=== PATIENT | female | born 1980 | race Caucasian/White ===

== ENCOUNTER 2017-06-08 23:07 | Emergency (ER) | payer MEDICAID, SELFPAY ==
[2017-06-08 23:08] VITALS: BP 147/91; PULSE 86; RESP 16; TEMP 36.5; BMI 37.5
[2017-06-08] MEDS: LORazepam 0.5 MG Tablet 1 MG PO (23:42)
[2017-06-08] MEDS: DiphenhydrAMINE 25 MG Capsule PO (23:42)
--- NOTE | 2017-06-08 23:49 | ED.DCSUM_ITS ---
- ER Visit Summary Date of Service: 06/08/17 Chief Complaint: Vertigo History of Present Illness: The patient is a 36 F who had relatively sudden onset of dizziness that feels like everything is spinning, vomiting, and diplopia. This started around 5 hours prior to arrival. She states there is also a discomfort in her right ear, however she can hear out of it and it is not ringing. She does have a headache. She has never had this before. She cannot recall what exactly she was doing when this all started. Her symptoms are worse when she turns her head and when she lies down. They are not resolved when sitting at rest, still. She is extremely anxious. Her father helps provide some of the history. He has a history of vertigo as well. Physical Examination: Blood pressure 147/91, other vital signs are normal. She is extremely anxious, however she is keenly alert and oriented, her mental status is at baseline otherwise. No signs of head trauma. Her right TM is not able to be visualized at all due to external auditory canal cerumen impaction. Her left EAC is clear and her left TM is normal. She has no mastoid tenderness , erythema, swelling. She is not able to perform extraocular movements. She turns her whole head when asked, and with multiple attempts, she covers her face and starts crying and states that she is not able. There is no obvious nystagmus while looking straight ahead. PERRLA. She has a normal peripheral neurologic exam. Her abdomen is benign, lungs are clear, heart is regular. She is obese. Her neck is supple with full range of motion without any apparent difficulty. Test Results: CT head negative Emergency Department Course and Treatment: Patient was given oral Ativan, Phenergan, Benadryl. On reevaluation, she appears and feels much better. She still has some very mild vertigo but the diplopia is gone. She has not vomited. She was given ibuprofen for headache, which is now gone. Suspect that this is likely peripheral in nature. The cerumen impaction on the right appears to be hard, and not very amenable to irrigation or physical removal. Therefore I gave her recommendations for softening the cerumen over the next week, and having her ear reevaluated at some point. Father is okay taking her home to rest. Treatment Plan: Prn Phenergan, outpatient follow-up for persistent symptoms Disposition: Discharge home Impression: Acute peripheral vertigo, unspecified Cerumen impaction right ear This note was generated with [employer] dictation software. It may contain incorrect words, spelling, and punctuation that were not noted in review of the chart prior to signing ED Disposition - Plan for ED Patient: Disposition: Home or Assisted Living Chief Complaint: Nausea/Vomiting Instructions: ED Vertigo Unspecified, ED Cerumen Impaction, Home Care Prescriptions: ProMETHAzine [Phenergan] 25 mg PO Q6H PRN PRN #15 tab PRN Reason: nausea or vertigo Referrals: Erwin Orozco MD [Primary Care Provider] - 3-5 Days if not improving
[2017-06-09] MEDS: Ibuprofen 600 MG Tablet PO (00:26)
[2017-06-09 02:07] VITALS: BP 135/73; PULSE 87; RESP 18; O2SAT 98
--- NOTE | 2017-06-09 23:28 | CT_ITS ---
STUDY: CT BRAIN WITHOUT CONTRAST REASON FOR EXAM: Female, 36 years old. Dizziness, nausea, and vomiting. Elevated blood pressure. RADIATION DOSAGE (If Supplied By Facility): CTDIvol = ( 44.99 ) mGy, DLP = ( 762.36 ) mGycm TECHNIQUE: Transaxial CT imaging of the brain was performed without administration of intravenous contrast material. Individualized dose optimization techniques were used for this CT. COMPARISON: 12/22/2008. FINDINGS: Normal soft tissue structures. Normal calvarium. Normal size ventricles and extra-axial spaces for the patient's age. Normal white matter tracts of the cerebral hemispheres. Normal basal ganglia and thalami. Normal brainstem. Normal cerebellum. There is no intracranial hemorrhage. There are no findings of an acute ischemic infarction. There is mild chronic mucoperiosteal thickening in the right maxillary sinus. There is also minimal mucoperiosteal thickening in left ethmoid sinus, consistent with chronic disease. There is complete opacification of the left maxillary sinus. There is no definite expansion of the left maxillary sinus antonio, however, there does appear to been minimal interval thinning of the posterolateral sinus wall compared with previous study. I suspect that this represents a mucocele overlying a pre-existing polyp or retention cyst. CT/Brain/Head without Contrast IMPRESSION: Normal unenhanced CT scan of the brain. Suspect a mucocele of the left maxillary sinus, overlying pre-existing polyp or retention cyst. No evidence for acute sinusitis. Electronically Signed: Doug Floyd MD at 1:56 EST , Service support ,
== END 2017-06-09 02:11 | disposition home or self-care (01) ==
PROVIDERS: Emergency Provider Emergency Medicine; Family Provider Family Medicine; PCP Family Medicine
DX: H81.399 Other peripheral vertigo, unspecified ear (principal); H61.21 Impacted cerumen, right ear; E66.9 Obesity, unspecified; G40.909 Epilepsy, unspecified, not intractable, without status epilepticus
CPT/HCPCS: 70450; 99283

== ENCOUNTER 2017-07-16 19:59 | Emergency (ER) | payer MEDICAID, SELFPAY ==
[2017-07-16 19:59] VITALS: BP 146/92; PULSE 109; RESP 20; TEMP 36.6; O2SAT 99; BMI 38.3
--- NOTE | 2017-07-16 20:30 | RAD_ITS ---
STUDY: X-RAY - RIGHT FOOT CLINICAL: Female, 36 years old. Pain TECHNIQUE: 3 view(s) of the foot. COMPARISON: None. FINDINGS: Normal talus, calcaneus, and tarsal bones. Normal visualized subtalar, talonavicular, calcaneocuboid, tarsal and tarsometatarsal articulations. Normal metatarsi. Normal metatarsophalangeal joint of the great toe. Normal tibial and fibular sesamoid bones. Normal interphalangeal joint of the great toe. Normal phalanges of the great toe. Normal second through fifth metatarsophalangeal joints. Normal interphalangeal joints and phalanges of the lesser toes. Mild soft tissue edema. RAD/Foot min 3 Views IMPRESSION: No acute bony injury of the foot. Electronically Signed: Johnnie Gallego DO at 20:54 EDT Tel [phone], Service support ,
--- NOTE | 2017-07-16 20:35 | RAD_ITS ---
STUDY: X-RAY - RIGHT ANKLE REASON FOR EXAM: Female, 36 years old. Pain TECHNIQUE: 3 view(s) of the ankle. COMPARISON: None. FINDINGS: Normal visualized distal tibia. Oblique fracture involving the distal fibula. Normal medial malleolus. Old fracture or accessory ossification distal to the tip of the lateral malleolus. Normal tibiotalar articulation and ankle mortise. Normal visualized talus and calcaneus. The visualized subtalar, talonavicular, calcaneocuboid and tarsal articulations are normal. Significant lateral soft tissue swelling RAD/Ankle min 3 Views IMPRESSION: Distal fibular fracture. Electronically Signed: Johnnie Gallego DO at 21:06 EDT Tel [phone], Service support ,
[2017-07-16] MEDS: Naproxen 500 MG Tablet PO (21:05)
[2017-07-16] MEDS: HYDROcodone Bitartrate/Apap 5/325 Tablet PO ×2 (21:05→21:48)
--- NOTE | 2017-07-16 21:34 | ED.VISSUMM ---
- ER Visit Summary Date of Service: 07/16/17 Chief Complaint: Right foot and ankle pain History of Present Illness: The patient is a 36 F who states she tripped over a curb around noon today. She has had increasing pain in the right ankle and difficulty ambulate in. She is using a walker that she had at home to help her ambulate. Physical Examination: Vital signs are unremarkable. Patient sitting upright in bed. She is tearful and anxious. Head and neck examination was no external sign of trauma. Heart is regular rate and rhythm. Lungs are grossly clear. Abdomen is soft and nontender. Lower extremity examination reveals diffuse tenderness around the right ankle. She does have edema noted. She has mild tenderness throughout the right foot. She has strong distal pulses. There is no tenderness at the proximal fibula. Test Results: Right foot x-rays reveal no acute bony injury. Right ankle x-rays reveal distal fibula fracture. Emergency Department Course and Treatment: Patient is given Naprosyn and [place] for pain. Images were transmitted to Dr. Lr via [employer]. Patient will be placed in a walking boot and is to be nonweightbearing. She is to see him in the office next week for follow-up. Patient is given a prescription for [place]. Treatment Plan: [] Disposition: Discharge Impression: Right distal fibula fracture This note was generated with [employer] dictation software. It may contain incorrect words, spelling, and punctuation that were not noted in review of the chart prior to signing ED Disposition - Plan for ED Patient: Disposition: Home or Assisted Living Chief Complaint: Lower Extremity Injury Instructions: ED Fx Ankle Lateral Malleolus Prescriptions: Hydrocodone Bitart/Apap 5-325 [[place] 5/325] 1 - 2 tablet PO Q6H PRN PRN 4 Days #20 tablet PRN Reason: Pain Referrals: Stanley Lr DO [STAFF PHYSICIAN] - 1 Week
--- NOTE | 2017-07-16 21:37 | DCINST.ED_ITS ---
ED Disposition - Plan for ED Patient: Disposition: Home or Assisted Living Chief Complaint: Lower Extremity Injury Instructions: ED Fx Ankle Lateral Malleolus Prescriptions: Hydrocodone Bitart/Apap 5-325 [[place] 5/325] 1 - 2 tablet PO Q6H PRN PRN 4 Days # 20 tablet PRN Reason: Pain Referrals: Stanley Lr DO [STAFF PHYSICIAN] - 1 Week
[2017-07-16 21:52] VITALS: BP 148/88; PULSE 95; RESP 22; O2SAT 100
== END 2017-07-16 21:59 | disposition home or self-care (01) ==
PROVIDERS: Emergency Provider Emergency Medicine; Family Provider Family Medicine; PCP Family Medicine
DX: S82.831A Other fracture of upper and lower end of right fibula, initial encounter for closed fracture (principal); E66.9 Obesity, unspecified; W18.49XA Other slipping, tripping and stumbling without falling, initial encounter; Y93.01 Activity, walking, marching and hiking; Y92.89 Other specified places as the place of occurrence of the external cause; Y99.8 Other external cause status
CPT/HCPCS: 73610; 73630; 99284

== ENCOUNTER → 2017-07-26 13:09 | Outpatient (CLI) | payer MEDICAID, SELFPAY ==
--- NOTE | 2017-07-26 13:11 | RAD_ITS ---
STUDY: X-RAY - RIGHT ANKLE REASON FOR EXAM: Female, 36 years old. Fibular fracture TECHNIQUE: 3 view(s) of the ankle. COMPARISON: 07/16/2017. FINDINGS: When compared with the prior exam, there is no significant change in the previously seen fracture of the right distal fibula. There is a stable old fracture of the lateral malleolus. There is no acute fracture or dislocation. There is stable soft tissue swelling. There are no radiodense foreign bodies. RAD/Ankle min 3 Views IMPRESSION: No significant change when compared with 07/16/2017. Electronically Signed: Markos Bennett, at 23:55 EDT Tel , Service support ,
== END ==
PROVIDERS: Family Provider Family Medicine; PCP Family Medicine; Visit Provider Orthopaedic Surgery
DX: S82.401A Unspecified fracture of shaft of right fibula, initial encounter for closed fracture (principal)
CPT/HCPCS: 73610

== ENCOUNTER → 2017-08-09 08:18 | Outpatient (CLI) | payer MEDICAID, SELFPAY ==
--- NOTE | 2017-08-09 08:22 | RAD_ITS ---
STUDY: X-RAY - RIGHT ANKLE REASON FOR EXAM: Female, 36 years old. Fracture follow-up TECHNIQUE: 3 view(s) of the ankle. COMPARISON: 07/26/2017 FINDINGS: There is no change in alignment to the distal fibular fracture. Normal visualized talus and calcaneus. The visualized subtalar, talonavicular, calcaneocuboid and tarsal articulations are normal. There is mild lateral soft tissue swelling. RAD/Ankle min 3 Views IMPRESSION: Distal fibular fracture without change in alignment. Electronically Signed: Arnoldo Urias DO at 10:26 EDT Tel , Service support ,
== END ==
PROVIDERS: Family Provider Family Medicine; PCP Family Medicine; Visit Provider Orthopaedic Surgery
DX: S82.831A Other fracture of upper and lower end of right fibula, initial encounter for closed fracture (principal)
CPT/HCPCS: 73610

== ENCOUNTER → 2017-08-28 09:47 | Outpatient (CLI) | payer MEDICAID, SELFPAY ==
--- NOTE | 2017-08-28 09:49 | RAD_ITS ---
STUDY: X-RAY - RIGHT ANKLE REASON FOR EXAM: Female, 36 years old. History of distal fibular fracture. TECHNIQUE: 3 view(s) of the ankle. COMPARISON: Comparison is made with prior examination of August 09, 2017. FINDINGS: Stable appearance of the oblique fracture of the distal fibula. Healing is seen. Stable appearance of the avulsed fracture of the lateral malleolus. Normal medial and lateral malleoli. Normal tibiotalar articulation and ankle mortise. Normal visualized talus and calcaneus. The visualized subtalar, talonavicular, calcaneocuboid and tarsal articulations are normal. Persistent soft tissue swelling. RAD/Ankle min 3 Views IMPRESSION: Since prior study, there is some healing of the distal fibular fracture. Electronically Signed: Doe Enriquez MD at 14:01 EDT Tel [phone], Service support ,
== END ==
PROVIDERS: Family Provider Family Medicine; PCP Family Medicine; Visit Provider Orthopaedic Surgery
DX: S82.831A Other fracture of upper and lower end of right fibula, initial encounter for closed fracture (principal)
CPT/HCPCS: 73610

== ENCOUNTER 2017-10-23 12:00 | Outpatient (RCR) | payer MEDICAID, SELFPAY ==
--- NOTE | 2017-09-17 13:51 | HP.PTEVAL ---
Patient's Visit Information JANETH PENNY is a 36 year old F referred to Physical Therapy by Stanley Lr DO with a diagnosis of R ankle Fx. Date of Evaluation: 09/17/17 Physical Therapist: Richard aGr PT, - Visit Plan Frequency: 1-2x /Week Duration: 6 Weeks Plan: R ankle stretching and strengthening, balance and proprio, core stab, bike, and HEP - Subjective Subjective: DOI: 07/16/17. Pt reports she twisted her R ankle whivh resulted in a fx to her R ankle at that time. Pt reports she wasin a walking boot for approximately 6 weeks. Pt reports she is very stiff at this time. Pt reports she is supposed to wean out of the boot now when she is at home. Pt reports she lives with a friend in an appartment. Pt reports she has occasional sleep diff at this time. 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 No stairs at home. 5/10 at rest. - Pain R ankle Pain Intensity (Out of 10): 5 - Objective Neuro: R LE lateral sensation is hyposensitive to light touch. All others are WNL. ROM: L ankle DF= 7, PF= 60; R ankle DF= -12, PF= 45. MMT: L ankle is 5/5 throughout; R ankle 3-/5 and painful with all testing. Gait; Pt is able to ambulate 120 ft with boot until noting fatigue - Goals Goal 1:: Decrease R ankle pain x 50% to aid with sleep Goal Time Frame: 4-6 Weeks Goal 2:: Increase R ankle DF ROM x 10 degrees to aid with restoring a more normal gait pattern Goal Time Frame: 4-6 Weeks Goal 3:: Increase R ankle strength x 1 grade to aid with walking tolerance Goal Time Frame: 4-6 Weeks Goal 4:: I with HEP Goal Time Frame: 4-6 Weeks - Rehabilitation Potential Physical Therapy Diagnosis: R ankle weakness, pain, and limited ROM secondary to R ankle Fx Rehabilitation Potential: Good - Anticipated Interventions Patient/Client Instruction: Educate patient on: Condition, Plan of Care For the Purpose of:: To improve self management Therapeutic Exercise to Include: Strength training, Endurance training, Balance training, Flexibilty training, Gait and locomotor training, Active ROM, Dynamic Lumbar Stabilization For the Purpose of:: To decrease pain, To increase ROM, To improve muscle performance and motor function Cryotherapy (ice pack, ice massage): Yes For the Purpose of:: To decrease pain Thank you for the opportunity to evaluate your patient. For Medicare and Medicare HMO plans, please review the plan of care and approve it. It will need to be FAXED BACK to us at [phone] for Medicare purposes. Please let me know if there are questions or concerns regarding this plan of care. Physician Signature: Date:
--- NOTE | 2017-10-23 13:03 | HP.PTDCSUM_ITS ---
HP - PT D/C Summary It has been my pleasure to treat JANETH PENNY under orders from Stanley Lr DO, for the diagnosis of R ankle Fx for a total of 13 visit(s). Discharge Date: Please see the following information for a summary of their discharge status. - Subjective Subjective: Pt reports she has no pain this date - Pain R ankle Pain Intensity (Out of 10): 0 - Objective Objective/Function: R ankle pain 0/10. R ankle DF= 0, PF= 35. R ankle MMT: 5/ 5 throughout. Pt is I with HEP. Rx goals achieved - Goals Goal 1:: Decrease R ankle pain x 50% to aid with sleep Goal Progress: Goal Met Goal 2:: Increase R ankle DF ROM x 10 degrees to aid with restoring a more normal gait pattern Goal 3:: Increase R ankle strength x 1 grade to aid with walking tolerance Goal 4:: I with HEP Goal Progress: Goal Met - Plan Plan: Discharge - D/C Information If there are questions or concerns regarding this patient's physical therapy, please feel free to call me at [phone]. Thank you for the referral of this patient. Sincerely, Richard Gar, PT,
== END 2017-10-23 19:00 | disposition home or self-care (01) ==
LOC: PT 12:00
PROVIDERS: Family Provider Family Medicine; PCP Family Medicine; Visit Provider Orthopaedic Surgery
DX: S82.891D Other fracture of right lower leg, subsequent encounter for closed fracture with routine healing (principal)
CPT/HCPCS: 97110; 97161; 97162; 97530; G8978; G8979

== ENCOUNTER → 2018-02-20 08:58 | Outpatient (CLI) | payer MEDICAID, SELFPAY ==
[2018-02-20 09:22] LABS: Absolute Lymphocyte Count 2.31 X10^3/ul (0.83-4.51); Absolute Neutrophil Count 2.6 X10^3/uL (2.0-7.7); Basophil# 0.02 X10^3/uL; Basophil% 0.4 % (0-1); Eosinophil# 0.14 X10^3/uL; Eosinophils% 2.5 % (0-5); Hematocrit 39.9 % (37-47); Hemoglobin 13.8 g/dl (12.0-15.0); Lymphocyte # 2.31 X10^3/ul (4.0); Lymphocyte % 40.5 % (19-41); Mean Corp Hgb Conc 34.6 g/gl (32-36); Mean Corpuscular Volume 86.7 fL (81-99); Mean Platelet Vol. 9.1 fl (6.2-12.0); Monocyte% 10.5 % (0-10); Neutrophil # 2.63 X10^3/uL (2.7-7.7); Neutrophil % 45.9 % (47-70); Platelet Count 289 K/mm3 (150-450); RBC Distribution Width CV 12.9 % (11.6-14.6); RBC Distribution Width SD 40.4 fl (35.1-43.9); White Blood Count 5.7 K/mm3 (4.4-11.0)
[2018-02-20 09:23] LABS: POSITIVE COUNT NO; POSITIVE DIFFERENTIAL NO; POSITIVE MORPHOLOGY NO
[2018-02-20 09:43] LABS: Carbamazepine (Tegretol) 11.6 ug/mL (4.0-12.0)
[2018-02-20 09:48] LABS: ALB/GLOB Ratio 0.9 RATIO (0.9-2.4); AST(SGOT) 20 U/L (15-37); Alanine Aminotransfer ALT/SGPT 22 U/L (13-56); Albumin, Serum 3.5 g/dL (3.2-5.0); Alkaline Phosphatase 109 U/L (45-117); Anion Gap 9 (5-15); BUN 9 mg/dL (7-18); BUN/Creat Ratio 13.7 RATIO (10-20); Calcium,Total 8.5 mg/dL (8.5-10.1); Chloride 107 mmol/L (98-107); Cholesterol 214 mg/dL (200); Creatinine, Serum 0.66 mg/dL (0.55-1.02); EST Glomerular Filtration Rate 107 mL/min (>60); Est Glom Filt Rate - Afr Amer 130 mL/min (>60); Globulin 4.1 g/dL (2.2-4.2); Glucose 92 mg/dL (74-106); High Density Lipoprotein 36 mg/dL; Potassium 4.2 mmol/L (3.5-5.1); Protein, Total 7.6 g/dL (6.4-8.2); Sodium Level 140 mmol/L (136-145); Triglycerides 105 mg/dL; Very Low Density Lipoprotein 21 mg/dL (5-40)
== END ==
PROVIDERS: Family Provider Family Medicine; PCP Family Medicine; Referring Provider Family Medicine; Visit Provider Family Medicine
DX: Z00.01 Encounter for general adult medical examination with abnormal findings (principal); D64.9 Anemia, unspecified; G40.319 Generalized idiopathic epilepsy and epileptic syndromes, intractable, without status epilepticus
CPT/HCPCS: 36415; 80053; 80061; 80156; 85025

== ENCOUNTER → 2018-12-15 | Outpatient (CLI) | payer MEDICAID, SELFPAY ==
[2018-12-15 08:47] LABS: Absolute Lymphocyte Count 2.63 X10^3/uL (0.83-4.51); Basophil# 0.03 X10^3/uL; Basophil% 0.4 % (0-1); Eosinophil# 0.19 X10^3/uL; Eosinophils% 2.5 % (0-5); Hematocrit 40.4 % (37-47); Hemoglobin 13.2 g/dL (12.0-15.0); Lymphocyte # 2.63 X10^3/ul (4.0); Lymphocyte % 34.9 % (19-41); Mean Corp Hgb Conc 32.7 g/dL (32-36); Mean Corpuscular Hgb 29.1 pg (27.0-32.0); Mean Corpuscular Volume 89.2 fL (81-99); Mean Platelet Vol. 9.8 fl (6.2-12.0); Monocyte# 0.66 X10^3/uL; Monocyte% 8.8 % (0-10); NRBC Flagged by Analyzer 0 % (0-5); Neutrophil # 3.99 X10^3/uL (2.7-7.7); Platelet Count 251 K/mm3 (150-450); RBC Distribution Width CV 12.4 % (11.6-14.6); RBC Distribution Width SD 40.5 fl (35.1-43.9); Red Blood Count 4.53 M/mm3 (4.2-5.4); White Blood Count 7.5 K/mm3 (4.4-11.0)
[2018-12-15 09:10] LABS: Carbamazepine (Tegretol) 9.9 ug/mL (4.0-12.0)
[2018-12-15 09:29] LABS: AST(SGOT) 16 U/L (15-37); Alanine Aminotransfer ALT/SGPT 22 U/L (13-56); Albumin, Serum 3.5 g/dL (3.2-5.0); Alkaline Phosphatase 107 U/L (45-117); Anion Gap 10 (5-15); BUN 8 mg/dL (7-18); BUN/Creat Ratio 11.4 RATIO (10-20); Calcium,Total 8.5 mg/dL (8.5-10.1); Chloride 109 mmol/L (98-107); EST Glomerular Filtration Rate 99 mL/min (>60); Est Glom Filt Rate - Afr Amer 120 mL/min (>60); Globulin 3.6 g/dL (2.2-4.2); Glucose 94 mg/dL (74-106); Potassium 3.8 mmol/L (3.5-5.1); Protein, Total 7.1 g/dL (6.4-8.2); Sodium Level 144 mmol/L (136-145); T3 Uptake 31 % (30-39); T4 Free Direct 0.78 ng/dL (0.76-1.46); T4 Total, Thyroxin 7.3 ug/dL (4.8-13.9); T7 / Free Thyroxin Index 2.3 (1.4-4.5); Thyroid Stim Hormone (TSH) 1.75 uIU/mL (0.358-3.74)
[2018-12-22 12:37] LABS: KEPPRA (LEVETIRACETAM) 14.6 ug/mL (10.0-40.0)
== END | disposition home or self-care (01) ==
PROVIDERS: Family Provider Family Medicine; PCP Family Medicine; Referring Provider Psychiatry & Neurology Neurology; Visit Provider Psychiatry & Neurology Neurology
DX: G40.909 Epilepsy, unspecified, not intractable, without status epilepticus (principal); G47.429 Narcolepsy in conditions classified elsewhere without cataplexy; R53.83 Other fatigue
CPT/HCPCS: 36415; 80053; 80156; 80177; 82306; 84436; 84439; 84443; 84479; 85025

== ENCOUNTER 2019-08-13 16:06 | Inpatient (IN) | payer MEDICAID, SELFPAY ==
[2019-02-17 15:58] VITALS: BMI 38.3
[2019-08-13] VITALS (9 sets, daily range): BP systolic 111–143; BP diastolic 66–100; PULSE 70–95; RESP 16–24; TEMP 35.9–36.7; O2SAT 98–100; BMI 49.2; BMI 47.8; BMI 47.9
[2019-08-13] MEDS: Ondansetron 4 MG/2 ML Vial IV (16:54)
[2019-08-13] MEDS: fentaNYL 100 MCG/2 ML Ampul IV (16:54)
--- NOTE | 2019-08-13 16:55 | ED.VISSUMM ---
- ER Visit Summary Date of Service: 08/13/19 Chief Complaint: Right ankle pain History of Present Illness: The patient is a 38 F presenting with right ankle pain after fall. Patient states she twisted her ankle and fell. She was unable to get up. She was brought in by EMS. She did not hit her head or lose consciousness. No other injuries. Physical Examination: Vitals are stable. Patient is afebrile. Alert no acute distress. HEENT exam is unremarkable. Neck is nontender Lungs are clear and equal bilaterally. Heart is regular rate and rhythm. Abdomen is soft nontender nondistended. Extremities diffuse right ankle tenderness and swelling. Normal pulse. Skin is warm and dry. No focal neurologic deficit. Remainder of exam is unremarkable. Emergency Department Course and Treatment: Patient was given fentanyl, Zofran IV. Right ankle xray shows there is bimalleolar fracture dislocation of the ankle. Patient was consented for procedural sedation. She was given propofol IV. Closed reduction was performed and orthoglass splint was applied. Repeat xray shows significantly improved position and alignment of fractures. Discussed with Dr Barba and patient will be admitted. Disposition: Admission Impression: Right bimalleolar ankle fracture dislocation This note was generated with [employer] dictation software. It may contain incorrect words, spelling, and punctuation that were not noted in review of the chart prior to signing ED Disposition - Plan for ED Patient: Disposition: Acute Care [facility]
--- NOTE | 2019-08-13 17:05 | RAD_ITS ---
STUDY: X-RAY - RIGHT ANKLE REASON FOR EXAM: Female, 38 years old. INJURY TECHNIQUE: 3 view(s) of the ankle. COMPARISON: None. FINDINGS: There is bimalleolar fracture dislocation of the ankle. There is oblique posterior displaced distal fibular fracture, and distracted fracture of the medial malleolus. Dorsal dislocation of the talus. No definite widening of the ankle joint. Normal visualized talus and calcaneus. The visualized subtalar, talonavicular, calcaneocuboid and tarsal articulations are normal. There is diffuse soft tissue swelling. RAD/Ankle min 3 Views IMPRESSION: There is bimalleolar fracture dislocation of the ankle. Electronically Signed: Flakito Page MD at 17:37 EDT , Service support ,
--- NOTE | 2019-08-13 17:51 | RAD_ITS ---
STUDY: X-RAY - RIGHT ANKLE REASON FOR EXAM: Female, 38 years old. RIGHT ankle post reduction TECHNIQUE: 3 view(s) of the ankle. COMPARISON: Radiographs of earlier today. FINDINGS: Splint obscures bone detail. Previously described fracture dislocation of the ankle has been reduced into significantly improved position and alignment. No residual dislocation. RAD/Ankle min 3 Views IMPRESSION: Significantly improved position and alignment of fractures. Electronically Signed: Flakito Page MD at 18:23 EDT , Service support ,
[2019-08-13] MEDS: Propofol 200 MG/20 ML Vial IV BOLUS (18:19)
[2019-08-13 18:24] LABS: Absolute Lymphocyte Count 4.43 X10^3/uL (0.83-4.51); Absolute Neutrophil Count 3.6 X10^3/uL (2.0-7.7); Basophil# 0.03 X10^3/uL; Basophil% 0.3 % (0-1); Eosinophil# 0.19 X10^3/uL; Eosinophils% 2.1 % (0-5); Hematocrit 40.5 % (37-47); Hemoglobin 13.7 g/dL (12.0-15.0); Lymphocyte # 4.43 X10^3/ul (4.0); Lymphocyte % 49.2 % (19-41); Mean Corp Hgb Conc 33.8 g/dL (32-36); Mean Corpuscular Hgb 30.4 pg (27.0-32.0); Mean Corpuscular Volume 89.8 fL (81-99); Mean Platelet Vol. 9.9 fl (6.2-12.0); Monocyte# 0.76 X10^3/uL; Monocyte% 8.4 % (0-10); NRBC Flagged by Analyzer 0 % (0-5); Neutrophil # 3.56 X10^3/uL (2.7-7.7); Neutrophil % 39.6 % (47-70); Platelet Count 293 K/mm3 (150-450); RBC Distribution Width CV 12.2 % (11.6-14.6); RBC Distribution Width SD 39.8 fl (35.1-43.9); Red Blood Count 4.51 M/mm3 (4.2-5.4)
[2019-08-13 18:59] LABS: Anion Gap 7 (5-15); BUN 15 mg/dL (7-18); BUN/Creat Ratio 21.8 RATIO (10-20); Calcium,Total 9.1 mg/dL (8.5-10.1); Chloride 107 mmol/L (98-107); Creatinine, Serum 0.69 mg/dL (0.55-1.02); EST Glomerular Filtration Rate 101 mL/min (>60); Est Glom Filt Rate - Afr Amer 122 mL/min (>60); Estimated Creatinine Clearance 102.47 ml/min; Glucose 98 mg/dL (74-106); Potassium 3.8 mmol/L (3.5-5.1); Sodium Level 142 mmol/L (136-145)
--- NOTE | 2019-08-13 19:45 | EKG12_ITS ---
Test Reason : AM EKG- PRE OP Blood Pressure : / mmHG Vent. Rate : 112 BPM Atrial Rate : 112 BPM P-R Int : 198 ms QRS Dur : 066 ms QT Int : 306 ms P-R-T Axes : 043 012 035 degrees QTc Int : 417 ms Sinus tachycardia Low voltage QRS Borderline ECG When compared with ECG of 22-DEC-2008 18:10, TX interval has decreased Confirmed by GARLAND MADRIGAL, ROMEO ([id number]), photographic editor LIZZ CESPEDES ([id number]) on 08/17/2019 3:20:56 PM Referred By: DOV Confirmed By:ROMEO HAQUE MD
--- NOTE | 2019-08-13 19:50 | RAD_ITS ---
STUDY: X-RAY - RIGHT TIBIA AND FIBULA REASON FOR EXAM: Female, 38 years old. Right leg pain after fall TECHNIQUE: 2 view(s) of the tibia and fibula were obtained. COMPARISON: Numerous prior studies of earlier today. FINDINGS: Cast obscures bone detail. Fractures of distal tibia and fibula again seen, stable. Normal proximal tibial and fibular metaphyses and shafts. Diffuse soft tissue swelling. RAD/Tibia & Fibula 2 Views IMPRESSION: Stable appearance of fractures of the distal fibula and medial malleolus with continued mild displacement. Electronically Signed: Flakito Page MD at 21:46 EDT , Service support ,
--- NOTE | 2019-08-13 19:50 | RAD_ITS ---
STUDY: X-RAY - RIGHT FOOT CLINICAL: Female, 38 years old. Right foot pain after fall. Patient has known ankle fractures. TECHNIQUE: 4 view(s) of the foot. COMPARISON: None. FINDINGS: Cast obscures bone detail. Normal talus, calcaneus, and tarsal bones. Normal visualized subtalar, talonavicular, calcaneocuboid, tarsal and tarsometatarsal articulations. Normal metatarsi. Normal metatarsophalangeal joint of the great toe. Normal tibial and fibular sesamoid bones. Normal interphalangeal joint of the great toe. Normal phalanges of the great toe. Normal second through fifth metatarsophalangeal joints. Normal interphalangeal joints and phalanges of the lesser toes. The soft tissue structures are unremarkable. RAD/Foot min 3 Views IMPRESSION: Normal x-ray examination of the foot. Electronically Signed: Flakito Page MD at 22:01 EDT , Service support ,
--- NOTE | 2019-08-13 19:51 | PCM.HP.STD ---
Problem List (1) Bimalleolar fracture of right ankle Status: Acute Qualifiers: Encounter type: initial encounter Fracture type: closed Qualified Code(s): S82.841A - Displaced bimalleolar fracture of right lower leg, initial encounter for closed fracture (2) Walking difficulty due to ankle and foot Status: Acute (3) Keeps losing balance Status: Chronic History of Present Illness Date of Admission: 08/13/19 Chief Complaint: Right ankle fracture The patient is a 38 year old F with significant past medical history of seizure disorder followed [place] earlier this evening. This was a mechanical fall over a step up in the parking area. She denies loss of consciousness, dizziness, or head trauma at the time of the fall. She mainly fell and twisted her right ankle however also reports that she fell on her left ankle which also has some bruising. She was taken to the emergency room via squad and it was reduced under sedation. She relates she has a long history of ankle sprains and ankle fractures which have all been treated conservatively. She relates she is her own guardian and plans to sign all of her consents. She is very anxious during the examination. Past Medical History Past Medical History (Chronic Problems): Chronic Problems (Last Updated 02/17/19 @ 11:15 by Marleny Berrios) Keeps losing balance (Chronic) Medical History: Medical History (Last Updated 02/17/19 @ 11:15 by Marleny Berrios) Seizures R56.9 Allergies Penicillins Allergy (Verified 08/13/19 16:13) Unknown tomato Adverse Reaction (Verified 08/13/19 16:13) Diarrhea Home Medications: Ambulatory Orders Medication Instructions Recorded Carbamazepine 200 mg PO BID 08/13/19 Carbamazepine [Carbamazepine ER] 400 mg PO BID 08/13/19 Ergocalciferol (Vitamin D2) 50,000 unit PO MO 08/13/19 [Vitamin D2] Ferrous Sulfate 325 mg PO DAILY@0800 08/13/19 Lacosamide [Vimpat] 200 mg PO BID 08/13/19 Levetiracetam 750 mg PO BID 08/13/19 Meloxicam 15 mg PO DAILY 08/13/19 Multivitamin [Daily Vitamin 1 tab PO DAILY 08/13/19 Formula] Omeprazole 20 mg PO DAILY 08/13/19 Sertraline HCl [Zoloft] 50 mg PO DAILY 08/13/19 Surgical History: no surgical history Smoking Status: Never smoker Review of Systems Constitutional: Denies: Chills, Fever HEENT: Denies: Sore Throat Cardiovascular: Reports: Edema. Denies: Chest Pain, Claudication Respiratory: Denies: Cough, Shortness of Breath Gastrointestinal: Denies: Nausea Musculoskeletal: Reports: Leg Pain Skin: Denies: Wounds Neurological: Reports: Numbness - Weakness and loss of full strength and feeling to the right foot and ankle at this time Psychiatric: Reports: Anxiety Hematologic/ Lymphatic: Reports: Easy Bruising. Denies: Hx of blood clot VTE Information - Inpt Only VTE Present on Admission: No VTE Mechan Device Prophylaxis: SCD's VTE Pharm Prophylaxis ordered?: Yes Patient Problems: Active and Suspected Problems (Last Updated 02/17/19 @ 11:15 by Marleny Berrios) Bimalleolar fracture of right ankle (Acute) Walking difficulty due to ankle and foot (Acute) - Physical Exam Vitals/I&O's: Vital Signs Temp Pulse Resp BP Pulse Ox 98.1 F 90 16 130/100 H 98 08/13/19 19:40 08/13/19 19:40 08/13/19 19:40 08/13/19 19:40 08/13/19 19:40 Oxygen Delivery Method [6] Room Air Oxygen Delivery Method [5] Room Air Oxygen Delivery Method [4] Room Air Oxygen Delivery Method [3] Room Air Oxygen Delivery Method [1 ( Room Air Initial Baseline)] Oxygen Delivery Method Room Air Weight: 138.4 kg Body Mass Index (BMI) 49.2 General: Alert, Oriented x3, Cooperative, - - Anxious HEENT: Atraumatic, EOMI Oral: Moist Mucosa Lungs: Clear to auscultation Cardiovascular: Regular rate, Regular Rhythm Extremities: No cyanosis, No Calf Tenderness - Negative Baum right, Edema - Edema bilateral lower extremities, Peripheral Pulses Normal - Palpable DP pulse bilateral Skin: - - No strikethrough or drainage apparent through the splint and dressing to the right lower extremity. The posterior mold and sugar tong splint was left intact to the right lower extremity postreduction there is an ecchymosis to the contralateral left ankle that is diffuse and faint Neurological: Sensory exam intact to light touch and pain - Diminished sensation to the right foot digits Psych/Mental Status: Normal Affect, Appropriate, Anxious Laboratory Results 08/13/19 16:57: WBC 9.0, RBC 4.51, Hgb 13.7, Hct 40.5, MCV 89.8, MCH 30.4, MCHC 33.8, RDW Std Deviation 39.8, RDW Coeff of Inna 12.2, Plt Count 293, MPV 9.9, Immature Gran % (Auto) 0.400, Neut % (Auto) 39.6 L, Lymph % (Auto) 49.2 H, [place] % (Auto) 8.4, Eos % (Auto) 2.1, Baso % (Auto) 0.3, Absolute Neuts (auto) 3.6, Absolute Lymphs (auto) 4.43, Nucleated RBC % 0 08/13/19 16:57: Sodium 142, Potassium 3.8, Chloride 107, Carbon Dioxide 28.0, Anion Gap 7, BUN 15, Creatinine 0.69, Estim Creat Clear Calc 102.47, Est GFR (MDRD) Af Amer 122, Est GFR (MDRD) Non-Af 101, BUN/Creatinine Ratio 21.8 H, Glucose 98, Calcium 9.1 Current Medications Docusate Sodium (Colace) 200 mg PO BID PRN PRN PRN Reason: Constipation Lactated Ringer's () 1,000 mls @ 100 mls/hr IV .Q10H LUCIA Ondansetron HCl (Zofran) 4 mg IV Q8H PRN PRN PRN Reason: Nausea Assessment/Plan All Active Problems (Last Updated 02/17/19 @ 11:15 by Marleny Berrios) Bimalleolar fracture of right ankle (Acute) Walking difficulty due to ankle and foot (Acute) URI, acute (Acute) Pharyngitis, acute (Acute) Right by malleolus ankle fracture dislocation following mechanical fall Balance loss and continued fall risk Seizure history Obesity I reviewed her case and her x-rays. She has apparent spiral oblique fibula fracture with prior avulsion fracture of the distal fibula as well. There is also a transverse fracture of the medial malleolus with dislocation of the talus and the tibia. She was reduced in the emergency room and successfully splinted. This is an unstable fracture pattern and I recommend open reduction internal fixation. She is amendable to proceed with this during this hospital admission. I ordered an additional tibia-fibula and foot x-rays on the right lower extremity given that during the time of evaluation she denies being able to feel her leg like normal. She also relates that she was fell on her left leg and has some minor bruising on that side at the ankle level. Therefore, an x-ray was ordered for the left ankle and the results are pending. The preoperative indication, planned procedure, possible benefits, risk, complications, and anticipated healing time management were discussed in detail with patient. She understands elects proceed with surgery. No guarantees are made. She understands risk and complications may include but not limited to following: Pain, swelling, scarring, need for further surgery, delayed or nonhealing, hardware failure, blood clot, allergic reaction, loss of limb, function, life. Surgical consent and limb will be signed. The consent will include right lower extremity open reduction internal fixation with potential external fixation placement. I recommend performing the procedure tomorrow at [facility] if she is cleared and there is operating room availability. She will be n.p.o. anticoagulation medication will be started after surgical intervention. The anticipated anesthesia is general with lower extremity regional block. Consultation with hospitalist service will be requested for medical clearance and presurgical optimization given her significant past medical history of seizures. She is very anxious at the evaluation in the emergency room and I would like to obtain her medical records from her primary care physician. She is able to participate in the exam however is not able to provide full information about her medical history. It appears she was previously seen by Dr. Orozco and potentially Dr. Mills. This consultation is greatly appreciated. Her preoperative labs including CMP and CBC were reviewed without gross abnormalities. EKG pending. She has a history of prior fractures and I recommend checking for vitamin D deficiency; this test was ordered. She does demonstrate some signs of decreased cognitive communication however there is no formal documentation per chart review. I have confirmed with her that she is her own guardian and does not have a power of personal injury attorney for medical decisions or consents. I have also called her significant other, Ritchie, to review her case. I left him a message requesting he calls back to discuss her case and treatment plan. I answered her questions. Please do not hesitate to call if you have any questions. Nery Barba DPM, [facility] [phone] Essential Procedure Criteria Procedure Essential: Yes Criteria Note: This injury is limb threatening and is considered unstable if left unrepaired. Risk to Patient if Procedure Delayed: Presence of severe symptoms causing an inability to perform ADL's
[2019-08-13 20:13] LABS: Vitamin D,25 Hydroxy 50.5 ng/mL
--- NOTE | 2019-08-13 21:12 | RAD_ITS ---
STUDY: X-RAY - LEFT ANKLE REASON FOR EXAM: Female, 38 years old. Left ankle pain after fall TECHNIQUE: 3 view(s) of the ankle. COMPARISON: None. FINDINGS: Normal visualized distal tibia and fibula. Normal medial and lateral malleoli. Normal tibiotalar articulation and ankle mortise. Normal visualized talus and calcaneus. The visualized subtalar, talonavicular, calcaneocuboid and tarsal articulations are normal. There is no demonstrated fracture. There is lateral soft tissue swelling. RAD/Ankle min 3 Views IMPRESSION: No acute fracture or dislocation. Electronically Signed: Flakito Page MD at 22:00 EDT , Service support ,
[2019-08-13] MEDS: oxyCODONE 5 MG Tablet 10 MG PO (22:02)
--- NOTE | 2019-08-13 22:56 | PCM.PROGNOTE ---
Patient Problems: Active and Suspected Problems (Last Updated 02/17/19 @ 11:15 by Marleny Berrios) Bimalleolar fracture of right ankle (Acute) Walking difficulty due to ankle and foot (Acute) Subjective: patient was seen and examined at the request of Podiatry today for medical management of this patient, she was admitted through the emergency room at [facility] today after sustaining a fall at home when she tripped, she suffered a bimalleolar fracture with dislocation of the right ankle. Patient has a past medical history of seizure disorder and is currently on 3 different medications for seizure, patient states that she has had seizures since she was a child. Patient has apparent cognitive impairment (? MRDD)-she lives with her significant other. Patient states that she was seeing a neurologist in [place] for her seizure medications but this neurologist has since retired and his practice was taken over by a female physician as she has not seen this physician. She states she cannot remember exactly when she last had a seizure. Patient denies any history of cardiac issues including chest pain, shortness of breath, or palpitations. Patient denies any lung problems such as asthma, COPD, or obstructive sleep apnea. - Physical Exam Vitals/I&O's: Vital Signs Temp Pulse Resp BP Pulse Ox 98.1 F 92 20 H 143/81 H 100 08/13/19 20:15 08/13/19 20:15 08/13/19 20:15 08/13/19 20:15 08/13/19 20:15 Oxygen Delivery Method [6] Room Air Oxygen Delivery Method [5] Room Air Oxygen Delivery Method [4] Room Air Oxygen Delivery Method [3] Room Air Oxygen Delivery Method [1 ( Room Air Initial Baseline)] Oxygen Delivery Method Room Air Weight: 135.1 kg Body Mass Index (BMI) 47.8 General: Alert, Oriented x3, Cooperative, No apparent distress, Well developed, Well nourished HEENT: Atraumatic, PERRLA, EOMI, Normocephalic Oral: Moist Mucosa Neck: Supple, No JVD, Negative Carotid Bruits, No Nuchal Rigidity, Trachea Midline, Thyroid Normal Size and Texture Lungs: Clear to auscultation, Normal air movement, No rhonchi, No wheeze, No rales Cardiovascular: Regular rate, Regular Rhythm, Normal S1, Normal S2, No murmurs, PMI Normal, No rub noted Abdomen: Bowel Sounds Present, Soft, Non Tender, Non-Distended, Obese Extremities: No clubbing, No cyanosis, Capillary Refill Less than 3 Seconds, - - Patient's right lower leg is enclosed in a splint Skin: No rashes, No breakdown Neurological: Cranial nerves II-XII grossly intact, Neuro grossly intact, Sensory exam intact to light touch and pain, Coordination normal Psych/Mental Status: Appropriate, - - Patient has signs of mild cognitive impairment, she answers questions appropriately. Laboratory Results 08/13/19 16:57: WBC 9.0, RBC 4.51, Hgb 13.7, Hct 40.5, MCV 89.8, MCH 30.4, MCHC 33.8, RDW Std Deviation 39.8, RDW Coeff of Inna 12.2, Plt Count 293, MPV 9.9, Immature Gran % (Auto) 0.400, Neut % (Auto) 39.6 L, Lymph % (Auto) 49.2 H, [place] % (Auto) 8.4, Eos % (Auto) 2.1, Baso % (Auto) 0.3, Absolute Neuts (auto) 3.6, Absolute Lymphs (auto) 4.43, Nucleated RBC % 0 08/13/19 16:57: Sodium 142, Potassium 3.8, Chloride 107, Carbon Dioxide 28.0, Anion Gap 7, BUN 15, Creatinine 0.69, Estim Creat Clear Calc 102.47, Est GFR (MDRD) Af Amer 122, Est GFR (MDRD) Non-Af 101, BUN/Creatinine Ratio 21.8 H, Glucose 98, Calcium 9.1 08/13/19 16:57: Vitamin D 25-Hydroxy 50.5 Current Medications Carbamazepine (Tegretol Xr) 400 mg PO BID LUCIA Carbamazepine (Tegretol) 200 mg PO BID LUCIA Docusate Sodium (Colace) 200 mg PO BID PRN PRN PRN Reason: Constipation Lactated Ringer's () 1,000 mls @ 100 mls/hr IV .Q10H LUCIA Clindamycin Phosphate 600 mg/ (Dextrose) 54 mls @ 100 mls/hr IV PREOP ONE Stop: 08/14/19 08:32 Sodium Chloride () 250 mls @ 15 mls/hr IV .[id number] PRN PRN Reason: Saline Flush Sodium Chloride () 250 mls @ 15 mls/hr IV .[id number] PRN PRN Reason: Additional IVPB Infusion Lacosamide (Vimpat) 200 mg PO BID LUCIA Levetiracetam (Keppra Tablet) 750 mg PO BID LUCIA Lorazepam (Ativan) 1 mg PO Q8H PRN PRN PRN Reason: ANXIETY Morphine Sulfate () 2 - 4 mg IV Q3H PRN PRN PRN Reason: Pain Score 1-10/10 Ondansetron HCl (Zofran) 4 mg IV Q8H PRN PRN PRN Reason: Nausea Oxycodone HCl (Oxyir) 10 mg PO Q6H PRN PRN PRN Reason: Pain Score 4-10/10 Last Admin: 08/13/19 22:02 Dose: 10 mg Documented by: Pantoprazole Sodium (Protonix) 20 mg PO DAILY LUCIA Sertraline HCl (Zoloft) 50 mg PO DAILY LUCIA Sodium Chloride () 10 - 40 ml IV UD PRN PRN Reason: SALINE FLUSH Temazepam (Restoril) 15 mg PO DAILY PRN PRN Reason: SLEEP Medical Necessity - Tobacco Use Smoking Status: Never smoker Assessment/Plan All Active Problems (Last Updated 02/17/19 @ 11:15 by Marleny Berrios) Bimalleolar fracture of right ankle (Acute) Walking difficulty due to ankle and foot (Acute) URI, acute (Acute) Pharyngitis, acute (Acute) #1 generalized seizure disorder-patient is on several medications for this, I have written for these medications while the patient is in the hospital. I talked briefly with anesthesia this evening and went over the patient with them, they did not recommend any additional tests be ordered for the patient to be readied for surgery. It is my opinion that the patient appears stable for surgery at this time and is a low risk for intraoperative complication. Postop, it will be a challenge to have the patient walk without weightbearing to the right leg. She may need to go to an extended care facility for short-term rehab services. #2 acute bimalleolar fracture of the right ankle with dislocation-patient will have surgery tomorrow #3 mild cognitive impairment-etiology unclear #4 class III obesity Inpatient E&M: [id number] [facility] Hosp L2
[2019-08-13] MEDS: Lacosamide 100 MG Tablet 200 MG PO (23:21)
[2019-08-13] MEDS: levETIRAcetam 750 MG Tablet PO (23:21)
[2019-08-13] MEDS: carBAMazepine 200 MG Tablet PO (23:22)
[2019-08-14] VITALS (10 sets, daily range): BP systolic 95–138; BP diastolic 60–87; PULSE 91–110; RESP 16–18; TEMP 36.3–37.3; O2SAT 91–98; BMI 47.8
[2019-08-14] MEDS: carBAMazepine 400 MG TAB.SR.12H PO ×3 (00:27→20:36)
[2019-08-14] MEDS: 0.9% Saline Lock 10 ML Syringe IV ×3 (02:16→09:04)
[2019-08-14] MEDS: Morphine 4 MG/ML Syringe IV ×2 (02:16→08:50)
[2019-08-14 02:18] LABS: Internal QC Validated? YES +Cl - CLEAR BKGD
[2019-08-14 02:19] LABS: Pregnancy, Serum, hCG Quali. NEGATIVE Negative
[2019-08-14] MEDS: Ondansetron 4 MG/2 ML Vial IV (08:46)
--- NOTE | 2019-08-14 08:52 | PN_ITS ---
Patient Problems: Active and Suspected Problems (Last Updated 02/17/19 @ 11:15 by Marleny Berrios) Bimalleolar fracture of right ankle (Acute) Walking difficulty due to ankle and foot (Acute) Reason for Visit: follow up for bimalleolar fracture Subjective: Patient seen and examined. She was admitted through the ED on 08/13/2019 after she sustained a fall and had a right ankle bimalleolar fracture with dislocation of the right ankle. Hospitalist service was consulted for medical management as patient also has a history of seizure disorder. Patient seen and examined this morning. She complains of pain in her right ankle and also complains of nausea. She states she has not seen her neurologist in [place] in a while and her primary care doctor in [place] has been managing her seizures as well. Vitals/I&O's: Vital Signs Temp Pulse Resp BP Pulse Ox 97.4 F L 105 H 16 115/87 H 95 08/14/19 02:42 08/14/19 02:42 08/14/19 02:42 08/14/19 02:42 08/14/19 02:42 Oxygen Delivery Method [6] Room Air Oxygen Delivery Method [5] Room Air Oxygen Delivery Method [4] Room Air Oxygen Delivery Method [3] Room Air Oxygen Delivery Method [1 ( Room Air Initial Baseline)] Oxygen Delivery Method Room Air Weight: 297 lb 13.512 oz Body Mass Index (BMI) 47.8 Intake and Output for Last 24 Hours 08/12/19 08/13/19 08/14/19 23:59 23:59 23:59 Intake Total 300 / 300 Output Total 850 / 850 Balance -550 / -550 General: Alert, Oriented x3, Cooperative, - - moderate distress due to pain HEENT: Atraumatic, PERRLA, EOMI, Normocephalic Oral: Dry Mucosa Neck: Supple, No JVD, Negative Carotid Bruits Lungs: Clear to auscultation, Normal air movement, No rhonchi, No wheeze, No rales Cardiovascular: Regular rate, Regular Rhythm, Normal S1, Normal S2, No murmurs Abdomen: Bowel Sounds Present, Soft, Non Tender, Non-Distended, No Hepato- splenomegaly Extremities: No clubbing, No cyanosis, No edema, Capillary Refill Less than 3 Seconds Skin: No rashes, No breakdown Musculoskeletal: No Tenderness to Palpation of Joints or Extremities Lymphatic: No Cervical, Supraclavicular, or Inguinal Adenopathy Neurological: Cranial nerves II-XII grossly intact, Neuro grossly intact, Motor Exam 5/5 strength throughout Psych/Mental Status: Normal Affect, Appropriate, Alert and oriented to time, place, person, mood and affect Laboratory Results 08/13/19 16:57: WBC 9.0, RBC 4.51, Hgb 13.7, Hct 40.5, MCV 89.8, MCH 30.4, MCHC 33.8, RDW Std Deviation 39.8, RDW Coeff of Inna 12.2, Plt Count 293, MPV 9.9, Immature Gran % (Auto) 0.400, Neut % (Auto) 39.6 L, Lymph % (Auto) 49.2 H, [place] % (Auto) 8.4, Eos % (Auto) 2.1, Baso % (Auto) 0.3, Absolute Neuts (auto) 3.6, Absolute Lymphs (auto) 4.43, Nucleated RBC % 0 08/13/19 16:57: Sodium 142, Potassium 3.8, Chloride 107, Carbon Dioxide 28.0, Anion Gap 7, BUN 15, Creatinine 0.69, Estim Creat Clear Calc 102.47, Est GFR (M DRD) Af Amer 122, Est GFR (MDRD) Non-Af 101, BUN/Creatinine Ratio 21.8 H, Glucose 98, Calcium 9.1 08/13/19 16:57: Vitamin D 25-Hydroxy 50.5 08/13/19 16:57: Serum , Qual NEGATIVE Diagnostic Data Foot X-Ray 08/13/19 19:50 IMPRESSION: Normal x-ray examination of the foot. Electronically Signed: Flakito Page MD at 22:01 EDT , Service support , Tibia/Fibula X-Ray 08/13/19 19:50 IMPRESSION: Stable appearance of fractures of the distal fibula and medial malleolus with continued mild displacement. Electronically Signed: Flakito Page MD at 21:46 EDT , Service support , Ankle X-Ray 08/13/19 21:12 IMPRESSION: No acute fracture or dislocation. Electronically Signed: Flakito Page MD at 22:00 EDT , Service support , Current Medications Carbamazepine (Tegretol Xr) 400 mg PO BID [facility] Last Admin: 08/14/19 00:27 Dose: 400 mg Documented by: Carbamazepine (Tegretol) 200 mg PO BID [facility] Last Admin: 08/13/19 23:22 Dose: 200 mg Documented by: Docusate Sodium (Colace) 200 mg PO BID PRN PRN PRN Reason: Constipation Lactated Ringer's () 1,000 mls @ 100 mls/hr IV .Q10H LUCIA Sodium Chloride () 250 mls @ 15 mls/hr IV .[id number] PRN PRN Reason: Saline Flush Sodium Chloride () 250 mls @ 15 mls/hr IV .[id number] PRN PRN Reason: Additional IVPB Infusion Lacosamide (Vimpat) 200 mg PO BID [facility] Last Admin: 08/13/19 23:21 Dose: 200 mg Documented by: Levetiracetam (Keppra Tablet) 750 mg PO BID [facility] Last Admin: 08/13/19 23:21 Dose: 750 mg Documented by: Lorazepam (Ativan) 1 mg PO Q8H PRN PRN PRN Reason: ANXIETY Morphine Sulfate () 2 - 4 mg IV Q3H PRN PRN PRN Reason: Pain Score 1-10/10 Last Admin: 08/14/19 08:50 Dose: 4 mg Documented by: Nutritional Formula (Lactose Free) (Ensure Enlive) 120 ml PO 4X/DAY [facility] Last Admin: 08/14/19 08:51 Dose: Not Given Documented by: Ondansetron HCl (Zofran) 4 mg IV Q8H PRN PRN PRN Reason: Nausea Last Admin: 08/14/19 08:46 Dose: 4 mg Documented by: Oxycodone HCl (Oxyir) 10 mg PO Q6H PRN PRN PRN Reason: Pain Score 4-10/10 Last Admin: 08/13/19 22:02 Dose: 10 mg Documented by: Pantoprazole Sodium (Protonix) 20 mg PO DAILY [facility] Last Admin: 08/14/19 08:51 Dose: Not Given Documented by: Sertraline HCl (Zoloft) 50 mg PO DAILY [facility] Last Admin: 08/14/19 08:52 Dose: Not Given Documented by: Sodium Chloride () 10 - 40 ml IV UD PRN PRN Reason: SALINE FLUSH Last Admin: 08/14/19 08:46 Dose: 10 ml Documented by: Temazepam (Restoril) 15 mg PO DAILY PRN PRN Reason: SLEEP Medical Necessity - Tobacco Use Smoking Status: Never smoker Assessment/Plan All Active Problems (Last Updated 02/17/19 @ 11:15 by Marleny Berrios) Bimalleolar fracture of right ankle (Acute) Walking difficulty due to ankle and foot (Acute) URI, acute (Acute) Pharyngitis, acute (Acute) 1. Seizure disorder * on carbamazepine 600mg bid and lacosamide 200mg bid as well as Keppra 750mg bid. * seizure precautions * hasnt followed up with her neurologist in [place] for a while, and says her PCP manages her seizures * 2. Acute dislocated malleolar fracture of the right ankle * podiatry on board; for surgery today * pain management as per podiatry * 3. Mild cognitive impairment: stable 4. Obesity: complicates acute care, prognosis and expected management DVT prophylaxis: lovenox Inpatient E&M: [id number] Subs Hosp L2
[2019-08-14] MEDS: levETIRAcetam 750 MG Tablet PO ×2 (08:57→20:35)
[2019-08-14] MEDS: carBAMazepine 200 MG Tablet PO (08:58)
[2019-08-14] MEDS: Lactated Ringers 1,000 ML 100 ML IV ×2 (09:00→20:34)
[2019-08-14] MEDS: Lacosamide 100 MG Tablet 200 MG PO ×2 (09:28→20:33)
--- NOTE | 2019-08-14 11:01 | NURSING ---
This nurse offered to call family/significant other to give them update pt stated, I already did. This nurse offered to call if they had questions, pt refused.
--- NOTE | 2019-08-14 11:07 | CASEMGMT ---
Social Work Assessment Referral Date: 08/14/2019 Date of Assessment: 08/14/2019 Reason for consult: HCPOA, Low literacy Informant: RN Personal Status: SW met with pt and introduced self and role at [facility]. Pt is alert and orientated x3, able to answer questions appropriately. Pt states that she lives with her significant other Ritchie in an apartment with no steps to enter. Pt states that her and Ritchie have been together for five years. Pt [place] Pt states she has no DME in the home but her boyfriend Ritchie has a cane, walker and wheelchair in the home. Pt states that she attends [employer] three times a week for workshops and she is disabled. Pt states that she has history of seizures and that is why she is disabled. Pt states that she has no guardian, and she is her own decision maker. Pt states that her boyfriend Ritchie is main support for her. Pt states that she has a mother and two sisters that live in [facility] but she doesn't talk to them all that much, she is not able to go see them and they don't come see her. Pt states that her mother is old and bones and close to . Pt states that Ritchie's grandmother is local and is also good support for her and she provides transportation. PCP is Dr. Orozco and PCP is Srikanth. Substance Abuse Hx: Pt denied Mental Health Hx: Pt denied, but does state she has history of seizures. HHC: None SNF: None SW spoke with pt regarding HCPOA and LW and explained documents to pt. Pt states that she understands documents and is agreeable to filling out HCPOA now, denied wanting to complete LW at this time. Pt completed HCPOA. Pt named her boyfriend Ritchie has HCPOA and secondary contact is Ritchie's grandmother. Pt states that she named those two to be HCPOA for pt as they are local and good support for her. SW provided pt with original copy and LW in the event pt wishes to complete LW document at later time. Copy of HCPOA on pt's chart. TARIQ placed a call to [facility] of and spoke with Diana. Diana confirms that pt doesn't have a guardian and pt's escalator service mechanic is Liliana Ortega. SW transferred to Liliana's voicmail and left message regarding pt's admission to [facility]. SW received message from Liliana stating her cell phone is [phone]. Pt states that she is not sure what she will need at discharge, but then states she will need a walker at discharge. SW educated pt on HHC and SNF. Pt is scheduled for surgery today. Plan: TBD pending pt's surgery and how pt does after surgery Paula Su ROOM SERVICE SERVER, CLAIMS ACCOUNT MANAGER
--- NOTE | 2019-08-14 11:46 | NURSING ---
Earlier this morning, this nurse was informed by night shift manager RN/Sofy, that consent was not signed by Camryn Benita for surgery b/c pt was unable to recall what month it is. This morning, during the assessment, pt did not know the month and did not know where she was at. This was asked prior to the morphine being given. This nurse asked if her mother was around, she replied yes, but she is hard to get ahold of. She is skin and bones and you can see her veins. this nurse spoke w/Paula Pascal Associate Software Development Engineer and she stated that pt could sign the consent b/c she was able to give fill out the paper work for POA. Consent was signed but all above was passed on to Rut in AC and Dr. Barba that called to the floor.
--- NOTE | 2019-08-14 14:25 | RAD_ITS ---
STUDY: X-RAY - RIGHT ANKLE REASON FOR EXAM: Female, 38 years old. ORIF RIGHT ANKLE TECHNIQUE: 11 C-arm view(s) of the ankle. 210 seconds fluoroscopy time. COMPARISON: Previous radiographs of 08/13/2019. FINDINGS: This series of images show placement of compression plate and screws across the distal fibula, 2 screws fixating the medial malleolus into normal position, and orthopedic fixation device seen across the distal tibia and fibula. Fractures are in anatomic alignment and position. Correlate with procedure note. Electronically Signed: Flakito Page MD at 17:10 EDT , Service support , RAD/Ankle min 3 Views
--- NOTE | 2019-08-14 14:57 | CASEMGMT ---
Social Work Note SW received call from Liliana ([phone]). TARIQ updated Liliana on pt's admission to [facility] and that pt had surgery today. Liliana asked what the discharge plan is for pt and this worker informed Liliana that it just depends on how pt does after surgery. TARIQ explained options of HHC vs SNF. Liliana states that she feels that pt needs to go to SNF as pt falls a lot at home. TARIQ explained that pt will need to be agreeable and that it depends on how pt does after surgery. Liliana states that she may be able to talk to residential provider to see if they could assist at home but it would only be a few hours not 24/7 care like a SNF. TARIQ asked Liliana about pt's relationship with her family. Liliana states that pt's relationship with her family is off and on and usually off. Pt states that her mom suffered a severe illness this year. TARIQ updated Liliana that this worker will keep her updated. Paula Su APPLICATIONS SPECIALIST, CANINE SERVICE INSTRUCTOR TRAINER
[2019-08-14] MEDS: Bupivacaine Mpf 0.5% 30 ML VIAL (16:40)
--- NOTE | 2019-08-14 17:08 | PCM.OPRPT ---
Problem List (1) Bimalleolar fracture of right ankle Status: Acute Qualifiers: Encounter type: initial encounter Fracture type: closed Qualified Code(s): S82.841A - Displaced bimalleolar fracture of right lower leg, initial encounter for closed fracture (2) Ankle syndesmosis disruption Status: Acute Qualifiers: Encounter type: initial encounter Report of Operation Date of Procedure: 08/14/19 Pre-Operative Diagnosis: Right bimalleolar ankle fracture Post-Operative Diagnosis: Right bimalleolar ankle fracture with syndesmosis injury Surgery/Procedure Performed:: Open reduction internal fixation of right bimalleolar ankle fracture Description of Surgical Findings:: Hemostasis: Well-padded pneumatic right thigh tourniquet, 315 mmHg, 114 minutes Materials: one Arthrex fibular locking plate, one syndesmosis arthrex fiber wire tight rope, two 3.5 cortical screw, three 2.5 locking screws, three 2.5 locking screws, two 3.5 cannulated short threaded screws Specimens: None Complications: None The patient tolerated the procedure and anesthesia well. She was transferred to the PACU with vital signs stable and vascular status intact to the right lower extremity. Postoperative x-rays were reviewed prior to leaving the operating room demonstrating adequate reduction of the fracture sites to the medial and lateral aspects as well as the syndesmosis. The hardware is in the desired trajectory and position. There are no acute injuries noted. The ankle mortise is well aligned and in the rectus position. sat tutor: none - Nery Barba DPM Type of Anesthesia:: General/Regional, Local - Postoperative saphenous nerve block: 10 cc of 0.5% Marcaine plain Specimen's removed: none Estimated Blood Loss (mL): <200 mL Description of Procedure: Indications: This 38-year-old female with significant past medical history of seizures and obesity sustained a bimalleolar ankle fracture when she slipped at the [facility] on 08-12-2020. She has pain on palpation to the fracture sites. This was unstable at the time of injury and was adequately reduced while in the emergency room and splinted. X-rays demonstrate spiral oblique fracture of the lateral malleolus and transverse oriented fracture to the medial malleolus with ankle dislocation. There are no other acute fractures or dislocations to the right lower extremity. It is noted she does also have left lower extremity pain in which a small avulsion fracture versus advanced ankle sprain was suspected and treatment was implemented for this condition. Surgical intervention on the left lower extremity is not recommended. Her neurovascular status is intact. Preoperative indications, planned procedure, possible benefits, risk, complications, and anticipated healing time management were discussed in detail with patient. She understands and elects to proceed with surgery at this time. No guarantees were made. She understands the risk and complications may include but are not limited to the following: pain, swelling, scarring, need for further surgery, infection, delayed or non healing, loss of sensation, hardware failure, loss of limb, function, life, arthritis blood clot, or allergic reaction. I answers her questions. Preoperative history and physical was performed hospitalist, Dr. Puentes who is greatly appreciated. I did also call her previous outpatient physician, Dr. Orozco, to confirm her past medical history and her cognitive status. She appears to have some delayed cognition. However she understands she did fracture her ankle and elects to proceed with surgery. On file, she does have her own power of retail service technician and is capable of signing consents. The diagnosis and surgical plan were reviewed with her at least 4 times prior to surgery. I did answer her questions. She understands this is a limb salvage surgery during the time of COVID-19 and her ankle would be highly unstable without surgical fixation. She understands without surgery she will have significant impairment and loss of function. She understands precautions are being taken according to standard protocol at [facility] to limit any COVID related spread of communicable disease and this condition is inherently present in our community. Procedure in detail: The patient was transported to the operating room via cart and placed on the operating table in the supine position. Final verification of the patient, surgery, and limb designation was performed via the timeout procedure. The right lower extremity was prepared with a well-padded thigh tourniquet. Anesthesia team initiated general anesthesia. Preoperative antibiotics were administered; clindamycin. Anesthesia team also administered a popliteal block of the right lower extremity preoperatively. The right lower extremity was prepped and draped in the usual aseptic manner after the limb was bumped and padded to allow good exposure. An Esmarch bandage was used to exsanguinate the limb and the tourniquet was inflated at this time. Surgery began the following manner: Attention was first directed to the distal lateral aspect of the right lateral ankle and lower leg over the fracture site in which an incision was made through the skin. Blunt dissection was performed down to the bone layer at the fracture hematoma and care was taken to identify, protect, and retract all neurovascular structures at this point and throughout the remainder of surgery. It was carefully reflected out of the way and a alexandra elevator was used to gain good exposure of the fracture hematoma comminuted shortened fracture fragment site. The periosteum was preserved beyond 2 mm of the fracture margins. Tissue was reflected out of the fracture fragment to allow anatomic reduction. This was gently mobilized and irrigated. One 3.5 cortical screw was applied utilizing lag technique and proper AO fixation to reduce the spiral oblique fracture. This was successfully performed and considered stable and moving as 1 unit. Next, a neutralization plate was applied with a Arthrex distal fibula locking type. The plate was secured distally with a temporary BB tack. A cortical screw was applied proximal to fracture fragment through the locking plate to allow adequate contact with the bone. Proper placement was confirmed with intraoperative fluoroscopy in multiple views. The remaining holes were filled with locking screws distally and proximally. Next, attention was directed to the medial aspect of the ankle in which a 3 cm linear incision was made through the skin. Blunt dissection was performed down to the medial malleolus transverse fracture site taking care to identify, protect, and retract all neurovascular structures. The fracture fragment was identified and there was periosteal invagination. This was reflected out of the fragments. Adequate reduction was palpated and visualized with radiographs and held in place with a guide wire. The ankle joint was well aligned and the fracture fragments were also well aligned without any derotation. Two cortical screws were applied utilizing proper AO fixation technique. Next, there was continued apparent laxity between the tibia and the fibula with manual dorsiflexion external rotation stress test and not the traditional fluoroscopy guided cotton test alone. The decision to place a tight rope to reduce the syndesmosis was performed. These were applied according to standard protocol and hand tightness was used to reduce this with the ankle in a neutral position. The patient's ankle joint was taken through passive range of motion and this was smooth and gliding. Intraoperative radiographs were also used to confirm proper placement of the syndesmosis repair. The tourniquet was deflated at this time and brisk capillary refill time was noted to all digits of the right foot. There was no pulsatile bleeding noted. Minimal electrocauterization and direct pressure was used to maintain hemostasis. Deep closure was achieved with Vicryl and the skin was reapproximated utilizing simple and horizontal mattress technique with nylon suture. After procedure: The patient tolerated the procedure and anesthesia well. She was transported to the PACU with vital signs stable and vascular status intact to the right lower extremity. She will be transferred to the medical surgical floor for observation and for postoperative pain management. She will also be provided with IV and oral pain medication if needed. She will ice and elevate for pain and inflammation management. Postoperative pain medications were also ordered. She will work with physical and occupational therapy to confirm she can maintain a nonweightbearing status with an assistive device. Skilled facility placement will be considered and is recommended at this time. It is noted she lives with her significant other and it does not appear she will be able to safely take care of herself at home in the immediate postoperative setting. Social work has been consulted for care coordination in regards to placement. Intraoperative x-rays were reviewed prior to leaving the operating room as previously noted. Postoperative orders were entered electronically. Nery Barba DPM, [facility] Grafts/Implants Used: Arthrex - Complications None - Admit VTE Documentation VTE Present on Admission: No VTE Mechan Device Prophylaxis: SCD's VTE Pharm Prophylaxis ordered?: Yes
[2019-08-14] MEDS: Ketorolac 30 MG/ML Syringe IV (17:22)
--- NOTE | 2019-08-14 17:25 | RAD_ITS ---
STUDY: X-RAY - RIGHT ANKLE REASON FOR EXAM: Female, 38 years old. POST OP ORIF TECHNIQUE: 3 view(s) of the ankle. COMPARISON: 08/13/2019. FINDINGS: Status post ORIF left ankle fractures, in anatomic alignment position. No residual dislocation or subluxation. Compression plate and screws across the distal fibula. 2 orthopedic screws fixating the medial malleolus. No widening of the ankle joint. The soft tissue structures are unremarkable. RAD/Ankle min 3 Views IMPRESSION: Satisfactory postoperative appearance of previous ankle fracture/dislocation. Electronically Signed: Flakito Page MD at 18:10 EDT , Service support ,
[2019-08-14] MEDS: oxyCODONE 5 MG Tablet 10 MG PO (20:33)
[2019-08-14] MEDS: Temazepam 15 MG Capsule PO (20:34)
[2019-08-14] MEDS: carBAMazepine 200 MG TAB.SR.12H PO (20:40)
[2019-08-14] MEDS: LORazepam 1 MG Tablet PO (23:04)
[2019-08-15] MEDS: Morphine 4 MG/ML Syringe IV ×3 (00:16→05:28)
[2019-08-15] MEDS: Ondansetron 4 MG/2 ML Vial IV (00:16)
[2019-08-15] MEDS: 0.9% Saline Lock 10 ML Syringe IV ×3 (00:16→05:21)
[2019-08-15] MEDS: oxyCODONE 5 MG Tablet 10 MG PO ×3 (03:56→20:52)
[2019-08-15 04:07] VITALS: BP 114/72; PULSE 106; RESP 16; TEMP 37.3; O2SAT 97
--- NOTE | 2019-08-15 05:10 | NURSING ---
pt anxious, crying, yelling out due to pain in ankle unable to reposition, reassure pt. leg checked by this rn, discharge rn and another rn toes warm, pink, able to get several fingers under cast, jonelle loosened. notified new med orders
[2019-08-15] MEDS: Acetaminophen 500 MG Tablet 1000 MG PO ×3 (05:20→21:15)
[2019-08-15] MEDS: LORazepam 1 MG Tablet PO (05:20)
[2019-08-15] MEDS: Enoxaparin 40 MG/0.4 ML Syringe SC (05:21)
[2019-08-15] MEDS: Lactated Ringers 1,000 ML 100 ML IV (05:34)
--- NOTE | 2019-08-15 06:36 | NURSING ---
PT RESTING QUIETLY WITH EYES CLOSED AT THIS TIME
[2019-08-15 07:39] LABS: Absolute Lymphocyte Count 1.84 X10^3/uL (0.83-4.51); Absolute Neutrophil Count 8.5 X10^3/uL (2.0-7.7); Basophil# 0.03 X10^3/uL; Basophil% 0.3 % (0-1); Eosinophil# 0.05 X10^3/uL; Eosinophils% 0.4 % (0-5); Hematocrit 34.9 % (37-47); Hemoglobin 11.9 g/dL (12.0-15.0); Lymphocyte # 1.84 X10^3/ul (4.0); Lymphocyte % 15.8 % (19-41); Mean Corp Hgb Conc 34.1 g/dL (32-36); Mean Corpuscular Hgb 30.1 pg (27.0-32.0); Mean Corpuscular Volume 88.4 fL (81-99); Mean Platelet Vol. 9.5 fl (6.2-12.0); Monocyte# 1.21 X10^3/uL; Monocyte% 10.4 % (0-10); NRBC Flagged by Analyzer 0 % (0-5); Neutrophil # 8.48 X10^3/uL (2.7-7.7); Neutrophil % 72.8 % (47-70); Platelet Count 222 K/mm3 (150-450); RBC Distribution Width CV 12.1 % (11.6-14.6); RBC Distribution Width SD 39.5 fl (35.1-43.9); Red Blood Count 3.95 M/mm3 (4.2-5.4); White Blood Count 11.7 K/mm3 (4.4-11.0)
[2019-08-15 08:02] LABS: Anion Gap 5 (5-15); BUN 10 mg/dL (7-18); Calcium,Total 8.3 mg/dL (8.5-10.1); Chloride 107 mmol/L (98-107); Creatinine, Serum 0.52 mg/dL (0.55-1.02); EST Glomerular Filtration Rate 138 mL/min (>60); Est Glom Filt Rate - Afr Amer 166 mL/min (>60); Estimated Creatinine Clearance 135.98 ml/min; Glucose 124 mg/dL (74-106); Potassium 3.8 mmol/L (3.5-5.1); Sodium Level 137 mmol/L (136-145)
[2019-08-15 08:44] VITALS: BP 126/81; PULSE 103; RESP 18; TEMP 37.3; O2SAT 96
[2019-08-15 08:52] VITALS: PULSE 90
[2019-08-15] MEDS: levETIRAcetam 750 MG Tablet PO ×2 (09:03→21:16)
[2019-08-15] MEDS: Sertraline 50 MG Tablet PO (09:03)
[2019-08-15] MEDS: carBAMazepine 200 MG TAB.SR.12H PO ×2 (09:04→21:15)
[2019-08-15] MEDS: carBAMazepine 400 MG TAB.SR.12H PO ×2 (09:04→21:15)
[2019-08-15] MEDS: Pantoprazole Sodium 20 MG Tablet PO (09:04)
[2019-08-15] MEDS: Lacosamide 100 MG Tablet 200 MG PO ×2 (09:10→21:15)
--- NOTE | 2019-08-15 09:30 | PN_ITS ---
Patient Problems: Active and Suspected Problems (Last Updated 02/17/19 @ 11:15 by Marleny Berrios) Bimalleolar fracture of right ankle (Acute) Walking difficulty due to ankle and foot (Acute) Subjective: Postoperative day #1 right ankle fracture open reduction internal fixation. She denies shortness of breath or chest pain. She reports pain to the surgical site and is not sure if the regional block is completely wore off. She is pretty lethargic during the morning exam and is participating in a minimal manner. She is laying directly on her surgical site. - Physical Exam Vitals/I&O's: Vital Signs Temp Pulse Resp BP Pulse Ox 99.2 F H 90 18 126/81 H 96 08/15/19 08:44 08/15/19 08:52 08/15/19 08:44 08/15/19 08:44 08/15/19 08:44 Oxygen Delivery Method [6] Room Air Oxygen Delivery Method [5] Room Air Oxygen Delivery Method [4] Room Air Oxygen Delivery Method [3] Room Air Oxygen Delivery Method [1 ( Room Air Initial Baseline)] Oxygen Delivery Method Room Air Weight: 135.1 kg Body Mass Index (BMI) 47.8 Intake and Output for Last 24 Hours 08/13/19 08/14/19 08/15/19 23:59 23:59 23:59 Intake Total 1654 / 1654 1500 / 1500 Output Total 850 / 850 375 / 375 Balance 804 / 804 1125 / 1125 General: Alert, Cooperative, Lethargic HEENT: Atraumatic Extremities: Capillary Refill Less than 3 Seconds, Edema Skin: - - The dressing is clean, dry, and intact without any strikethrough or adjacent streaking Musculoskeletal: - - Rectus right ankle Neurological: - Psych/Mental Status: Appropriate Laboratory Results 08/15/19 07:23: WBC 11.7 H, RBC 3.95 L, Hgb 11.9 L, Hct 34.9 L, MCV 88.4, MCH 30.1, MCHC 34.1, RDW Std Deviation 39.5, RDW Coeff of Inna 12.1, Plt Count 222, MPV 9.5, Immature Gran % (Auto) 0.300, Neut % (Auto) 72.8 H, Lymph % (Auto) 15.8 L, Sedgwick % (Auto) 10.4 H, Eos % (Auto) 0.4, Baso % (Auto) 0.3, Absolute Neuts (auto) 8.5 H, Absolute Lymphs (auto) 1.84, Nucleated RBC % 0 08/15/19 07:23: Sodium 137, Potassium 3.8, Chloride 107, Carbon Dioxide 25.0, Anion Gap 5, BUN 10, Creatinine 0.52 L, Estim Creat Clear Calc 135.98, Est GFR (MDRD) Af Amer 166, Est GFR (MDRD) Non-Af 138, BUN/Creatinine Ratio 19.0, Glucose 124 H, Calcium 8.3 L Current Medications Acetaminophen (Tylenol) 1,000 mg PO Q8 [facility] Last Admin: 08/15/19 05:20 Dose: 1,000 mg Documented by: Carbamazepine (Tegretol Xr) 400 mg PO BID [facility] Last Admin: 08/15/19 09:04 Dose: 400 mg Documented by: Carbamazepine (Tegretol Xr) 200 mg PO BID [facility] Last Admin: 08/15/19 09:04 Dose: 200 mg Documented by: Docusate Sodium (Colace) 200 mg PO BID PRN PRN PRN Reason: Constipation Enoxaparin Sodium (Lovenox) 40 mg SC DAILY@0600 [facility] Last Admin: 08/15/19 05:21 Dose: 40 mg Documented by: Lactated Ringer's () 1,000 mls @ 100 mls/hr IV .Q10H [facility] Last Admin: 08/15/19 05:34 Dose: 100 mls/hr Documented by: Sodium Chloride () 250 mls @ 15 mls/hr IV .[id number] PRN PRN Reason: Saline Flush Sodium Chloride () 250 mls @ 15 mls/hr IV .[id number] PRN PRN Reason: Additional IVPB Infusion Lacosamide (Vimpat) 200 mg PO BID [facility] Last Admin: 08/15/19 09:10 Dose: 200 mg Documented by: Levetiracetam (Keppra Tablet) 750 mg PO BID [facility] Last Admin: 08/15/19 09:03 Dose: 750 mg Documented by: Lorazepam (Ativan) 1 mg PO Q6H PRN PRN PRN Reason: ANXIETY Last Admin: 08/15/19 05:20 Dose: 1 mg Documented by: Morphine Sulfate () 2 - 4 mg IV Q3H PRN PRN PRN Reason: Pain Score 1-1010 Last Admin: 08/15/19 04:26 Dose: 4 mg Documented by: Nutritional Formula (Lactose Free) (Ensure Enlive) 120 ml PO 4X/DAY [facility] Last Admin: 08/15/19 09:10 Dose: Not Given Documented by: Ondansetron HCl (Zofran) 4 mg IV Q8H PRN PRN PRN Reason: Nausea Last Admin: 08/15/19 00:16 Dose: 4 mg Documented by: Oxycodone HCl (Oxyir) 10 mg PO Q6H PRN PRN PRN Reason: Pain Score 4-1010 Last Admin: 08/15/19 03:56 Dose: 10 mg Documented by: Pantoprazole Sodium (Protonix) 20 mg PO DAILY [facility] Last Admin: 08/15/19 09:04 Dose: 20 mg Documented by: Sertraline HCl (Zoloft) 50 mg PO DAILY [facility] Last Admin: 08/15/19 09:03 Dose: 50 mg Documented by: Sodium Chloride () 10 - 40 ml IV UD PRN PRN Reason: SALINE FLUSH Last Admin: 08/15/19 05:21 Dose: 10 ml Documented by: Temazepam (Restoril) 15 mg PO DAILY PRN PRN Reason: SLEEP Last Admin: 08/14/19 20:34 Dose: 15 mg Documented by: Medical Necessity - Tobacco Use Smoking Status: Never smoker Assessment/Plan All Active Problems (Last Updated 02/17/19 @ 11:15 by Marleny Berrios) Bimalleolar fracture of right ankle (Acute) Walking difficulty due to ankle and foot (Acute) URI, acute (Acute) Pharyngitis, acute (Acute) POD #1 right ankle fracture open reduction internal fixation with syndesmosis repair. Walking difficulty This patient was seen bedside this morning. I reviewed her case. She is afebrile and vital signs are stable. It appears her regional block is still partially intact. I recommend she continues with IV morphine and OxyIR for pain control. To ice and elevate for additional pain inflammation management. To maintain a strict nonweightbearing status. I reviewed her anticipated healing time and management with her today as well as her boyfriend over the phone. Overall she is stable. I recommend transitioning to a halfway facility. This was reviewed with case management this morning. There is concern of her being able to take care of herself in the initial postoperative period on her own and her boyfriend relates he is not feel comfortable providing this level of care at this time. Medical management per hospitalist service is greatly appreciated. I'll continue to follow her close while in house. Please call if questions. Nery Barba DPM, [facility] [phone]
--- NOTE | 2019-08-15 09:32 | PN_ITS ---
Patient Problems: Active and Suspected Problems (Last Updated 02/17/19 @ 11:15 by Marleny Berrios) Bimalleolar fracture of right ankle (Acute) Walking difficulty due to ankle and foot (Acute) Subjective: Patient seen and examined. She complains of pain and rates as a 10 out of 10 in the affected right lower extremity. She denies any shortness of breath, fever or chills, chest pain, palpitations nausea vomiting. Review of systems otherwise negative. Vitals/I&O's: Vital Signs Temp Pulse Resp BP Pulse Ox 99.2 F H 90 18 126/81 H 96 08/15/19 08:44 08/15/19 08:52 08/15/19 08:44 08/15/19 08:44 08/15/19 08:44 Oxygen Delivery Method [6] Room Air Oxygen Delivery Method [5] Room Air Oxygen Delivery Method [4] Room Air Oxygen Delivery Method [3] Room Air Oxygen Delivery Method [1 ( Room Air Initial Baseline)] Oxygen Delivery Method Room Air Weight: 297 lb 13.512 oz Body Mass Index (BMI) 47.8 Intake and Output for Last 24 Hours 08/13/19 08/14/19 08/15/19 23:59 23:59 23:59 Intake Total 1654 / 1654 1500 / 1500 Output Total 850 / 850 375 / 375 Balance 804 / 804 1125 / 1125 General: Alert, Oriented x3, Cooperative, HEENT: Atraumatic, PERRLA, EOMI, Normocephalic Oral: Dry Mucosa Neck: Supple, No JVD, Negative Carotid Bruits Lungs: Clear to auscultation, Normal air movement, No rhonchi, No wheeze, No rales Cardiovascular: Regular rate, Regular Rhythm, Normal S1, Normal S2, No murmurs Abdomen: Bowel Sounds Present, Soft, Non Tender, Non-Distended, No Hepato- splenomegaly Extremities: No clubbing, No cyanosis, No edema, Capillary Refill Less than 3 Seconds Skin: No rashes, No breakdown Musculoskeletal: No Tenderness to Palpation of Joints or Extremities; RLE in splint Lymphatic: No Cervical, Supraclavicular, or Inguinal Adenopathy Neurological: Cranial nerves II-XII grossly intact, Neuro grossly intact, Motor Exam 5/5 strength throughout Psych/Mental Status: Normal Affect, Appropriate, Alert and oriented to time, place, person, mood and affect Laboratory Results 08/15/19 07:23: WBC 11.7 H, RBC 3.95 L, Hgb 11.9 L, Hct 34.9 L, MCV 88.4, MCH 30.1, MCHC 34.1, RDW Std Deviation 39.5, RDW Coeff of Inna 12.1, Plt Count 222, MPV 9.5, Immature Gran % (Auto) 0.300, Neut % (Auto) 72.8 H, Lymph % (Auto) 15.8 L, [place] % (Auto) 10.4 H, Eos % (Auto) 0.4, Baso % (Auto) 0.3, Absolute Neuts (auto) 8.5 H, Absolute Lymphs (auto) 1.84, Nucleated RBC % 0 08/15/19 07:23: Sodium 137, Potassium 3.8, Chloride 107, Carbon Dioxide 25.0, Anion Gap 5, BUN 10, Creatinine 0.52 L, Estim Creat Clear Calc 135.98, Est GFR ( MDRD) Af Amer 166, Est GFR (MDRD) Non-Af 138, BUN/Creatinine Ratio 19.0, Glucose 124 H, Calcium 8.3 L Diagnostic Data Foot X-Ray 08/13/19 19:50 IMPRESSION: Normal x-ray examination of the foot. Electronically Signed: Flakito Page MD at 22:01 EDT , Service support , Tibia/Fibula X-Ray 08/13/19 19:50 IMPRESSION: Stable appearance of fractures of the distal fibula and medial malleolus with continued mild displacement. Electronically Signed: Flakito Page MD at 21:46 EDT , Service support , Ankle X-Ray 08/14/19 17:25 IMPRESSION: Satisfactory postoperative appearance of previous ankle fracture/dislocation. Electronically Signed: Flakito Page MD at 18:10 EDT , Service support , Current Medications Acetaminophen (Tylenol) 1,000 mg PO Q8 [facility] Last Admin: 08/15/19 05:20 Dose: 1,000 mg Documented by: Carbamazepine (Tegretol Xr) 400 mg PO BID [facility] Last Admin: 08/15/19 09:04 Dose: 400 mg Documented by: Carbamazepine (Tegretol Xr) 200 mg PO BID [facility] Last Admin: 08/15/19 09:04 Dose: 200 mg Documented by: Docusate Sodium (Colace) 200 mg PO BID PRN PRN PRN Reason: Constipation Enoxaparin Sodium (Lovenox) 40 mg SC DAILY@0600 [facility] Last Admin: 08/15/19 05:21 Dose: 40 mg Documented by: Lactated Ringer's () 1,000 mls @ 100 mls/hr IV .Q10H [facility] Last Admin: 08/15/19 05:34 Dose: 100 mls/hr Documented by: Sodium Chloride () 250 mls @ 15 mls/hr IV .[id number] PRN PRN Reason: Saline Flush Sodium Chloride () 250 mls @ 15 mls/hr IV .[id number] PRN PRN Reason: Additional IVPB Infusion Lacosamide (Vimpat) 200 mg PO BID [facility] Last Admin: 08/15/19 09:10 Dose: 200 mg Documented by: Levetiracetam (Keppra Tablet) 750 mg PO BID [facility] Last Admin: 08/15/19 09:03 Dose: 750 mg Documented by: Lorazepam (Ativan) 1 mg PO Q6H PRN PRN PRN Reason: ANXIETY Last Admin: 08/15/19 05:20 Dose: 1 mg Documented by: Morphine Sulfate () 2 - 4 mg IV Q3H PRN PRN PRN Reason: Pain Score 1-10/10 Last Admin: 08/15/19 04:26 Dose: 4 mg Documented by: Nutritional Formula (Lactose Free) (Ensure Enlive) 120 ml PO 4X/DAY [facility] Last Admin: 08/15/19 09:10 Dose: Not Given Documented by: Ondansetron HCl (Zofran) 4 mg IV Q8H PRN PRN PRN Reason: Nausea Last Admin: 08/15/19 00:16 Dose: 4 mg Documented by: Oxycodone HCl (Oxyir) 10 mg PO Q6H PRN PRN PRN Reason: Pain Score 4-10/10 Last Admin: 08/15/19 03:56 Dose: 10 mg Documented by: Pantoprazole Sodium (Protonix) 20 mg PO DAILY [facility] Last Admin: 08/15/19 09:04 Dose: 20 mg Documented by: Sertraline HCl (Zoloft) 50 mg PO DAILY [facility] Last Admin: 08/15/19 09:03 Dose: 50 mg Documented by: Sodium Chloride () 10 - 40 ml IV UD PRN PRN Reason: SALINE FLUSH Last Admin: 08/15/19 05:21 Dose: 10 ml Documented by: Temazepam (Restoril) 15 mg PO DAILY PRN PRN Reason: SLEEP Last Admin: 08/14/19 20:34 Dose: 15 mg Documented by: STROKE Vital Signs/Narrative: Vital Signs Temp Pulse Resp BP Pulse Ox 08/15/19 08:52 90 08/15/19 08:44 99.2 F H 103 H 18 126/81 H 96 Medical Necessity - Tobacco Use Smoking Status: Never smoker Assessment/Plan All Active Problems (Last Updated 02/17/19 @ 11:15 by Marleny Berrios) Bimalleolar fracture of right ankle (Acute) Walking difficulty due to ankle and foot (Acute) URI, acute (Acute) Pharyngitis, acute (Acute) 1. Seizure disorder * on carbamazepine 600mg bid and lacosamide 200mg bid as well as Keppra 750mg bid. * seizure precautions * 2. Acute dislocated malleolar fracture of the right ankle * podiatry on board; had ORIF yesterday. Today is POD 1 * pain management as per podiatry * on morphine and oxycodone * 3. Mild cognitive impairment: stable 4. Obesity: complicates acute care, prognosis and expected management DVT prophylaxis: lovenox Inpatient E&M: 58891 Subs Hosp L2
--- NOTE | 2019-08-15 12:01 | CASEMGMT ---
SW spoke w/physician this morning, she is recommending pt go to SNF for rehab at discharge. SW met w/pt in room, reviewed SNF options with her. SW read pt the list rather than give pt the list, pt asked for SW to do this. Pt was speaking to boyfriend at the time; pt then put SW on the phone w/SW. They wanted TCU but SW explained that TCU does not take pt's insurance. Pt and SW decided [facility] [address], [facility] SW explained will follow up w/her on Saturday and make referral. SW will follow up w/referral on Saturday. [place]
[2019-08-15 14:15] VITALS: BP 143/77; PULSE 111; RESP 18; TEMP 37.7; O2SAT 97
[2019-08-15 17:54] VITALS: BP 138/78; PULSE 113; RESP 20; TEMP 37.1; O2SAT 99
[2019-08-15 20:49] VITALS: BP 155/95; PULSE 105; RESP 20; TEMP 37.1; O2SAT 100
[2019-08-16 03:00] VITALS: BP 134/88; PULSE 101; RESP 20; TEMP 37.3; O2SAT 98
[2019-08-16] MEDS: oxyCODONE 5 MG Tablet 10 MG PO ×3 (03:03→23:17)
[2019-08-16 05:38] LABS: Absolute Lymphocyte Count 2.23 X10^3/uL (0.83-4.51); Absolute Neutrophil Count 6.5 X10^3/uL (2.0-7.7); Basophil# 0.03 X10^3/uL; Basophil% 0.3 % (0-1); Eosinophil# 0.17 X10^3/uL; Eosinophils% 1.7 % (0-5); Hematocrit 36.3 % (37-47); Hemoglobin 12.1 g/dL (12.0-15.0); Lymphocyte # 2.23 X10^3/ul (4.0); Lymphocyte % 21.7 % (19-41); Mean Corp Hgb Conc 33.3 g/dL (32-36); Mean Corpuscular Hgb 29.9 pg (27.0-32.0); Mean Corpuscular Volume 89.6 fL (81-99); Mean Platelet Vol. 9.9 fl (6.2-12.0); Monocyte# 1.25 X10^3/uL; Monocyte% 12.2 % (0-10); NRBC Flagged by Analyzer 0 % (0-5); Neutrophil # 6.54 X10^3/uL (2.7-7.7); Neutrophil % 63.5 % (47-70); Platelet Count 212 K/mm3 (150-450); RBC Distribution Width CV 12.1 % (11.6-14.6); RBC Distribution Width SD 39.2 fl (35.1-43.9); Red Blood Count 4.05 M/mm3 (4.2-5.4); White Blood Count 10.3 K/mm3 (4.4-11.0)
[2019-08-16 06:00] LABS: Anion Gap 5 (5-15); BUN 6 mg/dL (7-18); BUN/Creat Ratio 12.3 RATIO (10-20); Calcium,Total 8.5 mg/dL (8.5-10.1); Chloride 106 mmol/L (98-107); Creatinine, Serum 0.49 mg/dL (0.55-1.02); EST Glomerular Filtration Rate 150 mL/min (>60); Est Glom Filt Rate - Afr Amer 182 mL/min (>60); Glucose 107 mg/dL (74-106); Potassium 3.9 mmol/L (3.5-5.1); Sodium Level 136 mmol/L (136-145)
[2019-08-16] MEDS: Acetaminophen 500 MG Tablet 1000 MG PO ×3 (06:05→20:58)
[2019-08-16] MEDS: Enoxaparin 40 MG/0.4 ML Syringe SC (06:05)
--- NOTE | 2019-08-16 08:41 | PN_ITS ---
Patient Problems: Active and Suspected Problems (Last Updated 02/17/19 @ 11:15 by Marleny Berrios) Bimalleolar fracture of right ankle (Acute) Walking difficulty due to ankle and foot (Acute) Subjective: Patient seen and examined. He has no complaints and pain is well controlled. Review systems otherwise negative. Labs and vitals reviewed. Vitals/I&O's: Vital Signs Temp Pulse Resp BP Pulse Ox 99.1 F 101 H 20 H 134/88 H 98 08/16/19 03:00 08/16/19 03:00 08/16/19 03:00 08/16/19 03:00 08/16/19 03:00 Oxygen Delivery Method [6] Room Air Oxygen Delivery Method [5] Room Air Oxygen Delivery Method [4] Room Air Oxygen Delivery Method [3] Room Air Oxygen Delivery Method [1 ( Room Air Initial Baseline)] Oxygen Delivery Method Room Air Weight: 297 lb 13.512 oz Body Mass Index (BMI) 47.8 Intake and Output for Last 24 Hours 08/14/19 08/15/19 08/16/19 23:59 23:59 23:59 Intake Total 1654 / 1654 2850 / 2850 700 / 700 Output Total 850 / 850 2725 / 2725 1050 / 1050 Balance 804 / 804 125 / 125 -350 / -350 General: Alert, Oriented x3, Cooperative, HEENT: Atraumatic, PERRLA, EOMI, Normocephalic Oral: Dry Mucosa Neck: Supple, No JVD, Negative Carotid Bruits Lungs: Clear to auscultation, Normal air movement, No rhonchi, No wheeze, No rales Cardiovascular: Regular rate, Regular Rhythm, Normal S1, Normal S2, No murmurs Abdomen: Bowel Sounds Present, Soft, Non Tender, Non-Distended, No Hepato- splenomegaly Extremities: No clubbing, No cyanosis, No edema, Capillary Refill Less than 3 Seconds Skin: No rashes, No breakdown Musculoskeletal: No Tenderness to Palpation of Joints or Extremities; RLE in splint Lymphatic: No Cervical, Supraclavicular, or Inguinal Adenopathy Neurological: Cranial nerves II-XII grossly intact, Neuro grossly intact, Motor Exam 5/5 strength throughout Psych/Mental Status: Normal Affect, Appropriate, Alert and oriented to time, place, person, mood and affect Laboratory Results 05/10/20 05:15: WBC 10.3, RBC 4.05 L, Hgb 12.1, Hct 36.3 L, MCV 89.6, MCH 29.9, MCHC 33.3, RDW Std Deviation 39.2, RDW Coeff of Inna 12.1, Plt Count 212, MPV 9.9, Immature Gran % (Auto) 0.600, Neut % (Auto) 63.5, Lymph % (Auto) 21.7, [place] % (Auto) 12.2 H, Eos % (Auto) 1.7, Baso % (Auto) 0.3, Absolute Neuts (auto) 6.5, Absolute Lymphs (auto) 2.23, Nucleated RBC % 0 08/16/19 05:15: Sodium 136, Potassium 3.9, Chloride 106, Carbon Dioxide 25.0, Anion Gap 5, BUN 6 L, Creatinine 0.49 L, Estim Creat Clear Calc 144.30, Est GFR (MDRD) Af Amer 182, Est GFR (MDRD) Non-Af 150, BUN/Creatinine Ratio 12.3, Glucose 107 H, Calcium 8.5 Current Medications Acetaminophen (Tylenol) 1,000 mg PO Q8 [facility] Last Admin: 08/16/19 06:05 Dose: 1,000 mg Documented by: Carbamazepine (Tegretol Xr) 400 mg PO BID [facility] Last Admin: 08/15/19 21:15 Dose: 400 mg Documented by: Carbamazepine (Tegretol Xr) 200 mg PO BID [facility] Last Admin: 08/15/19 21:15 Dose: 200 mg Documented by: Docusate Sodium (Colace) 200 mg PO BID PRN PRN PRN Reason: Constipation Enoxaparin Sodium (Lovenox) 40 mg SC DAILY@0600 [facility] Last Admin: 08/16/19 06:05 Dose: 40 mg Documented by: Sodium Chloride () 250 mls @ 15 mls/hr IV .[id number] PRN PRN Reason: Saline Flush Lacosamide (Vimpat) 200 mg PO BID [facility] Last Admin: 08/15/19 21:15 Dose: 200 mg Documented by: Levetiracetam (Keppra Tablet) 750 mg PO BID [facility] Last Admin: 08/15/19 21:16 Dose: 750 mg Documented by: Lorazepam (Ativan) 1 mg PO Q6H PRN PRN PRN Reason: ANXIETY Last Admin: 08/15/19 05:20 Dose: 1 mg Documented by: Morphine Sulfate () 2 - 4 mg IV Q3H PRN PRN PRN Reason: Pain Score 1-10/10 Last Admin: 08/15/19 04:26 Dose: 4 mg Documented by: Nutritional Formula (Lactose Free) (Ensure Enlive) 120 ml PO 4X/DAY [facility] Last Admin: 08/15/19 21:15 Dose: 120 ml Documented by: Ondansetron HCl (Zofran) 4 mg IV Q8H PRN PRN PRN Reason: Nausea Last Admin: 08/15/19 00:16 Dose: 4 mg Documented by: Oxycodone HCl (Oxyir) 10 mg PO Q6H PRN PRN PRN Reason: Pain Score 4-10/10 Last Admin: 08/16/19 03:03 Dose: 10 mg Documented by: Pantoprazole Sodium (Protonix) 20 mg PO DAILY [facility] Last Admin: 08/15/19 09:04 Dose: 20 mg Documented by: Sertraline HCl (Zoloft) 50 mg PO DAILY [facility] Last Admin: 08/15/19 09:03 Dose: 50 mg Documented by: Sodium Chloride () 10 - 40 ml IV UD PRN PRN Reason: SALINE FLUSH Last Admin: 08/15/19 05:21 Dose: 10 ml Documented by: Temazepam (Restoril) 15 mg PO DAILY PRN PRN Reason: SLEEP Last Admin: 08/14/19 20:34 Dose: 15 mg Documented by: Medical Necessity - Tobacco Use Smoking Status: Never smoker Assessment/Plan All Active Problems (Last Updated 02/17/19 @ 11:15 by Marleny Berrios) Bimalleolar fracture of right ankle (Acute) Walking difficulty due to ankle and foot (Acute) URI, acute (Acute) Pharyngitis, acute (Acute) 1. Seizure disorder * on carbamazepine 600mg bid and lacosamide 200mg bid as well as Keppra 750mg bid. * seizure precautions * 2. Acute dislocated malleolar fracture of the right ankle * podiatry on board; had ORIF yesterday. Today is POD 2 * pain management as per podiatry * on morphine and oxycodone * patient has had some tachycardia overnight; she denies any shortness of breath. On lovenox for DVT prophylaxis. If tachycardia persists, or she gets short of breath, will have low threshold for CTA of chest * 3. Mild cognitive impairment: stable 4. Obesity: complicates acute care, prognosis and expected management DVT prophylaxis: lovenox Inpatient E&M: 38650 Subs Hosp L2
--- NOTE | 2019-08-16 09:20 | PN_ITS ---
Patient Problems: Active and Suspected Problems (Last Updated 02/17/19 @ 11:15 by Marleny Berrios) Bimalleolar fracture of right ankle (Acute) Walking difficulty due to ankle and foot (Acute) Subjective: This patient was seen postoperative day #2 right ankle open reduction internal fixation with additional syndesmosis repair. She relates her pain is better controlled today out of 3 out of 10. She denies fever, chill, nausea, vomiting, chest pain, shortness of breath, calf pain. She is more alert today. She relates she is unable to elevate her limb on the wedge or lay on her nonsurgical limb. She is laying directly on her surgical site. She is amenable to go to a [place] [facility] even though she would ideally want to return home with her significant other. - Physical Exam Vitals/I&O's: Vital Signs Temp Pulse Resp BP Pulse Ox 99.1 F 101 H 20 H 134/88 H 98 08/16/19 03:00 08/16/19 03:00 08/16/19 03:00 08/16/19 03:00 08/16/19 03:00 Oxygen Delivery Method [6] Room Air Oxygen Delivery Method [5] Room Air Oxygen Delivery Method [4] Room Air Oxygen Delivery Method [3] Room Air Oxygen Delivery Method [1 ( Room Air Initial Baseline)] Oxygen Delivery Method Room Air Weight: 135.1 kg Body Mass Index (BMI) 47.8 Intake and Output for Last 24 Hours 08/14/19 08/15/19 08/16/19 23:59 23:59 23:59 Intake Total 1654 / 1654 2850 / 2850 700 / 700 Output Total 850 / 850 2725 / 2725 1050 / 1050 Balance 804 / 804 125 / 125 -350 / -350 General: Alert, Oriented x3, Cooperative HEENT: Atraumatic Lungs: Clear to auscultation, Normal air movement Cardiovascular: Regular rate, Regular Rhythm Extremities: No cyanosis, Capillary Refill Less than 3 Seconds, No Calf Tenderness - Negative Baum sign bilateral, - - Rectus right ankle with dressing and posterior mold with sugar tong splint clean, dry, and intact Skin: - - Dressing intact Musculoskeletal: - - Active range of motion digits x5 bilateral. Rectus right ankle Neurological: - - Sensation intact to all digits right foot Psych/Mental Status: Normal Affect, Appropriate Laboratory Results 05/10/20 05:15: WBC 10.3, RBC 4.05 L, Hgb 12.1, Hct 36.3 L, MCV 89.6, MCH 29.9, MCHC 33.3, RDW Std Deviation 39.2, RDW Coeff of Inna 12.1, Plt Count 212, MPV 9.9, Immature Gran % (Auto) 0.600, Neut % (Auto) 63.5, Lymph % (Auto) 21.7, [place] % (Auto) 12.2 H, Eos % (Auto) 1.7, Baso % (Auto) 0.3, Absolute Neuts (auto) 6.5, Absolute Lymphs (auto) 2.23, Nucleated RBC % 0 08/16/19 05:15: Sodium 136, Potassium 3.9, Chloride 106, Carbon Dioxide 25.0, Anion Gap 5, BUN 6 L, Creatinine 0.49 L, Estim Creat Clear Calc 144.30, Est GFR (MDRD) Af Amer 182, Est GFR (MDRD) Non-Af 150, BUN/Creatinine Ratio 12.3, Glucose 107 H, Calcium 8.5 Current Medications Acetaminophen (Tylenol) 1,000 mg PO Q8 [facility] Last Admin: 08/16/19 06:05 Dose: 1,000 mg Documented by: Carbamazepine (Tegretol Xr) 400 mg PO BID [facility] Last Admin: 08/15/19 21:15 Dose: 400 mg Documented by: Carbamazepine (Tegretol Xr) 200 mg PO BID [facility] Last Admin: 08/15/19 21:15 Dose: 200 mg Documented by: Docusate Sodium (Colace) 200 mg PO BID PRN PRN PRN Reason: Constipation Enoxaparin Sodium (Lovenox) 40 mg SC DAILY@0600 [facility] Last Admin: 08/16/19 06:05 Dose: 40 mg Documented by: Sodium Chloride () 250 mls @ 15 mls/hr IV .[id number] PRN PRN Reason: Saline Flush Lacosamide (Vimpat) 200 mg PO BID [facility] Last Admin: 08/15/19 21:15 Dose: 200 mg Documented by: Levetiracetam (Keppra Tablet) 750 mg PO BID [facility] Last Admin: 08/15/19 21:16 Dose: 750 mg Documented by: Lorazepam (Ativan) 1 mg PO Q6H PRN PRN PRN Reason: ANXIETY Last Admin: 08/15/19 05:20 Dose: 1 mg Documented by: Morphine Sulfate () 2 - 4 mg IV Q3H PRN PRN PRN Reason: Pain Score 1-10/10 Last Admin: 08/15/19 04:26 Dose: 4 mg Documented by: Nutritional Formula (Lactose Free) (Ensure Enlive) 120 ml PO 4X/DAY [facility] Last Admin: 08/15/19 21:15 Dose: 120 ml Documented by: Ondansetron HCl (Zofran) 4 mg IV Q8H PRN PRN PRN Reason: Nausea Last Admin: 08/15/19 00:16 Dose: 4 mg Documented by: Oxycodone HCl (Oxyir) 10 mg PO Q6H PRN PRN PRN Reason: Pain Score 4-10/10 Last Admin: 08/16/19 03:03 Dose: 10 mg Documented by: Pantoprazole Sodium (Protonix) 20 mg PO DAILY [facility] Last Admin: 08/15/19 09:04 Dose: 20 mg Documented by: Sertraline HCl (Zoloft) 50 mg PO DAILY [facility] Last Admin: 08/15/19 09:03 Dose: 50 mg Documented by: Sodium Chloride () 10 - 40 ml IV UD PRN PRN Reason: SALINE FLUSH Last Admin: 08/15/19 05:21 Dose: 10 ml Documented by: Temazepam (Restoril) 15 mg PO DAILY PRN PRN Reason: SLEEP Last Admin: 08/14/19 20:34 Dose: 15 mg Documented by: Medical Necessity - Tobacco Use Smoking Status: Never smoker Assessment/Plan All Active Problems (Last Updated 02/17/19 @ 11:15 by Marleny Berrios) Bimalleolar fracture of right ankle (Acute) Walking difficulty due to ankle and foot (Acute) URI, acute (Acute) Pharyngitis, acute (Acute) POD #2 right ankle fracture open reduction internal fixation with syndesmosis repair. Walking difficulty Other comorbidities: Obesity, URI, acute pharyngitis, seizure disorder - management per hospitalist physician This patient was seen bedside this morning. I reviewed her case. She is afebrile and vital signs are stable. It is noted she did have temperatures in the 99 range yesterday. She is started on incentive spirometer relates she tries to use this while awake. Her regional block is completely worn off. Her pain is much better controlled today and she continues with IV morphine and OxyIR for pain control. This will be continued at this time and she will be transitioned off of IV pain medicine prior to [place] [facility]. To ice and elevate for additional pain inflammation management. To maintain a strict nonweightbearing status. I also recommend she does not lay directly on her surgical limb to avoid compromising it and also to help reduce pain. This was explained to the patient and she is not amendable to lay on her other side at this time but said she will think about it. I recommend transitioning to a [place] [facility] facility. This was reviewed with case management yesterday and they will look into 3 options. She is not a candidate to go to the TCU as requested due to insurance limitations. Medical management per hospitalist service is greatly appreciated. DVT proph ylaxis with Lovenox continues. In preparation for transition to [place] [facility], I will leave a written prescription for her narcotic pain medication in the paper chart. I'll continue to follow her close while in house. Please call if questions. Nery Barba DPM, F[facility] [phone]
[2019-08-16] MEDS: Lacosamide 100 MG Tablet 200 MG PO ×2 (10:04→20:58)
[2019-08-16] MEDS: levETIRAcetam 750 MG Tablet PO ×2 (10:04→20:59)
[2019-08-16] MEDS: Sertraline 50 MG Tablet PO (10:05)
[2019-08-16] MEDS: Pantoprazole Sodium 20 MG Tablet PO (10:05)
[2019-08-16] MEDS: carBAMazepine 400 MG TAB.SR.12H PO ×2 (10:05→21:00)
[2019-08-16] MEDS: carBAMazepine 200 MG TAB.SR.12H PO ×2 (10:05→21:00)
--- NOTE | 2019-08-16 10:13 | NURSING ---
This nurse in with pt while physical therapy came in to see pt. Ms. Joy started crying when P.T asked to work with her. Pt did not stop crying so physical therapy did not work with her today. Will try again tomorrow per phyiscal therapy.
[2019-08-16 10:15] VITALS: BP 119/73; PULSE 95; RESP 18; TEMP 37; O2SAT 98
[2019-08-16] MEDS: 0.9% Saline Lock 10 ML Syringe IV ×2 (13:57→21:01)
[2019-08-16 14:44] VITALS: BP 142/89; PULSE 96; RESP 20; TEMP 37.6; O2SAT 96
--- NOTE | 2019-08-16 16:14 | NURSING ---
Up to chair for approx 1hr 15min. Attempted to use BSC, unable to void. BAck in bed. Bed exit alarm on and Call light and phone in reach.
[2019-08-16 20:30] VITALS: BP 148/71; PULSE 113; RESP 16; TEMP 36.9; O2SAT 96
[2019-08-16 21:14] VITALS: PULSE 113
[2019-08-16] MEDS: Temazepam 15 MG Capsule PO (23:18)
[2019-08-17 03:53] VITALS: BP 110/59; PULSE 91; RESP 16; TEMP 37.1; O2SAT 95
[2019-08-17] MEDS: 0.9% Saline Lock 10 ML Syringe IV ×2 (03:59→21:47)
[2019-08-17] MEDS: Morphine 4 MG/ML Syringe IV (03:59)
[2019-08-17] MEDS: Acetaminophen 500 MG Tablet 1000 MG PO ×3 (06:38→21:48)
[2019-08-17] MEDS: oxyCODONE 5 MG Tablet 10 MG PO ×2 (06:38→23:25)
[2019-08-17] MEDS: Enoxaparin 40 MG/0.4 ML Syringe SC (06:38)
[2019-08-17 08:48] VITALS: BP 120/71; PULSE 80; RESP 16; TEMP 36.8; O2SAT 97
--- NOTE | 2019-08-17 08:53 | PCM.PN.HOSP ---
Patient Problems: Active and Suspected Problems (Last Updated 02/17/19 @ 11:15 by Marleny Berrios) Bimalleolar fracture of right ankle (Acute) Walking difficulty due to ankle and foot (Acute) Subjective: Patient seen and examined. He has no complaints today. Pain is well controlled. She was comfortably eating breakfast. Review of symptoms otherwise negative. She is awaiting placement in a facility where she can be followed by [facility]. Vitals/I&O's: Vital Signs Temp Pulse Resp BP Pulse Ox 98.3 F 80 16 120/71 97 08/17/19 08:48 08/17/19 08:48 08/17/19 08:48 08/17/19 08:48 08/17/19 08:48 Oxygen Delivery Method [6] Room Air Oxygen Delivery Method [5] Room Air Oxygen Delivery Method [4] Room Air Oxygen Delivery Method [3] Room Air Oxygen Delivery Method [1 ( Room Air Initial Baseline)] Oxygen Delivery Method Room Air Weight: 297 lb 13.512 oz Body Mass Index (BMI) 47.8 Intake and Output for Last 24 Hours 08/15/19 08/16/19 08/17/19 23:59 23:59 23:59 Intake Total 2850 / 2850 1160 / 1470 1110 / 1110 Output Total 2725 / 2725 1950 / 2550 850 / 850 Balance 125 / 125 -790 / -1080 260 / 260 General: Alert, Oriented x3, Cooperative, HEENT: Atraumatic, PERRLA, EOMI, Normocephalic Oral: Dry Mucosa Neck: Supple, No JVD, Negative Carotid Bruits Lungs: Clear to auscultation, Normal air movement, No rhonchi, No wheeze, No rales Cardiovascular: Regular rate, Regular Rhythm, Normal S1, Normal S2, No murmurs Abdomen: Bowel Sounds Present, Soft, Non Tender, Non-Distended, No Hepato-splenomegaly Extremities: No clubbing, No cyanosis, No edema, Capillary Refill Less than 3 Seconds Skin: No rashes, No breakdown Musculoskeletal: No Tenderness to Palpation of Joints or Extremities; RLE in splint Lymphatic: No Cervical, Supraclavicular, or Inguinal Adenopathy Neurological: Cranial nerves II-XII grossly intact, Neuro grossly intact, Motor Exam 5/5 strength throughout Psych/Mental Status: Normal Affect, Appropriate, Alert and oriented to time, place, person, mood and affect Current Medications Acetaminophen (Tylenol) 1,000 mg PO Q8 [facility] Last Admin: 08/17/19 06:38 Dose: 1,000 mg Documented by: Carbamazepine (Tegretol Xr) 400 mg PO BID [facility] Last Admin: 08/16/19 21:00 Dose: 400 mg Documented by: Carbamazepine (Tegretol Xr) 200 mg PO BID [facility] Last Admin: 08/16/19 21:00 Dose: 200 mg Documented by: Docusate Sodium (Colace) 200 mg PO BID PRN PRN PRN Reason: Constipation Enoxaparin Sodium (Lovenox) 40 mg SC DAILY@0600 [facility] Last Admin: 08/17/19 06:38 Dose: 40 mg Documented by: Sodium Chloride () 250 mls @ 15 mls/hr IV .[id number] PRN PRN Reason: Saline Flush Lacosamide (Vimpat) 200 mg PO BID [facility] Last Admin: 08/16/19 20:58 Dose: 200 mg Documented by: Levetiracetam (Keppra Tablet) 750 mg PO BID [facility] Last Admin: 08/16/19 20:59 Dose: 750 mg Documented by: Lorazepam (Ativan) 1 mg PO Q6H PRN PRN PRN Reason: ANXIETY Last Admin: 08/15/19 05:20 Dose: 1 mg Documented by: Morphine Sulfate () 2 - 4 mg IV Q3H PRN PRN PRN Reason: Pain Score 1-10/10 Last Admin: 08/17/19 03:59 Dose: 2 mg Documented by: Nutritional Formula (Lactose Free) (Ensure Enlive) 120 ml PO 4X/DAY [facility] Last Admin: 08/16/19 20:58 Dose: 120 ml Documented by: Ondansetron HCl (Zofran) 4 mg IV Q8H PRN PRN PRN Reason: Nausea Last Admin: 08/15/19 00:16 Dose: 4 mg Documented by: Oxycodone HCl (Oxyir) 10 mg PO Q6H PRN PRN PRN Reason: Pain Score 4-10/10 Last Admin: 08/17/19 06:38 Dose: 10 mg Documented by: Pantoprazole Sodium (Protonix) 20 mg PO DAILY [facility] Last Admin: 08/16/19 10:05 Dose: 20 mg Documented by: Sertraline HCl (Zoloft) 50 mg PO DAILY [facility] Last Admin: 08/16/19 10:05 Dose: 50 mg Documented by: Sodium Chloride () 10 - 40 ml IV UD PRN PRN Reason: SALINE FLUSH Last Admin: 08/17/19 03:59 Dose: 10 ml Documented by: Temazepam (Restoril) 15 mg PO DAILY PRN PRN Reason: SLEEP Last Admin: 08/16/19 23:18 Dose: 15 mg Documented by: STROKE Vital Signs/Narrative: Vital Signs Temp Pulse Resp BP Pulse Ox 08/17/19 08:48 98.3 F 80 16 120/71 97 Medical Necessity - Tobacco Use Smoking Status: Never smoker Assessment/Plan All Active Problems (Last Updated 02/17/19 @ 11:15 by Marleny Berrios) Bimalleolar fracture of right ankle (Acute) Walking difficulty due to ankle and foot (Acute) URI, acute (Acute) Pharyngitis, acute (Acute) 1. Seizure disorder on carbamazepine 600mg bid and lacosamide 200mg bid as well as Keppra 750mg bid. seizure precautions 2. Acute dislocated malleolar fracture of the right ankle podiatry on board; had ORIF yesterday. Today is POD 3 pain management as per podiatry on morphine and oxycodone Tachycardia has improved. Was likely due to pain and pain is now better controlled. 3. Mild cognitive impairment: stable 4. Obesity: complicates acute care, prognosis and expected management DVT prophylaxis: lovenox Disposition: Awaiting placement. Inpatient E&M: 77005 [facility] L[facility]
[2019-08-17] MEDS: carBAMazepine 400 MG TAB.SR.12H PO ×2 (09:02→21:49)
[2019-08-17] MEDS: Pantoprazole Sodium 20 MG Tablet PO (09:02)
[2019-08-17] MEDS: levETIRAcetam 750 MG Tablet PO ×2 (09:02→21:48)
[2019-08-17] MEDS: Sertraline 50 MG Tablet PO (09:02)
[2019-08-17] MEDS: carBAMazepine 200 MG TAB.SR.12H PO ×2 (09:03→21:49)
--- NOTE | 2019-08-17 09:11 | CASEMGMT ---
Addendum entered by Paula Su 08/17/19 11:26: TARIQ also placed a call to Celeste at [facility] regarding referral. Celeste states it is unlikely that they will be able to accept pt but is agreeable to reviewing referral. TARIQ faxed referral to [facility]. Addendum entered by Paula Su 08/17/19 11:14: SW received call from Do at [facility] stating they are not able to accept pt and states [facility] may be more appropriate for pt. SW updated Do that [facility] wasn't on pt's list so this worker will need to send referrals to other SNF. SW also received message from Liliana pt's CM at [facility] asking if pt could go to custodial for respite care stay. SW placed a call to Liliana and updated her that physician is recommending SNF for pt. Pt was assist of 1 an unable to ambulate and refused therapy the other day. Liliana states that custodial wouldn't be able to provide 24/7 nursing care or PT/OT daily for pt. Liliana agrees to SNF placement for pt. SW also received call from Daisy at [facility] asking if pt will be admitted to custodial for respite state. SW updated Daisy that at this time, physician is recommending SNF for pt. TARIQ placed a call to Shar at [facility] and left message asking if [facility] is taking new admissions at this time and if she would be willing to review referral. SW waiting for call back. Original Note: Social Work Note Pt is agreeable to SNF and prefers [facility] as first choice. TARIQ placed a call to Do at [facility] and left message regarding referral, asked if pt needs negative COVID test. SW faxed referral. Plan: SNF pending acceptance and LOC Paula Su REFRESH TECHNICIAN, COMMERCIAL ENGINEER
--- NOTE | 2019-08-17 12:42 | CHAPLAIN ---
Type of Pastoral Visit _x__ Initial Visit ___ Follow-up Visit ___ On-call Visit ___ General Patient Visit ___ Spiritual Assessment ___ Family Conference ___ Bereavement ___ Rapid Response ___ Code Blue ___ Other (describe below) Pastoral Care Referral From _x__ Patient ___ Family ___ Nurse ___ Physician ___ Plant Breeder Scientist ___ Replenishment Merchandising Associate ___ Other (describe below) Sacrament/Intervention _x__ Active listening ___ Anointing ___ Rastafari ___ Bereavement ___ Communion ___ Renée exploration ___ _x__ Life review _x__ Prayer ___ Reconciliation ___ Sacrament of Sick _x__ Supportive presence ___ Wedding ___ Other (describe below) Pastoral Comments patient on the phone but asks this robotics systems engineer to stay in room waiting; pt talks about her 'first surgery ever' and 'pain'; pt has worked at [email or web address]; pt tells this robotics systems engineer that her family is not always supportive but one sister has been helpful; pt says she is unhappy that she can't see her mother who is very ill and learns from a text message, at this time, that her mother is at [facility]; pt is tearful; this robotics systems engineer explains that she may be able to have a phone conversation with her mother if family and hospice will arrange it; this information appears to give pt some calm; spoke with SW about the information learned during this visit
[2019-08-17] MEDS: Lacosamide 100 MG Tablet 200 MG PO ×2 (12:50→22:06)
--- NOTE | 2019-08-17 13:15 | CASEMGMT ---
Addendum entered by Paula Su 08/17/19 15:19: SW received call from Abelardo at [facility] stating it is looking like they are able to accept pt but will need to discuss referral with other staff members before being able to confirm they can accept pt. TARIQ asked Abelardo to let this worker know when they decide if they can officially accept pt or not. SW attempted to update pt, pt soundly sleeping, will update pt tomorrow. Addendum entered by Paula Su 08/17/19 14:37: SW hasn't heard back yet from [facility]. TARIQ placed a call to [facility] and spoke with Sussy. Sussy states they have no beds available at this time. TARIQ still waiting to hear from [facility]. Original Note: Social Work Note SW received message from Shar at [facility] stating they are not accepting new admissions at this time. SW received call from Celeste at [facility] stating she is not able to accept pt. SW in to speak with pt. SW updated pt that [facility] [place], [facility] and [facility] is not able to accept pt. TARIQ explained that the other two SNF in [place] that accept pt's insurance is [facility] and [facility]. Pt states I can't go to those places, they have COVID, I am not going there. SW informed pt that the next closest SNF are in [place] ([facility] and [facility]). Pt states she is agreeable to either one of those places as long as they don't have any COVID cases. SW was also updated by Demurrage Man that pt's mother is currently at [facility]. TARIQ spoke with pt regarding her mother. Pt states my sister is keeping my updated, and they are hoping that mom will be able to return home soon. SW offered support to pt. SW offered to provide pt with [facility] number and pt denied, pt states that she already has their number and again states her sisters are keeping her updated. SW updated pt on SNF process and that pt still needs accepting facility and also needs LOC and this will likely not happen today. Pt states understanding. SW placed a call to Abelardo at [facility] and provided referral. SW waiting to hear from Abelardo at [facility]. Plan: SNF pending acceptance and LOC Paula Su JACQUARD LOOM CARD CHANGER, EMISSIONS TECHNICIAN
--- NOTE | 2019-08-17 13:52 | PN_ITS ---
Patient Problems: Active and Suspected Problems (Last Updated 02/17/19 @ 11:15 by Marleny Berrios) Ankle syndesmosis disruption (Acute) Bimalleolar fracture of right ankle (Acute) Walking difficulty due to ankle and foot (Acute) Subjective: Patient was seen today for follow up on right ankle ORIF. Currently awaiting nursing facility approval for placement. Patient resting comfortably in bed, but she does relate to some ankle pain. No complaints of fever, chills, nausea or vomiting. - Physical Exam Vitals/I&O's: Vital Signs Temp Pulse Resp BP Pulse Ox 98.3 F 80 16 120/71 97 08/17/19 08:48 08/17/19 08:48 08/17/19 08:48 08/17/19 08:48 08/17/19 08:48 Oxygen Delivery Method [6] Room Air Oxygen Delivery Method [5] Room Air Oxygen Delivery Method [4] Room Air Oxygen Delivery Method [3] Room Air Oxygen Delivery Method [1 ( Room Air Initial Baseline)] Oxygen Delivery Method Room Air Weight: 135.1 kg Body Mass Index (BMI) 47.8 Intake and Output for Last 24 Hours 08/15/19 08/16/19 08/17/19 23:59 23:59 23:59 Intake Total 2850 / 2850 1160 / 1470 1110 / 1110 Output Total 2725 / 2725 1950 / 2550 850 / 850 Balance 125 / 125 -790 / -1080 260 / 260 General: Alert, Oriented x3, Cooperative, No apparent distress Extremities: Capillary Refill Less than 3 Seconds, No Calf Tenderness, Peripheral Pulses Normal, - - Right ankle incisions well coapted, healing with no dehiscence; there is ecchymosis to the foot/ankle c/w injury and surgery, no cellulitis, no fluctuance, no maloder, no necrosis, no crepitus, post op alignment maintained, muscle strength intact but guarded due to pain c/w normal findings at this time, no evidence of ischemia to the foot/ankle. Current Medications Acetaminophen (Tylenol) 1,000 mg PO Q8 [facility] Last Admin: 08/17/19 06:38 Dose: 1,000 mg Documented by: Carbamazepine (Tegretol Xr) 400 mg PO BID [facility] Last Admin: 08/17/19 09:02 Dose: 400 mg Documented by: Carbamazepine (Tegretol Xr) 200 mg PO BID [facility] Last Admin: 08/17/19 09:03 Dose: 200 mg Documented by: Docusate Sodium (Colace) 200 mg PO BID PRN PRN PRN Reason: Constipation Enoxaparin Sodium (Lovenox) 40 mg SC DAILY@0600 [facility] Last Admin: 08/17/19 06:38 Dose: 40 mg Documented by: Sodium Chloride () 250 mls @ 15 mls/hr IV .[id number] PRN PRN Reason: Saline Flush Lacosamide (Vimpat) 200 mg PO BID [facility] Last Admin: 08/17/19 12:50 Dose: 200 mg Documented by: Levetiracetam (Keppra Tablet) 750 mg PO BID [facility] Last Admin: 08/17/19 09:02 Dose: 750 mg Documented by: Lorazepam (Ativan) 1 mg PO Q6H PRN PRN PRN Reason: ANXIETY Last Admin: 08/15/19 05:20 Dose: 1 mg Documented by: Morphine Sulfate () 2 - 4 mg IV Q3H PRN PRN PRN Reason: Pain Score 1-10/10 Last Admin: 08/17/19 03:59 Dose: 2 mg Documented by: Ondansetron HCl (Zofran) 4 mg IV Q8H PRN PRN PRN Reason: Nausea Last Admin: 08/15/19 00:16 Dose: 4 mg Documented by: Oxycodone HCl (Oxyir) 10 mg PO Q6H PRN PRN PRN Reason: Pain Score 4-10/10 Last Admin: 08/17/19 06:38 Dose: 10 mg Documented by: Pantoprazole Sodium (Protonix) 20 mg PO DAILY [facility] Last Admin: 08/17/19 09:02 Dose: 20 mg Documented by: Sertraline HCl (Zoloft) 50 mg PO DAILY [facility] Last Admin: 08/17/19 09:02 Dose: 50 mg Documented by: Sodium Chloride () 10 - 40 ml IV UD PRN PRN Reason: SALINE FLUSH Last Admin: 08/17/19 03:59 Dose: 10 ml Documented by: Temazepam (Restoril) 15 mg PO DAILY PRN PRN Reason: SLEEP Last Admin: 08/16/19 23:18 Dose: 15 mg Documented by: Medical Necessity - Tobacco Use Smoking Status: Never smoker Assessment/Plan All Active Problems (Last Updated 02/17/19 @ 11:15 by Marleny Berrios) Ankle syndesmosis disruption (Acute) Bimalleolar fracture of right ankle (Acute) Walking difficulty due to ankle and foot (Acute) URI, acute (Acute) Pharyngitis, acute (Acute) s/p right ankle fracture open reduction internal fixation with syndesmosis repair on 08/14/2019. Walking difficulty Other comorbidities: Obesity, URI, acute pharyngitis, seizure disorder - management per hospitalist physician Dressing changed - no evidence of infection or DVT at this time. Painted incision sites w/ betadine solution, applied gauze, kerlix, jonelle bandage and well padded below knee posterior splint with heel offloaded. Keep clean, dry and intact. Continue with patient management, try to ween off of IV pain medication and just to orals. To ice and elevate for additional pain inflammation management. To maintain a strict nonweightbearing status. She has been advised not lay directly on her surgical limb to avoid compromising it and also to help reduce pain. [facility] facility placement pending. Once approved will plan to discharge. Medical management per hospitalist service is greatly appreciated. DVT prophylaxis with Lovenox continues. In preparation for transition to [facility]pc facility, a written prescription for her narcotic pain medication has been placed in the paper chart.
--- NOTE | 2019-08-17 13:59 | RAD_ITS ---
STUDY: X-RAY - LEFT ANKLE REASON FOR EXAM: Female, 38 years old. INJURY, BRUISING LATERALLY TECHNIQUE: 3 view(s) of the ankle. COMPARISON: None. FINDINGS: Normal visualized distal tibia and fibula. I suspect a tiny avulsion of the lateral malleolus. Normal tibiotalar articulation and ankle mortise. Normal visualized talus and calcaneus. The visualized subtalar, talonavicular, calcaneocuboid and tarsal articulations are normal. Diffuse soft tissue swelling. RAD/Ankle min 3 Views IMPRESSION: I suspect a tiny avulsion of the lateral malleolus. Soft tissue swelling. Electronically Signed: Doe Enriquez, at 15:27 EDT , Service support ,
[2019-08-17 14:51] VITALS: BP 116/72; PULSE 90; RESP 16; TEMP 36.7; O2SAT 96
[2019-08-17 20:45] VITALS: BP 143/83; PULSE 92; RESP 20; TEMP 36.6; O2SAT 100
[2019-08-17] MEDS: Temazepam 15 MG Capsule PO (23:24)
[2019-08-18 01:17] VITALS: BP 121/64; PULSE 94; RESP 18; TEMP 36.9; O2SAT 94
[2019-08-18] MEDS: Morphine 4 MG/ML Syringe IV (04:24)
[2019-08-18] MEDS: 0.9% Saline Lock 10 ML Syringe IV (04:25)
[2019-08-18] MEDS: Enoxaparin 40 MG/0.4 ML Syringe SC (05:35)
[2019-08-18] MEDS: Acetaminophen 500 MG Tablet 1000 MG PO ×2 (05:35→15:01)
[2019-08-18 07:54] VITALS: BP 127/71; PULSE 85; RESP 20; TEMP 36.9; O2SAT 98
--- NOTE | 2019-08-18 08:42 | CASEMGMT ---
Addendum entered by Paula Su 08/18/19 11:45: SW received message from Abelardo at [facility] confirming they have no COVID cases at their facility. Addendum entered by Paula Su 08/18/19 11:34: Transfer to extended care facility completed. LOC completed and faxed to [facility]. Addendum entered by Paula Su 08/18/19 10:54: SW received message from Abelardo at [facility] stating they are able to accept pt. TARIQ placed a call back to Abelardo at [facility] and left message that this worker will submit for LOC and asked again for Abelardo to confirm whether or not he has any COVID cases as pt wants to know. TARIQ contacted hospitalist to complete transfer to extended care, per hospitalist podiatry is admitting to podiatry will nee to complete transfer to extended care and discharge paperwork. TARIQ paged Dr. Barba, waiting for call. Plan: [facility] pending LOC. SW needs transfer to extended care form completed before LOC can be submitted. Original Note: Social Work Note TARIQ placed a call to Abelardo at [facility] and left message asking if [facility] is able to accept pt and if they have any cases of COVID as pt is adamant she doesn't want to go to a SNF that has COVID cases. TARIQ waiting for call back. Plan: SNF pending acceptance and LOC Paula Su CIGAR HEAD HOLER, FOOD AND BEVERAGE ORDER CLERK
--- NOTE | 2019-08-18 09:33 | PN_ITS ---
Patient Problems: Active and Suspected Problems (Last Updated 02/17/19 @ 11:15 by Marleny Berrios) Bimalleolar fracture of right ankle (Acute) Walking difficulty due to ankle and foot (Acute) Subjective: Patient seen and examined. Pain is better controlled today in the right lower extremity. She had an uneventful night and had no complaints. Review systems otherwise negative. Vitals/I&O's: Vital Signs Temp Pulse Resp BP Pulse Ox 98.4 F 85 20 H 127/71 H 98 08/18/19 07:54 08/18/19 07:54 08/18/19 07:54 08/18/19 07:54 08/18/19 07:54 Oxygen Delivery Method [6] Room Air Oxygen Delivery Method [5] Room Air Oxygen Delivery Method [4] Room Air Oxygen Delivery Method [3] Room Air Oxygen Delivery Method [1 ( Room Air Initial Baseline)] Oxygen Delivery Method Room Air Weight: 297 lb 13.512 oz Body Mass Index (BMI) 47.8 Intake and Output for Last 24 Hours 08/16/19 08/17/19 08/18/19 23:59 23:59 23:59 Intake Total 1160 / 1470 1110 / 1510 600 / 600 Output Total 1950 / 2550 850 / 1150 550 / 550 Balance -790 / -1080 260 / 360 50 / 50 General: Alert, Oriented x3, Cooperative, HEENT: Atraumatic, PERRLA, EOMI, Normocephalic Oral: Dry Mucosa Neck: Supple, No JVD, Negative Carotid Bruits Lungs: Clear to auscultation, Normal air movement, No rhonchi, No wheeze, No rales Cardiovascular: Regular rate, Regular Rhythm, Normal S1, Normal S2, No murmurs Abdomen: Bowel Sounds Present, Soft, Non Tender, Non-Distended, No Hepato- splenomegaly Extremities: No clubbing, No cyanosis, No edema, Capillary Refill Less than 3 Seconds Skin: No rashes, No breakdown Musculoskeletal: No Tenderness to Palpation of Joints or Extremities; RLE in splint Lymphatic: No Cervical, Supraclavicular, or Inguinal Adenopathy Neurological: Cranial nerves II-XII grossly intact, Neuro grossly intact, Motor Exam 5/5 strength throughout Psych/Mental Status: Normal Affect, Appropriate, Alert and oriented to time, place, person, mood and affect Current Medications Acetaminophen (Tylenol) 1,000 mg PO Q8 [facility] Last Admin: 08/18/19 05:35 Dose: 1,000 mg Documented by: Carbamazepine (Tegretol Xr) 400 mg PO BID [facility] Last Admin: 08/17/19 21:49 Dose: 400 mg Documented by: Carbamazepine (Tegretol Xr) 200 mg PO BID [facility] Last Admin: 08/17/19 21:49 Dose: 200 mg Documented by: Docusate Sodium (Colace) 200 mg PO BID PRN PRN PRN Reason: Constipation Enoxaparin Sodium (Lovenox) 40 mg SC DAILY@0600 [facility] Last Admin: 08/18/19 05:35 Dose: 40 mg Documented by: Sodium Chloride () 250 mls @ 15 mls/hr IV .[id number] PRN PRN Reason: Saline Flush Lacosamide (Vimpat) 200 mg PO BID [facility] Last Admin: 08/17/19 22:06 Dose: 200 mg Documented by: Levetiracetam (Keppra Tablet) 750 mg PO BID [facility] Last Admin: 08/17/19 21:48 Dose: 750 mg Documented by: Lorazepam (Ativan) 1 mg PO Q6H PRN PRN PRN Reason: ANXIETY Last Admin: 08/15/19 05:20 Dose: 1 mg Documented by: Morphine Sulfate () 2 - 4 mg IV Q3H PRN PRN PRN Reason: Pain Score 1-10/10 Last Admin: 08/18/19 04:24 Dose: 4 mg Documented by: Ondansetron HCl (Zofran) 4 mg IV Q8H PRN PRN PRN Reason: Nausea Last Admin: 08/15/19 00:16 Dose: 4 mg Documented by: Oxycodone HCl (Oxyir) 10 mg PO Q6H PRN PRN PRN Reason: Pain Score 4-10/10 Last Admin: 08/17/19 23:25 Dose: 10 mg Documented by: Pantoprazole Sodium (Protonix) 20 mg PO DAILY [facility] Last Admin: 08/17/19 09:02 Dose: 20 mg Documented by: Sertraline HCl (Zoloft) 50 mg PO DAILY [facility] Last Admin: 08/17/19 09:02 Dose: 50 mg Documented by: Sodium Chloride () 10 - 40 ml IV UD PRN PRN Reason: SALINE FLUSH Last Admin: 08/18/19 04:25 Dose: 10 ml Documented by: Temazepam (Restoril) 15 mg PO DAILY PRN PRN Reason: SLEEP Last Admin: 08/17/19 23:24 Dose: 15 mg Documented by: STROKE Vital Signs/Narrative: Vital Signs Temp Pulse Resp BP Pulse Ox 08/18/19 07:54 98.4 F 85 20 H 127/71 H 98 Medical Necessity - Tobacco Use Smoking Status: Never smoker Assessment/Plan All Active Problems (Last Updated 02/17/19 @ 11:15 by Marleny Berrios) Ankle syndesmosis disruption (Acute) Bimalleolar fracture of right ankle (Acute) Walking difficulty due to ankle and foot (Acute) URI, acute (Acute) Pharyngitis, acute (Acute) 1. Seizure disorder * on carbamazepine 600mg bid and lacosamide 200mg bid as well as Keppra 750mg bid. * seizure precautions * 2. Acute dislocated malleolar fracture of the right ankle * podiatry on board; had ORIF yesterday. Today is POD 4 * pain management as per podiatry * on morphine and oxycodone * 3. Mild cognitive impairment: stable 4. Obesity: complicates acute care, prognosis and expected management DVT prophylaxis: lovenox Disposition: Awaiting placement. Inpatient E&M: 88329 [facility] L2
[2019-08-18] MEDS: Pantoprazole Sodium 20 MG Tablet PO (10:14)
[2019-08-18] MEDS: levETIRAcetam 750 MG Tablet PO (10:14)
[2019-08-18] MEDS: carBAMazepine 200 MG TAB.SR.12H PO (10:14)
[2019-08-18] MEDS: carBAMazepine 400 MG TAB.SR.12H PO (10:15)
[2019-08-18] MEDS: Sertraline 50 MG Tablet PO (10:16)
[2019-08-18] MEDS: Lacosamide 100 MG Tablet 200 MG PO (10:20)
--- NOTE | 2019-08-18 11:13 | PCM.TXEXTCAR ---
- Diet 08/14/19 17:06 Diet: Regular Diet Is pt able to select menu?: Yes - Routine Orders/Code Status Code Status: Full Code - Wound(s) rt foot Wound Type: Surgical Incision Dressing Change: keep dressing and splint clean and intact - Suggestions for Active Care Positions to Avoid: avoid direct pressure to lateral and medial right ankle incision sites - Therapies Weight Bearing: Non weight bearing Extremity Affected:: left partial weight bearing in ankle brace Physical Therapy: non weightbear right lower extremity with assistive device Occupational Therapy: Eval and Treat - Problem/Diagnosis (1) Bimalleolar fracture of right ankle Status: Acute Current Visit: Yes (2) Left ankle pain Status: Acute Current Visit: Yes - Allergies/Procedures Done in Hospital Allergies/Adverse Reactions: Allergies Penicillins Allergy (Verified 08/13/19 16:13) Unknown tomato Adverse Reaction (Verified 08/13/19 16:13) Diarrhea Procedures: - - right open reduction internal fixation ankle fracture - Type of Care/Length of Stay Estimated LOS: Convalescent Care Less Than 30 days Type of Care Needed: Skilled Rehab Potential: Good Prognosis: Good - Additional Orders/Day of Discharge H&P will serve as current which was dated: 08/13/19 Day of Discharge: 08/18/19 - Dietary and Speech Recommendations Dietitian Recommendations/Changes: Will d/c ONS as po intake good and no longer indicated. Will consider wt reduction diet once able to interview pt about desire for wt loss. - Follow Up Care Primary Care Physician: Erwin Orozco MD [Primary Care Provider] - Please Follow Up With: Nery Barba DPM When: [facility] 1 week,
--- NOTE | 2019-08-18 11:26 | PCM.DC.SUM ---
Discharge Date and Diagnosis - Problem List Patient Problems: Active and Suspected Problems (Last Updated 02/17/19 @ 11:15 by Marleny Berrios) Left ankle pain (Acute) Bimalleolar fracture of right ankle (Acute) Walking difficulty due to ankle and foot (Acute) Date of Admission: 08/13/19 - Primary Discharge Diagnosis Active and Suspected Problems (Last Updated 02/17/19 @ 11:15 by Marleny Berrios) Left ankle pain (Acute) - fibula avulsion fracture / sprain Bimalleolar fracture of right ankle (Acute) Walking difficulty due to ankle and foot (Acute) - Secondary Discharge Diagnosis Chronic Problems (Last Updated 02/17/19 @ 11:15 by Marleny Berrios) Keeps losing balance (Chronic) seizure disorder obesity Hospital Course and Treatment Imaging Results: 08-13-2019: Right ankle, foot, leg plain radiographs demonstrated bimalleolar ankle fracture with ankle dislocation. There were no additional fractures of the proximal leg or to the foot. Left ankle x-ray: The ankle mortise is well aligned in a rectus position. There is no obvious fracture dislocation noted. Additional read, there is some obscurity at the distal fibula which is difficult to visualize may be consistent with chronic ankle injuries versus new avulsion fracture. 08-14-2019: Right ankle postoperative: Open reduction internal fixation of by malleolus ankle fracture with lateral fibula plate and screws, medial malleolus 2 screws, and syndesmosis FiberWire fixation. Ankle mortise is well aligned and in a rectus position. There are no acute injuries. The hardware is in the desired position and trajectory. 08-17-2019: Left ankle x-ray: Ankle mortise is well aligned in a rectus position. There is a change in trabecular pattern to the very distal tip of the fibula that is consistent with an avulsion fracture. It is unclear if this is chronic versus acute. There is no gapping or displacement noted. Operations: - - 08-14-2019: Right open reduction internal fixation ankle fracture with syndesmosis repair Summary of Care Provided: The patient is a 38 year old F sustained a fall at the [facility] on 08-13-2019. She presented to the emergency room and was admitted for inability to ambulate and for her right lower extremity fracture and her left lower extremity pain. She had surgical intervention on the right lower extremity on 08-14-2019 and was further admitted for pain control and for physical therapy assessment. Her significant past medical history includes seizure history, obesity, and some potential cognitive delays. Due to inability to care for self at home alone in this state, longterm facility placement was recommended. She is completed physical therapy assessment. She is remain nonweightbearing to the surgical right lower extremity. An ankle brace and assistive walking device was also recommended for the left lower extremity injury site which was treated conservatively. She is remained stable during her hospitalization. DVT prophylaxis was continued. Medical management per hospitalist team was also implemented and appreciated. Patient Problems: Active and Suspected Problems (Last Updated 02/17/19 @ 11:15 by Marleny Berrios) Left ankle pain (Acute) Bimalleolar fracture of right ankle (Acute) Walking difficulty due to ankle and foot (Acute) - Physical Exam Vitals/I&O's: Vital Signs Temp Pulse Resp BP Pulse Ox 98.4 F 85 20 H 127/71 H 98 08/18/19 07:54 08/18/19 07:54 08/18/19 07:54 08/18/19 07:54 08/18/19 07:54 Oxygen Delivery Method [6] Room Air Oxygen Delivery Method [5] Room Air Oxygen Delivery Method [4] Room Air Oxygen Delivery Method [3] Room Air Oxygen Delivery Method [1 ( Room Air Initial Baseline)] Oxygen Delivery Method Room Air Weight: 135.1 kg Body Mass Index (BMI) 47.8 Intake and Output for Last 24 Hours 08/16/19 08/17/19 08/18/19 23:59 23:59 23:59 Intake Total 1160 / 1470 1110 / 1510 600 / 600 Output Total 1950 / 2550 850 / 1150 550 / 550 Balance -790 / -1080 260 / 360 50 / 50 General: Alert, Oriented x3, Cooperative HEENT: Atraumatic Extremities: No cyanosis, Capillary Refill Less than 3 Seconds, No Calf Tenderness, - - rectus bilateral lower extremities Skin: Incision - intact medial and lateral right ankle, no infection., - - right dressing and splint clean, dry, and intact Musculoskeletal: - - Pain to palpate surgically repaired fracture sites right lower extremity and also none operative left fibula fracture. Compartments are soft to palpate bilateral. Active range of motion digits x10 Neurological: Sensory exam intact to light touch and pain - Epicritic sensation is intact to all digits and foot and ankle dermatomes on the left lower extremity. Epicritic sensation is intact to light touch to digits 1, 2, 3 right foot and also to the foot and ankle Psych/Mental Status: Normal Affect, Appropriate Current Medications Acetaminophen (Tylenol) 1,000 mg PO Q8 REPLACED BY [facility] Last Admin: 08/18/19 05:35 Dose: 1,000 mg Documented by: Carbamazepine (Tegretol Xr) 400 mg PO BID REPLACED BY [facility] Last Admin: 08/18/19 10:15 Dose: 400 mg Documented by: Carbamazepine (Tegretol Xr) 200 mg PO BID REPLACED BY [facility] Last Admin: 08/18/19 10:14 Dose: 200 mg Documented by: Docusate Sodium (Colace) 200 mg PO BID PRN PRN PRN Reason: Constipation Enoxaparin Sodium (Lovenox) 40 mg SC DAILY@0600 REPLACED BY [facility] Last Admin: 08/18/19 05:35 Dose: 40 mg Documented by: Sodium Chloride () 250 mls @ 15 mls/hr IV .[id number] PRN PRN Reason: Saline Flush Lacosamide (Vimpat) 200 mg PO BID REPLACED BY [facility] Last Admin: 08/18/19 10:20 Dose: 200 mg Documented by: Levetiracetam (Keppra Tablet) 750 mg PO BID REPLACED BY [facility] Last Admin: 08/18/19 10:14 Dose: 750 mg Documented by: Lorazepam (Ativan) 1 mg PO Q6H PRN PRN PRN Reason: ANXIETY Last Admin: 08/15/19 05:20 Dose: 1 mg Documented by: Morphine Sulfate () 2 - 4 mg IV Q3H PRN PRN PRN Reason: Pain Score 1-10/10 Last Admin: 08/18/19 04:24 Dose: 4 mg Documented by: Ondansetron HCl (Zofran) 4 mg IV Q8H PRN PRN PRN Reason: Nausea Last Admin: 08/15/19 00:16 Dose: 4 mg Documented by: Oxycodone HCl (Oxyir) 10 mg PO Q6H PRN PRN PRN Reason: Pain Score 4-10/10 Last Admin: 08/17/19 23:25 Dose: 10 mg Documented by: Pantoprazole Sodium (Protonix) 20 mg PO DAILY REPLACED BY [facility] Last Admin: 08/18/19 10:14 Dose: 20 mg Documented by: Sertraline HCl (Zoloft) 50 mg PO DAILY [facility] Last Admin: 08/18/19 10:16 Dose: 50 mg Documented by: Sodium Chloride () 10 - 40 ml IV UD PRN PRN Reason: SALINE FLUSH Last Admin: 08/18/19 04:25 Dose: 10 ml Documented by: Temazepam (Restoril) 15 mg PO DAILY PRN PRN Reason: SLEEP Last Admin: 08/17/19 23:24 Dose: 15 mg Documented by: Discharge Activity: May Not Drive, May Shower - keep right lower extremity splint and dressing clean, dry, intact with shower bag, Use Walker - wheels and seat Weight Bearing Status: Partial weight bearing - left as tolerated with ankle brace, No weight bearing - right with surgical splint and dressing intact Keep extremity elevated above heart level: Left Leg, Right Leg Call your doctor if your incision/area has: Continuous Slow Oozing, Sudden Increased Bleeding, Increased Pain/ Swelling, Increased Redness, Foul Smelling Discharge, Swelling at the incision site Call your doctor if you observe: Fever of 101 or Higher, Numbness or Tingling, Increased palpitations (irregular heartbeat), Calf discomfort, Uncontrolled pain Cleanse incision/area with: Keep Dressing Clean & Dry Home Medications: Medications to take at Discharge Carbamazepine 200 mg PO BID 08/13/19 Carbamazepine [Carbamazepine ER] 400 mg PO BID 08/13/19 Ergocalciferol (Vitamin D2) [Vitamin D2] 50,000 unit PO MO 08/13/19 Ferrous Sulfate 325 mg PO DAILY@0800 08/13/19 Lacosamide [Vimpat] 200 mg PO BID 08/13/19 Levetiracetam 750 mg PO BID 08/13/19 Meloxicam 15 mg PO DAILY 08/13/19 Multivitamin [Daily Vitamin Formula] 1 tab PO DAILY 08/13/19 Omeprazole 20 mg PO DAILY 08/13/19 Sertraline HCl [Zoloft] 50 mg PO DAILY 08/13/19 Oxycodone HCl/Acetaminophen [Percocet 7.5-325 mg Tablet] 1 - 2 tab PO Q6H PRN PRN 5 Days #40 tab 08/16/19 Enoxaparin [Lovenox] 40 mg SUBCUT DAILY@0600 30 Days #30 syringe 08/18/19 Following Prescrptions Were Given to Patient: Enoxaparin [Lovenox] 40 mg SUBCUT DAILY@0600 30 Days #30 syringe Prescription Printed Oxycodone HCl/Acetaminophen [Percocet 7.5-325 mg Tablet] 1 - 2 tab PO Q6H PRN PRN 5 Days #40 tab PRN Reason: Pain Score 4-10/10 Prescription Printed Primary Care Physician: Erwin Orozco MD [Primary Care Provider] - Please Follow Up With: Nery Barba DPM When: [facility] 1 week, Please Follow Up With: Neurologist in [place] When: [phone] (Dr. Whiteside retired, needs to get estabilished with provider) Disposition: Shelter facility Minutes spent on discharge:: 45 Patient Condition:: Good Medical Necessity - Tobacco Use Smoking Status: Never smoker Meaningful Use Info Meaningful Use Diagnoses (Choose all that apply): None applicable
--- NOTE | 2019-08-18 12:48 | PCM.PROGNOTE ---
Patient Problems: Active and Suspected Problems (Last Updated 02/17/19 @ 11:15 by Marleny Berrios) Left ankle pain (Acute) Bimalleolar fracture of right ankle (Acute) Walking difficulty due to ankle and foot (Acute) Subjective: This patient was seen postoperative day #4 right ankle open reduction internal fixation with additional syndesmosis repair. She relates her pain is better controlled today, although her splint is still bothersome. She denies fever, chill, nausea, vomiting, chest pain, shortness of breath, calf pain. She is more alert today. Her [facility] is pending. She has continued left ankle pain continued bruising as well. Her x-rays were repeated yesterday. Her left limb pain much less than the surgical limb. He is worked with physical therapy. - Physical Exam Vitals/I&O's: Vital Signs Temp Pulse Resp BP Pulse Ox 98.4 F 85 20 H 127/71 H 98 08/18/19 07:54 08/18/19 07:54 08/18/19 07:54 08/18/19 07:54 08/18/19 07:54 Oxygen Delivery Method [6] Room Air Oxygen Delivery Method [5] Room Air Oxygen Delivery Method [4] Room Air Oxygen Delivery Method [3] Room Air Oxygen Delivery Method [1 ( Room Air Initial Baseline)] Oxygen Delivery Method Room Air Weight: 135.1 kg Body Mass Index (BMI) 47.8 Intake and Output for Last 24 Hours 08/16/19 08/17/19 08/18/19 23:59 23:59 23:59 Intake Total 1160 / 1470 1110 / 1510 600 / 600 Output Total 1950 / 2550 850 / 1150 550 / 550 Balance -790 / -1080 260 / 360 50 / 50 General: Alert, Oriented x3, Cooperative Extremities: No cyanosis, Capillary Refill Less than 3 Seconds - all digits bilateral, No Calf Tenderness - Negative Baum bilateral, Edema Skin: - - No strikethrough to dressing or splint right lower extremity. Ecchymosis continue to lateral distal left ankle Musculoskeletal: Muscle Wasting, - - Pain to palpation to fracture sites, bilateral. Compartments are soft to palpate bilateral lower extremities. Right lower extremity and left lower extremity remain in rectus position without skin tenting Neurological: - - Epicritic sensation intact to all digits on the left and also digits 1, 2, 3 on the right Psych/Mental Status: Normal Affect, Appropriate, Anxious Current Medications Acetaminophen (Tylenol) 1,000 mg PO Q8 [facility] Last Admin: 08/18/19 05:35 Dose: 1,000 mg Documented by: Carbamazepine (Tegretol Xr) 400 mg PO BID [facility] Last Admin: 08/18/19 10:15 Dose: 400 mg Documented by: Carbamazepine (Tegretol Xr) 200 mg PO BID [facility] Last Admin: 08/18/19 10:14 Dose: 200 mg Documented by: Docusate Sodium (Colace) 200 mg PO BID PRN PRN PRN Reason: Constipation Enoxaparin Sodium (Lovenox) 40 mg SC DAILY@0600 [facility] Last Admin: 08/18/19 05:35 Dose: 40 mg Documented by: Sodium Chloride () 250 mls @ 15 mls/hr IV .[id number] PRN PRN Reason: Saline Flush Lacosamide (Vimpat) 200 mg PO BID [facility] Last Admin: 08/18/19 10:20 Dose: 200 mg Documented by: Levetiracetam (Keppra Tablet) 750 mg PO BID [facility] Last Admin: 08/18/19 10:14 Dose: 750 mg Documented by: Lorazepam (Ativan) 1 mg PO Q6H PRN PRN PRN Reason: ANXIETY Last Admin: 08/15/19 05:20 Dose: 1 mg Documented by: Ondansetron HCl (Zofran) 4 mg IV Q8H PRN PRN PRN Reason: Nausea Last Admin: 08/15/19 00:16 Dose: 4 mg Documented by: Oxycodone HCl (Oxyir) 10 mg PO Q6H PRN PRN PRN Reason: Pain Score 4-10/10 Last Admin: 08/17/19 23:25 Dose: 10 mg Documented by: Pantoprazole Sodium (Protonix) 20 mg PO DAILY [facility] Last Admin: 08/18/19 10:14 Dose: 20 mg Documented by: Sertraline HCl (Zoloft) 50 mg PO DAILY [facility] Last Admin: 08/18/19 10:16 Dose: 50 mg Documented by: Sodium Chloride () 10 - 40 ml IV UD PRN PRN Reason: SALINE FLUSH Last Admin: 08/18/19 04:25 Dose: 10 ml Documented by: Temazepam (Restoril) 15 mg PO DAILY PRN PRN Reason: SLEEP Last Admin: 08/17/19 23:24 Dose: 15 mg Documented by: Medical Necessity - Tobacco Use Smoking Status: Never smoker Assessment/Plan All Active Problems (Last Updated 02/17/19 @ 11:15 by Marleny Berrios) Left ankle pain (Acute) Ankle syndesmosis disruption (Acute) Bimalleolar fracture of right ankle (Acute) Walking difficulty due to ankle and foot (Acute) URI, acute (Acute) Pharyngitis, acute (Acute) POD #4 right ankle fracture open reduction internal fixation with syndesmosis repair Left ankle chronic versus acute distal fibula avulsion fracture / ankle sprain Walking difficulty Other comorbidities: Obesity, URI, acute pharyngitis, seizure disorder This patient was seen bedside this afternoon. I reviewed her case. She is afebrile and vital signs are stable. Incentive spirometer use reviewed. Her pain is much better controlled today and she continues with oral pain medication for pain control. To ice and elevate for additional pain inflammation management. Proper icing technique was reviewed. I also recommend she does not lay directly on her surgical limb to avoid compromising it and also to help reduce pain. Her splint was readjusted with additional padding and the sugar tong component was removed. I do not recommend removing the posterior mold component due to lack of stability. To maintain a strict nonweightbearing status. Continue PT/OT. She requests a walker with wheels and a seat. For her non surgical limb injury site, I recommend an ankle brace and partial weight bearing as tolerated. This was ordered. I recommend [facility]ing [facility] a [facility]. This is possible for later today pending approval. Medical management per hospitalist service is greatly appreciated. DVT prophylaxis with Lovenox continues, and is planned at time of discharge as well. Percocet pain medication rx was also provided for transfer. To [facility] [address] Barba; [phone]. To follow-up with her primary care physician as scheduled. It is also noted she had a neurologist, Dr. Whiteside in [place] who has retired. I recommend she follows up with this office for long-term management of her seizure medications; [phone]. Nery Barba, DPElsi, FACFAS [facility] [phone]
[2019-08-18 13:55] VITALS: BP 129/69; PULSE 86; RESP 18; TEMP 36.6; O2SAT 98
--- NOTE | 2019-08-18 14:37 | PCM.TXEXTCAR ---
- Diet 08/14/19 17:06 Diet: Regular Diet Is pt able to select menu?: Yes - Routine Orders/Code Status Enema Type: Fleetz Enema Frequency: Daily PRN Suppository Type: Dulcolax 10mg Suppository Frequency: Daily PRN Code Status: Full Code - Wound(s) rt foot Wound Type: Surgical Incision Dressing Change: keep dressing and splint clean and intact - Suggestions for Active Care Positions to Avoid: avoid direct pressure to lateral and medial right ankle incision sites - Therapies Weight Bearing: Non weight bearing Extremity Affected:: left partial weight bearing in ankle brace Physical Therapy: non weightbear right lower extremity with assistive device Occupational Therapy: Eval and Treat - Allergies/Procedures Done in Hospital Allergies/Adverse Reactions: Allergies Penicillins Allergy (Verified 08/13/19 16:13) Unknown tomato Adverse Reaction (Verified 08/13/19 16:13) Diarrhea Procedures: - - right open reduction internal fixation ankle fracture - Type of Care/Length of Stay Estimated LOS: Convalescent Care Less Than 30 days Type of Care Needed: Skilled Rehab Potential: Good Prognosis: Good - Additional Orders/Day of Discharge H&P will serve as current which was dated: 08/13/19 Day of Discharge: 08/18/19 - Dietary and Speech Recommendations Dietitian Recommendations/Changes: Will d/c ONS as po intake good and no longer indicated. Will consider wt reduction diet once able to interview pt about desire for wt loss. - Follow Up Care Primary Care Physician: Erwin Orozco MD [Primary Care Provider] - Please follow up with your Primary Care Physician in: 1-2 weeks Please Follow Up With: Nery Barba DPM When: [facility] 1 week, Please Follow Up With: Neurologist in [place] When: [phone] (Dr. Whiteside retired, needs to get estabilished with provider)
--- NOTE | 2019-08-18 15:10 | CASEMGMT ---
Addendum entered by Paula Su 08/18/19 15:56: TARIQ placed a call to Alethea at [facility] and left message asking if she is going to finish LOC today or if it will likely be tomorrow. SW waiting for call back. Original Note: Social Work Note TARIQ received call from Alethea at [facility] stating she is working on LOC for pt and states that the transfer to extended care must be completed by either a DO or MD. Alethea states that that is just a Medicaid rule and has to be completed that way. TARIQ updated hospitalist. Hospitalist completed new transfer to extended care for pt. TARIQ faxed new transfer to extended care facility to Alethea at [facility]. Paula Su INSPECTOR RAG SORTING, VETERINARY LABORATORY TECHNICIAN
--- NOTE | 2019-08-18 16:45 | CASEMGMT ---
Addendum entered by Paula Su 08/18/19 17:08: SW also faxed Hospital to Post-Acute COVID 19 screening tool to [facility]. Original Note: Social Work Note SW received LOC results. SW had completed convalescent 7000 in HENS for LOC. SW faxed discharge paperwork to [facility] including transfer to extended care facility, signed medication list, scripts, HENS and LOC results. Original in SNF Folder and copy on pt's chart. TARIQ spoke with RN who states pt is able to transport via cot. [facility], the earliest they can transport is 8:00pm. SW called [facility] and they don't take pt's insurance (medicaid). SW placed a call to [facility] and arranged transportation for around 5:10-5:20pm. SW did update [facility] that pt's weight is 297lbs and they confirmed they are able to transport pt. SW completed transportation form and placed on SNF Folder and copy on pt's chart. SW updated RN on transportation time. TARIQ placed a call to Abelardo at [facility] and updated him on discharge and transportation time. TARIQ attempted to call pt's CM through [employer] but there was no answer. TARIQ left voicemail for Liliana to call this worker back to update on discharge plans. SW updated pt on discharge and transportation time. Pt is on phone with significant other Ritchie and updating him on discharge and transportation time. Plan: Discharge to [facility] today with [facility] transporting via cot at 5:10-5:20pm Paula Su MSW, DRY MILL OPERATOR
--- NOTE | 2019-08-18 17:07 | NURSING ---
TALKED WITH UNIQUE RN AND REPORT GIVEN
--- NOTE | 2019-08-19 12:00 | CASEMGMT ---
Social Work Note SW received call from pt's EM [facility] through [employer] and updated her that pt discharged to [facility] yesterday. Liliana states understanding. Paula Su SELVAGE MACHINE OPERATOR, TEAMCENTER SOLUTION ARCHITECT
== END 2019-08-18 17:30 | disposition skilled nursing facility (03) | DRG 313 ==
LOC: ED 17:54 → MS3 19:41
PROVIDERS: Admitting Provider Podiatrist; Emergency Provider Emergency Medicine; PCP Family Medicine; Visit Provider Student in an Organized Health Care Education/Training Program
PROC: 0QSG04Z Reposition Right Tibia with Internal Fixation Device, Open Approach (ICD-10-PCS; principal; 2019-08-14 12:40)
DX: S82.841A Displaced bimalleolar fracture of right lower leg, initial encounter for closed fracture (principal); S93.439A Sprain of tibiofibular ligament of unspecified ankle, initial encounter; Z79.899 Other long term (current) drug therapy; G40.409 Other generalized epilepsy and epileptic syndromes, not intractable, without status epilepticus; W10.1XXA Fall (on)(from) sidewalk curb, initial encounter; Y93.01 Activity, walking, marching and hiking; Y92.524 Gas station as the place of occurrence of the external cause; Y99.8 Other external cause status; Z79.1 Long term (current) use of non-steroidal anti-inflammatories (NSAID); E66.9 Obesity, unspecified; Z68.42 Body mass index [BMI] 45.0-49.9, adult; G31.84 Mild cognitive impairment of uncertain or unknown etiology; J02.9 Acute pharyngitis, unspecified; M25.572 Pain in left ankle and joints of left foot
CPT/HCPCS: 36415; 73590; 73610; 73630; 76000; 80048; 82306; 84703; 85025; 93005; 96374; 96375; 97110; 97162; 99251; 99285; C1713; J7030; J7120; A4216; G0463; J2405

== ENCOUNTER 2019-11-22 18:27 | Emergency (ER) | payer MEDICAID, SELFPAY ==
[2019-08-14 11:17] VITALS: BMI 47.8
[2019-11-22 18:28] VITALS: BP 104/75; PULSE 108; RESP 16; TEMP 36.8; O2SAT 96; BMI 41.8
--- NOTE | 2019-11-22 19:10 | ED.VIS.GEN ---
History of Present Illness Chief Complaint: Nausea/Vomiting Informant: Patient Onset: Days - Onset of nausea and vomiting 3 days ago. Context: Sudden Onset Timing: Intermittent Quality: Nausea and vomiting Location: GI Current Severity: Moderate Maximum Severity: Moderate Worsened by: Nothing Relieved by: Nothing Associated Symptoms: Periumbilical abdominal pain Narrative: Patient is a 38-year-old woman arrives by ambulance because of nausea vomiting that started 3 days ago. She is vomiting 4+ times a day. Emesis is without blood or coffee grounds. She denies diarrhea. She denies prior history of partial small bowel obstruction. She denies fever, chills night sweats. She denies ocular, visual auditory symptoms. She denies chest pain, shortness of breath or difficulty breathing. She denies cough. She denies dysuria, frequency, urgency or hematuria. She denies back or flank pain. She denies trauma. She denies rash. She denies neuro symptoms. Prior similar symptoms: No Recent Illness/Hospitalization: No Past Medical History - Allergies and Home Meds Allergies/Adverse Reactions: Allergies Penicillins Allergy (Verified 08/13/19 16:13) Unknown tomato Adverse Reaction (Verified 08/13/19 16:13) Diarrhea Primary Care Physician: Erwin Orozco MD [Primary Care Provider] - Prior records reviewed: Yes - Epic and past medical history Surgical History: no surgical history Lives: Alone Smoking Status: Never smoker Alcohol: None Drugs: None Review of Systems General: Reports: Malaise. Denies: Chills, Fever, Subjective, Sweats Eyes: Denies: Visual changes - bilaterally, Blurred Vision - bilaterally ENT: Denies: Bilateral ear pain, Rhinorrhea, Sore throat Cardiovascular: Denies: Chest pain, Palpitations Respiratory: Denies: Dyspnea, Cough, Dyspnea on exertion Gastrointestinal: Reports: Abdominal pain, Nausea, Vomiting. Denies: Diarrhea, Constipation, Melena, Hematochezia, -, - Genitourinary: Denies: Dysuria, Hematuria, Frequency Musculoskeletal: Denies: Myalgias, Arthralgias, Neck pain, Back pain, Swelling, Extremity Pain, -, - Skin: Denies: Rash, Wounds Neurological: Denies: Headache, Weakness, Parasthesia, Numbness Endocrine: Denies: Polyuria, Polydipsia Hematologic: Denies: Easy bruising, Easy bleeding Physical Exam Vital Signs/Narrative: Vital Signs Temp Pulse Resp BP Pulse Ox 11/22/19 18:28 98.2 F 108 H 16 104/75 96 Inital Vital Signs reviewed: Yes General: Well nourished, Well developed, Obese, No Acute Distress, - - And appears ill. Head: Normocephalic, Atraumatic Eyes: Perrl, EOMI ENT: No rhinorrhea, Dry mucous membranes, - - Poor dentition. Neck: Supple, Nontender, No lymphadenopathy, No JVD Cardiovascular: Regular rhythm, No murmurs, Normal S1, Normal S2, Tachycardia Respiratory: No distress, CTA bilaterally, Chest nontender Abdomen: Soft, Nondistended, Normal bowel sounds, Tender. Negative for: Guarding, Rebound tenderness, Splenomegaly, Mass, Pulsatile mass, Ventral hernia Back: Nontender, Normal Inspection Extremities: Nontender, No edema Skin: Normal color, No rash Neurological: Alert, Oriented x3, Cranial nerves II-XII grossly intact, Normal Strength, Normal Sensation Psychological: Normal affect, Normal Mood Diagnostic/Tx/Re-eval Laboratory Results 11/22/19 21:00 Sodium 133 L Potassium 2.5 L* Chloride 88 L Carbon Dioxide 31.0 Anion Gap 14 BUN 23 H Creatinine 1.16 H Estim Creat Clear Calc 56.23 Est GFR (MDRD) Af Amer 67 Est GFR (MDRD) Non-Af 55 L BUN/Creatinine Ratio 19.8 Glucose 108 H Calcium 9.4 Potassium is low at 2.5. 40 mEq of potassium solution was ordered. Patient does not like the taste and has dry heaves. She has not vomited since her arrival. Plan is to discharge when she drinks the potassium. - Medical Decision Making Patient presents with nausea and vomiting. Abdominal exam is benign. Will obtain basic metabolic panel to assess electrolytes and renal function. IV was placed for IV hydration and IV antiemetic. ED Disposition - Plan for ED Patient: Disposition: Home or Assisted Living Diagnosis: Nausea and vomiting, Mild dehydration, Hypokalemia, Generalized abdominal pain Instructions: ED Nausea Vomiting Adult, ED Potassium Deficiency, ED Dehydration Adult Prescriptions: Ondansetron [Zofran Odt] 4 mg PO Q8H PRN PRN #7 tab PRN Reason: Nausea Prescription Printed Referrals: Erwin Orozco MD [Primary Care Provider] - 3-5 Days if not improving
[2019-11-22 20:54] VITALS: PULSE 101; RESP 15; O2SAT 97
[2019-11-22] MEDS: 0.9% Normal Saline 1,000 ML 1000 ML IV (20:55)
[2019-11-22 22:01] VITALS: PULSE 103; RESP 15; O2SAT 98
[2019-11-22 22:13] LABS: Anion Gap 14 (5-15); BUN 23 mg/dL (7-18); BUN/Creat Ratio 19.8 RATIO (10-20); Calcium,Total 9.4 mg/dL (8.5-10.1); Chloride 88 mmol/L (98-107); Creatinine, Serum 1.16 mg/dL (0.55-1.02); EST Glomerular Filtration Rate 55 mL/min (>60); Est Glom Filt Rate - Afr Amer 67 mL/min (>60); Estimated Creatinine Clearance 56.23 ml/min; Glucose 108 mg/dL (74-106); Potassium 2.5 mmol/L (3.5-5.1); Sodium Level 133 mmol/L (136-145)
[2019-11-22] MEDS: Metoclopramide 10 MG/2 ML Vial 5 MG IV (22:52)
[2019-11-22 23:51] VITALS: BP 136/69; PULSE 98; RESP 16; O2SAT 98
== END 2019-11-22 23:52 | disposition home or self-care (01) ==
PROVIDERS: Emergency Provider Emergency Medicine; PCP Family Medicine
DX: E86.0 Dehydration (principal); E87.6 Hypokalemia; R10.84 Generalized abdominal pain; R11.2 Nausea with vomiting, unspecified; E66.9 Obesity, unspecified
CPT/HCPCS: 80048; 96361; 96374; 99285; J7030; A4216

== ENCOUNTER 2019-11-23 12:39 | Emergency (ER) | payer MEDICAID, SELFPAY ==
[2019-11-22 18:28] VITALS: BMI 41.8
[2019-11-23 12:41] VITALS: BP 150/106; PULSE 106; RESP 16; TEMP 36.4; O2SAT 95
[2019-11-23] MEDS: Ketorolac 15 MG/ML Vial IV (14:08)
[2019-11-23] MEDS: Ondansetron 4 MG/2 ML Vial IV (14:08)
[2019-11-23] MEDS: 0.9% Normal Saline 1,000 ML 1000 ML IV (14:08)
[2019-11-23 14:10] LABS: Absolute Lymphocyte Count 2.98 X10^3/uL (0.83-4.51); Absolute Neutrophil Count 7.4 X10^3/uL (2.0-7.7); Basophil# 0.05 X10^3/uL; Basophil% 0.4 % (0-1); Eosinophil# 0.03 X10^3/uL; Eosinophils% 0.2 % (0-5); Hematocrit 46.2 % (37-47); Hemoglobin 15.9 g/dL (12.0-15.0); Lymphocyte # 2.98 X10^3/ul (4.0); Lymphocyte % 23.2 % (19-41); Mean Corp Hgb Conc 34.4 g/dL (32-36); Mean Corpuscular Hgb 28.6 pg (27.0-32.0); Mean Corpuscular Volume 83.1 fL (81-99); Mean Platelet Vol. 11.4 fl (6.2-12.0); Monocyte# 2.26 X10^3/uL; Monocyte% 17.6 % (0-10); NRBC Flagged by Analyzer 0.2 % (0-5); Neutrophil # 7.44 X10^3/uL (2.7-7.7); Neutrophil % 57.7 % (47-70); POSITIVE DIFFERENTIAL YES; Platelet Count 341 K/mm3 (150-450); RBC Distribution Width CV 12.3 % (11.6-14.6); RBC Distribution Width SD 37.2 fl (35.1-43.9); Red Blood Count 5.56 M/mm3 (4.2-5.4); White Blood Count 12.9 K/mm3 (4.4-11.0)
--- NOTE | 2019-11-23 14:12 | ED.DCSUM_ITS ---
- ER Visit Summary Date of Service: 11/23/19 Chief Complaint: Vomiting and abdominal pain History of Present Illness: The patient is a [address] Llamas. She is a poor informant. She reports that she has been vomiting every day for the past month. She states that she has a sharp diffuse pain is 10 on 10 in severity. Is worsened by vomiting and relieved by nothing. She states that she is vomiting every 5 minutes. She denies any blood or emesis. Her last bowel movements yesterday. No diarrhea. No melena medic easy. No dysuria or hematuria. She is on Depo-Provera, but missed her last shot. She reports she is not sexually active. Physical Examination: Vitals: Stable. Afebrile. General: Well-nourished and well-developed. Head: Normocephalic atraumatic. Neck: Supple, no lymphadenopathy. No JVD. Nontender. Cardiovascular: Regular rate and rhythm. No murmurs. Respiratory: No respiratory distress. Clear to auscultation bilaterally. Abdominal: Soft, mild diffuse tenderness to palpation, nondistended, normal bowel sounds. No guarding, rebound, or peritoneal signs. Back: Nontender. Extremities: Nontender, no edema. Skin: Normal color, no rash. Neurologic: Alert and oriented ?3. Cranial nerves II through XII are intact. Normal strength and sensation. Psych: Normal affect. Test Results: CBC shows a white count of 12.9 with 18 monocytes, hemoglobin of 15.9. Chem-7 shows a sodium 131, potassium 2.7, glucose 120, BUN of 20, cr eatinine 1.11. Her potassium yesterday was 2.5 and her creatinine yesterday was 1.16. LFTs show total bili of 1.1. ALT is 254 and AST is 184. Lipase is normal. Alk phos is normal. UA shows leukocytes, nitrites, white cells, and 2+ bacteria. test is negative. Emergency Department Course and Treatment: Patient had an IV placed. She was given a liter normal saline. She is given Toradol and Zofran IV. She is frequently spitting into an emesis bag. However, she has not vomited while here. Patient's urine was sent for culture and she was given a dose of Rocephin IV. I discussed the patient at this time I do not have an explanation for her months of pain and vomiting daily. They report that she had an x-ray that showed reflux. She was given a GI cocktail and potassium p.o. She is resting more comfortably. Treatment Plan: At this time I think the patient can be managed at home. Again she has not vomited while here. She will be discharged and her urine will be sent for culture. She will be placed on Keflex, Zofran, potassium, and Prilosec. Instructed to follow-up with her primary care physician in 2 days for another exam. Return to the emergency department for any worsening symptoms. Disposition: To home in improved and stable condition. Impression: 1. Acute kidney injury. 2. Hypokalemia. 3. UTI. This note was generated with [employer] dictation software. It may contain incorrect words, spelling, and punctuation that were not noted in review of the chart prior to signing ED Disposition - Plan for ED Patient: Instructions: Gastroesophageal Reflux Disease (GERD) Prescriptions: Cephalexin [Keflex] 500 mg PO Q12 #14 cap Prescription Printed Potassium Cloride Effervescent [Potassium Chl 25 Meq Eff (For Liquid)] 25 meq PO BID #14 tablet.eff Prescription Printed Omeprazole [Prilosec] 20 mg PO DAILY #30 cap Prescription Printed Ondansetron [Zofran Odt] 4 mg PO Q8H PRN PRN #10 tab PRN Reason: Nausea Prescription Printed Referrals: Erwin Orozco MD [Primary Care Provider] - 2 Days
[2019-11-23 14:19] LABS: Internal QC Validated? YES +Cl - CLEAR BKGD; Pregnancy, Serum, hCG Quali. NEGATIVE Negative
[2019-11-23 14:21] LABS: Differential Indicated SCAN CRITERIA MET
[2019-11-23 14:28] LABS: ALB/GLOB Ratio 0.9 RATIO (0.9-2.4); AST(SGOT) 184 U/L (15-37); Alanine Aminotransfer ALT/SGPT 254 U/L (13-56); Albumin, Serum 3.6 g/dL (3.2-5.0); Alkaline Phosphatase 93 U/L (45-117); Anion Gap 10 (5-15); BUN 20 mg/dL (7-18); Calcium,Total 8.9 mg/dL (8.5-10.1); Chloride 90 mmol/L (98-107); Creatinine, Serum 1.11 mg/dL (0.55-1.02); EST Glomerular Filtration Rate 58 mL/min (>60); Est Glom Filt Rate - Afr Amer 70 mL/min (>60); Globulin 3.9 g/dL (2.2-4.2); Glucose 120 mg/dL (74-106); Lipase 205 U/L (73-393); Magnesium 2.5 mg/dL (1.6-2.6); Potassium 2.7 mmol/L (3.5-5.1); Protein, Total 7.5 g/dL (6.4-8.2); Sodium Level 131 mmol/L (136-145)
--- NOTE | 2019-11-23 14:28 | ED.RN ---
lab called critical potassium of 2.7. dr talbot aware
[2019-11-23 14:53] LABS: Platelet Estimate ADEQUATE (ADEQ); Red Cell Morphology NORM C+C NORMAL (NORM C&C)
[2019-11-23 15:24] VITALS: BP 124/81; PULSE 88; RESP 18; O2SAT 99
--- NOTE | 2019-11-23 16:14 | CT_ITS ---
STUDY: CT ABDOMEN AND PELVIS WITHOUT CONTRAST REASON FOR EXAM: Female, 38 years old. ELEVATED POTASSIUM,VOMITING RADIATION DOSAGE (If Supplied By Facility): CTDIvol = ( 23.38 ) mGy, DLP = ( 1244.41 ) mGycm TECHNIQUE: Transaxial images were obtained from the dome of the diaphragm to the symphysis pubis with rectal contrast, and without intravenous contrast. Sagittal and coronal images were reconstructed. Individualized dose optimization techniques were used for this CT. COMPARISON: None. FINDINGS: The visualized lung bases are unremarkable. The visualized portions of the heart are within normal limits. Normal liver. Normal gallbladder and extrahepatic biliary system. Normal spleen. Normal pancreas. Normal bilateral adrenal glands. Normal right kidney. Normal left kidney. Normal visualized stomach. Normal small intestine. Normal colon. There is non-visualization of the appendix. Normal abdominal aorta. Normal inferior vena cava. Normal retroperitoneum. Normal urinary bladder. Normal visualized uterus. Normal abdominal wall. Normal osseous structures. CT/Abdomen/Pelvis without Cont IMPRESSION: No suspicious solid organ abnormality No free intraperitoneal fluid, air, or suspicious adenopathy No CT evidence of acute inflammatory process Electronically Signed: Hilario Bill MD at 16:39 EDT , Service support ,
[2019-11-23 16:19] LABS: Red Blood Cells-Urine 0 SEEN /hpf (0-5); Squamous Epithelial Cells - UA 0 SEEN /hpf (5-10)
[2019-11-23 16:29] LABS: Color, Urine Amber (Yellow); Glucose, Dipstick Normal (Normal); Ketone-Dipstick 15 mg/dl (Negative); Leukocyte Esterase-Dipstick 25 /ul (Negative); Nitrite-Dipstick Positive (Negative); Occult Blood-Urine 10 /ul (Negative); Protein-Dipstick 30 mg/dl (Negative); Specific Gravity, Urine 1.015 (1.002-1.030); Urine Bilirubin Dipstick 3 mg/dL (Negative); Urine Clarity Sl. Cloudy (Clear); Urine Urobilinogen 8 mg/dl (Normal)
[2019-11-23 16:36] VITALS: BP 130/91; PULSE 95; RESP 18; O2SAT 100
[2019-11-23 16:41] LABS: Hyaline Cast 5-10 SEEN /lpf (0-5)
[2019-11-23 16:42] LABS: Bacteria 2+ /hpf (None Seen); Mucous, Urine 1+ /hpf (<or=2+); White Blood Cells 5-10 SEEN /hpf (0-5)
[2019-11-23] MEDS: Ceftriaxone 1 GM/50 ML BAG IV (17:38)
[2019-11-23] MEDS: Mag Hydrox/Al Hydrox/Simeth 30 ML UDC PO (17:39)
[2019-11-23 18:00] VITALS: BP 108/72; PULSE 101; RESP 17; O2SAT 99
[2019-11-24 12:41] LABS: Pathologist Review Reviewed
== END 2019-11-23 18:01 | disposition home or self-care (01) ==
LOC: ED 13:28
PROVIDERS: Emergency Provider Emergency Medicine; PCP Family Medicine
DX: N39.0 Urinary tract infection, site not specified (principal); N17.9 Acute kidney failure, unspecified; E87.6 Hypokalemia
CPT/HCPCS: 74176; 80053; 81001; 83690; 83735; 84703; 85025; 87086; 96361; 96365; 96375; 99285; J7030; A4216; J2405

== ENCOUNTER 2019-11-25 13:31 | Observation (INO) | payer MEDICAID, SELFPAY ==
--- NOTE | 2019-11-25 | RAD_ITS ---
STUDY: X-RAY CHEST REASON FOR EXAM: Female, 38 years old. Cough. TECHNIQUE: Single AP portable view of the chest. COMPARISON: None. FINDINGS: The lungs are clear and expanded. There is no demonstrated pleural abnormality. Normal size heart. Normal mediastinum and rochelle. Normal visualized pulmonary arteries. Normal visualized aortic arch and descending thoracic aorta. Normal visualized thoracic spine. Normal visualized ribs, clavicles, and shoulders. There is no demonstrated abnormality of the visualized soft tissue structures of the upper abdomen. RAD/Chest 1 View (Portable) IMPRESSION: Normal x-ray examination of the chest. Electronically Signed: Josiah Weinberg MD at 17:23 EDT , Service support ,
[2019-11-25 13:16] VITALS: RESP 18; BMI 38.9; BMI 39.0
--- NOTE | 2019-11-25 13:38 | NURSING ---
clerical coordinator: Liliana Baires Nursing: Bart Posey RN Home Health: [facility]
--- NOTE | 2019-11-25 13:40 | PCM.HP.STD ---
Problem List (1) GERD (gastroesophageal reflux disease) Status: Chronic (2) Seizure disorder Status: Chronic (3) MRDD Status: Chronic History of Present Illness Date of Admission: 11/25/19 Chief Complaint: Persistent nausea and vomiting. The patient is a 38 year old F with past medical history as mentioned above was directly admitted from outside facility for persistent nausea and vomiting. The patient has MRDD and she is a poor informant. Her caregiver was at the bedside and she provided most of the information. According to the caregiver, patient was in the correction for the last couple of months after she had left ankle fracture status post repair and she was discharged this past Saturday. Since discharge, patient has been complaining of nausea and vomiting. The patient herself was not able to provide any more details. Patient reported intermittent abdominal vague pain and she could not specify the location or the character of the pain. Patient complained of mild cough with minimal sputum production, denies shortness of breath. She denied fever or chills. She came to the emergency department this past Saturday, was found to have hypokalemia and dehydration, was given IV fluids and potassium supplement and she was discharged home. She came back on Saturday with the same symptoms, found to have persistent hypokalemia and dehydration, had CT scan abdomen and pelvis done that showed no acute pathology and she was discharged home on antibiotics for UTI, Zofran and potassium supplement. Today, she went to her PCPs office again with the same symptoms and she was sent to the hospital for further evaluation and treatment. She had a history of MRDD with difficulties walking and she lives with her boyfriend. She will history of seizure disorder and she has been on Keppra, Tegretol and Vimpat. She had history of GERD and she has been on PPI. At this time, her vital signs are stable, afebrile. Routine blood work revealed leukocytosis, potassium of 3.2, creatinine is 1.15. LFT revealed elevated liver transaminases with normal bilirubin and alkaline phosphatase. Carbamazepine level was normal at 4.6 which is therapeutic. COVID-19 PCR was negative. Chest x-ray showed no acute findings, pending official report. She is being admitted for intractable nausea and vomiting, severe hypokalemia, dehydration and elevated LFT. Past Medical History Past Medical History (Chronic Problems): Chronic Problems (Last Reviewed 11/25/19 @ 18:07 by Kelly Beauchamp) GERD (gastroesophageal reflux disease) (Chronic) Seizure disorder (Chronic) MRDD (Chronic) Medical History: Medical History (Last Reviewed 11/25/19 @ 18:07 by Kelly Beauchamp) Seizures R56.9 Allergies Penicillins Allergy (Verified 11/23/19 12:54) Unknown tomato Adverse Reaction (Verified 11/23/19 12:54) Diarrhea Home Medications: Ambulatory Orders Medication Instructions Recorded Carbamazepine [Carbamazepine ER] 400 mg PO BID 08/13/19 Ergocalciferol (Vitamin D2) 50,000 unit PO MO 08/13/19 [Vitamin D2] Ferrous Sulfate 325 mg PO DAILY@0800 08/13/19 Lacosamide [Vimpat] 200 mg PO BID 08/13/19 Multivitamin [Daily Vitamin 1 tab PO DAILY 08/13/19 Formula] Omeprazole 20 mg PO DAILY 08/13/19 Sertraline HCl [Zoloft] 100 mg PO DAILY 08/13/19 Ondansetron [Zofran Odt] 4 mg PO Q8H PRN PRN #7 tab 11/22/19 Cephalexin [Keflex] 500 mg PO Q12 #14 cap 11/23/19 ALPRAZolam [Xanax] 0.5 mg PO BID PRN PRN 11/25/19 Levetiracetam [Keppra] 500 mg PO BID 11/25/19 Potassium Cloride Effervescent 25 meq PO BID 11/25/19 [Potassium Chl 25 Meq Eff (For Liquid)] busPIRone [Buspar] 5 mg PO TID 11/25/19 proMETHazine tablet [Phenergan 25 mg PO Q8H PRN PRN 11/25/19 tablet] Surgical History: - - Recent left ankle fracture status post open reduction and internal fixation. 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 Denies: Chills, Fever Eyes: Denies: Blurred vision, Double vision, Drainage, Redness HEENT: Denies: Difficulty Hearing, Dysphasia, Ear Pain, Eye Pain, Nasal Congestion, Sore Throat Cardiovascular: Denies: Chest Pain, Claudication, Chest Pressure, Edema, Heaviness, Light Headedness, Palpitations, Syncope Respiratory: Reports: Cough. Denies: Pleuritic Pain, Shortness of Breath, Sputum production, Wheezing Gastrointestinal: Reports: Nausea, Vomiting. Denies: Abdominal Pain, Constipation, Diarrhea Genitourinary: Denies: Dysuria, Frequency, Hematuria Musculoskeletal: Denies: Arm Pain, Back Pain, Foot Pain Skin: Denies: Dryness, Rash Neurological: Denies: Balance problems, Double vision, Change in Speech, Confusion, Headaches Psychiatric: Reports: Depression. Denies: Anxiety Endocrine: Denies: Change in Body Habitus, Polydipsia, Polyuria VTE Information - Inpt Only VTE Present on Admission: No VTE Mechan Device Prophylaxis: None VTE Pharm Prophylaxis ordered?: No - Physical Exam Vitals/I&O's: Weight: 241 lb 6.499 oz Body Mass Index (BMI) 38.9 General: Alert, Cooperative, No apparent distress, Well developed HEENT: Atraumatic, PERRLA, EOMI, Normocephalic Oral: Moist Mucosa, No Gingival or Mucosal Lesions/ Ulcerations Neck: Supple, No JVD, Negative Carotid Bruits Lungs: Clear to auscultation, Normal air movement, No rhonchi, No wheeze, No rales, Diminished Cardiovascular: Regular rate, Regular Rhythm, Normal S1, Normal S2, PMI Normal Abdomen: Bowel Sounds Present, Soft, Non Tender, Non-Distended, No Hepato-splenomegaly, Obese Extremities: No clubbing, No cyanosis, No edema Skin: No rashes, No breakdown Lymphatic: No Cervical, Supraclavicular, or Inguinal Adenopathy Neurological: Cranial nerves II-XII grossly intact, Motor Exam 5/5 strength throughout Psych/Mental Status: Appropriate, Flat Affect Laboratory Tests 11/25/19 11/25/19 11/25/19 Range/Units 15:27 15:27 15:27 WBC 18.1 H (4.4-11.0) K/mm3 RBC 4.97 (4.2-5.4) M/mm3 Hgb 14.6 (12.0-15.0) g/dL Hct 41.8 (37-47) % MCV 84.1 (81-99) fL MCH 29.4 (27.0-32.0) pg MCHC 34.9 (32-36) g/dL RDW Std Deviation 37.7 (35.1-43.9) fl RDW Coeff of Inna 12.4 (11.6-14.6) % Plt Count 338 (150-450) K/mm3 MPV 11.5 (6.2-12.0) fl Immature Gran % (Auto) 1.000 H (0.0-0.9) % Neut % (Auto) 72.2 H (47-70) % Lymph % (Auto) 14.6 L (19-41) % [place] % (Auto) 11.9 H (0-10) % Eos % (Auto) 0.1 (0-5) % Baso % (Auto) 0.2 (0-1) % Absolute Neuts (auto) 13.1 H (2.0-7.7) X10^3/uL Absolute Lymphs (auto) 2.64 (0.83-4.51) X10^3/uL Nucleated RBC % 0 (0-5) % PT 23.6 H (11.7-14.9) SECONDS INR 2.2 Sodium 135 L (136-145) mmol/L Potassium 2.3 L* (3.5-5.1) mmol/L Chloride 94 L (98-107) mmol/L Carbon Dioxide 31.0 (21.0-32.0) mmol/L Anion Gap 10 (5-15) BUN 12 (7-18) mg/dL Creatinine 1.15 H (0.55-1.02) mg/dL Estim Creat Clear Calc 61.48 ml/min Est GFR (MDRD) Af Amer 67 (>60) mL/min Est GFR (MDRD) Non-Af 56 L (>60) mL/min BUN/Creatinine Ratio 10.4 (10-20) RATIO Glucose 117 H (74-106) mg/dL Calcium 8.8 (8.5-10.1) mg/dL Magnesium 2.2 (1.6-2.6) mg/dL Total Bilirubin 0.80 (0.20-1.00) mg/dL AST 134 H (15-37) U/L ALT 196 H (13-56) U/L Alkaline Phosphatase 91 (45-117) U/L Total Protein 6.9 (6.4-8.2) g/dL Albumin 3.1 L (3.2-5.0) g/dL Globulin 3.8 (2.2-4.2) g/dL Albumin/Globulin Ratio 0.8 L (0.9-2.4) RATIO Assessment/Plan This is a 38 years old female patient directly admitted from outside facility for persistent nausea and vomiting and she was found to have severe hypokalemia, dehydration and elevated LFT and she is being admitted for evaluation and treatment. #1 persistent nausea and vomiting: Unclear etiology, could be due to carbamazepine toxicity. She had a CT scan abdomen and pelvis without contrast on November 23, 2019, showed no acute intra-abdominal pathology that can explain her symptoms. Abdominal examination is benign. Chest x-ray showed no acute findings. Her vital signs are stable. Carbamazepine level was 4.6 which is therapeutic. COVID-19 PCR was negative. [facility], start IV fluids, IV antiemetics, IV Protonix, ultrasound gallbladder, repeat CBC and CMP tomorrow morning, PT OT evaluation and treatment. #2 severe hypokalemia/dehydration: #3 elevated LFT/coagulopathy: Liver transaminases are elevated but they are trending down compared to previous LFTs. Both bilirubin and alkaline phosphatase are normal, patient denied any right upper quadrant no pain. CT scan abdomen reviewed as above, normal liver, normal biliary system. Plan: Ultrasound gallbladder, repeat LFT and PT with INR tomorrow morning. #4 acute cystitis: Patient had urinalysis done before yesterday, revealed cloudy urine, positive for nitrite and leukocyte esterase, there was 5-10 WBCs and 2+ bacteria. She was sent home on Keflex. Plan: Repeat urinalysis, urine culture, start IV Rocephin, IV fluids as above, Tylenol PRN. #5 seizure disorder: Check serum Tegretol, continue Tegretol, Keppra and lacosamide. #6 GERD: Patient complained of heartburn, start IV Protonix. #7 mental retardation with developmental disabilities: Supportive treatment, PT OT evaluation and treatment. #8 DVT prophylaxis: INR is 2.2. This note was generated with [employer] software. It may contain incorrect words, spelling, and punctuation that were not noted in checking the note before signing. Inpatient E&M: 34817 Init Hosp L3
--- NOTE | 2019-11-25 14:37 | US_ITS ---
STUDY: ABDOMINAL ULTRASOUND - RIGHT UPPER QUADRANT REASON FOR VISIT: Female, 38 years old elevated LFT''S TECHNIQUE: Ultrasound evaluation of the right upper quadrant was performed with real-time and static pickett-scale imaging. TECHNICAL QUALITY: Adequate. COMPARISON: CT November 23, 2019 FINDINGS: Liver: The liver measures 18.1 cm. There is increased echogenicity consistent with fatty infiltration. The bile ducts are within normal limits. There is hepatic color flow. The direction of portal flow is hepatopetal. There is no demonstrated mass lesion. Gallbladder: Normal distended gallbladder. The gallbladder wall measures 3 mm. There is a positive sonographic Sanchez''s sign. There is no pericholecystic fluid. There are multiple echogenic structures within the gallbladder, consistent with multiple gallstones. Common Bile Duct (C.B.D.): The common bile duct measures 5 mm. Pancreas: Normal size of the head, body and tail of the pancreas. There is normal echogenicity of the pancreas. There is no demonstrated pancreatic mass or cyst. Right Kidney: Normal size of the right kidney. The right kidney measures 11.0 cm. Normal renal cortex. The right cortex measures 1.9 cm. There is no demonstrated renal mass or cyst. There is no right hydronephrosis. US/Gallbladder IMPRESSION: Cholecystitis with multiple stones, wall thickening, and focal tenderness. No biliary dilatation. Electronically Signed: Josiah Weinberg MD at 18:24 EDT , Service support ,
[2019-11-25 15:40] LABS: Absolute Lymphocyte Count 2.64 X10^3/uL (0.83-4.51); Absolute Neutrophil Count 13.1 X10^3/uL (2.0-7.7); Basophil# 0.04 X10^3/uL; Basophil% 0.2 % (0-1); Eosinophil# 0.01 X10^3/uL; Eosinophils% 0.1 % (0-5); Hematocrit 41.8 % (37-47); Hemoglobin 14.6 g/dL (12.0-15.0); Lymphocyte # 2.64 X10^3/ul (4.0); Lymphocyte % 14.6 % (19-41); Mean Corp Hgb Conc 34.9 g/dL (32-36); Mean Corpuscular Hgb 29.4 pg (27.0-32.0); Mean Corpuscular Volume 84.1 fL (81-99); Mean Platelet Vol. 11.5 fl (6.2-12.0); Monocyte# 2.16 X10^3/uL; Monocyte% 11.9 % (0-10); NRBC Flagged by Analyzer 0 % (0-5); Neutrophil # 13.08 X10^3/uL (2.7-7.7); Neutrophil % 72.2 % (47-70); POSITIVE DIFFERENTIAL YES; Platelet Count 338 K/mm3 (150-450); RBC Distribution Width CV 12.4 % (11.6-14.6); RBC Distribution Width SD 37.7 fl (35.1-43.9); Red Blood Count 4.97 M/mm3 (4.2-5.4); White Blood Count 18.1 K/mm3 (4.4-11.0)
[2019-11-25 16:02] LABS: International Normalized Ratio 2.2; Prothrombin Time (Protime)PT. 23.6 SECONDS (11.7-14.9)
[2019-11-25 16:09] LABS: Differential Indicated SCAN CRITERIA MET
[2019-11-25 16:26] LABS: ALB/GLOB Ratio 0.8 RATIO (0.9-2.4); AST(SGOT) 134 U/L (15-37); Alanine Aminotransfer ALT/SGPT 196 U/L (13-56); Albumin, Serum 3.1 g/dL (3.2-5.0); Alkaline Phosphatase 91 U/L (45-117); Anion Gap 10 (5-15); BUN 12 mg/dL (7-18); BUN/Creat Ratio 10.4 RATIO (10-20); Calcium,Total 8.8 mg/dL (8.5-10.1); Chloride 94 mmol/L (98-107); Creatinine, Serum 1.15 mg/dL (0.55-1.02); EST Glomerular Filtration Rate 56 mL/min (>60); Est Glom Filt Rate - Afr Amer 67 mL/min (>60); Estimated Creatinine Clearance 61.48 ml/min; Globulin 3.8 g/dL (2.2-4.2); Glucose 117 mg/dL (74-106); Magnesium 2.2 mg/dL (1.6-2.6); Potassium 2.3 mmol/L (3.5-5.1); Protein, Total 6.9 g/dL (6.4-8.2); Sodium Level 135 mmol/L (136-145)
[2019-11-25] MEDS: Ceftriaxone 1 GM/50 ML BAG IV (16:35)
[2019-11-25] MEDS: 0.9% Normal Saline 1,000 ML 75 ML IV (16:38)
[2019-11-25 16:43] LABS: Platelet Estimate ADEQUATE (ADEQ); Red Cell Morphology NORM C+C NORMAL (NORM C&C)
[2019-11-25 16:57] VITALS: BP 100/88; PULSE 104; RESP 18; TEMP 36.7; O2SAT 98
[2019-11-25 17:02] LABS: Probe Check PASS; Specimen Processing Control PASS
[2019-11-25] MEDS: Potassium Chloride 10mEq/100mL 10 MEQ/100 ML IV.SOLN. 100 MEQ IV BOLUS ×4 (17:19→21:23)
[2019-11-25 17:31] LABS: Carbamazepine (Tegretol) 4.6 ug/mL (4.0-12.0)
[2019-11-25 18:27] LABS: Color, Urine Amber (Yellow); Glucose, Dipstick Normal (Normal); Ketone-Dipstick 15 mg/dl (Negative); Leukocyte Esterase-Dipstick 100 /ul (Negative); Nitrite-Dipstick Positive (Negative); Occult Blood-Urine Negative /ul (Negative); Protein-Dipstick 30 mg/dl (Negative); Specific Gravity, Urine 1.015 (1.002-1.030); Squamous Epithelial Cells - UA 0 SEEN /hpf (5-10); Urine Clarity Clear (Clear); Urine Urobilinogen 1 mg/dl (Normal)
[2019-11-25 18:28] LABS: Urine Bilirubin Dipstick 3 mg/dL (Negative)
[2019-11-25 18:40] LABS: Bacteria 1+ /hpf (None Seen); Hyaline Cast 10-25 SEEN /lpf (0-5); Mucous, Urine 1+ /hpf (<or=2+); Red Blood Cells-Urine 0 SEEN /hpf (0-5); White Blood Cells 0-5 SEEN /hpf (0-5)
[2019-11-25 19:11] VITALS: PULSE 113
[2019-11-25 20:00] VITALS: BP 113/74; PULSE 111; RESP 18; TEMP 37.2; O2SAT 99
[2019-11-25] MEDS: 0.9% Saline Lock 10 ML Syringe IV (20:11)
[2019-11-25] MEDS: Ondansetron 4 MG/2 ML Vial IV (20:11)
[2019-11-25] MEDS: proMETHazine 25 MG/ML Syringe 6.25 MG IV (20:39)
[2019-11-25 22:00] VITALS: BP 121/50; PULSE 119; RESP 18; TEMP 37.2; O2SAT 98
--- NOTE | 2019-11-25 22:10 | PCM.PN.BLA ---
Progress Note Because of persistent nausea and vomiting will change oral anti-epilepsy drug to IV. Discontinue Phenergan IV. Continue Zofran IV. Add Compazine IV. Consult general surgery for cholecystitis with cholelithiasis. Keep patient n.p.o. after midnight. Patient is allergic to penicillin on ceftriaxone for cystitis. Will broaden antibiotics to Merrem because of cholecystitis
[2019-11-26] VITALS (16 sets, daily range): BP systolic 99–128; BP diastolic 53–73; PULSE 88–111; RESP 16–18; TEMP 36.2–36.9; O2SAT 95–100; BMI 38.9
[2019-11-26 01:03] LABS: Internal QC Validated? YES +Cl - CLEAR BKGD; Pregnancy, Urine Negative Negative
[2019-11-26] MEDS: proCHLORPERazine 10 MG/2 ML Vial 5 MG IV (01:20)
--- NOTE | 2019-11-26 02:58 | PCM.CONS.GEN ---
Problem List (1) Cholecystitis, acute with cholelithiasis Status: Acute Qualifiers: Biliary obstruction: without biliary obstruction Qualified Code(s): K80.00 - Calculus of gallbladder with acute cholecystitis without obstruction Reason for Consult Date of Consultation: 11/26/19 History of Present Illness: The patient is a 38 year old F Who I have been asked to see regarding intractable nausea vomiting and suspected acute cholecystitis cholelithiasis. The patient was seen in the [facility] emergency room on November 22, 2019 with a complaint of 3 days worth of nausea and vomiting. Was found to be markedly hypokalemic at that time with a potassium of 2.5. BUN is elevated to 23 and creatinine is 1.16. She was discharged. She returned to the emergency room on November 23, 2019 with vomiting abdominal pain. Report at that time was that she had been vomiting every day for the past month. Sharp diffuse abdominal pain 10 out of 10. Not relieved with vomiting. Her white blood cell count was 12.9 hemoglobin 15.9 potassium 2.7 sodium low at 131 BUN 20 creatinine 1.1 LFTs were abnormal with a total bilirubin 1.1 and an ALT of 254 and AST of 184 with a lipase that was normal urinalysis had 2+ bacteria test was negative and she was given a dose of IV Rocephin. She was given a GI cocktail and again she was discharged. There is no explanation for the elevated liver function tests. On November 25, 2019 she returned with persistent nausea and vomiting and she was directly admitted this time from outside facility. The patient has MRDD and is a poor informant. Most of the information apparently provided by caregiver. [place] [facility] [place] a couple months. Apparently she was discharged within the past week. She had been recovering from an ankle fracture. A CT had been done on November 23, 2019 without contrast. At that time the biliary system was interpreted as normal. COVID-19 PCR test was negative. Chest x-ray no acute findings. However her white blood cell count elevated 18.1 with a hemoglobin 14.6 medical at 41.8 platelet count 338,000 with 72% neutrophils. PT was 23.6 with an INR of 2.2. Her potassium markedly low at 2.3. BUN and 12 creatinine 1.15. Total bilirubin 0.8. AST 134. ALT 196. Alkaline phosphatase 91. Urinalysis was abnormal positive nitrites. Elevated bilirubin. Elevated urobilinogen. Elevated leukocyte esterase. 1+ bacteria. A gallbladder ultrasound was resulted at 6:24 PM. The gallbladder was felt to have normal distention. Gallbladder wall 3 mm. There is felt to be a positive sonographic Sanchez sign no pericholecystic fluid. Multiple gallstones. The findings are interpreted by the radiologist as cholecystitis with multiple stones and wall thickening. Because of the intractable nausea and vomiting the patient now is received multiple medications for nausea and she now no longer is able to verbally respond to questions. Past Medical History Past Medical History (Chronic Problems): Chronic Problems (Last Reviewed 11/25/19 @ 18:07 by Kelly Beauchamp) GERD (gastroesophageal reflux disease) (Chronic) Seizure disorder (Chronic) MRDD (Chronic) Medical History: Medical History (Last Reviewed 11/25/19 @ 18:07 by Kelly Beauchamp) Seizures R56.9 Allergies Penicillins Allergy (Verified 11/23/19 12:54) Unknown tomato Adverse Reaction (Verified 11/23/19 12:54) Diarrhea Home Medications: Ambulatory Orders Medication Instructions Recorded Carbamazepine [Carbamazepine ER] 400 mg PO BID 08/13/19 Ergocalciferol (Vitamin D2) 50,000 unit PO MO 08/13/19 [Vitamin D2] Ferrous Sulfate 325 mg PO DAILY@0800 08/13/19 Lacosamide [Vimpat] 200 mg PO BID 08/13/19 Multivitamin [Daily Vitamin 1 tab PO DAILY 08/13/19 Formula] Omeprazole 20 mg PO DAILY 08/13/19 Sertraline HCl [Zoloft] 100 mg PO DAILY 08/13/19 Ondansetron [Zofran Odt] 4 mg PO Q8H PRN PRN #7 tab 11/22/19 Cephalexin [Keflex] 500 mg PO Q12 #14 cap 11/23/19 ALPRAZolam [Xanax] 0.5 mg PO BID PRN PRN 11/25/19 Levetiracetam [Keppra] 500 mg PO BID 11/25/19 Potassium Cloride Effervescent 25 meq PO BID 11/25/19 [Potassium Chl 25 Meq Eff (For Liquid)] busPIRone [Buspar] 5 mg PO TID 11/25/19 proMETHazine tablet [Phenergan 25 mg PO Q8H PRN PRN 11/25/19 tablet] Surgical History: - - Recent left ankle fracture status post open reduction and internal fixation. 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 FLOOR PERSON History: No pertinent SLOT FLOOR PERSON history Lives: Spouse/ Significant Other Smoking Status: Never smoker Alcohol: None Drugs: None - *Family History Maternal History Items: No pertinent history Paternal History Items: No pertinent history Review of Systems Unable to obtain accurate/complete ROS d/t: Patient unable to respond to questions Patient Problems: Active and Suspected Problems (Last Reviewed 11/25/19 @ 18:07 by Kelly Beauchamp) Cholecystitis, acute with cholelithiasis (Acute) - Physical Exam Vitals/I&O's: Vital Signs Temp Pulse Resp BP Pulse Ox 98.4 F 111 H 18 128/73 H 100 11/26/19 02:14 11/26/19 02:14 11/26/19 02:14 11/26/19 02:14 11/26/19 02:14 Oxygen Delivery Method Room Air Weight: 241 lb 6.499 oz Body Mass Index (BMI) 38.9 Intake and Output for Last 24 Hours 11/24/19 11/25/19 11/26/19 23:59 23:59 23:59 Intake Total 1192.75 / 1192.75 130 / 130 Output Total 200 / 200 Balance 992.75 / 992.75 130 / 130 General: - - Arousable Oral: Moist Mucosa Lungs: Clear to auscultation Cardiovascular: Regular rate, Regular Rhythm Abdomen: Soft, Non Tender, Hypoactive Bowel Sounds, Obese Extremities: No Calf Tenderness Musculoskeletal: No Muscle Wasting Laboratory Results 11/25/19 15:27: WBC 18.1 H, RBC 4.97, Hgb 14.6, Hct 41.8, MCV 84.1, MCH 29.4, MCHC 34.9, RDW Std Deviation 37.7, RDW Coeff of Inna 12.4, Plt Count 338, MPV 11.5, Immature Gran % (Auto) 1.000 H, Neut % (Auto) 72.2 H, Lymph % (Auto) 14.6 L, [place] % (Auto) 11.9 H, Eos % (Auto) 0.1, Baso % (Auto) 0.2, Absolute Neuts (auto) 13.1 H, Absolute Lymphs (auto) 2.64, Nucleated RBC % 0, Differential Comment , Diff Path Review May foll, Platelet Estimate ADEQUATE, RBC Morphology NORM C+C 11/25/19 15:27: Sodium 135 L, Potassium 2.3 L*, Chloride 94 L, Carbon Dioxide 31.0, Anion Gap 10, BUN 12, Creatinine 1.15 H, Estim Creat Clear Calc 61.48, Est GFR (MDRD) Af Amer 67, Est GFR (MDRD) Non-Af 56 L, BUN/Creatinine Ratio 10.4, Glucose 117 H, Calcium 8.8, Magnesium 2.2, Total Bilirubin 0.80, AST 134 H, ALT 196 H, Alkaline Phosphatase 91, Total Protein 6.9, Albumin 3.1 L, Globulin 3.8, Albumin/Globulin Ratio 0.8 L 11/25/19 15:27: PT 23.6 H, INR 2.2 11/25/19 15:27: Carbamazepine 4.6 11/25/19 15:30: COVID-19 (CLARA) Negative 11/25/19 16:45: Urine Color Gabriela, Urine Clarity Clear, Urine pH 5.0, Ur Specific [place] 1.015, Urine Protein 30 H, Urine Glucose (UA) Normal, Urine Ketones 15 H, Urine Occult Blood Negative, Urine Nitrite Positive H, Urine Bilirubin 3 H, Urine Urobilinogen 1 H, Ur Leukocyte Esterase 100 H, Urine RBC 0 SEEN, Urine WBC 0-5 SEEN, Ur Squamous Epith Cells 0 SEEN, Urine Bacteria 1+, Hyaline Casts 10-25 SEEN, Urine Mucus 1+ 11/25/19 16:48: Urine Test Negative Current Medications Acetaminophen (Tylenol) 650 mg PO Q6H PRN PRN PRN Reason: Pain Score 1-10/Temp > 100.7 F Alprazolam (Xanax) 0.5 mg PO BID PRN PRN PRN Reason: ANXIETY Buspirone HCl (Buspar) 5 mg PO TID [facility] Last Admin: 11/25/19 22:03 Dose: Not Given Documented by: Carbamazepine (Tegretol Xr) 400 mg PO BID [facility] Ferrous Sulfate (Ferrous Sulfate) 325 mg PO DAILY@0800 [facility] Sodium Chloride () 1,000 mls @ 75 mls/hr IV .[id number] [facility] Last Infusion: 11/25/19 22:55 Dose: 75 mls/hr Documented by: Pantoprazole Sodium 40 mg/ (Sodium Chloride) 110 mls @ 330 mls/hr IV Q12 [facility] Last Infusion: 11/25/19 22:53 Dose: Infused Documented by: Sodium Chloride () 250 mls @ 15 mls/hr IV .[id number] PRN PRN Reason: Saline Flush Last Infusion: 11/26/19 00:41 Dose: 15 mls/hr Documented by: Levetiracetam 500 mg/ Sodium (Chloride) 105 mls @ 400 mls/hr IV Q12 [facility] Last Infusion: 11/25/19 23:13 Dose: Infused Documented by: Lacosamide 200 mg/ Sodium (Chloride) 70 mls @ 100 mls/hr IV BID [facility] Last Infusion: 11/26/19 00:02 Dose: Infused Documented by: Meropenem 500 mg/ Sodium (Chloride) 60 mls @ 100 mls/hr IV Q8 [facility] Last Infusion: 11/26/19 00:41 Dose: Infused Documented by: Ondansetron HCl (Zofran) 4 mg IV Q8H PRN PRN PRN Reason: NAUSEA/VOMITING Last Admin: 11/25/19 20:11 Dose: 4 mg Documented by: Phenol/Menthol (Chloraseptic (Bkc)) 3 spray MM Q2H PRN PRN PRN Reason: SORE THROAT Prochlorperazine Edisylate (Compazine Iv) 5 mg IV Q4H PRN PRN PRN Reason: NAUSEA/VOMITING Last Admin: 11/26/19 01:20 Dose: 5 mg Documented by: Senna/Docusate Sodium (Senokot-S, Luci-Colace) 2 tablet PO BID PRN PRN PRN Reason: Constipation Sertraline HCl (Zoloft) 100 mg PO DAILY [facility] Sodium Chloride () 10 - 40 ml IV UD PRN PRN Reason: SALINE FLUSH Last Admin: 11/25/19 20:11 Dose: 20 ml Documented by: Assessment/Plan All Active Problems (Last Reviewed 11/25/19 @ 18:07 by Kelly Beauchamp) Cholecystitis, acute with cholelithiasis (Acute) 38-year-old female with multiple ER visits intractable nausea and vomiting severe hypokalemia. She now is received semi-medications I am not able to get her to respond to verbal questions. Laboratory and imaging would be consistent with cholecystitis cholelithiasis as an etiology to her intractable nausea and vomiting. She needs to have medications held so that informed consent can be obtained. The etiology to her hypercoagulable state needs to be determined. Her severe hypokalemia will need to be aggressively treated as this is secondary to days worth of nausea and vomiting. Clearly this patient has had a high risk for intervention secondary to the chronicity of her presentation and severity of her metabolic issues. If she is not able to provide informed consent then we will need to pursue investigating power of attorney lawyer. Otf Atkinson M.D., F.A.C.S.
[2019-11-26] MEDS: Potassium Chloride 10mEq/100mL 10 MEQ/100 ML IV.SOLN. 100 MEQ IV BOLUS ×7 (03:31→12:24)
[2019-11-26] MEDS: 0.9% Normal Saline 1,000 ML 75 ML IV ×2 (03:31→16:09)
[2019-11-26 03:56] LABS: Absolute Lymphocyte Count 3.36 X10^3/uL (0.83-4.51); Absolute Neutrophil Count 11.5 X10^3/uL (2.0-7.7); Basophil# 0.05 X10^3/uL; Basophil% 0.3 % (0-1); Eosinophil# 0.04 X10^3/uL; Eosinophils% 0.2 % (0-5); Hematocrit 37.6 % (37-47); Hemoglobin 13.4 g/dL (12.0-15.0); Lymphocyte # 3.36 X10^3/ul (4.0); Lymphocyte % 19.6 % (19-41); Mean Corp Hgb Conc 35.6 g/dL (32-36); Mean Corpuscular Volume 84.1 fL (81-99); Mean Platelet Vol. 11.3 fl (6.2-12.0); Monocyte# 2.02 X10^3/uL; Monocyte% 11.8 % (0-10); NRBC Flagged by Analyzer 0 % (0-5); Neutrophil # 11.48 X10^3/uL (2.7-7.7); Neutrophil % 66.9 % (47-70); POSITIVE DIFFERENTIAL YES; Platelet Count 251 K/mm3 (150-450); RBC Distribution Width CV 12.5 % (11.6-14.6); Red Blood Count 4.47 M/mm3 (4.2-5.4); White Blood Count 17.2 K/mm3 (4.4-11.0)
[2019-11-26 03:58] LABS: Differential Indicated SCAN CRITERIA MET
[2019-11-26 04:03] LABS: International Normalized Ratio 2.3; Partial Thromboplast Time 33.4 Seconds (24.1-36.2); Prothrombin Time (Protime)PT. 24.7 SECONDS (11.7-14.9)
[2019-11-26 04:13] LABS: ALB/GLOB Ratio 0.8 RATIO (0.9-2.4); AST(SGOT) 111 U/L (15-37); Alanine Aminotransfer ALT/SGPT 164 U/L (13-56); Albumin, Serum 2.7 g/dL (3.2-5.0); Alkaline Phosphatase 78 U/L (45-117); Anion Gap 8 (5-15); BUN 10 mg/dL (7-18); BUN/Creat Ratio 10.5 RATIO (10-20); Calcium,Total 7.9 mg/dL (8.5-10.1); Chloride 97 mmol/L (98-107); Creatinine, Serum 0.95 mg/dL (0.55-1.02); EST Glomerular Filtration Rate 69 mL/min (>60); Est Glom Filt Rate - Afr Amer 83 mL/min (>60); Estimated Creatinine Clearance 74.43 ml/min; Globulin 3.2 g/dL (2.2-4.2); Glucose 111 mg/dL (74-106); Potassium 2.6 mmol/L (3.5-5.1); Protein, Total 5.9 g/dL (6.4-8.2); Sodium Level 137 mmol/L (136-145)
--- NOTE | 2019-11-26 05:53 | PCM.PN.BLA ---
Progress Note Now alert. I described to her my recommendations for laparoscopic cholecystectomy I discussed the technique, benefit, risk, alternatives. She has had an opportunity to ask and have questions answered. We will proceed as noted as operating room timing permits today. As anticipated her potassium level has not yet been corrected. We will vigorously work on replacement. Otf Atkinson M.D., F.A.C.S. STROKE Vital Signs/Narrative: Vital Signs Temp Pulse Resp BP Pulse Ox 11/26/19 02:14 98.4 F 111 H 18 128/73 H 100 11/26/19 02:10 106 H
--- NOTE | 2019-11-26 06:00 | EKG12_ITS ---
Test Reason : AM EKG Blood Pressure : / mmHG Vent. Rate : 108 BPM Atrial Rate : 108 BPM P-R Int : 198 ms QRS Dur : 066 ms QT Int : 350 ms P-R-T Axes : 049 -08 014 degrees QTc Int : 469 ms Sinus tachycardia Nonspecific T wave abnormality Abnormal ECG When compared with ECG of 14-AUG-2019 04:11, Nonspecific T wave abnormality now evident in Anterolateral leads Confirmed by LINDEN BOLES ([id number]), publications editor BATSHEVA BAGLEY ([id number]) on 12/03/2019 9:09:23 AM Referred By: DWIGHT Confirmed By:LINDEN BOLES
--- NOTE | 2019-11-26 06:53 | DCINST_ITS ---
Discharge Diet: Light diet - advance as tolerated - if you have questions about your diet instructions, please talk to you doctor. Discharge Activity: May Not Drive - for 5 days or while taking narcotic pain medicine. May shower in (days): 1 Lifting Restrictions: 10 pounds Call your doctor if your incision/area has: Continuous Slow Oozing, Sudden Increased Bleeding, Increased Pain/ Swelling, Increased Redness, Foul Smelling Discharge Call your doctor if you observe: Fever of 101 or Higher Suture Line Care: Avoid Pulling/Pushing, Avoid Pinching/Bending Additional Dressing/Incision Instructions:: Change or remove dressing in 3 days. Leave steri-strips in place for 1 week. Allergies/Adverse Reactions: Allergies Penicillins Allergy (Verified 11/23/19 12:54) Unknown tomato Adverse Reaction (Verified 11/23/19 12:54) Diarrhea Medications to take at Discharge Carbamazepine [Carbamazepine ER] 400 mg PO BID 08/13/19 Ergocalciferol (Vitamin D2) [Vitamin D2] 50,000 unit PO MO 08/13/19 Ferrous Sulfate 325 mg PO DAILY@0800 08/13/19 Lacosamide [Vimpat] 200 mg PO BID 08/13/19 Multivitamin [Daily Vitamin Formula] 1 tab PO DAILY 08/13/19 Omeprazole 20 mg PO DAILY 08/13/19 Sertraline HCl [Zoloft] 100 mg PO DAILY 08/13/19 Ondansetron [Zofran Odt] 4 mg PO Q8H PRN PRN #7 tab 11/22/19 Cephalexin [Keflex] 500 mg PO Q12 #14 cap 11/23/19 ALPRAZolam [Xanax] 0.5 mg PO BID PRN PRN 11/25/19 Levetiracetam [Keppra] 500 mg PO BID 11/25/19 Potassium Cloride Effervescent [Potassium Chl 25 Meq Eff (For Liquid)] 25 meq PO BID 11/25/19 busPIRone [Buspar] 5 mg PO TID 11/25/19 proMETHazine tablet [Phenergan tablet] 25 mg PO Q8H PRN PRN 11/25/19 Primary Care Physician: Erwin Orozco MD [Primary Care Provider] - Test Results: Test results from this visit will be discussed in further detail at your follow- up appointment, if applicable. Please Follow Up With: Otf Atkinson MD - [phone] When: Phone call or virtual or onsite visit in 10 days please
--- NOTE | 2019-11-26 06:53 | RAD_ITS ---
STUDY: CHOLANGIOGRAM REASON FOR EXAM: Female, 38 years old. Flank pain Cholecystectomy. FLUOROSCOPY TIME (if supplied): (0:23) minutes/seconds TECHNIQUE: Intraoperative fluoroscopy. For intraoperative views. COMPARISON: None. FINDINGS: There is opacification of cystic duct and common bile duct. No filling defects are seen the common bile duct to suggest retained stone. Contrast flows easily into the duodenum. RAD/Cholangiogram/ O R,Initial IMPRESSION: There is no evidence of retained stones in the common bile duct. Electronically Signed: Quin Vang, at 8:56 EDT Tel , Service support ,
--- NOTE | 2019-11-26 08:35 | NURSING ---
Addendum entered by Heather Mcneill 11/26/19 08:39: due to OR pick-up time of 1130, called [facility] back to see if midline could be placed earlier, they reported time of [phone]. Original Note: called [facility] to determine time for midline placement, reported time of [phone]. will notify Dr Atkinson and primary RN Kelly
--- NOTE | 2019-11-26 08:46 | NURSING ---
lab techs here to draw stat pottasium.
[2019-11-26 09:00] LABS: Potassium 3.4 mmol/L (3.5-5.1)
--- NOTE | 2019-11-26 09:57 | CASEMGMT ---
Addendum entered by Dontae Stover 11/26/19 12:54: Per [facility], pt is currently receiving snf services, PT/OT, aide, and SW. Original Note: KASSANDRA STRICKLAND NOTE: Pt is active w/[facility]. Per KASSANDRA Knox CM, they are aware pt has been admitted to [facility]. H/P faxed to [facility] at this time. Bing MATA RN CM
--- NOTE | 2019-11-26 10:08 | CASEMGMT ---
Social Work Assessment Referral Date: 11/26/2019 Date of Assessment: 11/26/2019 Reason for consult: Pt has [employer] of [employer] services Informant: SW Personal Status: SW met with pt to complete initial assessment. SW familiar with pt from previous visits. SW introduced self and role at [facility]. Pt is alert and orientated x3. Pt states that she lives with her boyfriend Ritchie in an apartment. Pt states that she has an elevator in the apartment. Pt states that she was previously independent with ADLs. Transportation is either a bus, cab, or Ritchie's grandmother. Pt states that she has cane, walker and wheelchair at home but doesn't normalize utilize them. PCP is Dr. Orozco and Pharmacy is [facility]. Pt states that she attends [facility] daily. Pt confirms that her academic services coordinator through the [employer] is Liliana and [facility] Pt states that she has PT/OT and RN [facility]. Pt confirms that she was recently at [facility] and was discharged there last Saturday. Pt states she has been at [facility] since August of this year. Substance Abuse Hx: Pt denied Mental Health Hx: Pt denied. Per H+P, pt does have MRDD. HHC: [facility] SNF: Recently at [facility]. SW spoke with pt regarding discharge plans. Pt states she prefers to return home with resumption of [facility] services. Pt denies additional needs or concerns at this time. TARIQ placed a call to pt's academic services coordinator Liliana Ortega ([phone]). Liliana aware pt is at [facility]. Liliana confirms pt lives with her boyfriend Ritchie and pt is still own decision maker, no guardian. Liliana confirms that pt attends [facility]. Liliana states that pt has personal care services through [employer] and has KASSANDRA Soto. Liliana states KASSANDRA Soto was with pt when pt went to Dr. Silva's appointment and Brittany works with [facility] to arrange services for pt. Liliana states that Brittany will need to be updated on discharge plans as well when pt discharges and Brittany's cell phone number is [phone]. Liliana also states pt's boyfriend Ritchie is POA for pt. HCPOA is on file for pt. TARIQ updated Liliana that at this time, plan is for pt to return home at discharge. Liliana states understanding. TRAIQ updated KASSANDRA Stover that pt has advantage HHC. Plan: Home with resumption of HHC. Paula Su REHAB MANAGER, AGENTS' RECORDS CLERK
[2019-11-26] MEDS: Phenol/Sodium Phenolate 180ML 3 SPRAY MM ×2 (10:11→21:09)
--- NOTE | 2019-11-26 10:36 | PCM.PN.HOSP ---
Patient Problems: Active and Suspected Problems (Last Reviewed 11/25/19 @ 18:07 by Kelly Beauchamp) Cholecystitis, acute with cholelithiasis (Acute) Subjective: Feels dehydrated and would like some water today. No further nausea or vomiting Vitals/I&O's: Vital Signs Temp Pulse Resp BP Pulse Ox 97.9 F 103 H 18 107/57 L 99 11/26/19 07:29 11/26/19 07:29 11/26/19 07:29 11/26/19 07:29 11/26/19 07:29 Oxygen Delivery Method Room Air Weight: 241 lb 6 oz Body Mass Index (BMI) 38.9 Intake and Output for Last 24 Hours 11/24/19 11/25/19 11/26/19 23:59 23:59 23:59 Intake Total 1192.75 / 1192.75 1830 / 1830 Output Total 350 / 350 200 / 200 Balance 842.75 / 842.75 1630 / 1630 General: Alert, Cooperative, No apparent distress HEENT: Atraumatic, PERRLA, EOMI, Normocephalic Oral: Dry Mucosa Neck: Supple, No JVD Lungs: Clear to auscultation, Normal air movement, No rhonchi, No wheeze, No rales, Diminished Cardiovascular: Regular rate, Regular Rhythm, Normal S1, Normal S2, No murmurs Abdomen: Soft, Non Tender, Non-Distended, No Hepato-splenomegaly Extremities: No edema, Capillary Refill Less than 3 Seconds Skin: No rashes, No breakdown Neurological: Neuro grossly intact, Sensory exam intact to light touch and pain Psych/Mental Status: Normal Affect, Appropriate Laboratory Results 11/25/19 15:27: WBC 18.1 H, RBC 4.97, Hgb 14.6, Hct 41.8, MCV 84.1, MCH 29.4, MCHC 34.9, RDW Std Deviation 37.7, RDW Coeff of Inna 12.4, Plt Count 338, MPV 11.5, Immature Gran % (Auto) 1.000 H, Neut % (Auto) 72.2 H, Lymph % (Auto) 14.6 L, Payne % (Auto) 11.9 H, Eos % (Auto) 0.1, Baso % (Auto) 0.2, Absolute Neuts (auto) 13.1 H, Absolute Lymphs (auto) 2.64, Nucleated RBC % 0, Differential Comment , Diff Path Review August, Platelet Estimate ADEQUATE, RBC Morphology NORM C+C 11/25/19 15:27: Sodium 135 L, Potassium 2.3 L*, Chloride 94 L, Carbon Dioxide 31.0, Anion Gap 10, BUN 12, Creatinine 1.15 H, Estim Creat Clear Calc 61.48, Est GFR (MDRD) Af Amer 67, Est GFR (MDRD) Non-Af 56 L, BUN/Creatinine Ratio 10.4, Glucose 117 H, Calcium 8.8, Magnesium 2.2, Total Bilirubin 0.80, AST 134 H, ALT 196 H, Alkaline Phosphatase 91, Total Protein 6.9, Albumin 3.1 L, Globulin 3.8, Albumin/Globulin Ratio 0.8 L 11/25/19 15:27: PT 23.6 H, INR 2.2 11/25/19 15:27: Carbamazepine 4.6 11/25/19 15:30: COVID-19 (CLARA) Negative 11/25/19 16:45: Urine Color Gabriela, Urine Clarity Clear, Urine pH 5.0, Ur Specific Queen 1.015, Urine Protein 30 H, Urine Glucose (UA) Normal, Urine Ketones 15 H, Urine Occult Blood Negative, Urine Nitrite Positive H, Urine Bilirubin 3 H, Urine Urobilinogen 1 H, Ur Leukocyte Esterase 100 H, Urine RBC 0 SEEN, Urine WBC 0-5 SEEN, Ur Squamous Epith Cells 0 SEEN, Urine Bacteria 1+, Hyaline Casts 10-25 SEEN, Urine Mucus 1+ 11/25/19 16:48: Urine Test Negative 11/26/19 03:36: WBC 17.2 H, RBC 4.47, Hgb 13.4, Hct 37.6, MCV 84.1, MCH 30.0, MCHC 35.6, RDW Std Deviation 38.0, RDW Coeff of Inna 12.5, Plt Count 251, MPV 11.3, Immature Gran % (Auto) 1.200 H, Neut % (Auto) 66.9, Lymph % (Auto) 19.6, Payne % (Auto) 11.8 H, Eos % (Auto) 0.2, Baso % (Auto) 0.3, Absolute Neuts (auto) 11.5 H, Absolute Lymphs (auto) 3.36, Nucleated RBC % 0, Differential Comment COMMENT, Diff Path Review August foll 11/26/19 03:36: Sodium 137, Potassium 2.6 L*, Chloride 97 L, Carbon Dioxide 32.0, Anion Gap 8, BUN 10, Creatinine 0.95, Estim Creat Clear Calc 74.43, Est GFR (MDRD) Af Amer 83, Est GFR (MDRD) Non-Af 69, BUN/Creatinine Ratio 10.5, Glucose 111 H, Calcium 7.9 L, Total Bilirubin 0.60, AST 111 H, ALT 164 H, Alkaline Phosphatase 78, Total Protein 5.9 L, Albumin 2.7 L, Globulin 3.2, Albumin/Globulin Ratio 0.8 L 11/26/19 03:36: PT 24.7 H, INR 2.3, APTT 33.4 11/26/19 03:36: Potassium 2.6 L* 11/26/19 08:45: Potassium 3.4 L Current Medications Acetaminophen (Tylenol) 650 mg PO Q6H PRN PRN PRN Reason: Pain Score 1-10/Temp > 100.7 F Alprazolam (Xanax) 0.5 mg PO BID PRN PRN PRN Reason: ANXIETY Buspirone HCl (Buspar) 5 mg PO TID [facility] Last Admin: 11/26/19 03:54 Dose: Not Given Documented by: Carbamazepine (Tegretol Xr) 400 mg PO BID [facility] Ferrous Sulfate (Ferrous Sulfate) 325 mg PO DAILY@0800 [facility] Last Admin: 11/26/19 08:45 Dose: Not Given Documented by: Sodium Chloride () 1,000 mls @ 75 mls/hr IV .[id number] [facility] Last Infusion: 11/26/19 06:55 Dose: 75 mls/hr Documented by: Pantoprazole Sodium 40 mg/ (Sodium Chloride) 110 mls @ 330 mls/hr IV Q12 [facility] Last Infusion: 11/25/19 22:53 Dose: Infused Documented by: Sodium Chloride () 250 mls @ 15 mls/hr IV .[id number] PRN PRN Reason: Saline Flush Last Infusion: 11/26/19 05:01 Dose: 0 mls/hr Documented by: Levetiracetam 500 mg/ Sodium (Chloride) 105 mls @ 400 mls/hr IV Q12 [facility] Last Infusion: 11/26/19 10:33 Dose: Infused Documented by: Lacosamide 200 mg/ Sodium (Chloride) 70 mls @ 100 mls/hr IV BID [facility] Last Infusion: 11/26/19 00:02 Dose: Infused Documented by: Meropenem 500 mg/ Sodium (Chloride) 60 mls @ 100 mls/hr IV Q8 [facility] Last Infusion: 11/26/19 06:55 Dose: Infused Documented by: Ondansetron HCl (Zofran) 4 mg IV Q8H PRN PRN PRN Reason: NAUSEA/VOMITING Last Admin: 11/25/19 20:11 Dose: 4 mg Documented by: Phenol/Menthol (Chloraseptic (Bkc)) 3 spray MM Q2H PRN PRN PRN Reason: SORE THROAT Last Admin: 11/26/19 10:11 Dose: 3 spray Documented by: Prochlorperazine Edisylate (Compazine Iv) 5 mg IV Q4H PRN PRN PRN Reason: NAUSEA/VOMITING Last Admin: 11/26/19 01:20 Dose: 5 mg Documented by: Senna/Docusate Sodium (Senokot-S, Luci-Colace) 2 tablet PO BID PRN PRN PRN Reason: Constipation Sertraline HCl (Zoloft) 100 mg PO DAILY [facility] Sodium Chloride () 10 - 40 ml IV UD PRN PRN Reason: SALINE FLUSH Last Admin: 11/25/19 20:11 Dose: 20 ml Documented by: STROKE Vital Signs/Narrative: Vital Signs Temp Pulse Resp BP Pulse Ox 11/26/19 07:29 97.9 F 103 H 18 107/57 L 99 Medical Necessity - Tobacco Use Smoking Status: Never smoker Assessment/Plan All Active Problems (Last Reviewed 11/25/19 @ 18:07 by Kelly Beauchamp) Cholecystitis, acute with cholelithiasis (Acute) 1. Nausea and vomiting secondary to acute cholecystitis/elevated LFTs with coagulopathy/hypokalemia -Continue with meropenem, plan for cholecystectomy this morning -Continue with antiemetics, appears to have improved -LFTs are improving, bilirubin is normal and alk phos is normal -INR is elevated to 2.3 without any known exposure to Coumadin -Hypokalemia is improving 2. 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 to IV 3. Acute cystitis -Initially she had a UA that was dirty and a urine culture obtained on the which is currently no growth -Currently on imipenem for her cholecystitis, repeat urine cultures pending -She had been on Keflex as an outpatient 4. GERD -Stable -Continue with PPI DVT: Therapeutic INR Inpatient E&M: 68246 Subs Hosp L2
--- NOTE | 2019-11-26 11:02 | NURSING ---
krider and pantoprazole changed to midline. lacosamide infusing in rt shoulder.
--- NOTE | 2019-11-26 12:30 | GALL_PTH ---
PATHOLOGY RESULTS PATIENT: JANETH PENNY LOC: MS3 U#:[id number] AGE/SX: 38/F ROOM: MT317 RE11/25/[address]: Dr. Feliz Tellez MD : 1980 BED: 1 DIS: 11/29/2019 SPEC #: [id number] RECD: 11/26/19 14:57 STATUS: DILIA SERAFIN #: [id number] EMPERATRIZ: 11/26/19 12:[address]: Otf Atkinson DEPT: SURGICAL PATHOLOGY RECD BY: José Miguel Mahmood ENTERED: 11/27/19 08:27 SP TYPE: FARA ESCOBAR DR: MD Dr. Daniel Shepherd DO Dr. Nicholas F Kotsonis, MD Tissues: Gallbladder, NOS Procedures: Surgery Specimen Level III HEADER OPERATION: Laparoscopic cholecystectomy with IOC PRE-OP DIAGNOSIS: Cholecystitis, cholelithiasis TISSUE SUBMITTED: Gallbladder MICROSCOPIC DIAGNOSIS Gallbladder, cholecystectomy: Chronic cholecystitis, cholelithiasis and cholesterolosis. KATINA:corona 11/30/19 MICROSCOPIC DESCRIPTION Slides are reviewed. GROSS DESCRIPTION Received is one container labeled with the patient's name and designated gallbladder. The specimen consists of a gallbladder measuring 7 cm in length and 3.5 cm in diameter. The external surface is pink-palmer, smooth and glistening for the most part. Focally it is granular, hemorrhagic and contains cautery artifact. The gallbladder contains green-dark green mucoid bile and multiple mulberry stones measuring in aggregate 3 x 2.5 x 1 cm and 0.6 to 1 cm in greatest dimension. The mucosa is bile-stained and without any mass lesions. The gallbladder wall measures up to 0.3 cm in thickness. Sfdc Architect sections from the gallbladder and the cystic duct are submitted in one cassette. / KATINA:corona 11/27/19 TC:3 CPT: 36905
[2019-11-26 14:08] LABS: Pathologist Review Reviewed
[2019-11-26 14:12] LABS: Pathologist Review Reviewed
[2019-11-26] MEDS: Bupivacaine Mpf 0.5% 30 ML VIAL (14:17)
--- NOTE | 2019-11-26 14:25 | OP.PCM_ITS ---
Problem List (1) Cholecystitis, acute with cholelithiasis Status: Acute Qualifiers: Biliary obstruction: without biliary obstruction Qualified Code(s): K80.00 - Calculus of gallbladder with acute cholecystitis without obstruction Report of Operation Date of Procedure: 11/26/19 Pre-Operative Diagnosis: Acute cholecystitis cholelithiasis Post-Operative Diagnosis: Same Surgery/Procedure Performed:: Laparoscopic cholecystectomy with cholangiograms Description of Surgical Findings:: Timeout and informed consent was obtained. 38-year-old female was taken to the operating place upon the table underwent general anesthesia and endotracheal intubation. She was already on meropenem antibiotic therapeutic treatment. The abdomen was sterilely prepped and draped. 0.5% Marcaine was used as a local anesthetic. Throughout the procedure total 30 cc was used. Skin sites were pre-anesthetized. A vertical infraumbilical incision was created holding sutures of 0 Vicryl placed varies needle inserted saline drop test was performed. Attempt was made to insufflate that location but was not successful attempt was made to get direct access however could not seemingly get a clean plane. So then I switch to the right upper quadrant used a 5 mm Visiport technology to gain access. The abdomen was insufflated with CO2 to a pressure of 15 mmHg pressure. Inspection revealed that there were adhesions of omentum to the right mid abdomen. There was no evidence of any bowel injury with entrance or trochars. Under deposition the 10 m port was placed at the umbilical level. 5 mm port was placed in the lateral right upper quadrant and one in the epigastrium. The gallbladder had some light adhesions of omentum to it. Gallbladder was tightly distended and I did aspirate and decompress it using a trocar aspirator. The bile appeared to be somewhat viscous and dark. The infundibular area was dissected free until clearly the cystic duct cystic artery was identified. The cystic duct was exquisitely small. Hem-o-quynh clips were placed on the cystic duct incision in the cystic duct and through a 14- gauge Angiocath a cholangiogram catheter was inserted. Fluoroscopically control cholangiograms were obtained demonstrating normal ductal anatomy. Cholangiogram cath was removed and 2 hemo-lock clips were placed on the cystic duct stump prior to transecting it. The cystic artery was secured proximally and distally with hemo-lock clips. Hemostasis ~was very easily and nicely intact. The gallbladder is now tediously dissected free from the liver bed using electrocautery. Areas would be cauterized appear to be stable and then will suddenly start slowly oozing. Carefully and tediously with slightly increased cautery levels I dissected the gallbladder free. There was no spillage. The gallbladder was placed in a retrieval bag. The right upper quadrant was irrigated and aspirated free of excess fluid. I then used FloSeal on the liver bed followed by fibula. I held pressure on the area observe the area complete hemostasis was intact. The gallbladder now was exited at the umbilicus. The abdomen had already been deflated of the CO2. The fascia at the umbilicus was approximated with a [id number] suture of 0 Vicryl in a simple suture of 0 Vicryl. Good control was achieved. Skin edges were approximated with interrupted 4 Monocryl subdermal stitches. Steri-Strips Telfa OpSite dressings applied. Sponge and instrument and needle counts were reported to the surgeon to be correct. Specimens gallbladder. Drains none. Blood loss 10 cc. The patient was taken to recovery area in satisfactory addition without plan complication Otf Atkinson M.D., F.A.C.S. Type of Anesthesia:: General Anesthesiologist: Dionisio Hong
[2019-11-26] MEDS: busPIRone 5 MG Tablet PO ×2 (16:11→21:08)
[2019-11-26] MEDS: Sertraline 100 MG Tablet PO (16:11)
--- NOTE | 2019-11-26 16:58 | NURSING ---
updated Brittany at [facility].
[2019-11-26] MEDS: Acetaminophen 325 MG Tablet 650 MG PO (21:08)
[2019-11-27] VITALS (12 sets, daily range): BP systolic 105–118; BP diastolic 60–73; PULSE 89–102; RESP 16; TEMP 36.1–37.1; O2SAT 99–100
[2019-11-27] MEDS: Phenol/Sodium Phenolate 180ML 3 SPRAY MM ×2 (00:56→06:07)
--- NOTE | 2019-11-27 01:19 | NURSING ---
pt up to [facility] with rn did not void, states she doesnt feel like she needs to go. bladder scanned for 242ml will monitor
--- NOTE | 2019-11-27 02:25 | NURSING ---
NOTIFIED PHARMACIST PT CANT GET HOME TEGRETOL SHE IS NOW HAS DIET ORDER TAKING CLEARS AND MEDS THAT ARE ORDERED PO. RX WILL FOLLOWUP W DAYSHIFT PHARMACIST ABOUT OBTAINING
[2019-11-27] MEDS: Potassium Chloride 40 MEQ in 0.9% Normal Saline 1,000 ML 100 MEQ IV ×2 (02:33→17:29)
[2019-11-27] MEDS: busPIRone 5 MG Tablet PO ×3 (05:19→23:07)
[2019-11-27] MEDS: Acetaminophen 325 MG Tablet 650 MG PO (05:23)
--- NOTE | 2019-11-27 06:00 | PCM.PN.SRG ---
Patient Problems: Active and Suspected Problems (Last Reviewed 11/25/19 @ 18:07 by Kelly Beauchamp) Cholecystitis, acute with cholelithiasis (Acute) Subjective: Patient states that she is not currently nauseated. She does have abdominal soreness. She thinks she feels improved over admission. - Physical Exam Vitals/I&O's: Vital Signs Temp Pulse Resp BP Pulse Ox 97.7 F L 97 16 118/60 100 11/27/19 05:30 11/27/19 05:30 11/27/19 05:30 11/27/19 05:30 11/27/19 05:30 Oxygen Delivery Method Room Air Weight: 241 lb 6.005 oz Body Mass Index (BMI) 38.9 Intake and Output for Last 24 Hours 11/25/19 11/26/19 11/27/19 23:59 23:59 23:59 Intake Total 1192.75 / 1192.75 3261.25 / 3261.25 715 / 715 Output Total 350 / 350 400 / 400 0 / 0 Balance 842.75 / 842.75 2861.25 / 2861.25 715 / 715 Abdomen: Soft, Hypoactive Bowel Sounds, - - Dressings are clean Microbiology Past 72 Hours 11/25/19 16:45 Urine, Catheterized Urine Culture - Preliminary Culture exhibits no growth. Laboratory Results 11/25/19 15:27: Diff Path Review Reviewed 11/26/19 03:36: Diff Path Review Reviewed 11/26/19 08:45: Potassium 3.4 L Current Medications Acetaminophen (Tylenol) 650 mg PO Q6H PRN PRN PRN Reason: Pain Score 1-10/10 Last Admin: 11/27/19 05:23 Dose: 650 mg Documented by: Hydrocodone Bitart/Acetaminophen ([place] 5mg-325mg) 1 - 2 tablet PO Q6H PRN PRN PRN Reason: Pain Score 1-10/10 Alprazolam (Xanax) 0.5 mg PO BID PRN PRN PRN Reason: ANXIETY Buspirone HCl (Buspar) 5 mg PO TID [facility] Last Admin: 11/27/19 05:19 Dose: 5 mg Documented by: Carbamazepine (Tegretol Xr) 400 mg PO BID [facility] Ferrous Sulfate (Ferrous Sulfate) 325 mg PO DAILY@0800 [facility] Last Admin: 11/26/19 08:45 Dose: Not Given Documented by: Pantoprazole Sodium 40 mg/ (Sodium Chloride) 110 mls @ 330 mls/hr IV Q12 [facility] Last Infusion: 11/26/19 21:35 Dose: Infused Documented by: Sodium Chloride () 250 mls @ 15 mls/hr IV .[id number] PRN PRN Reason: Saline Flush Last Infusion: 11/26/19 05:01 Dose: 0 mls/hr Documented by: Levetiracetam 500 mg/ Sodium (Chloride) 105 mls @ 400 mls/hr IV Q12 [facility] Last Infusion: 11/26/19 21:11 Dose: Infused Documented by: Lacosamide 200 mg/ Sodium (Chloride) 70 mls @ 100 mls/hr IV BID [facility] Last Infusion: 11/26/19 23:25 Dose: Infused Documented by: Meropenem 500 mg/ Sodium (Chloride) 60 mls @ 100 mls/hr IV Q8 [facility] Last Admin: 11/27/19 05:19 Dose: 100 mls/hr Documented by: Potassium Chloride 40 meq/ (Sodium Chloride) 1,020 mls @ 100 mls/hr IV .[id number] [facility] Last Admin: 11/27/19 02:33 Dose: 100 mls/hr Documented by: Morphine Sulfate () 1 - 2 mg IV Q1H PRN PRN PRN Reason: Pain Score 1-10/10 Ondansetron HCl (Zofran) 4 mg IV Q8H PRN PRN PRN Reason: NAUSEA/VOMITING Last Admin: 11/25/19 20:11 Dose: 4 mg Documented by: Phenol/Menthol (Chloraseptic (Bkc)) 3 spray MM Q2H PRN PRN PRN Reason: SORE THROAT Last Admin: 11/27/19 00:56 Dose: 3 spray Documented by: Prochlorperazine Edisylate (Compazine Iv) 5 mg IV Q4H PRN PRN PRN Reason: NAUSEA/VOMITING Last Admin: 11/26/19 01:20 Dose: 5 mg Documented by: Senna/Docusate Sodium (Senokot-S, Luci-Colace) 2 tablet PO BID PRN PRN PRN Reason: Constipation Sertraline HCl (Zoloft) 100 mg PO DAILY [facility] Last Admin: 11/26/19 16:11 Dose: 100 mg Documented by: Sodium Chloride () 10 - 40 ml IV UD PRN PRN Reason: SALINE FLUSH Last Admin: 11/25/19 20:11 Dose: 20 ml Documented by: Medical Necessity - Tobacco Use Smoking Status: Never smoker Assessment/Plan All Active Problems (Last Reviewed 11/25/19 @ 18:07 by Kelly Beauchamp) Cholecystitis, acute with cholelithiasis (Acute) Patient appears to be making steady progress. Await laboratory. If leukocytosis has improved then would concur with cessation of antibiotics. I will advance her diet. If she tolerates that well then I would anticipate discharge today. I provided to her surgical discharge instructions. Otf Atkinson M.D., F.A.C.S.
[2019-11-27 07:01] LABS: International Normalized Ratio 1.5; Prothrombin Time (Protime)PT. 17.5 SECONDS (11.7-14.9)
[2019-11-27 07:17] LABS: ALB/GLOB Ratio 0.8 RATIO (0.9-2.4); AST(SGOT) 83 U/L (15-37); Alanine Aminotransfer ALT/SGPT 125 U/L (13-56); Albumin, Serum 2.4 g/dL (3.2-5.0); Alkaline Phosphatase 74 U/L (45-117); Anion Gap 3 (5-15); BUN 8 mg/dL (7-18); BUN/Creat Ratio 9.8 RATIO (10-20); Calcium,Total 7.5 mg/dL (8.5-10.1); Chloride 105 mmol/L (98-107); Creatinine, Serum 0.81 mg/dL (0.55-1.02); EST Glomerular Filtration Rate 83 mL/min (>60); Est Glom Filt Rate - Afr Amer 100 mL/min (>60); Estimated Creatinine Clearance 87.29 ml/min; Glucose 108 mg/dL (74-106); Protein, Total 5.4 g/dL (6.4-8.2); Sodium Level 139 mmol/L (136-145)
[2019-11-27 08:14] LABS: Absolute Lymphocyte Count 2.17 X10^3/uL (0.83-4.51); Absolute Neutrophil Count 8.9 X10^3/uL (2.0-7.7); Basophil# 0.04 X10^3/uL; Basophil% 0.3 % (0-1); Eosinophil# 0.07 X10^3/uL; Eosinophils% 0.5 % (0-5); Hematocrit 39.7 % (37-47); Hemoglobin 13.2 g/dL (12.0-15.0); Lymphocyte # 2.17 X10^3/ul (4.0); Lymphocyte % 16.6 % (19-41); Mean Corp Hgb Conc 33.2 g/dL (32-36); Mean Corpuscular Hgb 29.7 pg (27.0-32.0); Mean Corpuscular Volume 89.2 fL (81-99); Mean Platelet Vol. 11.1 fl (6.2-12.0); Monocyte# 1.72 X10^3/uL; Monocyte% 13.1 % (0-10); NRBC Flagged by Analyzer 0 % (0-5); Neutrophil # 8.91 X10^3/uL (2.7-7.7); Neutrophil % 68.1 % (47-70); POSITIVE DIFFERENTIAL YES; Platelet Count 218 K/mm3 (150-450); RBC Distribution Width CV 13.3 % (11.6-14.6); RBC Distribution Width SD 43.6 fl (35.1-43.9); Red Blood Count 4.45 M/mm3 (4.2-5.4); White Blood Count 13.1 K/mm3 (4.4-11.0)
[2019-11-27 08:34] LABS: Differential Indicated SCAN CRITERIA MET
[2019-11-27] MEDS: Ferrous Sulfate 325 MG Tablet PO (09:02)
[2019-11-27] MEDS: HYDROcodone Bitartrate/Apap 5/325 Tablet PO ×3 (09:11→23:00)
[2019-11-27] MEDS: Morphine 2 MG/ML Syringe IV (09:43)
[2019-11-27] MEDS: Sertraline 100 MG Tablet PO (10:31)
--- NOTE | 2019-11-27 10:42 | PCM.PN.HOSP ---
Patient Problems: Active and Suspected Problems (Last Reviewed 11/25/19 @ 18:07 by Kelly Beauchamp) Cholecystitis, acute with cholelithiasis (Acute) Subjective: Feels better today, some soreness around the incision sites. Vitals/I&O's: Vital Signs Temp Pulse Resp BP Pulse Ox 98.6 F 97 16 110/68 100 11/27/19 08:26 11/27/19 08:30 11/27/19 08:26 11/27/19 08:26 11/27/19 08:26 Oxygen Delivery Method Room Air Weight: 241 lb 6.005 oz Body Mass Index (BMI) 38.9 Intake and Output for Last 24 Hours 11/25/19 11/26/19 11/27/19 23:59 23:59 23:59 Intake Total 1192.75 / 1192.75 3261.25 / 3261.25 1608.34 / 1608.34 Output Total 350 / 350 400 / 400 350 / 350 Balance 842.75 / 842.75 2861.25 / 2861.25 1258.34 / 1258.34 General: Alert, Cooperative, No apparent distress HEENT: Atraumatic, PERRLA, EOMI, Normocephalic Oral: Dry Mucosa Neck: Supple, No JVD Lungs: Clear to auscultation, Normal air movement, No rhonchi, No wheeze, No rales, Diminished Cardiovascular: Regular rate, Regular Rhythm, Normal S1, Normal S2, No murmurs Abdomen: Soft, slight tenderness around the incision site, Non-Distended, No Hepato-splenomegaly Extremities: No edema, Capillary Refill Less than 3 Seconds Skin: Incisions CDI Neurological: Neuro grossly intact, Sensory exam intact to light touch and pain Psych/Mental Status: Normal Affect, Appropriate Microbiology Past 72 Hours 11/25/19 16:45 Urine, Catheterized Urine Culture - Preliminary Culture exhibits no growth. Laboratory Results 11/25/19 15:27: Diff Path Review Reviewed 11/26/19 03:36: Diff Path Review Reviewed 11/26/19 03:36: Potassium Cancelled 11/27/19 06:26: WBC Cancelled, Corrected WBC Cancelled, RBC Cancelled, Hgb Cancelled, Hct Cancelled, MCV Cancelled, MCH Cancelled, MCHC Cancelled, RDW Std Deviation Cancelled, RDW Coeff of Inna Cancelled, Plt Count Cancelled, MPV Cancelled, Immature Gran % (Auto) Cancelled, Neut % (Auto) Cancelled, Lymph % (Auto) Cancelled, [place] % (Auto) Cancelled, Eos % (Auto) Cancelled, Baso % (Auto) Cancelled, Absolute Neuts (auto) Cancelled, Absolute Lymphs (auto) Cancelled, Total Counted Cancelled, Neutrophils % (Manual) Cancelled, Band Neutrophils % Cancelled, Lymphocytes % (Manual) Cancelled, Monocytes % (Manual) Cancelled, Eosinophils % (Manual) Cancelled, Basophils % (Manual) Cancelled, Metamyelocytes % Cancelled, Myelocytes % Cancelled, Promyelocytes % Cancelled, Blast Cells % Cancelled, Plasma Cell % (Manual) Cancelled, Other Cells % Cancelled, Nucleated RBC % Cancelled, Nucleated RBCs/100 WBC Cancelled, Differential Comment Cancelled, Diff Path Review Cancelled, Hypersegmented Neuts Cancelled, Atypical Lymphocytes Cancelled, Reactive Lymphocytes Cancelled, Smudge Cells Cancelled, Toxic Granulation Cancelled, Toxic Vacuolation Cancelled, Dohle Bodies Cancelled, Nathalie Rods Cancelled, Platelet Estimate Cancelled, Plt Morphology Comment Cancelled, RBC Morphology Cancelled, Polychromasia Cancelled, Hypochromasia Cancelled, Poikilocytosis Cancelled, Basophilic Stippling Cancelled, Anisocytosis Cancelled, Microcytosis Cancelled, Macrocytosis Cancelled, Spherocytes Cancelled, Sickle Cells Cancelled, Target Cells Cancelled, Tear Drop Cells Cancelled, Ovalocytes Cancelled, Stomatocytes Cancelled, [place] Bodies Cancelled, [place] Cells Cancelled, Bite Cells Cancelled, Crenated Cell Cancelled, Acanthocytes (Spur) Cancelled, Rouleaux Cancelled, Schistocytes Cancelled 11/27/19 06:26: PT 17.5 H, INR 1.5 11/27/19 06:26: Sodium 139, Potassium 3.0 L, Chloride 105, Carbon Dioxide 31.0, Anion Gap 3 L, BUN 8, Creatinine 0.81, Estim Creat Clear Calc 87.29, Est GFR (MDRD) Af Amer 100, Est GFR (MDRD) Non-Af 83, BUN/Creatinine Ratio 9.8 L, Glucose 108 H, Calcium 7.5 L, Total Bilirubin 0.60, AST 83 H, ALT 125 H, Alkaline Phosphatase 74, Total Protein 5.4 L, Albumin 2.4 L, Globulin 3.0, Albumin/Globulin Ratio 0.8 L 11/27/19 08:10: WBC 13.1 H, RBC 4.45, Hgb 13.2, Hct 39.7, MCV 89.2 D, MCH 29.7, MCHC 33.2 D, RDW Std Deviation 43.6, RDW Coeff of Inna 13.3, Plt Count 218, MPV 11.1, Immature Gran % (Auto) 1.400 H, Neut % (Auto) 68.1, Lymph % (Auto) 16.6 L, [place] % (Auto) 13.1 H, Eos % (Auto) 0.5, Baso % (Auto) 0.3, Absolute Neuts (auto) 8.9 H, Absolute Lymphs (auto) 2.17, Nucleated RBC % 0, Diff Path Review May foll Current Medications Acetaminophen (Tylenol) 650 mg PO Q6H PRN PRN PRN Reason: Pain Score 1-01/15 Last Admin: 11/27/19 05:23 Dose: 650 mg Documented by: Hydrocodone Bitart/Acetaminophen ([place] 5mg-325mg) 1 - 2 tablet PO Q6H PRN PRN PRN Reason: Pain Score 1-1010 Last Admin: 11/27/19 09:11 Dose: 1 tablet Documented by: Alprazolam (Xanax) 0.5 mg PO BID PRN PRN PRN Reason: ANXIETY Buspirone HCl (Buspar) 5 mg PO TID [facility] Last Admin: 11/27/19 05:19 Dose: 5 mg Documented by: Carbamazepine (Tegretol Xr) 400 mg PO BID [facility] Ferrous Sulfate (Ferrous Sulfate) 325 mg PO DAILY@0800 [facility] Last Admin: 11/27/19 09:02 Dose: 325 mg Documented by: Pantoprazole Sodium 40 mg/ (Sodium Chloride) 110 mls @ 330 mls/hr IV Q12 [facility] Last Infusion: 11/27/19 10:32 Dose: Infused Documented by: Sodium Chloride () 250 mls @ 15 mls/hr IV .[id number] PRN PRN Reason: Saline Flush Last Infusion: 11/26/19 05:01 Dose: 0 mls/hr Documented by: Levetiracetam 500 mg/ Sodium (Chloride) 105 mls @ 400 mls/hr IV Q12 [facility] Last Infusion: 11/27/19 09:30 Dose: Infused Documented by: Lacosamide 200 mg/ Sodium (Chloride) 70 mls @ 100 mls/hr IV BID [facility] Last Infusion: 11/26/19 23:25 Dose: Infused Documented by: Potassium Chloride 40 meq/ (Sodium Chloride) 1,020 mls @ 100 mls/hr IV .[id number] [facility] Last Infusion: 11/27/19 09:20 Dose: 0 mls/hr Documented by: Morphine Sulfate () 1 - 2 mg IV Q1H PRN PRN PRN Reason: Pain Score 1-10/10 Last Admin: 11/27/19 09:43 Dose: 1 mg Documented by: Ondansetron HCl (Zofran) 4 mg IV Q8H PRN PRN PRN Reason: NAUSEA/VOMITING Last Admin: 11/25/19 20:11 Dose: 4 mg Documented by: Phenol/Menthol (Chloraseptic (Bkc)) 3 spray MM Q2H PRN PRN PRN Reason: SORE THROAT Last Admin: 11/27/19 06:07 Dose: 3 spray Documented by: Prochlorperazine Edisylate (Compazine Iv) 5 mg IV Q4H PRN PRN PRN Reason: NAUSEA/VOMITING Last Admin: 11/26/19 01:20 Dose: 5 mg Documented by: Senna/Docusate Sodium (Senokot-S, Luci-Colace) 2 tablet PO BID PRN PRN PRN Reason: Constipation Sertraline HCl (Zoloft) 100 mg PO DAILY [facility] Last Admin: 11/27/19 10:31 Dose: 100 mg Documented by: Sodium Chloride () 10 - 40 ml IV UD PRN PRN Reason: SALINE FLUSH Last Admin: 11/25/19 20:11 Dose: 20 ml Documented by: STROKE Vital Signs/Narrative: Vital Signs Temp Pulse Resp BP Pulse Ox 11/27/19 08:30 97 11/27/19 08:26 98.6 F 93 16 110/68 100 11/27/19 07:25 99 Medical Necessity - Tobacco Use Smoking Status: Never smoker Assessment/Plan All Active Problems (Last Reviewed 08/19/20 @ 18:07 by Kelly Beauchamp) Cholecystitis, acute with cholelithiasis (Acute) 1. Nausea and vomiting secondary to acute cholecystitis status post laparoscopic cholecystectomy 11/26/2019/elevated LFTs with coagulopathy/hypokalemia -Continue with meropenem, plan for cholecystectomy this morning -Continue with antiemetics, appears to have improved -LFTs are improving, bilirubin is normal and alk phos is normal -INR is also improving down from 2.3 to 1.5 -Hypokalemia we will replace potassium this morning 2. 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 to IV -Can likely return them to p.o. status when she is actually tolerating a diet 3. Acute cystitis -Urine culture is negative for any growth as was the one on the -She has been on Keflex and meropenem for the last 4 days therefore if she did have a UTI is been treated 4. GERD -Stable -Continue with PPI DVT: SCDs Inpatient E&M: 38987 Subs Hosp L2
--- NOTE | 2019-11-27 12:33 | NURSING ---
pt refused to get up in chair or walk
[2019-11-27 13:17] LABS: Pathologist Review Reviewed
[2019-11-27] MEDS: carBAMazepine 200 MG Tablet PO ×2 (17:41→23:01)
[2019-11-27] MEDS: Lacosamide 100 MG Tablet 200 MG PO (23:00)
[2019-11-27] MEDS: Pantoprazole Sodium 40 MG Tablet PO (23:00)
[2019-11-27] MEDS: levETIRAcetam 500 MG Tablet PO (23:00)
[2019-11-27] MEDS: Senna/Docusate Sodium 1 Tablet 2 TABLET PO (23:00)
[2019-11-27] MEDS: Ondansetron 4 MG/2 ML Vial IV (23:23)
[2019-11-27] MEDS: 0.9% Saline Lock 10 ML Syringe IV (23:23)
[2019-11-28] VITALS (12 sets, daily range): BP systolic 115–132; BP diastolic 72–90; PULSE 76–102; RESP 16–18; TEMP 36.4–37; O2SAT 99–100
[2019-11-28] MEDS: 0.9% Saline Lock 10 ML Syringe IV (01:04)
[2019-11-28] MEDS: Potassium Chloride 40 MEQ in 0.9% Normal Saline 1,000 ML 100 MEQ IV (01:04)
--- NOTE | 2019-11-28 01:18 | NURSING ---
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
[2019-11-28] MEDS: busPIRone 5 MG Tablet PO ×3 (05:48→21:16)
[2019-11-28] MEDS: Acetaminophen 325 MG Tablet 650 MG PO (05:48)
[2019-11-28 07:29] LABS: Absolute Lymphocyte Count 3.06 X10^3/uL (0.83-4.51); Absolute Neutrophil Count 4.6 X10^3/uL (2.0-7.7); Basophil# 0.03 X10^3/uL; Basophil% 0.3 % (0-1); Eosinophil# 0.09 X10^3/uL; Hematocrit 35.4 % (37-47); Hemoglobin 11.4 g/dL (12.0-15.0); Lymphocyte # 3.06 X10^3/ul (4.0); Mean Corp Hgb Conc 32.2 g/dL (32-36); Mean Corpuscular Hgb 29.1 pg (27.0-32.0); Mean Corpuscular Volume 90.3 fL (81-99); Mean Platelet Vol. 10.8 fl (6.2-12.0); Monocyte# 1.11 X10^3/uL; Monocyte% 12.3 % (0-10); NRBC Flagged by Analyzer 0 % (0-5); Neutrophil # 4.57 X10^3/uL (2.7-7.7); Neutrophil % 50.7 % (47-70); Platelet Count 228 K/mm3 (150-450); RBC Distribution Width CV 13.8 % (11.6-14.6); RBC Distribution Width SD 45.2 fl (35.1-43.9); Red Blood Count 3.92 M/mm3 (4.2-5.4)
[2019-11-28] MEDS: Morphine 2 MG/ML Syringe IV (07:35)
[2019-11-28] MEDS: Pantoprazole Sodium 40 MG Tablet PO ×2 (07:37→21:17)
[2019-11-28] MEDS: carBAMazepine 200 MG Tablet PO ×4 (07:37→21:17)
[2019-11-28] MEDS: Ferrous Sulfate 325 MG Tablet PO (07:37)
[2019-11-28] MEDS: levETIRAcetam 500 MG Tablet PO ×2 (07:37→21:17)
[2019-11-28] MEDS: Sertraline 100 MG Tablet PO (07:42)
[2019-11-28] MEDS: Lacosamide 100 MG Tablet 200 MG PO ×2 (07:44→21:23)
[2019-11-28 07:47] LABS: Anion Gap 6 (5-15); BUN 7 mg/dL (7-18); BUN/Creat Ratio 10.2 RATIO (10-20); Calcium,Total 7.3 mg/dL (8.5-10.1); Chloride 108 mmol/L (98-107); Creatinine, Serum 0.68 mg/dL (0.55-1.02); EST Glomerular Filtration Rate 101 mL/min (>60); Est Glom Filt Rate - Afr Amer 123 mL/min (>60); Estimated Creatinine Clearance 103.98 ml/min; Glucose 95 mg/dL (74-106); Potassium 4.3 mmol/L (3.5-5.1); Sodium Level 139 mmol/L (136-145)
[2019-11-28] MEDS: proCHLORPERazine 10 MG/2 ML Vial 5 MG IV ×2 (07:50→21:35)
--- NOTE | 2019-11-28 08:02 | PCM.PN.SRG ---
Patient Problems: Active and Suspected Problems (Last Reviewed 11/25/19 @ 18:07 by Kelly Beauchamp) Cholecystitis, acute with cholelithiasis (Acute) Subjective: Patient had required straight cath overnight. - Physical Exam Vitals/I&O's: Vital Signs Temp Pulse Resp BP Pulse Ox 97.9 F 98 18 132/90 H 100 11/28/19 07:52 11/28/19 07:52 11/28/19 07:52 11/28/19 07:52 11/28/19 07:52 Oxygen Delivery Method Room Air Weight: 241 lb 6.005 oz Body Mass Index (BMI) 38.9 Intake and Output for Last 24 Hours 11/26/19 11/27/19 11/28/19 23:59 23:59 23:59 Intake Total 3261.25 / 3261.25 2950.00 / 2950.00 1308.33 / 1308.33 Output Total 400 / 400 350 / 350 400 / 400 Balance 2861.25 / 2861.25 2600.00 / 2600.00 908.33 / 908.33 General: Alert, Confused Cardiovascular: Regular rate, Regular Rhythm Abdomen: Soft, Non-Distended Microbiology Past 72 Hours 11/25/19 16:45 Urine, Catheterized Urine Culture - Final Culture exhibits no growth. Laboratory Results 11/27/19 08:10: WBC 13.1 H, RBC 4.45, Hgb 13.2, Hct 39.7, MCV 89.2 D, MCH 29.7, MCHC 33.2 D, RDW Std Deviation 43.6, RDW Coeff of Inna 13.3, Plt Count 218, MPV 11.1, Immature Gran % (Auto) 1.400 H, Neut % (Auto) 68.1, Lymph % (Auto) 16.6 L, [place] % (Auto) 13.1 H, Eos % (Auto) 0.5, Baso % (Auto) 0.3, Absolute Neuts (auto) 8.9 H, Absolute Lymphs (auto) 2.17, Nucleated RBC % 0, Diff Path Review Reviewed 11/28/19 07:10: PT Pending, INR Pending 11/28/19 07:10: WBC 9.0, RBC 3.92 L, Hgb 11.4 L, Hct 35.4 L, MCV 90.3, MCH 29.1, MCHC 32.2, RDW Std Deviation 45.2 H, RDW Coeff of Inna 13.8, Plt Count 228, MPV 10.8, Immature Gran % (Auto) 1.700 H, Neut % (Auto) 50.7, Lymph % (Auto) 34.0, [place] % (Auto) 12.3 H, Eos % (Auto) 1.0, Baso % (Auto) 0.3, Absolute Neuts (auto) 4.6, Absolute Lymphs (auto) 3.06, Nucleated RBC % 0 11/28/19 07:10: Sodium 139, Potassium 4.3, Chloride 108 H, Carbon Dioxide 25.0, Anion Gap 6, BUN 7, Creatinine 0.68, Estim Creat Clear Calc 103.98, Est GFR (MDRD) Af Amer 123, Est GFR (MDRD) Non-Af 101, BUN/Creatinine Ratio 10.2, Glucose 95, Calcium 7.3 L Current Medications Acetaminophen (Tylenol) 650 mg PO Q6H PRN PRN PRN Reason: Pain Score 1-10 Last Admin: 11/28/19 05:48 Dose: 650 mg Documented by: Hydrocodone Bitart/Acetaminophen ([place] 5mg-325mg) 1 - 2 tablet PO Q6H PRN PRN PRN Reason: Pain Score 1-1010 Last Admin: 11/27/19 23:00 Dose: 2 tablet Documented by: Alprazolam (Xanax) 0.5 mg PO BID PRN PRN PRN Reason: ANXIETY Buspirone HCl (Buspar) 5 mg PO TID [facility] Last Admin: 11/28/19 05:48 Dose: 5 mg Documented by: Carbamazepine (Tegretol) 200 mg PO 4X/DAYCM [facility] Last Admin: 11/28/19 07:37 Dose: 200 mg Documented by: Ferrous Sulfate (Ferrous Sulfate) 325 mg PO DAILY@0800 [facility] Last Admin: 11/28/19 07:37 Dose: 325 mg Documented by: Sodium Chloride () 250 mls @ 15 mls/hr IV .[id number] PRN PRN Reason: Saline Flush Last Infusion: 11/26/19 05:01 Dose: 0 mls/hr Documented by: Potassium Chloride 40 meq/ (Sodium Chloride) 1,020 mls @ 100 mls/hr IV .[id number] [facility] Last Admin: 11/28/19 01:04 Dose: 100 mls/hr Documented by: Lacosamide (Vimpat) 200 mg PO BID [facility] Last Admin: 11/28/19 07:44 Dose: 200 mg Documented by: Levetiracetam (Keppra Tablet) 500 mg PO BID [facility] Last Admin: 11/28/19 07:37 Dose: 500 mg Documented by: Morphine Sulfate () 1 - 2 mg IV Q1H PRN PRN PRN Reason: Pain Score 1-10/10 Last Admin: 11/28/19 07:35 Dose: 1 mg Documented by: Ondansetron HCl (Zofran) 4 mg IV Q8H PRN PRN PRN Reason: NAUSEA/VOMITING Last Admin: 11/27/19 23:23 Dose: 4 mg Documented by: Pantoprazole Sodium (Protonix) 40 mg PO Q12 [facility] Last Admin: 11/28/19 07:37 Dose: 40 mg Documented by: Phenol/Menthol (Chloraseptic (Bkc)) 3 spray MM Q2H PRN PRN PRN Reason: SORE THROAT Last Admin: 11/27/19 06:07 Dose: 3 spray Documented by: Prochlorperazine Edisylate (Compazine Iv) 5 mg IV Q4H PRN PRN PRN Reason: NAUSEA/VOMITING Last Admin: 11/28/19 07:50 Dose: 5 mg Documented by: Senna/Docusate Sodium (Senokot-S, Luci-Colace) 2 tablet PO BID PRN PRN PRN Reason: Constipation Last Admin: 11/27/19 23:00 Dose: 2 tablet Documented by: Sertraline HCl (Zoloft) 100 mg PO DAILY [facility] Last Admin: 11/28/19 07:42 Dose: 100 mg Documented by: Sodium Chloride () 10 - 40 ml IV UD PRN PRN Reason: SALINE FLUSH Last Admin: 11/28/19 01:04 Dose: 10 ml Documented by: Medical Necessity - Tobacco Use Smoking Status: Never smoker Assessment/Plan All Active Problems (Last Reviewed 11/25/19 @ 18:07 by Kelly Beauchamp) Cholecystitis, acute with cholelithiasis (Acute) 38-year-old female status post laparoscopic cholecystectomy 1. Patient still not taking much oral intake. She is not having any nausea or vomiting but she is not eating either. She had low urine output and required straight catheterization. She is still IV fluids. She is on a PPI and complaining of epigastric pain. I recommended Tums. Continue observation until she starts tolerating enough of a diet and having good urine output to be discharged. Manuelito Ritter MD Pager: [facility] [address] [place] [address], [address] [place] [address] Office:
[2019-11-28 08:17] LABS: International Normalized Ratio 1.4; Prothrombin Time (Protime)PT. 16.3 SECONDS (11.7-14.9)
[2019-11-28] MEDS: 0.9% Normal Saline 1,000 ML 100 ML IV ×2 (08:20→17:23)
--- NOTE | 2019-11-28 10:27 | PCM.PN.HOSP ---
Patient Problems: Active and Suspected Problems (Last Reviewed 11/25/19 @ 18:07 by Kelly Beauchamp) Cholecystitis, acute with cholelithiasis (Acute) Subjective: Denies any pain around her surgical site however she has epigastric pain and when pressed further she says it is a straight line from her throat all the way down to her stomach and it has a burning quality Vitals/I&O's: Vital Signs Temp Pulse Resp BP Pulse Ox 97.9 F 101 H 18 132/90 H 100 11/28/19 07:52 11/28/19 08:51 11/28/19 07:52 11/28/19 07:52 11/28/19 07:52 Oxygen Delivery Method Room Air Weight: 241 lb 6.005 oz Body Mass Index (BMI) 38.9 Intake and Output for Last 24 Hours 11/26/19 11/27/19 11/28/19 23:59 23:59 23:59 Intake Total 3261.25 / 3261.25 2950.00 / 2950.00 2035.00 / 2035.00 Output Total 400 / 400 350 / 350 400 / 400 Balance 2861.25 / 2861.25 2600.00 / 2600.00 1635.00 / 1635.00 General: Alert, Cooperative, No apparent distress HEENT: Atraumatic, PERRLA, EOMI, Normocephalic Oral: Dry Mucosa Neck: Supple, No JVD Lungs: Clear to auscultation, Normal air movement, No rhonchi, No wheeze, No rales, Diminished Cardiovascular: Regular rate, Regular Rhythm, Normal S1, Normal S2, No murmurs Abdomen: Soft, nontender, Non-Distended, No Hepato-splenomegaly Extremities: No edema, Capillary Refill Less than 3 Seconds Skin: Incisions CDI Neurological: Neuro grossly intact, Sensory exam intact to light touch and pain Psych/Mental Status: Normal Affect, Appropriate Microbiology Past 72 Hours 11/25/19 16:45 Urine, Catheterized Urine Culture - Final Culture exhibits no growth. Laboratory Results 11/27/19 08:10: Diff Path Review Reviewed 11/28/19 07:10: PT 16.3 H, INR 1.4 11/28/19 07:10: WBC 9.0, RBC 3.92 L, Hgb 11.4 L, Hct 35.4 L, MCV 90.3, MCH 29.1, MCHC 32.2, RDW Std Deviation 45.2 H, RDW Coeff of Inna 13.8, Plt Count 228, MPV 10.8, Immature Gran % (Auto) 1.700 H, Neut % (Auto) 50.7, Lymph % (Auto) 34.0, [place] % (Auto) 12.3 H, Eos % (Auto) 1.0, Baso % (Auto) 0.3, Absolute Neuts (auto) 4.6, Absolute Lymphs (auto) 3.06, Nucleated RBC % 0 11/28/19 07:10: Sodium 139, Potassium 4.3, Chloride 108 H, Carbon Dioxide 25.0, Anion Gap 6, BUN 7, Creatinine 0.68, Estim Creat Clear Calc 103.98, Est GFR (MDRD) Af Amer 123, Est GFR (MDRD) Non-Af 101, BUN/Creatinine Ratio 10.2, Glucose 95, Calcium 7.3 L Current Medications Acetaminophen (Tylenol) 650 mg PO Q6H PRN PRN PRN Reason: Pain Score 1-10 Last Admin: 11/28/19 05:48 Dose: 650 mg Documented by: Hydrocodone Bitart/Acetaminophen ([place] 5mg-325mg) 1 - 2 tablet PO Q6H PRN PRN PRN Reason: Pain Score 1-1010 Last Admin: 11/27/19 23:00 Dose: 2 tablet Documented by: Alprazolam (Xanax) 0.5 mg PO BID PRN PRN PRN Reason: ANXIETY Buspirone HCl (Buspar) 5 mg PO TID [facility] Last Admin: 11/28/19 05:48 Dose: 5 mg Documented by: Carbamazepine (Tegretol) 200 mg PO 4X/DAYCM [facility] Last Admin: 11/28/19 07:37 Dose: 200 mg Documented by: Ferrous Sulfate (Ferrous Sulfate) 325 mg PO DAILY@0800 [facility] Last Admin: 11/28/19 07:37 Dose: 325 mg Documented by: Sodium Chloride () 250 mls @ 15 mls/hr IV .[id number] PRN PRN Reason: Saline Flush Last Infusion: 11/26/19 05:01 Dose: 0 mls/hr Documented by: Sodium Chloride () 1,000 mls @ 100 mls/hr IV .Q10H [facility] Last Admin: 11/28/19 08:20 Dose: 100 mls/hr Documented by: Lacosamide (Vimpat) 200 mg PO BID [facility] Last Admin: 11/28/19 07:44 Dose: 200 mg Documented by: Levetiracetam (Keppra Tablet) 500 mg PO BID [facility] Last Admin: 11/28/19 07:37 Dose: 500 mg Documented by: Morphine Sulfate () 1 - 2 mg IV Q1H PRN PRN PRN Reason: Pain Score 1-10/10 Last Admin: 11/28/19 07:35 Dose: 1 mg Documented by: Ondansetron HCl (Zofran) 4 mg IV Q8H PRN PRN PRN Reason: NAUSEA/VOMITING Last Admin: 11/27/19 23:23 Dose: 4 mg Documented by: Pantoprazole Sodium (Protonix) 40 mg PO Q12 [facility] Last Admin: 11/28/19 07:37 Dose: 40 mg Documented by: Phenol/Menthol (Chloraseptic (Bkc)) 3 spray MM Q2H PRN PRN PRN Reason: SORE THROAT Last Admin: 11/27/19 06:07 Dose: 3 spray Documented by: Prochlorperazine Edisylate (Compazine Iv) 5 mg IV Q4H PRN PRN PRN Reason: NAUSEA/VOMITING Last Admin: 11/28/19 07:50 Dose: 5 mg Documented by: Senna/Docusate Sodium (Senokot-S, Luci-Colace) 2 tablet PO BID PRN PRN PRN Reason: Constipation Last Admin: 11/27/19 23:00 Dose: 2 tablet Documented by: Sertraline HCl (Zoloft) 100 mg PO DAILY [facility] Last Admin: 11/28/19 07:42 Dose: 100 mg Documented by: Sodium Chloride () 10 - 40 ml IV UD PRN PRN Reason: SALINE FLUSH Last Admin: 11/28/19 01:04 Dose: 10 ml Documented by: STROKE Vital Signs/Narrative: Vital Signs Temp Pulse Resp BP Pulse Ox 11/28/19 08:51 101 H 11/28/19 07:52 97.9 F 98 18 132/90 H 100 11/28/19 07:29 100 Medical Necessity - Tobacco Use Smoking Status: Never smoker Assessment/Plan All Active Problems (Last Reviewed 11/25/19 @ 18:07 by Kelly Beauchamp) Cholecystitis, acute with cholelithiasis (Acute) 1. Nausea and vomiting secondary to acute cholecystitis status post laparoscopic cholecystectomy 11/26/2019/elevated LFTs with coagulopathy/hypokalemia -Continue with meropenem, plan for cholecystectomy this morning -Continue with antiemetics, appears to have improved -LFTs are improving, bilirubin is normal and alk phos is normal -INR is also improving down from 2.3 to 1.5 -Can discontinue the normal saline with potassium, and transition her to just normal saline. She did receive a 500 cc bolus last night and is still not making a ton of urine. Her creatinine is normal though. 2. 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 to IV -Can likely return them to p.o. status when she is actually tolerating a diet 3. Acute cystitis -Urine culture is negative for any growth as was the one on the -She has been on Keflex and meropenem for the last 4 days therefore if she did have a UTI is been treated 4. GERD -Stable -Continue with PPI -Continue complain of pain consistent with GERD, will try GI cocktail and see if that helps relieve the pain DVT: SCDs Inpatient E&M: 14836 Subs Hosp L2
[2019-11-28] MEDS: Mag Hydrox/Al Hydrox/Simeth 30 ML UDC PO (10:47)
[2019-11-28] MEDS: Ondansetron 4 MG/2 ML Vial IV (14:59)
--- NOTE | 2019-11-28 15:01 | NURSING ---
pt vomited 50cc
[2019-11-28] MEDS: Sucralfate 1 GM Tablet PO ×2 (16:44→21:16)
[2019-11-29] VITALS (7 sets, daily range): BP systolic 117–135; BP diastolic 77–88; PULSE 83–104; RESP 16–18; TEMP 36.7–37.1; O2SAT 98
[2019-11-29] MEDS: Ondansetron 4 MG/2 ML Vial IV (01:42)
[2019-11-29] MEDS: 0.9% Normal Saline 1,000 ML 100 ML IV ×2 (01:45→11:46)
[2019-11-29 05:57] LABS: International Normalized Ratio 1.5; Prothrombin Time (Protime)PT. 17.5 SECONDS (11.7-14.9)
[2019-11-29] MEDS: Sucralfate 1 GM Tablet PO ×2 (06:18→10:50)
[2019-11-29] MEDS: busPIRone 5 MG Tablet PO ×2 (06:18→13:37)
[2019-11-29] MEDS: HYDROcodone Bitartrate/Apap 5/325 Tablet PO (09:10)
[2019-11-29] MEDS: Sertraline 100 MG Tablet PO (09:10)
[2019-11-29] MEDS: Lacosamide 100 MG Tablet 200 MG PO (09:10)
[2019-11-29] MEDS: carBAMazepine 200 MG Tablet PO ×2 (09:11→11:47)
[2019-11-29] MEDS: levETIRAcetam 500 MG Tablet PO (09:11)
[2019-11-29] MEDS: Pantoprazole Sodium 40 MG Tablet PO (09:11)
[2019-11-29] MEDS: Ferrous Sulfate 325 MG Tablet PO (09:11)
--- NOTE | 2019-11-29 09:26 | PN.SURG_ITS ---
Patient Problems: Active and Suspected Problems (Last Reviewed 11/25/19 @ 18:07 by Kelly Beauchamp) Cholecystitis, acute with cholelithiasis (Acute) Subjective: The patient is tolerating some full liquids. She is complaining of less pain today but she had a lot of gagging overnight. There is been no real vomiting. - Physical Exam Vitals/I&O's: Vital Signs Temp Pulse Resp BP Pulse Ox 98.6 F 96 18 125/88 H 98 11/29/19 09:00 11/29/19 09:00 11/29/19 09:00 11/29/19 09:00 11/29/19 09:00 Oxygen Delivery Method Room Air Weight: 241 lb 6.005 oz Body Mass Index (BMI) 38.9 Intake and Output for Last 24 Hours 11/27/19 11/28/19 11/29/19 23:59 23:59 23:59 Intake Total 2950.00 / 2950.00 3440.00 / 3680.00 1316.67 / 1316.67 Output Total 350 / 350 450 / 450 300 / 300 Balance 2600.00 / 2600.00 2990.00 / 3230.00 1016.67 / 1016.67 General: Confused Lungs: Normal air movement Abdomen: Soft, Non Tender, Non-Distended Microbiology Past 72 Hours 11/25/19 16:45 Urine, Catheterized Urine Culture - Final Culture exhibits no growth. Laboratory Results 11/29/19 05:18: PT 17.5 H, INR 1.5 Current Medications Acetaminophen (Tylenol) 650 mg PO Q6H PRN PRN PRN Reason: Pain Score 1-10/10 Last Admin: 11/28/19 05:48 Dose: 650 mg Documented by: Hydrocodone Bitart/Acetaminophen ([place] 5mg-325mg) 1 - 2 tablet PO Q6H PRN PRN PRN Reason: Pain Score 1-10/10 Last Admin: 11/29/19 09:10 Dose: 1 tablet Documented by: Alprazolam (Xanax) 0.5 mg PO BID PRN PRN PRN Reason: ANXIETY Buspirone HCl (Buspar) 5 mg PO TID [facility] Last Admin: 11/29/19 06:18 Dose: 5 mg Documented by: Carbamazepine (Tegretol) 200 mg PO 4X[facility] Last Admin: 11/29/19 09:11 Dose: 200 mg Documented by: Ferrous Sulfate (Ferrous Sulfate) 325 mg PO DAILY@0800 [facility] Last Admin: 11/29/19 09:11 Dose: 325 mg Documented by: Sodium Chloride () 250 mls @ 15 mls/hr IV .[id number] PRN PRN Reason: Saline Flush Last Infusion: 11/26/19 05:01 Dose: 0 mls/hr Documented by: Sodium Chloride () 1,000 mls @ 100 mls/hr IV .Q10H [facility] Last Admin: 11/29/19 01:45 Dose: 100 mls/hr Documented by: Lacosamide (Vimpat) 200 mg PO BID [facility] Last Admin: 11/29/19 09:10 Dose: 200 mg Documented by: Levetiracetam (Keppra Tablet) 500 mg PO BID [facility] Last Admin: 11/29/19 09:11 Dose: 500 mg Documented by: Morphine Sulfate () 1 - 2 mg IV Q1H PRN PRN PRN Reason: Pain Score 1-10/10 Last Admin: 11/28/19 07:35 Dose: 1 mg Documented by: Ondansetron HCl (Zofran) 4 mg IV Q8H PRN PRN PRN Reason: NAUSEA/VOMITING Last Admin: 11/29/19 01:42 Dose: 4 mg Documented by: Pantoprazole Sodium (Protonix) 40 mg PO Q12 [facility] Last Admin: 11/29/19 09:11 Dose: 40 mg Documented by: Phenol/Menthol (Chloraseptic (Bkc)) 3 spray MM Q2H PRN PRN PRN Reason: SORE THROAT Last Admin: 11/27/19 06:07 Dose: 3 spray Documented by: Prochlorperazine Edisylate (Compazine Iv) 5 mg IV Q4H PRN PRN PRN Reason: NAUSEA/VOMITING Last Admin: 11/28/19 21:35 Dose: 5 mg Documented by: Senna/Docusate Sodium (Senokot-S, Luci-Colace) 2 tablet PO BID PRN PRN PRN Reason: Constipation Last Admin: 11/27/19 23:00 Dose: 2 tablet Documented by: Sertraline HCl (Zoloft) 100 mg PO DAILY [facility] Last Admin: 11/29/19 09:10 Dose: 100 mg Documented by: Sodium Chloride () 10 - 40 ml IV UD PRN PRN Reason: SALINE FLUSH Last Admin: 11/28/19 01:04 Dose: 10 ml Documented by: Sucralfate (Carafate) 1 gm PO 1HR_ACHS LUCIA Last Admin: 11/29/19 06:18 Dose: 1 gm Documented by: Medical Necessity - Tobacco Use Smoking Status: Never smoker Assessment/Plan All Active Problems (Last Reviewed 11/25/19 @ 18:07 by Kelly Beauchamp) Cholecystitis, acute with cholelithiasis (Acute) 38-year-old female status post laparoscopic cholecystectomy 1. The patient appears to be doing well and her diet will be advanced today. When she is tolerating a diet she will be discharged home. Manuelito Ritter MD Pager: [facility] [address] [place] [address], [address] [place] [address] Office:
--- NOTE | 2019-11-29 11:12 | NURSING ---
Call placed to update on discharge to [facility], Liliana JIANG infection control coordinator and Maren RN at [facility]
[2019-11-29] MEDS: Acetaminophen 325 MG Tablet 650 MG PO (13:37)
--- NOTE | 2019-11-29 14:38 | PCM.DC ---
You will use the following diet at home:: Regular Your food should be the consistency of: Regular Your liquids should be the consistency of: Regular/Thin Discharge Activity: May Not Drive - for 5 days or while taking narcotic pain medicine. May shower in (days): 1 Call your doctor if your incision/area has: Continuous Slow Oozing, Sudden Increased Bleeding, Increased Pain/ Swelling, Increased Redness, Foul Smelling Discharge Call your doctor if you observe: Fever of 101 or Higher, Shortness of breath, Dizziness, Fainting spells, Swelling in the ankles, Chest pain, Increased palpitations (irregular heartbeat) Suture Line Care: Avoid Pulling/Pushing, Avoid Pinching/Bending Additional Dressing/Incision Instructions:: Change or remove dressing in 3 days. Leave steri-strips in place for 1 week. Allergies/Adverse Reactions: Allergies Penicillins Allergy (Verified 11/23/19 12:54) Unknown tomato Adverse Reaction (Verified 11/23/19 12:54) Diarrhea Medications to take at Discharge Carbamazepine [Carbamazepine ER] 400 mg PO BID 08/13/19 Ergocalciferol (Vitamin D2) [Vitamin D2] 50,000 unit PO MO 08/13/19 Ferrous Sulfate 325 mg PO DAILY@0800 08/13/19 Lacosamide [Vimpat] 200 mg PO BID 08/13/19 Multivitamin [Daily Vitamin Formula] 1 tab PO DAILY 08/13/19 Omeprazole 20 mg PO DAILY 08/13/19 Sertraline HCl [Zoloft] 100 mg PO DAILY 08/13/19 Ondansetron [Zofran Odt] 4 mg PO Q8H PRN PRN #7 tab 11/22/19 Cephalexin [Keflex] 500 mg PO Q12 #14 cap 11/23/19 ALPRAZolam [Xanax] 0.5 mg PO BID PRN PRN 11/25/19 Levetiracetam [Keppra] 500 mg PO BID 11/25/19 Potassium Cloride Effervescent [Potassium Chl 25 Meq Eff (For Liquid)] 25 meq PO BID 11/25/19 busPIRone [Buspar] 5 mg PO TID 11/25/19 proMETHazine tablet [Phenergan tablet] 25 mg PO Q8H PRN PRN 11/25/19 Hydrocodone Bitart/Apap 5-325 [[place] 5MG-325MG] 1 tab PO Q6H PRN PRN 2 Days #8 tab 11/27/19 The following prescriptions were given: Hydrocodone Bitart/Apap 5-325 [[place] 5MG-325MG] 1 tab PO Q6H PRN PRN 2 Days #8 tab PRN Reason: Pain Transmission Status: Received by [facility], [place] - [place] - [id number] Primary Care Physician: Erwin Orozco MD [Primary Care Provider] - Please follow up with your Primary Care Physician in: 3-5 days Test Results: Test results from this visit will be discussed in further detail at your follow-up appointment, if applicable. Please Follow Up With: Otf Atkinson MD - [phone] When: Phone call or virtual or onsite visit in 10 days please
--- NOTE | 2019-11-29 14:39 | PCM.DC.SUM ---
Discharge Date and Diagnosis Date of Admission: 11/25/19 Date of Discharge: 11/29/19 - Secondary Discharge Diagnosis Chronic Problems: Chronic Problems (Last Reviewed 11/25/19 @ 18:07 by Kelly Beauchamp) GERD (gastroesophageal reflux disease) (Chronic) Seizure disorder (Chronic) MRDD (Chronic) Hospital Course and Treatment Imaging Results: Clinical Impression(s) from Imaging Studies Chest X-Ray 11/25/19 00:00 IMPRESSION: Normal x-ray examination of the chest. Electronically Signed: Josiah Weinberg MD at 17:23 EDT , Service support , Gallbladder Ultrasound 11/25/19 14:37 IMPRESSION: Cholecystitis with multiple stones, wall thickening, and focal tenderness. No biliary dilatation. Electronically Signed: Josiah Weinberg MD at 18:24 EDT , Service support , Cholangiogram 11/26/19 06:53 IMPRESSION: There is no evidence of retained stones in the common bile duct. Electronically Signed: Quin Vang at 8:56 EDT Tel , Service support , Report of Operation Date of Procedure: 11/26/19 Pre-Operative Diagnosis: Acute cholecystitis cholelithiasis Post-Operative Diagnosis: Same Surgery/Procedure Performed:: Laparoscopic cholecystectomy with cholangiograms Consults: General Surgery Operations: - - 08-14-2019: Right open reduction internal fixation ankle fracture with syndesmosis repair Procedures: None Summary of Care Provided: Per HPI: The patient is a 38 year old F with past medical history as mentioned above was directly admitted from outside facility for persistent nausea and vomiting. The patient has MRDD and she is a poor informant. Her caregiver was at the bedside and she provided most of the information. According to the caregiver, patient was in the [place] [facility] for the last couple of months after she had left ankle fracture status post repair and she was discharged this past Saturday. Since discharge, patient has been complaining of nausea and vomiting. The patient herself was not able to provide any more details. Patient reported intermittent abdominal vague pain and she could not specify the location or the character of the pain. Patient complained of mild cough with minimal sputum production, denies shortness of breath. She denied fever or chills. She came to the emergency department this past Saturday, was found to have hypokalemia and dehydration, was given IV fluids and potassium supplement and she was discharged home. She came back on Saturday with the same symptoms, found to have persistent hypokalemia and dehydration, had CT scan abdomen and pelvis done that showed no acute pathology and she was discharged home on antibiotics for UTI, Zofran and potassium supplement. Today, she went to her PCPs office again with the same symptoms and she was sent to the hospital for further evaluation and treatment. She had a history of MRDD with difficulties walking and she lives with her boyfriend. She will history of seizure disorder and she has been on Keppra, Tegretol and Vimpat. She had history of GERD and she has been on PPI. At this time, her vital signs are stable, afebrile. Routine blood work revealed leukocytosis, potassium of 3.2, creatinine is 1.15. LFT revealed elevated liver transaminases with normal bilirubin and alkaline phosphatase. Carbamazepine level was normal at 4.6 which is therapeutic. COVID-19 PCR was negative. Chest x-ray showed no acute findings, pending official report. She is being admitted for intractable nausea and vomiting, severe hypokalemia, dehydration and elevated LFT. Hospital Course: 1. Nausea and vomiting secondary to acute cholecystitis status post laparoscopic cholecystectomy 11/26/2019/elevated LFTs with coagulopathy/[id number]-3-ijer-old female who is developmentally delayed presented with nausea and vomiting. She had some abdominal discomfort however he was initially difficult to see what was going on. A CMP was obtained which demonstrated elevated LFTs as well as severe hypokalemia with potassium of 2.3. She also had a coagulopathy while not being on Coumadin. Her INR peaked at 2.3. After she had her gallbladder removed her LFTs began to improve significantly, and her coagulopathy basically resolved and her INR went down to 1.5. She was continued on all of her home medications and did okay postoperatively. She did have an episode of what was felt to be GERD and she was given a GI cocktail which did relieve a lot of her pain. She tolerated lunch today, she stated that she is not much of a breakfast eater and therefore did not eat a whole lot of breakfast but she did tolerate her lunch and ate about 50% and wanted to go home. Her significant other said that they had home health care, he is also developmentally delayed, and therefore he was okay with taking her home. I discussed the plan for discharge and their follow-up, and they expressed understanding of the risks and benefits of going home today. 2. MRDD with epilepsy, and GERD are chronic medical conditions which complicate her care. Her home medications were continued where appropriate - Physical Exam Vitals/I&O's: Vital Signs Temp Pulse Resp BP Pulse Ox 98.1 F 83 18 135/84 H 98 11/29/19 13:55 11/29/19 13:55 11/29/19 13:55 11/29/19 13:55 11/29/19 13:55 Oxygen Delivery Method Room Air Weight: 241 lb 6.005 oz Body Mass Index (BMI) 38.9 Intake and Output for Last 24 Hours 11/27/19 11/28/19 11/29/19 23:59 23:59 23:59 Intake Total 2950.00 / 2950.00 3440.00 / 3680.00 2416.67 / 2416.67 Output Total 350 / 350 450 / 450 600 / 600 Balance 2600.00 / 2600.00 2990.00 / 3230.00 1816.67 / 1816.67 General: Alert, Cooperative, No apparent distress HEENT: Atraumatic, PERRLA, EOMI, Normocephalic Oral: Dry Mucosa Neck: Supple, No JVD Lungs: Clear to auscultation, Normal air movement, No rhonchi, No wheeze, No rales, Diminished Cardiovascular: Regular rate, Regular Rhythm, Normal S1, Normal S2, No murmurs Abdomen: Soft, nontender, Non-Distended, No Hepato-splenomegaly Extremities: No edema, Capillary Refill Less than 3 Seconds Skin: Incisions CDI Neurological: Neuro grossly intact, Sensory exam intact to light touch and pain Psych/Mental Status: Normal Affect, Appropriate Microbiology Past 72 Hours 11/25/19 16:45 Urine, Catheterized Urine Culture - Final Culture exhibits no growth. Laboratory Results 11/29/19 05:18: PT 17.5 H, INR 1.5 Discharge Diet: Light diet - advance as tolerated - if you have questions about your diet instructions, please talk to you doctor. Discharge Activity: May Not Drive - for 5 days or while taking narcotic pain medicine. May shower in (days): 1 Call your doctor if your incision/area has: Continuous Slow Oozing, Sudden Increased Bleeding, Increased Pain/ Swelling, Increased Redness, Foul Smelling Discharge Call your doctor if you observe: Fever of 101 or Higher, Shortness of breath, Dizziness, Fainting spells, Swelling in the ankles, Chest pain, Increased palpitations (irregular heartbeat) Suture Line Care: Avoid Pulling/Pushing, Avoid Pinching/Bending Additional Dressing/Incision Instructions:: Change or remove dressing in 3 days. Leave steri-strips in place for 1 week. Home Medications: Medications to take at Discharge Carbamazepine [Carbamazepine ER] 400 mg PO BID 08/13/19 Ergocalciferol (Vitamin D2) [Vitamin D2] 50,000 unit PO MO 08/13/19 Ferrous Sulfate 325 mg PO DAILY@0800 08/13/19 Lacosamide [Vimpat] 200 mg PO BID 08/13/19 Multivitamin [Daily Vitamin Formula] 1 tab PO DAILY 08/13/19 Omeprazole 20 mg PO DAILY 08/13/19 Sertraline HCl [Zoloft] 100 mg PO DAILY 08/13/19 Ondansetron [Zofran Odt] 4 mg PO Q8H PRN PRN #7 tab 11/22/19 Cephalexin [Keflex] 500 mg PO Q12 #14 cap 11/23/19 ALPRAZolam [Xanax] 0.5 mg PO BID PRN PRN 11/25/19 Levetiracetam [Keppra] 500 mg PO BID 11/25/19 Potassium Cloride Effervescent [Potassium Chl 25 Meq Eff (For Liquid)] 25 meq PO BID 11/25/19 busPIRone [Buspar] 5 mg PO TID 11/25/19 proMETHazine tablet [Phenergan tablet] 25 mg PO Q8H PRN PRN 11/25/19 Hydrocodone Bitart/Apap 5-325 [[place] 5MG-325MG] 1 tab PO Q6H PRN PRN 2 Days #8 tab 11/27/19 Following Prescriptions Were Given to Patient: Hydrocodone Bitart/Apap 5-325 [[place] 5MG-325MG] 1 tab PO Q6H PRN PRN 2 Days #8 tab PRN Reason: Pain Transmission Status: Received by [facility] - [place] - [id number] Primary Care Physician: Erwin Orozco MD [Primary Care Provider] - Please follow up with your Primary Care Physician in: 3-5 days Please Follow Up With: Otf Atkinson MD - [phone] When: Phone call or virtual or onsite visit in 10 days please Disposition: Home with Home Health Minutes spent on discharge:: 35 Patient Condition:: Stable Medical Necessity - Tobacco Use Smoking Status: Never smoker Meaningful Use Info Meaningful Use Diagnoses (Choose all that apply): None applicable Inpatient E&M: [id number] [facility]
--- OUTSIDE RECORDS SUMMARY | 2023-04-26 08:34 | XMS RPT_ITS | CCD ---
Author Name Unknown Address [address] [place] [address] Organization [facility] Care Team Providers Care Tufting Creeler Name Role Phone Radha Orozco Primary Care Provider 1(07 [phone]) PAM MADRIGAL, RADHA Rodas Primary Care Unavailable NICHOLAS GERBER PA-C Attending Unavailable Pam, Radha Rolon Primary Care Provider 1(07 05) CHIKA WALTERS Referring Unava ilable NAUMOFF, RADHA ROLON Primary Care Unavailab le SCHNETALHALERCHIKA Referring Unava ilable NAUMOFF, RADHA ROLON Primary Care Unavailab le MIDGLEY, POLY E Referring Unavailable NAUMOFF, RADHA ROLON Primary Care Unavailab le MIDGLEY, POLY E Referring Unavailable NAUMOFF, RADHA ROLON Primary Care Unavailab le LAUREL HUMPHRIES Attending Unavailabl e MIDGLEY, POLY E Referring Unavailable NAUMOFF, RADHA ROLON Primary Care Unavailab le EASTERDAY, CJ Kwong Referring Unavailable NAUMOFF, RADHA ROLON Primary Care Unavailab le EASTERDAY, CJ Kwong Referring Unavailable NAUMOFF, RADHA ROLON Primary Care Unavailab le Allergies Allergy Classification Reported Allergen(s) Allergy Type Date of Onset Reaction(s) Facility (16 sources) Penicillins; Translations: [PENICILLINS] Propensity to adverse reactions to drug (disorder) 5 Unknown [facility] Repository (16 sources) TOMATOES; Translations: [TOMATOES] Propensity to adverse reactions to food (disorder) 5 Rash [facility] Repository Medications Current Medications Medication Drug Class(es) Dates Sig (Normalized) Sig (Original) nystatin 100 unt/mg topical powder (9 sources) Polyene Antifungal Start: 01-02-2022 End: 01-16-2022 nystatin (MYCOSTATIN) powder Indications: Encounter for gynecological examination (general) (routine) without abnormal findings , Nonintractable epilepsy without status epilepticus, unspecified epilepsy type (HCC) , Development delay , Depo-Provera contraceptive status , Yeast infection of the skin Apply 1 application to affected area four times daily for 14 days. 60 g 4 01/02/2022 01/16/2022 Active Completed/Discontinued Medications Medication Drug Class(es) Dates Sig (Normalized) Sig (Original) atorvastatin 20 mg oral tablet (12 sources) HMG-CoA Reductase Inhibitor atorvastatin (LIPITOR) 20 mg tablet q 24 HR. 0 Active Problems Problem Classification Problem Date Documented Da te Episodic/Chronic Contraceptive and procreative management (2 sources) Depot contraceptive status; Translations: [Encounter for surveillance of injectable contraceptive] Episodic Developmental disorders (1 source) Unspecified intellectual disabilities; Translations: [Intellectual disability] Onset: 04-15-2023 Chronic Epilepsy; convulsions (2 sources) Epilepsy, not refractory; Translations: [Epilepsy, unspecified, not intractable, without status epilepticus] Chronic Mycoses (2 sources) Candidiasis of skin; Translations: [Candidiasis of skin and nail] Episodic Nonmalignant breast conditions (1 source) Lump in right breast; Translations: [Unspecified lump in the right breast, unspecified quadrant] 03-20-2023 Episodic Other gastrointestinal disorders (1 source) Dysphagia, unspecified; Translations: [Dysphagia, unspecified type] Onset: 04-15-2023 Episodic Other nervous system disorders (1 source) Other abnormalities of gait and mobility; Translations: [Balance problem] Onset: 04-15-2023 Episodic Other nutritional; endocrine; and metabolic disorders (2 sources) Developmental delay; Translations: [Unspecified lack of expected normal physiological development in childhood] Episodic Other screening for suspected conditions (not mental disorders or infectious disease) (10 sources) Mammography abnormal; Translations: [Other abnormal and inconclusive findings on diagnostic imaging of breast] Onset: 05-24-2022 Episodic Results Test Name Value Interpretation Reference Range Facil ity Vital Signs Date Time Vital Sign Value Performing Clinician Kvng horner 01-02-2022 10:01-0400 Body weight 109.77 kg Cj lawrence COMPUTER PROGRAMMING SUPERVISOR.ATM MECHANIC Work Phone: [facility] 01-02-2022 10:01-0400 Diastolic blood pressure 82 mm[Hg] Cj Oro COMPUTER PROGRAMMING SUPERVISOR.BROCK Work Phone: [facility] 01-02-2022 10:01-0400 Systolic blood pressure 122 mm[Hg] Cj Oro COMPUTER PROGRAMMING SUPERVISORIZA Work Phone: [facility] Encounters Encounter Date Encounter Type Care Provider Facility Start: 04-15-2023 End: 04-16-2023 ambulatory LAUREL HUMPHRIES Facility:[id number] Start: 04-15-2023 End: 04-16-2023 ambulatory POLY DELGADO Facility:[id number] Start: 03-20-2023 Telephone encounter Cj sellers COMPUTER PROGRAMMING SUPERVISOR.BROCK Work Phone: Obstetrics and Gynecology Procedures Date Procedure Procedure Detail Performing Clinician Start: 01-30-2022 Mammography Cj baptiste COMPUTER PROGRAMMING SUPERVISOR.BROCK Work Phone: Plan of Treatment Date Care Activity Detail Author Start: 01-02-2027 HPV TESTING HPV TESTING [facility] Start: 01-02-2027 PAP TESTING PAP TESTING [facility] Start: 01-02-2027 Screening for malign ant neoplasm of cervix [facility] Start: 03-20-2024 Screening for malign ant neoplasm of breast Mammogram Screening [facility] Start: 09-19-2023 End: 04-18-2024 ZEKE DIAGNOSTIC RIGHT ZEKE DIAGNOSTIC RIGHT Radiology Routine Mass of right breast, unspecified quadrant Expected: 09/19/2023, Expires: 04/18/2024 [facility] Work Phone: Immunizations Immunization Date Immunization Notes Care Provider Fa cathy 01-01-2022 influenza virus vacc ine, unspecified formulation Cj Oro COMPUTER PROGRAMMING SUPERVISOR.BROCK Work Phone: [facility] Payers Date Payer Category Payer Medicaid MEDICAID [facility] MEDICAID [id number] 2014-Present [phone] [address] [place] [address] Medicaid [id number] 2014 Medicaid MEDICAID [facility] MEDICAID [id number] 2014-Present [phone] [address] [place] [address] Medicaid [id number] 2014 Medicaid [id number] 1980 Unknown [id number] Social History Date Type Detail Facility Start: 11-01-2014 End: 01-02-2022 Tobacco smoking status NHIS Never smoked tobacco [facility] Work Phone: Start: 11-01-2014 End: 01-02-2022 Tobacco use and exposure Smokeless tobacco non-user [facility] Work Phone: Start: 06-27-2018 Alcohol intake Not Asked [facility] Start: 1980 Sex Assigned At Not on file [facility] History of tobacco use Passive smoker [facility] Start: 01-02-2022 Alcohol intake Lifetime non-d gilberto (finding) [facility] Start: 12-23-2021 End: 01-30-2022 Exposure to SARS-CoV-2 (event) Not sure [facility] Start: 01-02-2022 End: 04-26-2022 History of Social function [facility] Start: 01-02-2022 End: 04-26-2022 Tobacco use panel [facility] National Score (1-100), lower number is lower risk 91 [facility] Clinical Notes 12-04-2021 to 04-15-2023 Telephone Encounter - Chika Lorenzo RN - 03/20/2023 2:19 PM ESTTelephone Encounter - Cj Oro APRN.CNP - 03/20/2023 1:15 PM ESTPatient Instructions Note Date & Type Note Facility 04-15-2023 Note HNO ID: [id number] Author: LAUREL HUMPHRIES, PT, DPT Service: ? Author Type: Physical Therapist Type: Progress Notes Filed: 04/15/2023 14:35 Note Text: Episode Visit Count: 1 Therapist That Will Accept/Oversee The Plan Of Care: Laurel Humphries DPT Start of Care Date: 04/15/23 Plan of Care Certification Date: 04/15/23 Next Certification Due Date: 06/14/23 Patient Identified by Name and Date of : Yes REHABILITATION AND SPORTS THERAPY PHYSICAL THERAPY EVALUATION PLAN OF CARE: Assessment: Janeth Joy presents with chief complaint of occasional imbalance that interferes with nothing . She presents with impairments in gait and independence in exercise. Patient did not complete the PROMIS? (Patient Reported Outcome Measures Information System). Prognosis for therapy is Good due to: current objective clinical presentation . We will trial a home exercise program and implement a walking program as well. She will benefit from skilled therapy services to meet the goals established for this plan of care as noted below. Goals for Episode of Care: created on 04/15/23 through 06/14/23 Patient will improve her gait speed to at least 0.75 m/s on the 2-minute walk test Patient will improve her 30-second chair stand test by at least 2 repetitions to indicate improved functional strength of her lower extremities. Patient will improve her NBOS stance time to at least 30 seconds to indicate improved balance. Patient will report at least 50% improvement in her overall subjective balance abilities. [place] in home exercise program. Patient Goals: Yearly evaluation Planned Interventions, Frequency, and Duration: Current Frequency: 1x/month Duration: 8 weeks Total Number of Visits Planned: 2 (Not including today's eval) Planned Treatment Interventions: PLAN FOR NEXT VISIT: Reassess gait speed and pt's subjective steadiness when ambulating Patient demonstrates good understanding of plan of care and treatment. The above goals and plan of care were discussed and agreed upon by patient/family. SUBJECTIVE: Pt states that she does not have any difficulty with doing her daily activities at this time. She denies difficulty with stair negotiation, bed mobility, rising from a chair, etc. She denies pain at this time. She denies any muscular weakness. She denies any changes to her physical abilities in the last year. She does complain of some heaviness in her R LE when ambulating. She reports that she occasionally feels unsteady when ambulating, since having her R ankle surgery. Patient Goals: Yearly evaluation Functional Limitations: nothing Prior Level of Function: Independent without limitations Relevant History Past Relevant Medical Conditions: Seizures Past Relevant Surgical Conditions: Comments Relevant Surgical Conditions Comments: R ankle surgery Right or Left Handed: Right Recreation / Current Exercise: Stationary bike x15 min, 5x/wk Hobbies / Interests: Arts and [employer]ina[employer]aker Home Environment Assistance Available: [facility] Sizer Falls Interview: No positive findings with falls interview Pain: Pain Pain Level: 0 OBJECTIVE MEASURES WITH LEVEL OF FUNCTION: LE AROM R Ankle Dorsiflexion: 10 Degrees R Ankle Inversion: 30 R Ankle Eversion: 22 L Ankle Dorsiflexion: 8 Degrees L Ankle Inversion: 28 L Ankle Eversion: 16 LE Strength R Hip Flexion (L2): 4+/5 R Hip ABduction: 5/5 R Knee Extension (L3): 4+/5 R Knee Flexion: 4+/5 R Ankle Dorsiflexion (L4): 4+/5 L Hip Flexion (L2): 4+/5 L Hip ABduction: 5/5 L Knee Extension (L3): 4+/5 L Knee Flexion: 4+/5 L Ankle Dorsiflexion (L4): 4+/5 Mobility Sit To Stand: Modified Independent Gait Gait Observation: Pt ambulates with decreased mickie, widened KASSANDRA, and increased trunk sway. She has some R hip circumduction Balance Static Standing Balance: Narrow Base of Support Narrow Base of Support: Patient able to maintain standing position for approx. 10 seconds, however required SBA/CGA for safety due to poor balance confidence Functional Performance Test Results Assistive Device: None 2 Minute Walk Test (feet): 265 feet 2 Minute Walk Test Gait Speed (calculated): 0.67 m/s 30 Second Chair Stand Test: 6 reps Education: Education Learning Preferences: Demonstration, Explanation, Performance, Printed Materials Barriers: Cognitive Limitations Learning/educational needs: Health promotion, Lifestyle changes, Safety, Home exercise program Education Provided: Yes, see treatment interventions for education provided Education Provided To: Patient, Caregiver Education Mode/Type: Explanation/Discussion, Literature/Printed Materials Response to Education/Teach Back: States/Identifies, Return Demonstration TREATMENT: PT Treatment Interventions: Self-Shelter Management Evaluation Self-Shelter Management: 1: Educated the patient and her caregiver on t (more content not included)... [facility] 04-15-2023 Note HNO ID: [id number] Author: SUSSY HEADLEY, CCC-FORGING ROLL OPERATOR Service: ? Author Type: Speech Language Pathologist Type: Progress Notes Filed: 04/15/2023 11:27 Note Text: Episode Visit Count: 1 Start of Care Date: 04/15/23 Onset Date: 03/26/23 (Yearly assessment) Patient Identified by Name and Date of : Yes [facility] REHABILITATION AND SPORTS THERAPY SPEECH THERAPY CLINICAL SWALLOW EVALUATION PLAN OF CARE: Impression: Functional oropharyngeal phases of swallowing: without identified risk for aspiration Goals for Episode of Care: NA as this pt does not require further skilled Speech therapy services RECOMMENDATION: Diet Recommendations: Regular Consistency, Thin Liquids IDDSI Level 0 (Continue medications whole with liquids) Swallowing Precautions Recommendations: Alert (patient should be fully alert for P.O. intake), Alternate bites and sips, Feed / Eat at a slow rate, Sit upright 90 degrees for all PO, Small Bite/Sip FORGING ROLL OPERATOR Recommendations: Diet, Discontinue Speech Therapy Results and Recommendations Discussed With: Patient, Caregiver Planned Interventions, Frequency, and Duration: Current Frequency: Discontinue Therapy Services SUGGESTED TREATMENT OBJECTIVES: NA Patient demonstrates good understanding of results, and recommendations. Patient and patient's caregiver agreed with plan. SUBJECTIVE: Janeth Joy is a 42 year old female seen today for clinical swallowing assessment. Yearly assessment of swallowing function Patient Goals: No goals stated by the pt; caregiver reporting yearly assessment to determine any changes in swallowing function Relevant medical history/ comorbidities: NA OBJECTIVE MEASURES WITH LEVEL OF FUNCTION: Swallow Position Of Patient During Assessment: Upright In Chair Consistencies Presented: Thin Liquids IDDSI Level 0, Solid Response to Consistencies Presented: NO clinical s/s of aspiration noted at any time during the swallow with consistencies presented. Compensatory Strategies Utilized During Assessment: 1:1 Supervision, Alert (patient should be fully alert for P.O. intake), Alternate bites and sips, Sit upright 90 degrees for all PO, Small Bite/Sip Clinical Swallow Oral Pharyngeal Swallow Assessment: Within Functional Limits Education Learning Preferences: Explanation Barriers: Cognitive Limitations Learning/Educational Needs: Swallowing Skills Education Provided: Yes, see treatment interventions for education provided Education Provided To: Patient, Caregiver Education Mode/Type: Explanation/Discussion Response to Education/Teach Back: States/Identifies TREATMENT: Evaluation: Swallow Eval Func (10632) Evaluation: Swallow Eval Func (10010) Billing: Clinical Swallow Evaluation (24963) Total time / Length of visit: 15 minutes Session Start Time : 1103 Session Stop Time : 1118 Sussy Headley, CCC-FORGING ROLL OPERATOR [facility] 04-15-2023 Note HNO ID: [id number] Author: MAHAMED CRESPO, OT/L Service: ? Author Type: Occupational Therapist Type: Progress Notes Filed: 04/15/2023 10:39 Note Text: Episode Visit Count: 1 Therapist That Will Accept/Oversee The Plan Of Care: mahamed crespo Start of Care Date: 04/15/23 Onset Date: (congenital) Plan of Care Certification Date: 04/15/23 Next Certification Due Date: 04/15/23 Patient Identified by Name and Date of : Yes [facility] REHABILITATION AND SPORTS THERAPY OCCUPATIONAL THERAPY EVALUATION PLAN OF CARE: Assessment: Janeth Joy presents with chief complaint of yearly assessment that interferes with Functional Limitation Commentshas supervision d/t impaired cognition, but has been able to pack her own lunch, clean bedroom, do her own laundry, and complete her own self care tasks, and attends [facility] 5x/week. She presents with impairments in cognition but no functional changes per manager housekeeping or patient. Patient did not complete the PROMIS? (Patient Reported Outcome Measures Information System). Prognosis for therapy is . She will benefit from skilled therapy services to meet the goals established for this plan of care as noted below. Goals for Episode of Care created on 04/15/23 through 04/15/23 NO SKILLED O.T. GOALS RECOMMENDED. Patient Goals: NO THERAPY GOALS Planned Interventions, Frequency, and Duration: Current Frequency: Discontinue Therapy Services Planned Treatment Interventions: Patient demonstrates N/A understanding of plan of care and treatment. The above goals and plan of care were discussed and agreed upon by patient/family. SUBJECTIVE: COUNTER DISH CARRIER (CHETNA) AND PATIENT ARE NOT ID. ANY CHANGES/CONCERNS Functional Limitations: Functional Limitation Comments Functional Limitation Comments: has supervision d/t impaired cognition, but has been able to pack her own lunch, clean bedroom, do her own laundry, and complete her own self care tasks, and attends [facility] 5x/week Prior Level of Function: (has supervision d/t impaired cognition, but has been able to pack her own lunch, clean bedroom, do her own laundry, and complete her own self care tasks, and attends [facility] 5x/week) Patient Goals: NO THERAPY GOALS Intake Information: Prescription present Previous Treatment: None Falls Interview: No positive findings with falls interview Relevant History Past Relevant Medical Conditions: Comments Relevant Medical Conditions Comments: MODERATE INTELLECTUAL DISABILITIES, SEIZURES, LOWER BACK PAIN Right or Left Handed: Right 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 5 points is clinically meaningfully difference Percentiles provide an indication of how the patient's score ranks in relation to the general population. Higher percentile rankings indicate better function/quality of life. 50th percentile is the average of the general population and indicates half of respondents had a worse score. OBJECTIVE MEASURES WITH LEVEL OF FUNCTION: Follows Commands: 1-step Commands Vision Vision Deficits: Wears corrective lenses Corrective lenses: WEARS GLASSES FOR DISTANCE Posture / Alignment Posture: (posterior pelvic tilt) Hand Strength R Associate Sales Manager Position 2 (lbs): 60 lbs L Associate Sales Manager Position 2 (lbs): 54 lbs Communication Comprehension: Basic auditory and visual communication Thought Process: Logical, coherent thought form Expression: Able to express basic needs Conversation: Appropriate thought content Sensory Sensory Deficits: (DENIES SENSORY CHANGES WHEN ASKED) Corrective lenses: WEARS GLASSES FOR DISTANCE UE AROM R UE AROM: WFL L UE AROM: WFL UE and Cervical Strength R UE Strength: WFL L UE Strength: WFL Current Activities Of Daily Living Feeding: Independent Grooming: Independent Bathing Upper Body: Independent Bathing Lower Body: Independent Dressing Upper Body: Independent Dressing Lower Body : Independent Toileting: Independent Additional Activities of Daily Living: her manager housekeeping denies there being any changes or need to cue/guide her for sequencing and thoroughness Instrumental Activities of Daily Living Meal/Beverage Prep: (PACKS HER OWN LUNCH, FIXES OWN SANDWICH) Cooking: (STAFF DOES) Cleaning: Maximal Assistance (SHE MAKES HER OWN BED AND STRAIGHTENS UP BEDROOM) Laundry: Independent Medication Management with Strategies: Total Assistance Shopping: Total Assistance Money Management: Total Assistan (more content not included)... [facility] 03-20-2023 Miscellaneous Notes Formattin g of this note might be different from the original. [facility] to Felice at the [facility]. Informed her of information below. Stated she understood and no questions at this time. Please notify pt that right breast US indicates a right breast lump, likely benign in nature and they advise a repeat Dx mammogram and US in 6 mos. These orders were placed Thanks Cj Oro APRN.CNP documented in this encounter [facility] 03-13-2023 Miscellaneous Notes Formattin g of this note might be different from the original. Mammogram order placed documented in this encounter [facility] 01-24-2023 Miscellaneous Notes Formattin g of this note might be different from the original. Called and spoke to Felice At [facility], informed her that order is now active to be scheduled as requested. Called Shefali from [facility] [phone] unable to LM - phone rings and then asks foe my remote access code. Order entered notify [facility] order available to schedule [facility] called ans stated they received a letter that they need an order for a left mammogram ultrasound for the patient. Can you please order this. Thank you documented in this encounter [facility] 01-22-2023 Miscellaneous Notes Formattin g of this note might be different from the original. Called [facility] and Shefali stated a caregiver will be with the patient when she comes to her appointment. Please ensure that the [facility] will be providing a caregiver for the patient during the exam and to provide detailed medical information. Shefali for [facility] called to schedule pt's annual appt. Appt scheduled for 04/29/23 . Shefali states they also received a letter that they need an order for a left mammogram ultrasound. Please call shefali at [phone] when or if the order gets place documented in this encounter [facility] 05-28-2022 Miscellaneous Notes Formattin g of this note might be different from the original. I called janteh - she will have felice the manager housekeeping schedule it. Attempted to call pt - phone rings then asks for my remote access code I ordered another US of left breast. To be done in 6 mos Thanks Cj Oro APRN.CNP documented in this encounter [facility] 02-05-2022 Miscellaneous Notes Formattin g of this note might be different from the original. I sent refills. She can receive this at the [facility] every 3 mos Thanks Cj Oro APRN.CNP Caregiver from [facility] called requesting that instea of bringing our patient/their client into the office for her Depo shot if we could just have the rx sent to the pharmacy and their nurse in the [facility] will administer. I have proposed that rx for you to the requested pharmacy per Felice.... [facility]. Thank you Kenzie Acosta LPN Patient phones requesting refills as follows: Requested Prescriptions Pending Prescriptions Disp Refills medroxyPROGESTERone (DEPO-PROVERA) 150 mg/mL 1 mL 3 Sig: Depo-Provera 150 mg/mL intramuscular syringe inject 1 milliliter by intramuscular route every 3 months Please review and advise. Kenzie Acosta LPN documented in this encounter [facility] 01-30-2022 Miscellaneous Notes Formattin g of this note might be different from the original. Called patient caregiver and notified of below Please notify pt that her mammogram requires additional views of the left breast.. an US was ordered Thanks Cj Oro APRN.CNP documented in this encounter [facility] 01-02-2022 Instructions Cj Oro APRN.BROCK - 01/02/2022 10:10 AM EDT ACOG Screening Guidelines The following health screening schedule is recommended by the [employer] (ACOG). Some of these tests may be ordered or performed by your primary care doctor. Pap test screening The pap test looks at cells on the cervix (the opening from the vagina to the uterus) to look for cancer or pre-cancerous changes. These changes are caused by the human papillomavirus (HPV). Studies estimate that half of all women will test positive for this virus within 3 years of starting sexual activity. For young women with a normal immune system, 90% of HPV infections will resolve within 2 years. There is a vaccine available against some forms of HPV. This is recommended for girls and women age 9-45. For ages 9-14, two injections are given at 0 and 6 months. For ages 15-45, three injections are given at 0,2 and 6 months. Because this vaccine does not protect against all HPV types which can cause cervical cancer, women who received the vaccine still need pap tests. Pap smear screening should be started at age 21. The pap test should be done every 3 years from age 21-29. From age 30-65, pap smears can be done every 5 years if HPV test is negative or every 3 years if HPV testing is not done. For women over the age of 65, ACOG recommends against screening women who have had adequate prior screening and are not otherwise at high risk for cervical cancer. Women who have had a hysterectomy also do not need routine pap smear screening unless the pap smear was done for a cervical cancer or moderate to severe dysplasia. Breast cancer screening Mammogram should be performed every 1-2 years starting at age 40 and every year starting at age 50. Screening may be started earlier depending on family history. Cholesterol screening Lipid panel (cholesterol test) should be checked every 5 years starting at age 45. Diabetes screening Fasting glucose (blood sugar) test should be performed every 3 years starting at age 45. Colorectal cancer screening Starting at age 45, women should have a screening colonoscopy at least every 10 years. Screening may be started earlier depending on family history. Thyroid screening Thyroid function test (TSH) should be checked every 5 years starting at age 50. Bone mineral density screening All postmenopausal women age 65 and over and postmenopausal women with risk factors for osteoporosis should have a bone mineral density test performed. Risk factors include race, family history of osteoporosis, personal history of fractures, poor nutrition, smoking, heavy alcohol use, early menopause, low calcium intake and low body weight. Certain medical conditions and long-term use of some medications may also increase risk. Body max Index (BMI) Your body mass index (BMI) is a measure of your body fat based on your weight and height. The number that is calculated will tell you if you fall into the normal, overweight or obese category. BMI Table Normal weight: BMI is between 19 and 24.9 Overweight: BMI is between 25 and 29.9 Obese: BMI is 30 and above Why is BMI important? Being overweight or obese (BMI over 25) can exacerbate or put you at risk for getting certain diseases, like the ones listed below: Arthritis Asthma Cancer Diabetes Mellitus Type 2 Heart Attack High blood pressure Hypertension Hyperlipidemia Kidney failure Other Lung diseases Sleep Apnea Stroke How can I lose weight: Choosing healthy foods in small portions and exercising regularly is a good way to start. The following are a few tips: Choose foods and snacks higher in protein and fiber. Reduce the amount of sugary drinks (like soda) and snacks (cookies, sweets, etc) Cut back on the amount of carbohydrates eaten daily (bread, pasta, rice, cakes) Drink at least 8 glasses of water per day - sometimes thirst feels like hunger - stay hydrated Chew your food slowly to savor the taste and allow the signal that you are full to register in your brain Exercise/Activity Exercise improves your blood flow and circulation, enhances your mood and can you to maintain or lose weight. A brisk walk for 30 mins or longer 4-5 times per week is recommended but you can also use DVD's at home such as Walk Away the Pounds, Saskia exercises, Yoga and others to get some variety. When do I need a referral? If you have tried all of the above and have not lost any weight, then you should ask your provider for a referral to a courtesy driver or medical weight director utilization management who can help you reach your goals for being at your ideal body weight. Calcium and Vitamin D Supplementation (from the National Institutes of Health Office of Dietary Supplements 2011) Calcium is required by the body for blood vessel, muscle, hormone and nerve functioning. Most of the body's calcium is stored in the bones and teeth where it supports structure and function. Bone is continuously broken down and reformed. When bone breakdown exceeds formation, especially in postmenopausal women, bone loss can increase the risk of osteoporosis and fractures. In addition to low calcium intake, women who smoke, have a family history of osteoporosis, are thin, or , or who take certain medications such as cancer chemotherapy, seizure mediations and steroids are at increased risk of osteoporosis. The calcium requirements in women change with age. The National Institutes of Health (NIH) recommends: 1000mg elemental calcium for premenopausal women age 19-50 1200mg elemental calcium for postmenopausal women and all women over 50 Milk, yogurt, and cheese are rich natural sources of calcium and are the major food contributors in the [place]. For example, 8oz of milk (whole, lowfat or skim) contains about 300mg calcium, 8oz of yogurt contains 415mg. Nondairy sources include salmon and sardines and vegetables, such as [place]ian cabbage, kale, and broccoli. Foods fortified with calcium include many fruit juices, tofu and cereals. For more food calcium content information, visit http://ods.od.nih.gov/factsheets/ calcium. Calcium supplements come in several different forms. Remember that the recommendations are for millgrams (mg) of elemental calcium which may be less than the total weight of the supplement. The amount of elemental calcium is required to be printed on the label. Calcium carbonate is the least expensive form. It must be taken on a full stomach to be properly absorbed. Some patients may experience gas or constipation. Calcium phosphate and calcium citrate may be taken either with or without food and tend to have less side effects but are generally more expensive. Because of its ability to neutralize stomach acid, calcium carbonate is found in some [id number]-gaf-[id number] antacid products, such as Tums and Rolaids . Depending on its strength, each chewable pill or softchew provides 200 to 400 mg of elemental calcium. The percentage of calcium absorbed depends on the total amount of elemental calcium consumed at one time. Absorption is highest in doses <500mg. So a woman who takes 1,000mg/day of calcium from supplements should split the dose and take 500mg at two separate times during the day. Too much calcium can cause kidney stones, constipation, difficulty absorbing other nutrients and calcium buildup in blood vessels. Women under 50 should not exceed 2500mg/day (2000mg/day for women over 50) of calcium from food and supplements. Excessive alcohol and caffeine intake can inhibit absorption of calcium. Calcium can reduce the absorption of some medications if taken at the same time of day (bisphosphonates, thyroid medication, Phenytoin and other seizure medications, some antibiotics and iron supplements). Vitamin D promotes calcium absorption in the gut and maintains adequate blood levels of calcium and phosphate for normal bone growth and bone remodeling. Vitamin D also helps regulate cell growth as well as nerve, muscle and immune system function. Vitamin D is produced in the skin as a result of ultraviolet sunlight rays and must be altered in the liver and kidney to become its active form. Recommended intake according to the National Institutes of Health is 600 International Units (IU) for girls and women ages 1-70 and 800 IU for women over 70. Very few foods in nature contain vitamin D. The flesh of fatty fish (such as salmon, tuna, and mackerel) and fish liver oils are among the best sources. Small amounts of vitamin D are found in beef liver, cheese, mushrooms and egg yolks. Most people meet at least some of their vitamin D needs through exposure to sunlight. Season, time of day, length of day, cloud cover, smog, skin melanin content, and sunscreen are among the factors that affect UV radiation exposure and vitamin D synthesis. Despite the importance of the sun for vitamin D synthesis, it is prudent to limit exposure of skin to sunlight and avoid tanning beds. UV radiation is a carcinogen responsible for most of the estimated 1.5 million skin cancers that occur annually in the [place]. Lifetime cumulative UV damage to skin is also responsible for some age-associated dryness and other cosmetic changes. In supplements and fortified foods, vitamin D is available in two forms, D2 (ergocalciferol) and D3 (cholecalciferol). The two are equivalent at normal supplement doses. For women who require high supplement doses because of vitamin D deficiency, D3 may work better to raise blood levels. Some medications can prevent proper absorption of Vitamin D. These include laxatives, corticosteroids like prednisone, the seizure drugs phenobarbital and phenytoin, the weight-loss drug orlistat ( Xenical and AlliTM) and the cholesterol-lowering drug cholestyramine (Questran , LoCholest , and Prevalite ). Talk to your doctor about adjusting your recommended daily vitamin D dosage if you take these medications. You should not exceed 4000 mg of vitamin D supplementation daily unless specifically prescribed by your doctor. documented in this encounter [facility] 01-02-2022 History of Presen t illness Narrative Janeth is a 41 year old who presents for an annual gynecologic exam with complaints, pt c/o redness/itching under breasts. Pt also c/o having a period last week. Pt lives in a fpc, no records aside from med list were sent with her. Pt is Dev. Delayed and from what I gather, she has been on depo for many years. Caregiver says that she is new to their facility since late last year and has not had a Depo injection since 01/2021. Has not had a period up until this month. Pt would like to get back on Depo so as not to have periods. Pt says she has never had a pap smear and never has had vaginal penetration. . 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 No bloating, early satiety, indigestion, or increased flatulence. Bladder: No dysuria, gross hematuria, urinary frequency, urinary urgency, or incontinence. Breast: No breast lumps, nipple d/c, overlying skin changes, redness or skin retraction. Allergies and current medication updated:Yes EXAM: BP 122/82 Wt 242 lb (109.8kg) LMP 10/08/2014 GENERAL: pleasant, female in no apparent distress HEENT: Normocephalic, atraumatic, mucus membranes moist, and no lesions NECK: Supple, full range of motion, no adenopathy, and thyroid normal DERMATOLOGY: Normal, without lesions, non-icteric, non-hirsute BREAST: soft, non-tender, symmetric, no dominant mass, normal nipple-areolar complex, no lymphadenopathy, no nipple discharge, some redness noted under bilat breasts CHEST: Normal inspiratory effort ABDOMEN: soft, non-tender, and no masses PELVIC: external genitalia normal, normal Bartholin's glands, urethra, Canovanillas's glands, no vulvar lesions, no cervical lesions, good vaginal support, physiologic discharge present, normal appearing perineal body and perianal region. Small speculum used, there has been vaginal penetration at some point. Exam done without difficulties, pt demetrius very well. Pt is on menses today BIMANUAL: deferred RECTOVAGINAL: patient declined. NEURO: alert and oriented x3,exam grossly non-focal EXTREMITIES: normal ASSESSMENT/PLAN: 1) Health maintenance: Pap done with HPV. Mammogram ordered. Nutrition, exercise and routine health maintenance exams reviewed. Calcium/Vitamin D supplementation information provided. 2) Contraception: Will initiate Depo today, pt is not sexually active. 3) Yeast inf. Under breasts- Rx sent for Nystatin 4) RTC- 3 mos for depo Cj Oro APRN.ATM MECHANIC documented in this encounter [facility] 01-02-2022 Nurse Note Pt caregiver with her today has informed me that pt started bleeding and they are unsure of why. Pt is stating that she was on the Depo shot before and did not have periods but caregiver states since jan 2021 of pt coming to their home pt has not had the depot shot. Pt here today as a new patient/annual exam. Pt states she is not having any vaginal issues. Pt is concerned about a rash under her breast. Pt does not know when her last Pap was done. documented in this encounter [facility] 12-04-2021 Miscellaneous Notes Formattin g of this note might be different from the original. [facility] called to schedule event coordinator annual exam [phone] Pt is able to ambulate on her own, will have caregiver present, appt scheduled for 01/02/22 at 9:30a documented in this encounter [facility] Abnormal [facility]ogram- Primary Abnormal mammogram, unspecified [facility] Encounter for gynecological examination (general) (routine) without abnormal findings Nonintractable epilepsy without status epilepticus, unspecified epilepsy type (HCC) Development delay Lack of normal physiological development, unspecified Depo-Provera contraceptive status Surveillance of other previously prescribed contraceptive method Yeast infection of the skin Candidiasis of skin and nails documented in this encounter [facility] note* Diagnosis Abnormal mammogram Abnormal mammogram, unspecified documented in this encounter [facility] note* Diagnosis Abnormality of left breast on screening mammography- Primary documented in this encounter [facility] note* Diagnosis Abnormal mammogram- Primary Abnormal mammogram, unspecified documented in this encounter [facility] note* Diagnosis Abnormality of left breast on screening mammography- Primary Breast cancer screening by mammogram documented in this encounter [facility] note* Diagnosis Mass of right breast, unspecified quadrant- Primary documented in this encounter [facility] for referral (narrative)* Diagnostic Procedure Only (Routine) - Pending Review Specialty Diagnoses / Procedures Referred By Patrick woodward Referred To Contact [facility] Diagnoses Encounter for gynecological examination (general) (routine) without abnormal findings Procedures ZEKE SCREENING SCREENING MAMMOGRAPHY BI 2-VIEW BREAST INC CAD Cj Oro APRN.CNP [address] [place] [address] [facility] [email or web address] [address] Referral ID Status Reason Start Date Expiration Date Visits Requested Visits Authorized [id number] Pending Review Auto-Generat ed Referral 01/02/2022 02/01/2023 1 1 [facility] for referral (narrative)* Diagnostic Procedure Only (Routine) - Pending Review Specialty Diagnoses / Procedures Referred By Patrick woodward Referred To Contact [facility] Diagnoses Abnormal mammogram Procedures US BREAST LTD LT US BREAST UNI REAL TIME WITH IMAGE LIMITED Cj Oro APRN.CNP [address] [place] [address] [facility] [address] [place] [address] Referral ID Status Reason Start Date Expiration Date Visits Requested Visits Authorized [id number] Pending Review Auto-Generat ed Referral 03/01/2023 1 1 [facility] for referral (narrative)* Diagnostic Procedure Only (Routine) - Closed Specialty Diagnoses / Procedures Referred By Contac t Referred To Contact [facility] Diagnoses Abnormal mammogram Procedures US BREAST LTD LT US BREAST UNI REAL TIME WITH IMAGE LIMITED Cj Oro APRN.CNP [address] [place] [address] [facility] [address] [address] Referral ID Status Reason Start Date Expiration Date V isits Requested Visits Authorized [id number] Closed Auto-Generate d Referral 01/30/2022 03/01/2023 1 1 [facility] for referral (narrative)* Diagnostic Procedure Only (Routine) - Pending Review Specialty Diagnoses / Procedures Referred By Contac t Referred To Contact [facility] Diagnoses Abnormality of left breast on screening mammography Procedures US BREAST LTD LT US BREAST UNI REAL TIME WITH IMAGE LIMITED Cj Oro APRN.CNP [address] [place] [address] [facility] [address] [place] [address] Referral ID Status Reason Start Date Expiration Date Visits Requested Visits Authorized [id number] Pending Review Auto-Generat ed Referral 05/25/2022 06/24/2023 1 1 [facility] for referral (narrative)* Diagnostic Procedure Only (Routine) - Outside PCP Specialty Diagnoses / Procedures Referred By Contac t Referred To Contact [facility] Diagnoses Abnormal mammogram Procedures US BREAST LTD LEFT US BREAST UNI REAL TIME WITH IMAGE LIMITED Chika Walters MD [address] [address] [facility] [address] [place] [address] Referral ID Status Reason Start Date Expiration Date Visits Requested Visits Authorized [id number] Outside PCP Auto-Generat ed Referral 02/21/2024 1 1 [facility] for referral (narrative)* Diagnostic Procedure Only (Routine) - Outside PCP Specialty Diagnoses / Procedures Referred By Contac t Referred To Contact [facility] Diagnoses Abnormality of left breast on screening mammography Breast cancer screening by mammogram Procedures ZEKE DIAGNOSTIC LEFT DIAGNOSTIC MAMMOGRAPHY COMPUTER-AIDED DETCJ Chika Cabral MD [facility] [place] [place] [address] [facility] [address] [place] [address] Referral ID Status Reason Start Date Expiration Date Visits Requested Visits Authorized [id number] Outside PCP Auto-Generat ed Referral 03/13/2023 04/11/2024 1 1 * Diagnostic Procedure Only (Routine) - Outside PCP Specialty Diagnoses / Procedures Referred By Johannac t Referred To Contact [facility] Diagnoses Breast cancer screening by mammogram Procedures ZEKE DIAGNOSTIC RIGHT DIAGNOSTIC MAMMOGRAPHY COMPUTER-AIDED DETCJ Chika Cabral MD [facility] [place] [address] [facility] [address] [place] [address] Referral ID Status Reason Start Date Expiration Date Visits Requested Visits Authorized [id number] Outside PCP Auto-Generat ed Referral 03/13/2023 04/11/2024 1 1 [facility] for referral (narrative)* Diagnostic Procedure Only (Routine) - Pending Review Specialty Diagnoses / Procedures Referred By Patrick t Referred To Contact [facility] Diagnoses Mass of right breast, unspecified quadrant Procedures US BREAST LTD RIGHT US BREAST UNI REAL TIME WITH IMAGE LIMITED Cj Oro APRN.ATM MECHANIC [address] [place] [id number] [facility] [address] [place] [address] Referral ID Status Reason Start Date Expiration Date Visits Requested Visits Authorized [id number] Pending Review Auto-Generat ed Referral 09/19/2023 04/18/2024 1 1 * Diagnostic Procedure Only (Routine) - Pending Review Specialty Diagnoses / Procedures Referred By Patrick woodward Referred To Contact [facility] Diagnoses Mass of right breast, unspecified quadrant Procedures ZEKE DIAGNOSTIC RIGHT DIAGNOSTIC MAMMOGRAPHY COMPUTER-AIDED DETCJ UNI Cj Oro APRN.ATM MECHANIC [address] [place] [address] [facility] [address] [place] [address] Referral ID Status Reason Start Date Expiration Date Visits Requested Visits Authorized [id number] Pending Review Auto-Generat ed Referral 09/19/2023 04/18/2024 1 1 [facility] for visit Narrative* Diagnostic Procedure Only (Routine) - Closed Specialty Diagnoses / Procedures Referred By Patrick woodward Referred To Contact [facility] Diagnoses Abnormal mammogram Procedures US BREAST LTD LT US BREAST UNI REAL TIME WITH IMAGE LIMITED Cj Oro APRN.ATM MECHANIC [address] [place] [id number] [facility] [address] [place] [address] Referral ID Status Reason Start Date Expiration Date V isits Requested Visits Authorized [id number] Closed Auto-Generate d Referral 01/30/2022 03/01/2023 1 1 [facility] Summary Purpose Family History No Family History Records FoundNo Family History Records FoundNo Family History Records FoundNo Family History Records Found Advance Directives No Advanced Directives Records FoundNo Advanced Directives Records FoundNo Advanced Directives Records FoundNo Advanced Directives Records Found Medications Administered Section Active Administered Medications - up to 3 most recent administrations Medication Order MAR Action Action Date Dose Rate Site medroxyPROGESTERone 150 mg injection (DEPO-PROVERA) 150 mg, INTRAMUSCULAR, EVERY 12 WEEKS, 4 doses, First dose on Sat01/02/22 at 1100, Last dose on Sat09/11/22 at 1100, Hazardous Potential Reproductive Risk Drug: Use appropriate PPE. Given 01/02/2022 3:48 PM EDT 150 mg Buttocks, Right Additional Source Comments INFORMATION SOURCE (unrecogn ized section and content) DATE CREATED AUTHOR AUTHOR'S ORGANIZ ATION 09/23/2021 [facility] DATE CREATED AUTHOR AUTHOR'S ORGANIZ ATION 03/02/2023 [facility] ([place]) DATE CREATED AUTHOR AUTHOR'S ORGANIZ ATION 04/17/2023 [facility] Source Comments (unrecognize d section and content) In the event this informatio n is protected by the Federal Confidentiality of Alcohol and Drug Abuse Patient Records regulations: The Federal rules restrict any use of the information to criminally investigate or prosecute any alcohol or drug abuse patient.[facility] event this information is protected by the Federal Confidentiality of Alcohol and Drug Abuse Patient Records regulations: The Federal rules restrict any use of the information to criminally investigate or prosecute any alcohol or drug abuse patient.[facility] the event this information is protected by the Federal Confidentiality of Alcohol and Drug Abuse Patient Records regulations: The Federal rules restrict any use of the information to criminally investigate or prosecute any alcohol or drug abuse patient.[facility] the event this information is protected by the Federal Confidentiality of Alcohol and Drug Abuse Patient Records regulations: The Federal rules restrict any use of the information to criminally investigate or prosecute any alcohol or drug abuse patient.[facility] the event this information is protected by the Federal Confidentiality of Alcohol and Drug Abuse Patient Records regulations: The Federal rules restrict any use of the information to criminally investigate or prosecute any alcohol or drug abuse patient.[facility] the event this information is protected by the Federal Confidentiality of Alcohol and Drug Abuse Patient Records regulations: The Federal rules restrict any use of the information to criminally investigate or prosecute any alcohol or drug abuse patient.[facility] the event this information is protected by the Federal Confidentiality of Alcohol and Drug Abuse Patient Records regulations: The Federal rules restrict any use of the information to criminally investigate or prosecute any alcohol or drug abuse patient.[facility] the event this information is protected by the Federal Confidentiality of Alcohol and Drug Abuse Patient Records regulations: The Federal rules restrict any use of the information to criminally investigate or prosecute any alcohol or drug abuse patient.[facility] the event this information is protected by the Federal Confidentiality of Alcohol and Drug Abuse Patient Records regulations: The Federal rules restrict any use of the information to criminally investigate or prosecute any alcohol or drug abuse patient.[facility] Hospital[facility] the event this information is protected by the Federal Confidentiality of Alcohol and Drug Abuse Patient Records regulations: The Federal rules restrict any use of the information to criminally investigate or prosecute any alcohol or drug abuse patient.[facility] HospitalIn the event this information is protected by the Federal Confidentiality of Alcohol and Drug Abuse Patient Records regulations: The Federal rules restrict any use of the information to criminally investigate or prosecute any alcohol or drug abuse patient.[facility] HospitalIn the event this information is protected by the Federal Confidentiality of Alcohol and Drug Abuse Patient Records regulations: The Federal rules restrict any use of the information to criminally investigate or prosecute any alcohol or drug abuse patient.[facility] HospitalIn the event this information is protected by the Federal Confidentiality of Alcohol and Drug Abuse Patient Records regulations: The Federal rules restrict any use of the information to criminally investigate or prosecute any alcohol or drug abuse patient.[facility] HospitalIn the event this information is protected by the Federal Confidentiality of Alcohol and Drug Abuse Patient Records regulations: The Federal rules restrict any use of the information to criminally investigate or prosecute any alcohol or drug abuse patient.[facility] Teams (unrecognized sec tion and content) [employer]ing Creeler Relationship Specialty Start Date End Date Naumoff, Radha Rolon PCP - General Family Practice 11/01/14 Tufting Creeler Relationship Specialty Start Date End Date Naumoff, Radha Rolon PCP - General Family Medicine 11/01/14 Tufting Creeler Relationship Specialty Start Date End Date Naumoff, Radha Rolon PCP - General Family Medicine 11/01/14 Tufting Creeler Relationship Specialty Start Date End Date Naumoff, Radha Rolon PCP - General Family Medicine 11/01/14 Tufting Creeler Relationship Specialty Start Date End Date Naumoff, Radha Rolon PCP - General Family Medicine 11/01/14 Tufting Creeler Relationship Specialty Start Date End Date NaumoffRadha PCP - General Family Medicine 11/01/14 Tufting Creeler Relationship Specialty Start Date End Date Naumoff, Radha Rolon PCP - General Family Medicine 11/01/14 Tufting Creeler Relationship Specialty Start Date End Date Naumoff, Radha Rolon PCP - General Family Medicine 11/01/14 Tufting Creeler Relationship Specialty Start Date End Date Naumoff, Radha Rolon PCP - General Family Medicine 11/01/14 Tufting Creeler Relationship Specialty Start Date End Date Naumoff, Radha Rolon PCP - General Family Medicine 11/01/14 Tufting Creeler Relationship Specialty Start Date End Date Radha Orozco PCP - General Family Medicine 11/01/14 Tufting Creeler Relationship Specialty Start Date End Date Radha Orozco PCP - General Family Medicine 11/01/14 Tufting Creeler Relationship Specialty Start Date End Date Radha Orozco PCP - General Family Medicine 11/01/14 Reason for Visit (unrecogniz ed section and content) Reason Comments Fitter Up Exam Reason Onset Date Comments Orders 01/30/2022 Reason Onset Date Comments Refill Request 02/05/2022 Reason Comments Results Reason Comments Orders Reason Comments Orders Reason Comments Orders Reason Comments Results Dx mammo and US of r ight breast in 6 mos FOR RECORDS PERTAINING TO PATIENTS WHO ARE OR HAVE BEEN ENROLLED IN A CHEMICAL DEPENDENCY/SUBSTANCEABUSE PROGRAM, SOME INFORMATION MAY BE OMITTED. This clinical summary was aggregated from multiple sources. Caution should be exercised in using it in the provision of clinical care. This summary normalizes information from multiple sources, and as a consequence, information in this document may materially change the coding, format and clinical context of patient data. In addition, data may be omitted in some cases. CLINICAL DECISIONS SHOULD BE BASED ON THE PRIMARY CLINICAL RECORDS. [employer] [facility]. provides no warranty or guarantee of the accuracy or completeness of information in this document.
== END 2019-11-29 14:03 | disposition home or self-care (01) | DRG 263 ==
PROVIDERS: Anesthesiology; Hospitalist; Surgery; PCP Family Medicine; Visit Provider Family Medicine
PROC: (CPT 47610; principal; 2019-11-26 12:10)
DX: K80.12 Calculus of gallbladder with acute and chronic cholecystitis without obstruction (principal); N17.9 Acute kidney failure, unspecified; G40.909 Epilepsy, unspecified, not intractable, without status epilepticus; D68.9 Coagulation defect, unspecified; Z79.899 Other long term (current) drug therapy; F79 Unspecified intellectual disabilities; N30.00 Acute cystitis without hematuria; E87.6 Hypokalemia; K21.9 Gastro-esophageal reflux disease without esophagitis; E66.9 Obesity, unspecified; E86.0 Dehydration; Z68.38 Body mass index [BMI] 38.0-38.9, adult
CPT/HCPCS: 47563; 00790; 87635; 36415; 71045; 74176; 74300; 76000; 76705; 80048; 80053; 80156; 81001; 81025; 83690; 83735; 84132; 84703; 85025; 85610; 85730; 87086; 88304; 93005; 94799; 96361; 96365; 96366; 96367; 96368; 96374; 96375; 96376; 97162; 97166; 97530; 99221; 99251; 99252; 99285; J2185; J7030; J7040; J7050; A4216; C9254; G0378; G0463; J2405; J3490; U0003

== ENCOUNTER 2019-12-02 18:41 | Emergency (ER) | payer MEDICAID, SELFPAY ==
[2019-11-26 10:21] VITALS: BMI 38.9
[2019-12-02 18:42] VITALS: BP 130/86; PULSE 140; RESP 24; TEMP 36.7; O2SAT 96
[2019-12-02 18:43] VITALS: BP 130/86; PULSE 143; RESP 24; TEMP 36.7; O2SAT 96; BMI 41.5
--- NOTE | 2019-12-02 19:14 | CT_ITS ---
STUDY: CT CERVICAL SPINE WITHOUT CONTRAST REASON FOR EXAM: Female, 38 years old. PT FELL OUT OF BED, SEIZURE, MENTAL DISABILITY, UNABLE TO FULLY CONTROL MOTION RADIATION DOSAGE (If Supplied By Facility): CTDIvol = ( 27.88 ) mGy, DLP = ( 600.49 ) mGycm TECHNIQUE: High resolution transaxial imaging was performed without contrast material. Sagittal and coronal images were reconstructed. Individualized dose optimization techniques were used for this CT. COMPARISON: 09/10/2011 CT cervical spine FINDINGS: Normal craniovertebral junction. Normal anterior atlantoaxial articulation. Normal odontoid process. Normal cervical lordosis. Normal vertebral bodies and posterior osseous elements. C2-3: Normal endplates. Normal disc height and morphology. Normal central canal and intervertebral neuroforamina. C3-4: Normal endplates. Normal disc height and morphology. Normal central canal and intervertebral neuroforamina. C4-5: Normal endplates. Normal disc height and morphology. Normal central canal and intervertebral neuroforamina. C5-6: Normal endplates. Normal disc height and morphology. Normal central canal and intervertebral neuroforamina. C6-7: Normal endplates. Normal disc height and morphology. Normal central canal and intervertebral neuroforamina. C7-T1: Normal endplates. Normal disc height and morphology. Normal central canal and intervertebral neuroforamina. Normal visualized soft tissue structures. CT/Spine Cervical without Contras IMPRESSION: Normal unenhanced CT examination of the cervical spine. Electronically Signed: Shemar Power MD at 20:59 EDT , Service support ,
--- NOTE | 2019-12-02 19:14 | EKG12_ITS ---
Test Reason : SEIZURE Blood Pressure : / mmHG Vent. Rate : 108 BPM Atrial Rate : 108 BPM P-R Int : 180 ms QRS Dur : 072 ms QT Int : 298 ms P-R-T Axes : 044 -01 006 degrees QTc Int : 399 ms Sinus tachycardia Nonspecific T wave abnormality Abnormal ECG Confirmed by EPHRAIM MADRIGAL, DAVE ([id number]), sound editor JAM NAPOLES ([id number]) on 12/04/2019 11:30:20 A M Referred By: [facility] Confirmed By:ANA YE MD
--- NOTE | 2019-12-02 19:14 | CT_ITS ---
STUDY: CT BRAIN WITHOUT CONTRAST REASON FOR EXAM: Female, 38 years old. PT FELL OUT OF BED, SEIZURE, MENTAL DISABILITY, UNABLE TO FULLY CONTROL MOTION RADIATION DOSAGE (If Supplied By Facility): CTDIvol = ( 44.99 ) mGy, DLP = ( 745.49 ) mGycm TECHNIQUE: Transaxial CT imaging of the brain was performed without administration of intravenous contrast material. Individualized dose optimization techniques were used for this CT. COMPARISON: CT brain 06/09/2017 FINDINGS: Normal soft tissue structures. Normal calvarium. Normal size ventricles and extra-axial spaces for the patient''s age. Normal white matter tracts of the cerebral hemispheres. Normal basal ganglia and thalami. Normal brainstem. Normal cerebellum. There is no intracranial hemorrhage. There are no findings of an acute ischemic infarction. Left maxillary polyp. CT/Brain/Head without Contrast IMPRESSION: No acute disease Electronically Signed: Shemar Power MD at 20:22 EDT , Service support ,
[2019-12-02 19:47] LABS: Bacteria 0 SEEN /hpf (None Seen); Red Blood Cells-Urine 0 SEEN /hpf (0-5); Squamous Epithelial Cells - UA 0 SEEN /hpf (5-10)
[2019-12-02 20:08] LABS: Color, Urine Yellow (Yellow); Glucose, Dipstick Normal (Normal); Ketone-Dipstick Negative (Negative); Leukocyte Esterase-Dipstick Negative /ul (Negative); Nitrite-Dipstick Negative (Negative); Occult Blood-Urine 10 /ul (Negative); Protein-Dipstick Negative (Negative); Specific Gravity, Urine 1.015 (1.002-1.030); Urine Bilirubin Dipstick Negative (Negative); Urine Clarity Clear (Clear); Urine Urobilinogen Normal (Normal)
[2019-12-02 20:15] LABS: Hyaline Cast 0-5 SEEN /lpf (0-5); Mucous, Urine 1+ /hpf (<or=2+); White Blood Cells 0 SEEN /hpf (0-5)
[2019-12-02 20:20] LABS: Amphetamine Urine VISTA NEGATIVE (<1000 ng/mL); Barbiturate Urine VISTA NEGATIVE (< 200 ng/mL); Benzodiazepine Urine VISTA POSITIVE (< 200 ng/mL); Cocaine Urine VISTA NEGATIVE (< 300 ng/mL); Ecstacy Urine VISTA NEGATIVE (< 500 ng/mL); Methadone Urine VISTA NEGATIVE (< 300 ng/mL); PCP Urine VISTA NEGATIVE (< 25 ng/mL); THC Urine VISTA NEGATIVE (< 50 ng/mL); Vista UDS pH Range 8
[2019-12-02] MEDS: levETIRAcetam IV 1,000 MG/100 ML BAG 400 MG IV (20:48)
[2019-12-02 20:49] VITALS: PULSE 122; RESP 21; O2SAT 99
[2019-12-02] MEDS: 0.9% Normal Saline 1,000 ML 1000 ML IV (21:05)
[2019-12-02 21:10] LABS: Absolute Lymphocyte Count 1.39 X10^3/uL (0.83-4.51); Basophil# 0.02 X10^3/uL; Basophil% 0.2 % (0-1); Eosinophil# 0.01 X10^3/uL; Eosinophils% 0.1 % (0-5); Hematocrit 35.6 % (37-47); Lymphocyte # 1.39 X10^3/ul (4.0); Lymphocyte % 12.5 % (19-41); Mean Corp Hgb Conc 33.7 g/dL (32-36); Mean Corpuscular Hgb 29.7 pg (27.0-32.0); Mean Corpuscular Volume 88.1 fL (81-99); Mean Platelet Vol. 10.1 fl (6.2-12.0); Monocyte# 1.63 X10^3/uL; Monocyte% 14.6 % (0-10); NRBC Flagged by Analyzer 0 % (0-5); Neutrophil # 7.96 X10^3/uL (2.7-7.7); Neutrophil % 71.4 % (47-70); POSITIVE COUNT YES; POSITIVE DIFFERENTIAL YES; POSITIVE MORPHOLOGY YES; RBC Distribution Width CV 13.3 % (11.6-14.6); RBC Distribution Width SD 42.8 fl (35.1-43.9); Red Blood Count 4.04 M/mm3 (4.2-5.4); White Blood Count 11.1 K/mm3 (4.4-11.0)
[2019-12-02 21:15] LABS: Internal QC Validated? YES +Cl - CLEAR BKGD; Pregnancy, Serum, hCG Quali. NEGATIVE Negative
[2019-12-02 21:27] LABS: ALB/GLOB Ratio 0.6 RATIO (0.9-2.4); AST(SGOT) 32 U/L (15-37); Alanine Aminotransfer ALT/SGPT 46 U/L (13-56); Albumin, Serum 2.2 g/dL (3.2-5.0); Alkaline Phosphatase 89 U/L (45-117); Anion Gap 12 (5-15); BUN 5 mg/dL (7-18); BUN/Creat Ratio 4.1 RATIO (10-20); Calcium,Total 8.4 mg/dL (8.5-10.1); Chloride 106 mmol/L (98-107); Creatinine, Serum 1.23 mg/dL (0.55-1.02); EST Glomerular Filtration Rate 51 mL/min (>60); Est Glom Filt Rate - Afr Amer 62 mL/min (>60); Estimated Creatinine Clearance 61.94 ml/min; Globulin 3.7 g/dL (2.2-4.2); Glucose 95 mg/dL (74-106); Potassium 3.2 mmol/L (3.5-5.1); Protein, Total 5.9 g/dL (6.4-8.2); Sodium Level 137 mmol/L (136-145)
[2019-12-02 21:43] LABS: Differential Indicated SCAN CRITERIA MET
[2019-12-02 21:47] LABS: Differential Comment SCANNED; Platelet Estimate ADEQUATE (ADEQ)
--- NOTE | 2019-12-02 21:49 | ED.VISSUMM ---
- ER Visit Summary Date of Service: 12/02/19 Chief Complaint: Seizure History of Present Illness: The patient is a 38 F who presents from home. History is obtained from EMS and her boyfriend who is her power of corporate attorney. He did not witness the seizure. It sounds like the patient had an unresponsive episode and fell out of her bed. She was shaking. She received 5 mg of Versed from EMS. She had no further shaking, but she was confused and mumbling afterwards. She has a history of MRDD, seizures, GERD. She was admitted recently, November 25 for cholecystectomy. According to the patient's boyfriend, the surgery went well and she was not having issues. Patient tells me that her head hurts, but she has no other complaints or recollection of the events this evening. Physical Examination: Afebrile and vital signs unremarkable except for heart rate of 143 and a respiratory rate of 24. 96% on room air. Patient will look at me when I speak and mumble. She is not oriented. She told me that her head hurt, but did not speak otherwise. Head and neck atraumatic. Heart tachycardic but regular. Lungs clear. Abdomen soft and nontender. No guarding. Extremities nontender with no edema. Skin appears normal. Test Results: EKG showed sinus rhythm at a rate of 108 with nonspecific T wave changes. CT brain negative. CT cervical spine negative. White count 11.1. Potassium 3.2, CO2 19, creatinine 1.23. Hepatic panel unremarkable. INR was 1.5 on November 28. Urinalysis normal. Troponin normal. test negative. Tox cream positive for benzos. COVID-19 testing was negative on November 24. Emergency Department Course and Treatment: Patient was placed on a monitor. Had seizure precautions. She is still slightly confused. Staff remember her here in the ED. This is different from her baseline. It was unclear to me if her change in mental status was related to her underlying MRDD, her meds, postictal state, or continued seizure activity. Since she fell out of bed, we did obtain a CT of her head and neck. These were unremarkable. While awaiting her lab results, the patient had a recurrent seizure. She was shaking all over and unresponsive. She was treated with Ativan milligrams, and Keppra 1 g. Her seizure resolved. Nursing said that she was improving, but had not returned to baseline. This is concerning for status epilepticus. She had no further seizure activity, but did not return to baseline after her seizure in the ED. Lab work, as above was unremarkable. Nothing to explain her seizures. It is unclear if she is compliant with her medications. Her abdominal exam is unremarkable, and I do not believe she has a complication from her surgery. Spoke with our hospitalist here. We do not have a EEG or neuro in the hospital and he requested transfer to a higher level of care. Spoke with her boyfriend who is her power of corporate attorney. He requested [facility]. The patient was accepted by Dr. Das in the ER. Prior to transfer, the patient is slightly tachycardic but otherwise has normal vitals. Normal pulse ox. She is following some commands, but is not speaking much. At this point, she appears to be stable for transfer. There is no indication for intubation. Treatment Plan: As above Disposition: Transfer Impression: Status epilepticus This note was generated with [employer] dictation software. It may contain incorrect words, spelling, and punctuation that were not noted in review of the chart prior to signing ED Disposition - Plan for ED Patient: Referrals: Erwin Orozco MD [Primary Care Provider] -
[2019-12-02 22:16] VITALS: PULSE 110; RESP 17; O2SAT 100
--- NOTE | 2019-12-02 22:19 | ED.RN ---
THIS RN SPOKE WITH TERRANCE FROM THE BOARD OF DISABILITIES. SHE WAS GIVEN AN UPDATE ON JANETH'S TRANSFER TO [facility] ED. SHE VERBALIZES UNDERSTANDING. RORY SWEENEY ALSO UPDATED
[2019-12-02 22:33] LABS: International Normalized Ratio 1.8; Prothrombin Time (Protime)PT. 20.1 SECONDS (11.7-14.9)
[2019-12-02 22:50] LABS: Alcohol, Blood (Medical)-Serum < 3.0 mg/dL
[2019-12-02 22:53] VITALS: BP 128/89; PULSE 102; RESP 15; O2SAT 99
== END 2019-12-02 23:08 | disposition short-term general hospital (02) ==
PROVIDERS: Emergency Provider Emergency Medicine; PCP Family Medicine
DX: G40.901 Epilepsy, unspecified, not intractable, with status epilepticus (principal); K21.9 Gastro-esophageal reflux disease without esophagitis
CPT/HCPCS: 70450; 72125; 80053; 80307; 80320; 81001; 84484; 84703; 85025; 85610; 85730; 93005; 96365; 96366; 99285; J7030; P9612; A4216; G0480

== ENCOUNTER 2019-12-09 19:05 | Emergency (ER) | payer MEDICAID, SELFPAY ==
[2019-12-09 19:08] VITALS: BP 122/84; PULSE 107; PULSE 109; RESP 26; RESP 30; TEMP 36.9; O2SAT 100; O2SAT 99; BMI 43.4
--- NOTE | 2019-12-09 20:24 | EKG12_ITS ---
Test Reason : DYSRHYTHMIA Blood Pressure : / mmHG Vent. Rate : 092 BPM Atrial Rate : 092 BPM P-R Int : 190 ms QRS Dur : 066 ms QT Int : 366 ms P-R-T Axes : 051 -07 010 degrees QTc Int : 452 ms Normal sinus rhythm Nonspecific T wave abnormality Abnormal ECG Confirmed by JOSSIE MADRIGAL, LUDA ([id number]), food expeditor BATSHEVA BAGLEY ([id number]) on 12/16/2019 10:25:16 AM Referred By: CHILANGO Confirmed By:LUDA SETHI MD
--- NOTE | 2019-12-09 20:26 | ED.DCSUM_ITS ---
- ER Visit Summary Date of Service: 12/09/19 Chief Complaint: Generalized weakness with falls History of Present Illness: The patient is a 38 F for seizure disorder and possible underlying psychiatric illness. Reportedly patient was recently admitted for status epilepticus and transferred to a larger facility. She is under the custody of her boyfriend who is power of tread booker. He is not currently here but called and talked to the nurses states that she has been generally weak and having falls. He is concerned this may be attention seeking behavior. She states she is also had some nausea vomiting. Denies any dysuria, headache, chest pain or shortness of breath. No abdominal pain. She denies any fever or chills. Physical Examination: Middle-aged female vital signs stable afebrile. Pulse ox 9% on room air no hypoxia. Patient does not look septic or toxic. H EENT exam atraumatic. Pupils round react light. Moist because members. Neck nontender. No lymphadenopathy. Lungs clear to auscultation bilateral. Heart regular rhythm rate about 100 no murmur. Chest were nontender. Abdomen obese but soft nontender normal bowel sounds no peritoneal signs. Pelvic girdle intact. Patient moving all 4 extremities. Nontender. No edema. No deformities. Back nontender. No bruising. Neurologically she is awake and alert. Moving all 4 extremities. She knows day, month and year. She is answering questions and following commands. There is no focal motor deficits. Test Results: CBC white count of 6. Hemoglobin 10.9 which is her baseline. No bands. Chemistries unremarkable normal gap of 11. Normal BUN and creatinine. Glucose of 100. UA normal. No signs of infection. EKG normal sinus rhythm rate of 92 with no acute signs of [place] or ischemia. Chest x-ray portable 1 view no acute abnormality read both myself and the radiologist. Repeat exam patient is doing well at 2130. No acute findings. human services care specialist also spoke with her and her boyfriend. They are covered with her being discharged home. We will follow-up with counseling center. Nurses will ambulate the patient prior to discharge. Emergency Department Course and Treatment: Patient with generalized weakness reportedly. Has pretty benign exam. Screening labs are being obtained. I did review her most recent work-up which was unremarkable at that time. Treatment Plan: Outpatient follow-up with counseling center. Return if worse. Disposition: Discharge Impression: Generalized weakness and falls of uncertain etiology Psychosomatic behavior This note was generated with [employer] dictation software. It may contain incorrect words, spelling, and punctuation that were not noted in review of the chart prior to signing ED Disposition - Plan for ED Patient: Referrals: Erwin Orozco MD [Primary Care Provider] -
--- NOTE | 2019-12-09 20:27 | ED.RN ---
THIS RN SPOKE WITH PTS BOYFRIEND PATEL PER PT REQUEST. PATEL WAS UPDATED THAT WE WERE WAITING FOR PHYSICIAN TO SEE PT. HE STATES HE WILL COME UP IF NECESSARY. PATEL DISCUSSED THE PATIENTS BEHAVIORS AT HOME POSSIBLY ATTENTION SEEKING WITH HER FREQUENT FALLS AND WAS CONCERNED BECAUSE HE CANNOT PHYSICALLY HELP HER UP. THIS INFORMATION WAS PASSED ON TO AFTER HE SAW THE PATIENT AND A CASE MANAGEMENT CONSULT WAS PUT IN BY THIS RN PER PATEL'S REQUEST
[2019-12-09 20:32] LABS: Bacteria 0 SEEN /hpf (None Seen); Mucous, Urine 0 SEEN /hpf (<or=2+); Red Blood Cells-Urine 0 SEEN /hpf (0-5); Squamous Epithelial Cells - UA 0 SEEN /hpf (5-10); White Blood Cells 0 SEEN /hpf (0-5)
--- NOTE | 2019-12-09 20:35 | RAD_ITS ---
STUDY: X-RAY CHEST REASON FOR EXAM: Female, 38 years old. PT REPORTS WEAKNESS AND THAT THE ROOM IS SPINNING. HX OF SEIZURES TECHNIQUE: AP portable COMPARISON: 11/25/2019 FINDINGS: Less than optimal inspiratory effort is seen however the lungs are clear. There is no demonstrated pleural abnormality. Normal size heart. Normal mediastinum and rochelle. Normal visualized pulmonary arteries. Normal visualized aortic arch and descending thoracic aorta. Normal visualized thoracic spine. Normal visualized ribs, clavicles, and shoulders. There is no demonstrated abnormality of the visualized soft tissue structures of the upper abdomen. No significant change since prior exam RAD/Chest 1 View (Portable) IMPRESSION: No acute cardiopulmonary pathology Electronically Signed: Darian Chatterjee MD at 20:56 EDT , Service support ,
[2019-12-09 20:41] LABS: Absolute Neutrophil Count 2.1 X10^3/uL (2.0-7.7); Basophil# 0.02 X10^3/uL; Basophil% 0.3 % (0-1); Eosinophil# 0.06 X10^3/uL; Hematocrit 31.7 % (37-47); Hemoglobin 10.9 g/dL (12.0-15.0); Lymphocyte % 48.6 % (19-41); Mean Corp Hgb Conc 34.4 g/dL (32-36); Mean Corpuscular Hgb 29.6 pg (27.0-32.0); Mean Corpuscular Volume 86.1 fL (81-99); Mean Platelet Vol. 9.9 fl (6.2-12.0); Monocyte# 0.81 X10^3/uL; Monocyte% 13.6 % (0-10); NRBC Flagged by Analyzer 0 % (0-5); Neutrophil # 2.12 X10^3/uL (2.7-7.7); Neutrophil % 35.5 % (47-70); Platelet Count 335 K/mm3 (150-450); RBC Distribution Width CV 13.3 % (11.6-14.6); RBC Distribution Width SD 41.9 fl (35.1-43.9); Red Blood Count 3.68 M/mm3 (4.2-5.4)
[2019-12-09 20:46] LABS: Color, Urine Yellow (Yellow); Glucose, Dipstick Normal (Normal); Ketone-Dipstick Negative (Negative); Leukocyte Esterase-Dipstick 100 /ul (Negative); Nitrite-Dipstick Negative (Negative); Occult Blood-Urine Negative /ul (Negative); Protein-Dipstick 15 mg/dl (Negative); Urine Bilirubin Dipstick Negative (Negative); Urine Clarity Cloudy (Clear); Urine Urobilinogen Normal (Normal)
[2019-12-09 20:54] LABS: Anion Gap 11 (5-15); BUN 8 mg/dL (7-18); BUN/Creat Ratio 8.9 RATIO (10-20); Calcium,Total 8.4 mg/dL (8.5-10.1); Chloride 107 mmol/L (98-107); EST Glomerular Filtration Rate 74 mL/min (>60); Est Glom Filt Rate - Afr Amer 89 mL/min (>60); Estimated Creatinine Clearance 69.42 ml/min; Glucose 100 mg/dL (74-106); Potassium 3.4 mmol/L (3.5-5.1); Sodium Level 139 mmol/L (136-145)
--- NOTE | 2019-12-09 21:18 | CM.ED ---
SOCIAL WORK Informant: Dr. Yanez Reason for Consult: Resources Met with patient in room. Patient reports lives home with boyfriend, Ritchie. Patient states came to ER because I can barely walk, I'm always falling. Patient wanting this worker to follow up with boyfriend to discuss needs. Collaboration with Dr. Yanez. Anticipate discharge home. This worker to follow up with boyfriend and patient upon discharge. Salty Barton, TRIP RIDER, DELIVERY DRIVER/CUSTOMER SERVICE
[2019-12-09 21:31] VITALS: PULSE 99; RESP 14; O2SAT 100
[2019-12-09 21:34] VITALS: BP 137/96; PULSE 99; RESP 14; O2SAT 100
--- NOTE | 2019-12-09 21:53 | ED.DEP ---
ED Disposition - Plan for ED Patient: Disposition: Home or Assisted Living Instructions: ED Weakness [facility] Referrals: Erwin Orozco MD [Primary Care Provider] - 3-5 Days if not improving Counseling,Center [GROUP OF PHYSICIANS] - Additional Instructions: Follow Up with the counseling center.
--- NOTE | 2019-12-09 21:55 | ED.RN ---
called ronny fu) to arrange transport. he is calling a taxi. he stated i ride up and get her. brittany cornejo [phone]
--- NOTE | 2019-12-09 22:30 | CM.ED ---
SOCIAL WORK Informed by confidential secretary, significant other Ritchie unable to have taxi arrive until 11p. Call to Ritchie to discuss resources and answer any questions. Ritchie reports concerns that patient will not follow up with counseling. Informed Ritchie that [facility] provides [facility] at this time and that resource handouts were left with nursing to give upon arrival to ER. Ritchie states will be following up with patient's case manger through the [employer]. All questions answered. Plan: Home with resources provided. Salty Barton, BLOCKMASON, APPLICATIONS SCIENTIST
[2019-12-09 23:48] VITALS: BP 137/106; BP 141/90; BP 147/96; PULSE 125; PULSE 97; PULSE 99
--- NOTE | 2019-12-09 23:49 | ED.RN ---
pt required strong encouragement to stand for orthostatic vitals. she stated i'm scared and my bruises hurt. she was instructed that the bruises are from falling and if that stopped happening she wouldn't have painful bruises. she was also instructed that if she continued to fall she wouldn't be safe to stay with Ritchie (boyfriend). was informed about completion of her ortho's and ambulation between chair and bed. vivienne cornejo rn [phone]
[2019-12-10 00:32] VITALS: BP 136/80; PULSE 90; O2SAT 100
[2019-12-10] MEDS: Ibuprofen 600 MG Tablet PO (01:42)
[2019-12-10 02:00] VITALS: RESP 16; O2SAT 95
== END 2019-12-10 04:11 | disposition home or self-care (01) ==
PROVIDERS: Emergency Provider Emergency Medicine; PCP Family Medicine
DX: R53.1 Weakness (principal); R29.6 Repeated falls; F45.9 Somatoform disorder, unspecified
CPT/HCPCS: 71045; 80048; 81001; 85025; 93005; A4216

== ENCOUNTER 2019-12-10 18:41 | Inpatient (IN) | payer MEDICAID, SELFPAY ==
[2019-12-09 19:08] VITALS: BMI 43.4
[2019-12-10 18:44] VITALS: BP 119/94; PULSE 99; RESP 21; TEMP 36.6; O2SAT 100; BMI 37.5
--- NOTE | 2019-12-10 19:25 | ED.DCSUM_ITS ---
History of Present Illness Chief Complaint: Lower Extremity Injury Informant: Patient Narrative: 38-year-old female presenting with bilateral leg pain. She states that she has difficulty walking. Patient was seen yesterday for similar symptoms and ultimately was able to walk out of the ER after her work-up. She is back today because she states her legs hurt. She states that her boyfriend's dad is a torres and that he said she might have blood clots in her legs. She has no history of DVT/PE. She states she has no other medical problems. She has not hit her head or lost consciousness. Prior similar symptoms: Yes - Past Medical History (1) GERD (gastroesophageal reflux disease) Status: Chronic (2) Seizure disorder Status: Chronic (3) MRDD Status: Chronic Past Medical History - Allergies and Home Meds Allergies/Adverse Reactions: Allergies Penicillins Allergy (Verified 12/09/19 19:08) Unknown tomato Adverse Reaction (Verified 12/09/19 19:08) Diarrhea Past Medical History: - - Reviewed under problem Surgical History: - - Recent left ankle fracture status post open reduction and internal fixation. Lives: With Family Smoking Status: Never smoker Alcohol: None Drugs: None - Family History Maternal Family History: Reports: No pertinent history Paternal Family History: Reports: No pertinent history Review of Systems General: Denies: Chills, Fever, Sweats Eyes: Denies: Visual changes - bilaterally, Diplopia ENT: Denies: Rhinorrhea, Sore throat Cardiovascular: Denies: Chest pain, Palpitations Respiratory: Denies: Dyspnea, Cough, Dyspnea on exertion Gastrointestinal: Denies: Abdominal pain, Nausea, Vomiting, Diarrhea, Melena, Hematochezia Genitourinary: Denies: Dysuria, Hematuria, Frequency Musculoskeletal: Reports: - - Bilateral leg pain diffusely. Skin: Denies: Rash, Abscess, Abrasions Neurological: Denies: Headache, Weakness Physical Exam Vital Signs/Narrative: Vital Signs Temp Pulse Resp BP Pulse Ox 12/10/19 18:44 97.9 F 99 21 H 119/94 H 100 General: Obese, Unkempt, No Acute Distress Head: Normocephalic, Atraumatic Eyes: Perrl, EOMI ENT: Moist mucous membranes, No rhinorrhea Cardiovascular: Regular rate, Regular rhythm Respiratory: No distress, CTA bilaterally Abdomen: Soft, Nontender Back: Nontender, Normal Inspection Extremities: - - Not apparently tender to touch on exam. Patient noncompliant examination and will not plantarflex or dorsiflex against resistance. She will not raise her legs off of the bed during exam. Asked to sit up she was able to bring her feet up and sit herself up under her own strength. Skin: Normal color, No rash Neurological: Alert, Oriented x3 Psychological: Normal affect, Normal Mood Diagnostic/Tx/Re-eval Clinical Impression(s) from Imaging Studies Venous Duplex 12/10/19 19:38 IMPRESSION: Normal venous Doppler ultrasound of the bilateral lower extremities. Electronically Signed: Darian Chatterjee MD at 20:38 EDT , Service support , Chest X-Ray 12/10/19 22:58 IMPRESSION: Low lung volumes. No acute cardiopulmonary disease. at 2327 Reported and signed by: Diego Gomez MD Electronically Signed: Diego Gomez, at 23:26 EDT Tel , Service support , Laboratory Data 12/10/19 12/10/19 12/10/19 22:50 22:50 22:50 WBC 8.4 RBC 3.91 L Hgb 11.5 L Hct 35.1 L MCV 89.8 MCH 29.4 MCHC 32.8 RDW Std Deviation 45.1 H RDW Coeff of Inna 13.9 Plt Count 357 MPV 9.5 Immature Gran % (Auto) 1.000 H Neut % (Auto) 57.1 Lymph % (Auto) 25.7 Foster % (Auto) 14.7 H Eos % (Auto) 1.1 Baso % (Auto) 0.4 Absolute Neuts (auto) 4.8 Absolute Lymphs (auto) 2.15 Nucleated RBC % 0 Sodium 136 Potassium 3.0 L Chloride 105 Carbon Dioxide 22.0 Anion Gap 9 BUN 13 Creatinine 0.91 Estim Creat Clear Calc 83.73 Est GFR (MDRD) Af Amer 88 Est GFR (MDRD) Non-Af 73 BUN/Creatinine Ratio 14.3 Glucose 91 Calcium 8.3 L Total Bilirubin 0.60 AST 40 H ALT 40 Alkaline Phosphatase 102 Total Protein 6.3 L Albumin 2.6 L Globulin 3.7 Albumin/Globulin Ratio 0.7 L Urine Color Gabriela Urine Clarity Cloudy Urine pH 5.0 Ur Specific [place] 1.025 Urine Protein 30 H Urine Glucose (UA) Normal Urine Ketones 15 H Urine Occult Blood 250 H Urine Nitrite Positive H Urine Bilirubin 1 H Urine Urobilinogen 1 H Ur Leukocyte Esterase 500 H Urine RBC 10-25 SEEN Urine WBC 50-100 SEEN Ur Squamous Epith Cells 5-10 SEEN Urine Bacteria 3+ Urine Mucus 0 SEEN - Medical Decision Making 38-year-old female on her third trip to the ER for weakness of the legs. Today she is stating she is having pain in them as well. Her lab work-up yesterday was fairly unremarkable. She is concerned for DVT of her bilateral lower extremity duplexes are negative. After work-up and treating her with ibuprofen I did try to stand her and she was unable to walk due to weakness. At this point I did check repeat lab work, urinalysis, chest x-ray. Patient does have a urinary tract infection. She was treated with IV Rocephin. Urine culture was sent. Given the patient's weakness and UTI as well as multiple visits for similar symptoms I believe the patient needs to be admitted to the hospital for further treatment. Patient was amenable to this plan. Discussed with hospitalist and he will admit for further treatment. Impression: 1. Inability to ambulate secondary to weakness 2. Leg pain 3. UTI ED Disposition - Plan for ED Patient:
--- NOTE | 2019-12-10 19:38 | US_ITS ---
STUDY: VENOUS DOPPLER ULTRASOUND - BILATERAL LOWER EXTREMITIES REASON FOR EXAM: Female, 38 years old. bilat off and on mild pain for weeks, Pt cant walk..keeps falling TECHNIQUE: Ultrasound evaluation of the deep vein system to include raza-scale imaging and compression was performed. Raza-scale imaging and Doppler sonographic evaluation, including duplex spectral analysis and qualitative color flow sonography, was performed. COMPARISON: None. FINDINGS: RIGHT LEG Common Femoral Vein: Normal compression, spontaneity and augmentation. Normal color Doppler. Common Femoral Vein/Greater Saphenous Junction: Normal compression, spontaneity and augmentation. Normal color Doppler. Deep Femoral Vein: Normal compression, spontaneity and augmentation. Normal color Doppler. Femoral Proximal: Normal compression, spontaneity and augmentation. Normal color Doppler. Femoral Middle: Normal compression, spontaneity and augmentation. Normal color Doppler. Femoral Distal: Normal compression, spontaneity and augmentation. Normal color Doppler. Popliteal Vein: Normal compression, spontaneity and augmentation. Normal color Doppler. Posterior Tibial Vein: Normal compression, spontaneity and augmentation. Normal color Doppler. Peroneal Vein: Normal compression, spontaneity and augmentation. Normal color Doppler. LEFT LEG Common Femoral Vein: Normal compression, spontaneity and augmentation. Normal color Doppler. Common Femoral Vein/Greater Saphenous Junction: Normal compression, spontaneity and augmentation. Normal color Doppler. Deep Femoral Vein: Normal compression, spontaneity and augmentation. Normal color Doppler. Femoral Proximal: Normal compression, spontaneity and augmentation. Normal color Doppler. Femoral Middle: Normal compression, spontaneity and augmentation. Normal color Doppler. Femoral Distal: Normal compression, spontaneity and augmentation. Normal color Doppler. Popliteal Vein: Normal compression, spontaneity and augmentation. Normal color Doppler. Posterior Tibial Vein: Normal compression, spontaneity and augmentation. Normal color Doppler. Peroneal Vein: Normal compression, spontaneity and augmentation. Normal color Doppler. US/Venous Duplex Imag/Wilfredo Extrem IMPRESSION: Normal venous Doppler ultrasound of the bilateral lower extremities. Electronically Signed: Darian Chatterjee MD at 20:38 EDT , Service support ,
[2019-12-10 20:44] VITALS: RESP 16
[2019-12-10] MEDS: Ondansetron 4 MG/2 ML Vial IM (20:44)
[2019-12-10 22:04] VITALS: PULSE 104; RESP 16; O2SAT 100
[2019-12-10] MEDS: Ibuprofen 600 MG Tablet PO (22:15)
--- NOTE | 2019-12-10 22:58 | RAD_ITS ---
HISTORY: WEAKNESS EXAMINATION/TECHNIQUE: XR Chest 1 View: Portable COMPARISON: 12/09/2019 FINDINGS: No significant change. Limited inspiration with low lung volumes. Normal heart size. No focal infiltrate. No vascular congestion or pleural effusion. No pneumothorax. The bony thorax appears intact. RAD/Chest 1 View (Portable) IMPRESSION: Low lung volumes. No acute cardiopulmonary disease. at 2327 Reported and signed by: Diego Gomez MD Electronically Signed: Diego Gomez, at 23:26 EDT Tel , Service support ,
[2019-12-10 23:03] LABS: Mucous, Urine 0 SEEN /hpf (<or=2+)
[2019-12-10 23:04] LABS: Absolute Lymphocyte Count 2.15 X10^3/uL (0.83-4.51); Absolute Neutrophil Count 4.8 X10^3/uL (2.0-7.7); Basophil# 0.03 X10^3/uL; Basophil% 0.4 % (0-1); Eosinophil# 0.09 X10^3/uL; Eosinophils% 1.1 % (0-5); Hematocrit 35.1 % (37-47); Hemoglobin 11.5 g/dL (12.0-15.0); Lymphocyte # 2.15 X10^3/ul (4.0); Lymphocyte % 25.7 % (19-41); Mean Corp Hgb Conc 32.8 g/dL (32-36); Mean Corpuscular Hgb 29.4 pg (27.0-32.0); Mean Corpuscular Volume 89.8 fL (81-99); Mean Platelet Vol. 9.5 fl (6.2-12.0); Monocyte# 1.23 X10^3/uL; Monocyte% 14.7 % (0-10); NRBC Flagged by Analyzer 0 % (0-5); Neutrophil # 4.78 X10^3/uL (2.7-7.7); Neutrophil % 57.1 % (47-70); Platelet Count 357 K/mm3 (150-450); RBC Distribution Width CV 13.9 % (11.6-14.6); RBC Distribution Width SD 45.1 fl (35.1-43.9); Red Blood Count 3.91 M/mm3 (4.2-5.4); White Blood Count 8.4 K/mm3 (4.4-11.0)
[2019-12-10 23:05] LABS: Color, Urine Amber (Yellow); Glucose, Dipstick Normal (Normal); Ketone-Dipstick 15 mg/dl (Negative); Leukocyte Esterase-Dipstick 500 /ul (Negative); Nitrite-Dipstick Positive (Negative); Occult Blood-Urine 250 /ul (Negative); Protein-Dipstick 30 mg/dl (Negative); Specific Gravity, Urine 1.025 (1.002-1.030); Urine Bilirubin Dipstick 1 mg/dL (Negative); Urine Clarity Cloudy (Clear); Urine Urobilinogen 1 mg/dl (Normal)
[2019-12-10 23:14] LABS: Bacteria 3+ /hpf (None Seen); Red Blood Cells-Urine 10-25 SEEN /hpf (0-5); Squamous Epithelial Cells - UA 5-10 SEEN /hpf (5-10); White Blood Cells 50-100 SEEN /hpf (0-5)
[2019-12-10 23:25] LABS: ALB/GLOB Ratio 0.7 RATIO (0.9-2.4); AST(SGOT) 40 U/L (15-37); Alanine Aminotransfer ALT/SGPT 40 U/L (13-56); Albumin, Serum 2.6 g/dL (3.2-5.0); Alkaline Phosphatase 102 U/L (45-117); Anion Gap 9 (5-15); BUN 13 mg/dL (7-18); BUN/Creat Ratio 14.3 RATIO (10-20); Calcium,Total 8.3 mg/dL (8.5-10.1); Chloride 105 mmol/L (98-107); Creatinine, Serum 0.91 mg/dL (0.55-1.02); EST Glomerular Filtration Rate 73 mL/min (>60); Est Glom Filt Rate - Afr Amer 88 mL/min (>60); Estimated Creatinine Clearance 83.73 ml/min; Globulin 3.7 g/dL (2.2-4.2); Glucose 91 mg/dL (74-106); Protein, Total 6.3 g/dL (6.4-8.2); Sodium Level 136 mmol/L (136-145)
--- NOTE | 2019-12-10 23:31 | NURSING ---
BoyfriendRitchie called and updated about pt care. Ritchie is concerned that pt can not take care of herself at home and has been having freq falls.
--- NOTE | 2019-12-10 23:45 | PCM.HP.STD ---
Problem List (1) Bilateral leg weakness Status: Acute (2) GERD (gastroesophageal reflux disease) Status: Chronic (3) Seizure disorder Status: Chronic (4) MRDD Status: Chronic (5) Acute cystitis Status: Acute History of Present Illness Date of Admission: 12/10/19 Chief Complaint: bilateral leg pain The patient is a 38 year old F with a significant history of mental retardation; and seizure disorder who presents emergency department with excruciating nonradiating bilateral leg pain She described the pain as sharp. The pain is aggravated by moving and it is ameliorated by staying still. Patient was at the emergency department day a before presentation where she reported that she could not walk. Reportedly it was considered that patient may be having somatic disorder. However she could finally walk before being discharged. Reportedly patient's family thought the patient might of had a blood clot in his legs. Ultrasound of her legs at the emergency department was unremarkable for clots. On his presentation patient also reports increasing frequency of urination. She denies any burning with urination. Urinalysis was abnormal. Past Medical History Past Medical History (Chronic Problems): Chronic Problems (Last Reviewed 12/11/19 @ 03:[address] Ronak Mckinley MD) GERD (gastroesophageal reflux disease) (Chronic) Seizure disorder (Chronic) MRDD (Chronic) Medical History: Medical History (Last Reviewed 12/11/19 @ 03:[address] Ronak Mckinley MD) Seizures R56.9 Allergies Penicillins Allergy (Verified 12/09/19 19:08) Unknown tomato Adverse Reaction (Verified 12/09/19 19:08) Diarrhea Home Medications: Ambulatory Orders Medication Instructions Recorded Carbamazepine [Carbamazepine ER] 400 mg PO BID 08/13/19 Ergocalciferol (Vitamin D2) 50,000 unit PO MO 08/13/19 [Vitamin D2] Ferrous Sulfate 325 mg PO DAILY@0800 08/13/19 Lacosamide [Vimpat] 200 mg PO BID 08/13/19 Multivitamin [Daily Vitamin 1 tab PO DAILY 08/13/19 Formula] Omeprazole 20 mg PO DAILY 08/13/19 Sertraline HCl [Zoloft] 100 mg PO DAILY 08/13/19 Ondansetron [Zofran Odt] 4 mg PO Q8H PRN PRN #7 tab 11/22/19 ALPRAZolam [Xanax] 0.5 mg PO BID PRN PRN 11/25/19 Levetiracetam [Keppra] 500 mg PO BID 11/25/19 Potassium Cloride Effervescent 25 meq PO BID 11/25/19 [Potassium Chl 25 Meq Eff (For Liquid)] busPIRone [Buspar] 5 mg PO TID 11/25/19 proMETHazine tablet [Phenergan 25 mg PO Q8H PRN PRN 11/25/19 tablet] Surgical History: - - Recent left ankle fracture status post open reduction and internal fixation. 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 Denies: Chills, Fever, Weight Change HEENT: Denies: Head Aches, Sinus Congestion, Sinus Drainage Cardiovascular: Denies: Chest Pain, Palpitations Respiratory: Denies: Cough, Shortness of breath at rest, Sputum production Gastrointestinal: Denies: Abdominal Pain, Nausea, Vomiting Genitourinary: Reports: Frequency. Denies: Dysuria Musculoskeletal: Reports: Leg Pain. Denies: Joint Pain, Joint Tenderness Skin: Denies: Rash, Wounds Neurological: Denies: Numbness, Tingling, Focal weakness Psychiatric: Denies: Anxiety, Depression, Homicidal Ideations, Suicidal Ideations Hematologic/ Lymphatic: Denies: Easy Bruising, Easy Bleeding VTE Information - Inpt Only VTE Present on Admission: No VTE Mechan Device Prophylaxis: None VTE Pharm Prophylaxis ordered?: Yes Patient Problems: Active and Suspected Problems (Last Reviewed 12/11/19 @ 03:[address] Ronak Mckinley MD) Bilateral leg weakness (Acute) Acute cystitis (Acute) - Physical Exam Vitals/I&O's: Vital Signs Temp Pulse Resp BP Pulse Ox 97.9 F 104 H 16 119/94 H 100 12/10/19 18:44 12/10/19 22:04 12/10/19 22:04 12/10/19 18:44 12/10/19 22:04 Oxygen Delivery Method Room Air Weight: 111.9 kg Body Mass Index (BMI) 37.5 General: Alert, Oriented x3, Non-Cooperative HEENT: Atraumatic, PERRLA, EOMI, Normocephalic Neck: Supple, No JVD, Negative Carotid Bruits Lungs: Clear to auscultation, Normal air movement, No rhonchi, No wheeze, No rales Cardiovascular: Regular rate, Regular Rhythm, Normal S1, Normal S2, No murmurs Abdomen: Bowel Sounds Present, Soft, Non Tender Extremities: No edema, Capillary Refill Less than 3 Seconds Skin: No rashes, No breakdown Musculoskeletal: No Tenderness to Palpation of Joints or Extremities Neurological: Cranial nerves II-XII grossly intact Psych/Mental Status: Normal Affect, Appropriate Laboratory Results 12/10/19 22:50: WBC 8.4, RBC 3.91 L, Hgb 11.5 L, Hct 35.1 L, MCV 89.8, MCH 29.4, MCHC 32.8, RDW Std Deviation 45.1 H, RDW Coeff of Inna 13.9, Plt Count 357, MPV 9.5, Immature Gran % (Auto) 1.000 H, Neut % (Auto) 57.1, Lymph % (Auto) 25.7, Giles % (Auto) 14.7 H, Eos % (Auto) 1.1, Baso % (Auto) 0.4, Absolute Neuts (auto) 4.8, Absolute Lymphs (auto) 2.15, Nucleated RBC % 0 12/10/19 22:50: Sodium 136, Potassium 3.0 L, Chloride 105, Carbon Dioxide 22.0, Anion Gap 9, BUN 13, Creatinine 0.91, Estim Creat Clear Calc 83.73, Est GFR (MDRD) Af Amer 88, Est GFR (MDRD) Non-Af 73, BUN/Creatinine Ratio 14.3, Glucose 91, Calcium 8.3 L, Total Bilirubin 0.60, AST 40 H, ALT 40, Alkaline Phosphatase 102, Total Protein 6.3 L, Albumin 2.6 L, Globulin 3.7, Albumin/Globulin Ratio 0.7 L 12/10/19 22:50: Urine Color Gabriela, Urine Clarity Cloudy, Urine pH 5.0, Ur Specific [facility] [place] 1.025, Urine Protein 30 H, Urine Glucose (UA) Normal, Urine Ketones 15 H, Urine Occult Blood 250 H, Urine Nitrite Positive H, Urine Bilirubin 1 H, Urine Urobilinogen 1 H, Ur Leukocyte Esterase 500 H, Urine RBC 10-25 SEEN, Urine WBC 50-100 SEEN, Ur Squamous Epith Cells 5-10 SEEN, Urine Bacteria 3+, Urine Mucus 0 SEEN Current Medications Ceftriaxone Sodium (Rocephin) 1 gm in 50 mls @ 100 mls/hr IV X1 ONE Stop: 12/11/19 00:07 Sodium Chloride () 1,000 mls @ 999 mls/hr IV .Q1H1M ONE Stop: 12/11/19 00:39 Assessment/Plan All Active Problems (Last Reviewed 12/11/19 @ 03:[address] Ronak Mckinley MD) Cholecystitis, acute with cholelithiasis (Resolved) Bilateral leg weakness (Acute) Acute cystitis (Acute) The patient is a 38 year old F with a significant history of mental retardation; and seizure disorder who presents emergency department with excruciating nonradiating bilateral leg pain; increase frequency of urination was found to have abnormal urinalysis. Acute cystitis Ceftriaxone was given at emergency department and continued. Trend CBC and BMP. Follow urine culture. Hypokalemia Cannot rule out hypokalemic periodic paralysis. P.o. and IV potassium ordered Check magnesium level. Home potassium supplementation continued. Trend BMP. Generalized weakness PT and OT to work with patient. Treatment of hypokalemia and cystitis as above Seizure disorder Continue home seizure medications. DVT prophylaxis Subcutaneous Lovenox. Inpatient E&M: [id number] Init Hosp L3
[2019-12-11] VITALS (7 sets, daily range): BP systolic 112–141; BP diastolic 63–100; PULSE 80–109; RESP 16–20; TEMP 36.2–36.9; O2SAT 94–100; BMI 36.3; BMI 36.4
[2019-12-11] MEDS: 0.9% Normal Saline 1,000 ML 999 ML IV (00:19)
[2019-12-11] MEDS: Ceftriaxone 1 GM/50 ML BAG IV ×2 (00:19→21:40)
[2019-12-11] MEDS: Acetaminophen 325 MG Tablet 650 MG PO (01:40)
[2019-12-11] MEDS: Potassium Chloride 10mEq/100mL 10 MEQ/100 ML IV.SOLN. 100 MEQ IV BOLUS ×4 (01:40→05:34)
[2019-12-11] MEDS: Ondansetron ODT 4 MG Tablet PO (04:14)
[2019-12-11] MEDS: ALPRAZolam 0.5 MG Tablet PO (04:14)
[2019-12-11] MEDS: busPIRone 5 MG Tablet PO ×3 (05:34→21:45)
[2019-12-11] MEDS: 0.9% Saline Lock 10 ML Syringe IV ×2 (06:43→17:48)
[2019-12-11 07:10] LABS: Absolute Lymphocyte Count 1.81 X10^3/uL (0.83-4.51); Absolute Neutrophil Count 4.8 X10^3/uL (2.0-7.7); Basophil# 0.02 X10^3/uL; Basophil% 0.3 % (0-1); Eosinophil# 0.09 X10^3/uL; Eosinophils% 1.1 % (0-5); Hematocrit 31.4 % (37-47); Hemoglobin 10.6 g/dL (12.0-15.0); Lymphocyte # 1.81 X10^3/ul (4.0); Lymphocyte % 22.9 % (19-41); Mean Corp Hgb Conc 33.8 g/dL (32-36); Mean Corpuscular Hgb 29.3 pg (27.0-32.0); Mean Corpuscular Volume 86.7 fL (81-99); Mean Platelet Vol. 9.4 fl (6.2-12.0); Monocyte# 1.13 X10^3/uL; Monocyte% 14.3 % (0-10); NRBC Flagged by Analyzer 0 % (0-5); Neutrophil # 4.78 X10^3/uL (2.7-7.7); Neutrophil % 60.3 % (47-70); Platelet Count 344 K/mm3 (150-450); RBC Distribution Width CV 13.5 % (11.6-14.6); RBC Distribution Width SD 42.5 fl (35.1-43.9); Red Blood Count 3.62 M/mm3 (4.2-5.4); White Blood Count 7.9 K/mm3 (4.4-11.0)
[2019-12-11 07:29] LABS: Anion Gap 11 (5-15); BUN 12 mg/dL (7-18); BUN/Creat Ratio 15.4 RATIO (10-20); Calcium,Total 7.6 mg/dL (8.5-10.1); Chloride 104 mmol/L (98-107); Creatinine, Serum 0.78 mg/dL (0.55-1.02); EST Glomerular Filtration Rate 87 mL/min (>60); Est Glom Filt Rate - Afr Amer 106 mL/min (>60); Estimated Creatinine Clearance 97.68 ml/min; Glucose 83 mg/dL (74-106); Magnesium 1.5 mg/dL (1.6-2.6); Potassium 3.3 mmol/L (3.5-5.1); Sodium Level 139 mmol/L (136-145)
--- NOTE | 2019-12-11 08:11 | NURSING ---
This nurse called into room by slubber hand for didier that pt was worried she was having a seizure. Pt states she is shaking. Fingers/hands tremors noted. Pt agitated/upset. Raising voice. I want to go home:. the last time I was here I had diarrhea and vomiting and I went home and I was fine. Explained to pt that it is not up to this nurse to send her home and to talk to doctor this morning about concern but also tried to explain importance of staying b/c of diarrhea. Pt has not been vomiting, just nausea. This nurse asked if pt was anxious about being here, pt raised voice, No!
[2019-12-11] MEDS: levETIRAcetam 500 MG Tablet PO ×2 (08:18→21:46)
[2019-12-11] MEDS: Enoxaparin 40 MG/0.4 ML Syringe SC (08:19)
[2019-12-11] MEDS: proMETHazine 25 MG Tablet PO (08:25)
[2019-12-11] MEDS: Lacosamide 100 MG Tablet 200 MG PO ×2 (08:26→21:49)
--- NOTE | 2019-12-11 11:13 | DCINST_ITS ---
- Discharge Diagnoses Current Active Problems: Current Active and Chronic Problems (Last Reviewed 12/11/19 @ 03:[address] Ronak Mckinley MD) Bilateral leg weakness (Acute) Acute cystitis (Acute) Reason(s) for Visit for Discharge Instructions: Weakness You will use the following diet at home:: Regular Your food should be the consistency of: Regular Your liquids should be the consistency of: Regular/Thin Discharge Activity: Return to Normal Activity, Use Walker Instructions: ED Weakness [facility] Allergies/Adverse Reactions: Allergies Penicillins Allergy (Verified 12/09/19 19:08) Unknown tomato Adverse Reaction (Verified 12/09/19 19:08) Diarrhea Medications to take at Discharge Carbamazepine [Carbamazepine ER] 400 mg PO BID 08/13/19 Ergocalciferol (Vitamin D2) [Vitamin D2] 50,000 unit PO MO 08/13/19 Ferrous Sulfate 325 mg PO DAILY@0800 08/13/19 Lacosamide [Vimpat] 200 mg PO BID 08/13/19 Multivitamin [Daily Vitamin Formula] 1 tab PO DAILY 08/13/19 Omeprazole 20 mg PO DAILY 08/13/19 Sertraline HCl [Zoloft] 100 mg PO DAILY 08/13/19 Ondansetron [Zofran Odt] 4 mg PO Q8H PRN PRN #7 tab 11/22/19 ALPRAZolam [Xanax] 0.5 mg PO BID PRN PRN 11/25/19 Levetiracetam [Keppra] 500 mg PO BID 11/25/19 Potassium Cloride Effervescent [Potassium Chl 25 Meq Eff (For Liquid)] 25 meq PO BID 11/25/19 busPIRone [Buspar] 5 mg PO TID 11/25/19 proMETHazine tablet [Phenergan tablet] 25 mg PO Q8H PRN PRN 11/25/19 Cefdinir [Omnicef [equiv]] 300 mg PO Q12H 7 Days #14 cap 12/11/19 Potassium Chloride [Klor-Con] 20 meq PO DAILY 5 Days #5 packet 12/11/19 The following prescriptions were given: Potassium Chloride [Klor-Con] 20 meq PO DAILY 5 Days #5 packet Transmission Status: Received by [facility] - [place] - [address] Cefdinir [Omnicef [equiv]] 300 mg PO Q12H 7 Days #14 cap Transmission Status: Received by [facility] - [place] - [address] Primary Care Physician: Erwin Orozco MD [Primary Care Provider] - Please follow up with your Primary Care Physician in: within 1-2 weeks Test Results: Test results from this visit will be discussed in further detail at your follow- up appointment, if applicable. Proposed Discharge Date: 12/11/19
[2019-12-11] MEDS: Menthol/Lanolin/Calamine/Znox 113 GM Tube 1 APPLIC TOPICAL ×2 (11:27→21:45)
[2019-12-11] MEDS: Potassium Chloride 40 MEQ in 0.9% Normal Saline 1,000 ML 100 MEQ IV (11:27)
--- NOTE | 2019-12-11 11:36 | CASEMGMT ---
Readmission Review: Pt w/MRDD, epilepsy, GERD with recent admission 11/24 thru 11/28 for acute cholecystitis for which she underwent a laparoscopic cholecystectomy. Pt was discharged to home with her boyfriend and resumption of previous services including and PT/OT through [facility], hvac services professional Liliana through the [employer], and KASSANDRA Soto. Pt also attends the [employer] daily. Pt had recent stay prior at [facility] s/p a right ankle fx requiring ORIF. Pt seen in the ED on 12/01 dx: Status epilepticus and required transfer to [facility]. Pt returned to the ED on 12/08 with c/o weakness and falls. Noted pt was seen by ED SW and referral made to the [facility] for potential psychiatric etiology. Pt readmitted on 12/09 with c/o leg pain and weakness with identified acute cystitis and hypokalemia being treated. PT and OT are ordered, assessments pending at this time. Literature Professor ([employer]): Liliana Ortega [phone] Brittany (KASSANDRA): [phone] Will review PT/OT evaluation when available for further discharge plan needs. Jake Flower RN CM
--- NOTE | 2019-12-11 12:02 | NURSING ---
This nurse is on the phone with Aby Dugan. Ritchie very frustrated with patient falling at home and now is aware that pt has orders for discharge. pt is requesting pt go somewhere because she falls all the time. Explained that Paula from Social Work is currently talking to pt and will call him back.
--- NOTE | 2019-12-11 12:25 | RAD_ITS ---
STUDY: X-RAY - RIGHT ANKLE REASON FOR EXAM: Female, 38 years old. Recent ankle surgery, continued pain in right ankle. TECHNIQUE: 3 view(s) of the ankle. COMPARISON: Comparison is made with prior examination dated 08/14/2019. FINDINGS: The patient is status post open reduction and internal fixation of the distal fibula as well as the medial malleolus. There is good alignment. Normal tibiotalar articulation and ankle mortise. Normal visualized talus and calcaneus. The visualized subtalar, talonavicular, calcaneocuboid and tarsal articulations are normal. Soft tissue swelling. RAD/Ankle min 3 Views IMPRESSION: Soft tissue swelling. Status post ORIF of the distal fibula and medial malleolus of the distal tibia. Electronically Signed: Doe Enriquez, at 12:44 EDT , Service support ,
--- NOTE | 2019-12-11 12:43 | PHA.DC.MR ---
Pharmacy Service has performed discharge medication reconciliation for this patient. The patient's discharge medication list was reviewed for discrepancies and discrepancies were resolved. Home Medications Carbamazepine [Carbamazepine ER] 400 mg PO BID 08/13/19 Ergocalciferol (Vitamin D2) [Vitamin D2] 50,000 unit PO MO 08/13/19 Ferrous Sulfate 325 mg PO DAILY@0800 08/13/19 Lacosamide [Vimpat] 200 mg PO BID 08/13/19 Multivitamin [Daily Vitamin Formula] 1 tab PO DAILY 08/13/19 Omeprazole 20 mg PO DAILY 08/13/19 Sertraline HCl [Zoloft] 100 mg PO DAILY 08/13/19 Ondansetron [Zofran Odt] 4 mg PO Q8H PRN PRN #7 tab 11/22/19 ALPRAZolam [Xanax] 0.5 mg PO BID PRN PRN 11/25/19 Levetiracetam [Keppra] 500 mg PO BID 11/25/19 Potassium Cloride Effervescent [Potassium Chl 25 Meq Eff (For Liquid)] 25 meq PO BID 11/25/19 busPIRone [Buspar] 5 mg PO TID 11/25/19 proMETHazine tablet [Phenergan tablet] 25 mg PO Q8H PRN PRN 11/25/19 Cefdinir [Omnicef [equiv]] 300 mg PO Q12H 7 Days #14 cap 12/11/19 Potassium Chloride [Klor-Con] 20 meq PO DAILY 5 Days #5 packet 12/11/19
[2019-12-11] MEDS: Ondansetron 4 MG/2 ML Vial IV (13:14)
[2019-12-11] MEDS: carBAMazepine 200 MG Tablet PO ×3 (13:24→21:46)
--- NOTE | 2019-12-11 14:13 | PN_ITS ---
Patient Problems: Active and Suspected Problems (Last Reviewed 12/11/19 @ 03:[address] Ronak Mckinley MD) Bilateral leg weakness (Acute) Acute cystitis (Acute) Reason for Visit: Follow-up on bilateral leg pain Subjective: Patient was seen and examined by PT and OT. At the end of the session, patient reportedly had a fall. It was not mechanical. It was witnessed with no trauma to the head. Patient complained of right ankle pain, at the site of the previous surgery. She was also reported to have vomited. Objective: Physical exam: General: Alert, Oriented x3, Non-Cooperative, obese HEENT: Atraumatic, PERRLA, EOMI, Normocephalic Neck: Supple, No JVD, Negative Carotid Bruits Lungs: Clear to auscultation, Normal air movement, No rhonchi, No wheeze, No rales Cardiovascular: Regular rate, Regular Rhythm, Normal S1, Normal S2, No murmurs Abdomen: Bowel Sounds Present, Soft, Non Tender Extremities: No edema, Capillary Refill Less than 3 Seconds Skin: No rashes, No breakdown Musculoskeletal: No Tenderness to Palpation of Joints or Extremities Neurological: Cranial nerves II-XII grossly intact Psych/Mental Status: Normal Affect, Appropriate Vitals/I&O's: Vital Signs Temp Pulse Resp BP Pulse Ox 98.0 F 109 H 20 H 136/78 H 100 12/11/19 08:15 12/11/19 08:15 12/11/19 08:15 12/11/19 08:15 12/11/19 08:15 Oxygen Delivery Method Room Air Weight: 108.9 kg Body Mass Index (BMI) 36.3 Intake and Output for Last 24 Hours 12/09/19 12/10/19 12/11/19 23:59 23:59 23:59 Intake Total 1965.00 / 1965.00 Output Total 300 / 300 Balance 1665.00 / 1665.00 Microbiology Past 72 Hours 12/10/19 22:50 Urine Catheter - Catheter Urine Culture - Preliminary Gram negative flaquita Laboratory Results 12/10/19 22:50: WBC 8.4, RBC 3.91 L, Hgb 11.5 L, Hct 35.1 L, MCV 89.8, MCH 29.4, MCHC 32.8, RDW Std Deviation 45.1 H, RDW Coeff of Inna 13.9, Plt Count 357, MPV 9.5, Immature Gran % (Auto) 1.000 H, Neut % (Auto) 57.1, Lymph % (Auto) 25.7, Robertson % (Auto) 14.7 H, Eos % (Auto) 1.1, Baso % (Auto) 0.4, Absolute Neuts (auto) 4.8, Absolute Lymphs (auto) 2.15, Nucleated RBC % 0 12/10/19 22:50: Sodium 136, Potassium 3.0 L, Chloride 105, Carbon Dioxide 22.0, Anion Gap 9, BUN 13, Creatinine 0.91, Estim Creat Clear Calc 83.73, Est GFR (MDRD) Af Amer 88, Est GFR (MDRD) Non-Af 73, BUN/Creatinine Ratio 14.3, Glucose 91, Calcium 8.3 L, Total Bilirubin 0.60, AST 40 H, ALT 40, Alkaline Phosphatase 102, Total Protein 6.3 L, Albumin 2.6 L, Globulin 3.7, Albumin/Globulin Ratio 0.7 L 12/10/19 22:50: Urine Color Gabriela, Urine Clarity Cloudy, Urine pH 5.0, Ur Specific [place] 1.025, Urine Protein 30 H, Urine Glucose (UA) Normal, Urine Ketones 15 H, Urine Occult Blood 250 H, Urine Nitrite Positive H, Urine Bilirubin 1 H, Urine Urobilinogen 1 H, Ur Leukocyte Esterase 500 H, Urine RBC 10-25 SEEN, Urine WBC 50-100 SEEN, Ur Squamous Epith Cells 5-10 SEEN, Urine Bacteria 3+, Urine Mucus 0 SEEN 12/11/19 06:25: WBC 7.9, RBC 3.62 L, Hgb 10.6 L, Hct 31.4 L, MCV 86.7, MCH 29.3, MCHC 33.8, RDW Std Deviation 42.5, RDW Coeff of Inna 13.5, Plt Count 344, MPV 9.4, Immature Gran % (Auto) 1.100 H, Neut % (Auto) 60.3, Lymph % (Auto) 22.9, Robertson % (Auto) 14.3 H, Eos % (Auto) 1.1, Baso % (Auto) 0.3, Absolute Neuts (auto) 4.8, Absolute Lymphs (auto) 1.81, Nucleated RBC % 0 12/11/19 06:25: Sodium 139, Potassium 3.3 L, Chloride 104, Carbon Dioxide 24.0, Anion Gap 11, BUN 12, Creatinine 0.78, Estim Creat Clear Calc 97.68, Est GFR (MDRD) Af Amer 106, Est GFR (MDRD) Non-Af 87, BUN/Creatinine Ratio 15.4, Glucose 83, Calcium 7.6 L, Magnesium 1.5 L Current Medications Acetaminophen (Tylenol) 650 mg PO Q6H PRN PRN PRN Reason: Pain Score 1-10/Temp > 100.7 F Last Admin: 12/11/19 01:40 Dose: 650 mg Documented by: Alprazolam (Xanax) 0.5 mg PO BID PRN PRN PRN Reason: ANXIETY Last Admin: 12/11/19 04:14 Dose: 0.5 mg Documented by: Buspirone HCl (Buspar) 5 mg PO TID [facility] Last Admin: 12/11/19 13:24 Dose: 5 mg Documented by: Calamine/Phenol (Calmoseptine Ointment) 1 applic TOPICAL BID [facility]; Protocol Last Admin: 12/11/19 11:27 Dose: 1 applicatio Documented by: [facility] ([facility]) [facility] Last Admin: 12/11/19 13:24 Dose: 200 mg Documented by: Enoxaparin Sodium (Lovenox) 40 mg SC DAILY [facility] Last Admin: 12/11/19 08:19 Dose: 40 mg Documented by: Ergocalciferol (Vitamin D) 50,000 unit PO MO [facility] Ferrous Sulfate (Ferrous Sulfate) 325 mg PO DAILY@0800 [facility] Last Admin: 12/11/19 08:18 Dose: Not Given Documented by: Ceftriaxone Sodium (Rocephin) 1 gm in 50 mls @ 100 mls/hr IV Q24@2200 [facility] Potassium Chloride 40 meq/ (Sodium Chloride) 1,020 mls @ 100 mls/hr IV .[id number] [facility] Last Infusion: 12/11/19 13:25 Dose: 0 mls/hr Documented by: Lacosamide (Vimpat) 200 mg PO BID [facility] Last Admin: 12/11/19 08:26 Dose: 200 mg Documented by: Levetiracetam (Keppra Tablet) 500 mg PO BID [facility] Last Admin: 12/11/19 08:18 Dose: 500 mg Documented by: Melatonin (Melatonin) 3 mg PO QHS PRN PRN PRN Reason: INSOMNIA Multivitamins (Multivitamin) [facility] Last Admin: 12/11/19 08:18 Dose: Not Given Documented by: Nutritional Formula (Lactose Free) (Ensure Enlive) 120 ml PO 4X/DAY [facility] Last Admin: 12/11/19 13:24 Dose: Not Given Documented by: Ondansetron HCl (Zofran) 4 mg IV Q8H PRN PRN PRN Reason: NAUSEA/VOMITING Last Admin: 12/11/19 13:14 Dose: 4 mg Documented by: Ondansetron HCl (Zofran Odt) 4 mg PO Q8H PRN PRN PRN Reason: NAUSEA Last Admin: 12/11/19 04:14 Dose: 4 mg Documented by: Pantoprazole Sodium (Protonix) 20 mg PO DAILY [facility] Last Admin: 12/11/19 08:18 Dose: Not Given Documented by: Potassium Chloride (K-Dur) [facility]q [facility] Last Admin: 12/11/19 08:17 Dose: Not Given Documented by: Promethazine HCl (Phenergan Tablet) 25 mg PO Q8H PRN PRN PRN Reason: NAUSEA/VOMITING Last Admin: 12/11/19 08:25 Dose: 25 mg Documented by: Sertraline HCl (Zoloft) 100 mg PO DAILY [facility] Last Admin: 12/11/19 08:32 Dose: Not Given Documented by: Sodium Chloride () 10 - 40 ml IV UD PRN PRN Reason: SALINE FLUSH Last Admin: 12/11/19 06:43 Dose: 10 ml Documented by: Medical Necessity - Tobacco Use Smoking Status: Never smoker Assessment/Plan All Active Problems (Last Reviewed 12/11/19 @ 03:[address] Ronak Mckinley MD) Cholecystitis, acute with cholelithiasis (Resolved) Bilateral leg weakness (Acute) Acute cystitis (Acute) 1. Acute gram-negative flaquita UTI, on IV ceftriaxone, Follow-up on sensitivities 2. Hypokalemia/hypomagnesemia, replace, recheck in a.m. 3. Debility, unclear etiology, PT and OT to evaluate and treat 4. Seizure disorder, continue on Vimpat, Keppra, Tegretol 5. MRDD/anxiety/depression, stable, continue on Zoloft, BuSpar 6. DVT PPx- Lovenox SC Inpatient E&M: 21841 Subs Hosp L2
--- NOTE | 2019-12-11 14:24 | PCM.CONS.GEN ---
Problem List (1) Pain of left lower extremity Status: Acute (2) Bilateral leg weakness Status: Acute (3) MRDD Status: Chronic (4) Pain of right lower extremity Status: Acute Reason for Consult Date of Consultation: 12/11/19 Reason for Consultation: Bilateral foot and ankle pain History of Present Illness: The patient is a 38 year old F was admitted for bilateral lower extremity weakness and discomfort and also for disruption of normal urinary habits. I have seen her bedside this afternoon for bilateral foot and ankle pain. She does have a history of open reduction internal fixation that I performed on August 14, 2019 on the right ankle with additional syndesmosis repair. She relates her right foot hurts more than the left side. She does also have a history of left fibula avulsion fracture in early August 2019 that was treated with conservative care. She was working with [facility] she disrupted her right foot. She is participating in a very minimal manner during the exam this afternoon and she does have a history of MRDD and seizure disorder that may be contributing to this behavior. She missed her follow-up [facility]. She relates she has not been walking with her cam walker boot as advised or even wearing shoes. She resides at home with her boyfriend at this time and tries to ambulate with socks only. She also tries to use a walker at times.She denies other recent traumatic incident however relates ongoing difficulty with putting weight on both lower extremities. Past Medical History Past Medical History (Chronic Problems): Chronic Problems (Last Reviewed 12/11/19 @ 03:[address] Ronak Mckinley MD) GERD (gastroesophageal reflux disease) (Chronic) Seizure disorder (Chronic) MRDD (Chronic) Medical History: Medical History (Last Reviewed 12/11/19 @ 03:[address] Ronak Mckinley MD) Seizures R56.9 Allergies Penicillins Allergy (Verified 12/09/19 19:08) Unknown tomato Adverse Reaction (Verified 12/09/19 19:08) Diarrhea Home Medications: Ambulatory Orders Medication Instructions Recorded Carbamazepine [Carbamazepine ER] 400 mg PO BID 08/13/19 Ergocalciferol (Vitamin D2) 50,000 unit PO MO 08/13/19 [Vitamin D2] Ferrous Sulfate 325 mg PO DAILY@0800 08/13/19 Lacosamide [Vimpat] 200 mg PO BID 08/13/19 Multivitamin [Daily Vitamin 1 tab PO DAILY 08/13/19 Formula] Omeprazole 20 mg PO DAILY 08/13/19 Sertraline HCl [Zoloft] 100 mg PO DAILY 08/13/19 Ondansetron [Zofran Odt] 4 mg PO Q8H PRN PRN #7 tab 11/22/19 ALPRAZolam [Xanax] 0.5 mg PO BID PRN PRN 11/25/19 Levetiracetam [Keppra] 500 mg PO BID 11/25/19 Potassium Cloride Effervescent 25 meq PO BID 11/25/19 [Potassium Chl 25 Meq Eff (For Liquid)] busPIRone [Buspar] 5 mg PO TID 11/25/19 proMETHazine tablet [Phenergan 25 mg PO Q8H PRN PRN 11/25/19 tablet] Cefdinir [Omnicef [equiv]] 300 mg PO Q12H 7 Days #14 cap 12/11/19 Potassium Chloride [Klor-Con] 20 meq PO DAILY 5 Days #5 packet 12/11/19 Surgical History: - - right ankle fracture status post open reduction and internal fixation (08-14-2019) Psychiatric History: Depression 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 Denies: Numbness Hematologic/ Lymphatic: Reports: Easy Bruising Patient Problems: Active and Suspected Problems (Last Reviewed 12/11/19 @ 03:[address] Ronak Mckinley MD) Bilateral leg weakness (Acute) Acute cystitis (Acute) Right leg pain (Acute) Pain of left lower extremity (Acute) Pain of right lower extremity (Acute) - Physical Exam Vitals/I&O's: Vital Signs Temp Pulse Resp BP Pulse Ox 98.0 F 109 H 20 H 136/78 H 100 12/11/19 08:15 12/11/19 08:15 12/11/19 08:15 12/11/19 08:15 12/11/19 08:15 Oxygen Delivery Method Room Air Weight: 108.9 kg Body Mass Index (BMI) 36.3 Intake and Output for Last 24 Hours 12/09/19 12/10/19 12/11/19 23:59 23:59 23:59 Intake Total 1965.00 / 1965.00 Output Total 300 / 300 Balance 1665.00 / 1665.00 General: Alert, Cooperative, Lethargic - Intermittent cooperation HEENT: Atraumatic Extremities: No cyanosis, Capillary Refill Less than 3 Seconds - All digits bilateral lower extremities, No Calf Tenderness - Negative Magdalene and Baum signs bilateral. Compartments are soft to palpate bilateral lower extremities, Edema - Bilateral lower extremity is consistent with prior examinations and overall reduced compared to postoperative setting in the right lower extremity, Peripheral Pulses Normal Skin: Incision - Medial lateral right ankle healed cicatrix without inflammatory changes., - - There is no skin discontinuity erythema streaking bogginess, fluctuance on palpation, or necrosis bilateral lower extremities. No interdigital maceration bilateral. There is ecchymosis to the dorsal proximal lesser digits and extending onto the forefoot that is violaceous in color and appears new. No additional ecchymosis patterns are noted Musculoskeletal: - - Active range of motion digits x10. She complains of diffuse pain on palpation at nearly every site palpated. However she does appear to withdrawal discomfort when palpating the lesser digits on the right lower extremity and forefoot. There is no skin tenting bilateral lower extremities. There is no laxity noted with ankle stress test including anterior drawer sign or passive inversion eversion of the right lower extremity or left lower extremity. She does also have continued verbal discomfort while palpating the left ankle and foot as well. Neurological: Sensory exam intact to light touch and pain - Equal and symmetrical to lower extremity dermatomes Psych/Mental Status: Agitated, - - Lack of interaction with exam is noted Microbiology Past 72 Hours 12/10/19 22:50 Urine Catheter - Catheter Urine Culture - Preliminary Gram negative flaquita Laboratory Results 12/10/19 22:50: WBC 8.4, RBC 3.91 L, Hgb 11.5 L, Hct 35.1 L, MCV 89.8, MCH 29.4, MCHC 32.8, RDW Std Deviation 45.1 H, RDW Coeff of Inna 13.9, Plt Count 357, MPV 9.5, Immature Gran % (Auto) 1.000 H, Neut % (Auto) 57.1, Lymph % (Auto) 25.7, [place] % (Auto) 14.7 H, Eos % (Auto) 1.1, Baso % (Auto) 0.4, Absolute Neuts (auto) 4.8, Absolute Lymphs (auto) 2.15, Nucleated RBC % 0 12/10/19 22:50: Sodium 136, Potassium 3.0 L, Chloride 105, Carbon Dioxide 22.0, Anion Gap 9, BUN 13, Creatinine 0.91, Estim Creat Clear Calc 83.73, Est GFR (MDRD) Af Amer 88, Est GFR (MDRD) Non-Af 73, BUN/Creatinine Ratio 14.3, Glucose 91, Calcium 8.3 L, Total Bilirubin 0.60, AST 40 H, ALT 40, Alkaline Phosphatase 102, Total Protein 6.3 L, Albumin 2.6 L, Globulin 3.7, Albumin/Globulin Ratio 0.7 L 12/10/19 22:50: Urine Color Gabriela, Urine Clarity Cloudy, Urine pH 5.0, Ur Specific [place] 1.025, Urine Protein 30 H, Urine Glucose (UA) Normal, Urine Ketones 15 H, Urine Occult Blood 250 H, Urine Nitrite Positive H, Urine Bilirubin 1 H, Urine Urobilinogen 1 H, Ur Leukocyte Esterase 500 H, Urine RBC 10-25 SEEN, Urine WBC 50-100 SEEN, Ur Squamous Epith Cells 5-10 SEEN, Urine Bacteria 3+, Urine Mucus 0 SEEN 12/11/19 06:25: WBC 7.9, RBC 3.62 L, Hgb 10.6 L, Hct 31.4 L, MCV 86.7, MCH 29.3, MCHC 33.8, RDW Std Deviation 42.5, RDW Coeff of Inna 13.5, Plt Count 344, MPV 9.4, Immature Gran % (Auto) 1.100 H, Neut % (Auto) 60.3, Lymph % (Auto) 22.9, [place] % (Auto) 14.3 H, Eos % (Auto) 1.1, Baso % (Auto) 0.3, Absolute Neuts (auto) 4.8, Absolute Lymphs (auto) 1.81, Nucleated RBC % 0 12/11/19 06:25: Sodium 139, Potassium 3.3 L, Chloride 104, Carbon Dioxide 24.0, Anion Gap 11, BUN 12, Creatinine 0.78, Estim Creat Clear Calc 97.68, Est GFR (MDRD) Af Amer 106, Est GFR (MDRD) Non-Af 87, BUN/Creatinine Ratio 15.4, Glucose 83, Calcium 7.6 L, Magnesium 1.5 L Current Medications Acetaminophen (Tylenol) 650 mg PO Q6H PRN PRN PRN Reason: Pain Score 1-10/Temp > 100.7 F Last Admin: 12/11/19 01:40 Dose: 650 mg Documented by: Alprazolam (Xanax) 0.5 mg PO BID PRN PRN PRN Reason: ANXIETY Last Admin: 12/11/19 04:14 Dose: 0.5 mg Documented by: Buspirone HCl (Buspar) 5 mg PO TID [facility] Last Admin: 12/11/19 13:24 Dose: 5 mg Documented by: Calamine/Phenol (Calmoseptine Ointment) 1 applic TOPICAL BID [facility]; Protocol Last Admin: 12/11/19 11:27 Dose: 1 applicatio Documented by: Carbamazepine ([facility]eg[facility]) [facility] Last Admin: 12/11/19 13:24 Dose: 200 mg Documented by: Enoxaparin Sodium (Lovenox) 40 mg SC DAILY [facility] Last Admin: 12/11/19 08:19 Dose: 40 mg Documented by: Ergocalciferol (Vitamin D) 50,000 unit PO MO [facility] Ferrous Sulfate (Ferrous Sulfate) 325 mg PO DAILY@0800 [facility] Last Admin: 12/11/19 08:18 Dose: Not Given Documented by: Ceftriaxone Sodium (Rocephin) 1 gm in 50 mls @ 100 mls/hr IV Q24@2200 [facility] Potassium Chloride 40 meq/ (Sodium Chloride) 1,020 mls @ 100 mls/hr IV .[id number] [facility] Last Infusion: 12/11/19 13:25 Dose: 0 mls/hr Documented by: Lacosamide (Vimpat) 200 mg PO BID [facility] Last Admin: 12/11/19 08:26 Dose: 200 mg Documented by: Levetiracetam (Keppra Tablet) 500 mg PO BID [facility] Last Admin: 12/11/19 08:18 Dose: 500 mg Documented by: Melatonin (Melatonin) 3 mg PO QHS PRN PRN PRN Reason: INSOMNIA Multivitamins ([facility]ivitamin) [facility] Last Admin: 12/11/19 08:18 Dose: Not Given Documented by: Nutritional Formula (Lactose Free) (Ensure Enlive) 120 ml PO 4X/DAY [facility] Last Admin: 12/11/19 13:24 Dose: Not Given Documented by: Ondansetron HCl (Zofran) 4 mg IV Q8H PRN PRN PRN Reason: NAUSEA/VOMITING Last Admin: 12/11/19 13:14 Dose: 4 mg Documented by: Ondansetron HCl (Zofran Odt) 4 mg PO Q8H PRN PRN PRN Reason: NAUSEA Last Admin: 12/11/19 04:14 Dose: 4 mg Documented by: Pantoprazole Sodium (Protonix) 20 mg PO DAILY [facility] Last Admin: 12/11/19 08:18 Dose: Not Given Documented by: Potassium Chloride (K-Dur) [facility] Last Admin: 12/11/19 08:17 Dose: Not Given Documented by: Promethazine HCl (Phenergan Tablet) 25 mg PO Q8H PRN PRN PRN Reason: NAUSEA/VOMITING Last Admin: 12/11/19 08:25 Dose: 25 mg Documented by: Sertraline HCl (Zoloft) 100 mg PO DAILY [facility] Last Admin: 12/11/19 08:32 Dose: Not Given Documented by: Sodium Chloride () 10 - 40 ml IV UD PRN PRN Reason: SALINE FLUSH Last Admin: 12/11/19 06:43 Dose: 10 ml Documented by: Assessment/Plan All Active Problems (Last Reviewed 12/11/19 @ 03:[address] Ronak Mckinley MD) Cholecystitis, acute with cholelithiasis (Resolved) Bilateral leg weakness (Acute) Acute cystitis (Acute) Right leg pain (Acute) Pain of left lower extremity (Acute) Pain of right lower extremity (Acute) Right ankle and foot pain Left ankle and foot pain Status post healed right open reduction internal fixation ankle fracture (08/14/2019) Ecchymosis right foot is suspicious for recent foot injury pattern History of prior healed left fibula avulsion fracture treated conservatively (early 08/2019) Negative venous Doppler exams for blood clot bilateral lower extremities UTI on ceftriaxone Hypokalemia Other chronic conditions: MRDD, history of seizure disorde, obesity, anxiety, depression Gait and walking impairment with ongoing fall risk Debility I reviewed her case. Her right ankle x-rays were reviewed including 3 views nonweightbearing as the following: Osseous bridging noted at fibula and medial malleolus fracture sites. Hardware remains intact and in the desired position and trajectory. The syndesmosis also appears have maintain its reduced position. It is noted she has failed to weight-bear with appropriate shoe gear. If she is still having pain at home she was previously provided with a cam walker to use for the right lower extremity. She completed prior physical therapy while at [facility] and would benefit from continued therapy in the outpatient setting. Given her recent reinjury and new bruising pattern to the right foot I have ordered foot x-rays. This is pending. Also, given her prior history of ankle fracture on the left that was treated conservative, complaints of discomfort, and her lack of involvement in the clinical exam, left ankle and foot x-rays were also ordered. I will review these upon completion. At that time, I will be able to provide some weightbearing recommendations for her home going status and additional recommendations. Thank you for the consultation. Please not hesitate to call if you have any questions. Nery Barba DPM, FACFAS [facility] [phone]
--- NOTE | 2019-12-11 14:27 | CHAPLAIN ---
Type of Pastoral Visit ___ Initial Visit ___ Follow-up Visit ___ On-call Visit ___ General Patient Visit ___ Spiritual Assessment ___ Family Conference ___ Bereavement ___ Rapid Response ___ Code Blue ___ Other (describe below) Pastoral Care Referral From ___ Patient ___ Family ___ Nurse ___ Physician ___ Marketing Forecaster ___ Infrastructure Architect ___ Other (describe below) Sacrament/Intervention ___ Active listening ___ Anointing ___ Restoration ___ Bereavement ___ Communion ___ Renée exploration ___ ___ Life review ___ Prayer ___ Reconciliation ___ Sacrament of Sick ___ Supportive presence ___ Wedding ___ Other (describe below) Pastoral Comments two attempts made to visit this patient but she was busy at each time
--- NOTE | 2019-12-11 14:48 | RAD_ITS ---
STUDY: X-RAY - RIGHT FOOT CLINICAL: Female, 38 years old. Left foot pain. TECHNIQUE: 3 view(s) of the foot. COMPARISON: None. FINDINGS: Normal talus, calcaneus, and tarsal bones. Normal visualized subtalar, talonavicular, calcaneocuboid, tarsal and tarsometatarsal articulations. Normal metatarsi. Normal metatarsophalangeal joint of the great toe. Normal tibial and fibular sesamoid bones. Normal interphalangeal joint of the great toe. Normal phalanges of the great toe. Normal second through fifth metatarsophalangeal joints. Normal interphalangeal joints and phalanges of the lesser toes. The soft tissue structures are unremarkable. RAD/Foot min 3 Views IMPRESSION: No acute fracture or dislocation. Electronically Signed: Levy Dalal DO at 17:58 EDT Tel [phone], Service support ,
--- NOTE | 2019-12-11 15:00 | RAD_ITS ---
STUDY: X-RAY - LEFT ANKLE REASON FOR EXAM: Female, 38 years old. Left ankle pain. TECHNIQUE: 3 view(s) of the ankle. COMPARISON: 08/17/2019. FINDINGS: Normal visualized distal tibia and fibula. Normal medial and lateral malleoli. There is a small bony density along the inferior aspect of the lateral malleolus. This either represents a nonfused avulsion fracture is suspected on the initial study or a secondary ossicle. Normal tibiotalar articulation and ankle mortise. Normal visualized talus and calcaneus. The visualized subtalar, talonavicular, calcaneocuboid and tarsal articulations are normal. Continued lateral soft tissue swelling. RAD/Ankle min 3 Views IMPRESSION: No interval change. Electronically Signed: Levy Dalal DO at 18:11 EDT Tel [phone], Service support ,
--- NOTE | 2019-12-11 15:10 | CASEMGMT ---
Social Work Note [facility] met with pt to complete discharge planning. SW familiar with pt from previous visits. SW introduced self and role at [facility]. Pt is alert and orientated x3 answered this worker's questions appropriately. Pt states that she still lives with her boyfriend Ritchie and states that the relationship is going good, denied any arguments, fighting, with Ritchie. Pt states Ritchie is good support for her, he helps out when he cans. Pt states Ritchie's grandmother is still good support for her as well. Pt confirms that she still has a cane, walker, and wheelchair at home and she has been utilizing her walker at home and has used her wheelchair once. Pt confirms that her child day care teacher through the [employer] is still Liliana and she has an RN Brittany through the [employer] as well. Pt confirms that [facility] is still coming to her home and the RN was supposed to come out today. SW asked pt about falling at home. Pt confirms that she has been falling at home and states it is because her legs hurt. SW informed pt that she can call her [facility] RN when she falls and they can instruct her on if she needs to come to the ED or not and pt states that Liliana and Brittany through the [employer] told her that every time she falls she needs to call the squad so that is what she does. Pt states that she prefers to return home at discharge, denied additional needs or concerns at this time. SW updated that pt's significant other Ritchie called in and requested updates. Ritchie also stated that the [employer] filed Emergency guardianship for pt today. Ritchie states that he is HCPOA for pt. HCPOA documents are on pt's chart. TARIQ placed a call to Liliana at [employer]. Liliana confirms that she filed emergency guardianship through [employer] today. Liliana states that the guardianship hasn't gone through the courts yet and it was submitted to [employer] today. Liliana states she is not sure how long it will take to get guardianship but states it will likely not be today. Liliana states that pt was having more falls at home and was not sure of the cause. Liliana agreeable to SNF placement for pt, but states to not send pt back to [place]. Liliana states that she did tell pt to call the squad every time pt fell as pt is assist of two to get pt up when pt falls. Liliana aware of pt's recent ED visits. Liliana states that pt was at [facility] and was seen by a psychiatrist there and it was mentioned that pt may have major depressive disorder, Delirium, Somatic disorder, Epilepsy and Seizure. Liliana states that pt has denied psychiatric follow up at this time. Liliana also states pt has denied jail placement and to have PT/OT. Liliana states that since pt was making unsafe decision, Liliana requested Expert Evaluation to be completed and it was completed by Dr. Orozco. Liliana states Dr. Orozco had deemed pt not able to make own decisions and it was decided to get emergency guardianship for pt. TARIQ asked Liliana to email copy of expert evaluation. Liliana emailed expert evaluations. TARIQ placed expert evaluations on pt's chart. SW updated physician on above information. Physician states since expert evaluation has been completed and pt was deemed to not have the capacity to make decisions, then decision would go to pt's HCPOA Ritchie until guardian is appointed. TARIQ informed physician that pt's HCPOA is Ritchie and he wishes to send pt to SNF. TARIQ explained that getting pt to SNF will likely not happen today and pt will likely be at [facility] through the weekend. TARIQ discussed case with Anaid Hendrix, TARIQ fiber locking supervisor, agreeable to plan of having Ritchie, pt's HCPOA, make decisions for pt at this time. TARIQ placed a call to pt's HCPOA Ritchie. Ritchie confirms that he would like pt to go to SNF and prefers for pt to remain in [place]. Ritchie then arrived to [facility] and this worker met with Ritchie, provided Ritchie a list of SNF that accept pt's insurance. Ritchie states he will review list of SNF and then give this worker a call on Saturday. Ritchie states he prefers for pt to not return to [facility]. [facility]ARIQ updated charge nurse. A consult will be put in for pt to evaluated by crisis for competency evaluation once pt is medically cleared. Plan: SNF. Pt will need LOC under medicaid once pt is accepted by SNF. Pt's HCPOA Ritchie is to review list of SNF and give this worker a call on Saturday to review options. Paula Su WATER RESTORATION TECHNICIAN, TELEGRAPH REPEATER TECHNICIAN
--- NOTE | 2019-12-11 15:12 | RAD_ITS ---
STUDY: X-RAY - LEFT FOOT CLINICAL: Female, 38 years old. Left foot pain. TECHNIQUE: Right ankle, 12/11/2019. Right foot, 08/13/2019. view(s) of the foot. COMPARISON: None. FINDINGS: Interval surgical fusion of the bimalleolar fracture which was present on the previous study. This appears healed. Normal talus, calcaneus, and tarsal bones. Normal visualized subtalar, talonavicular, calcaneocuboid, tarsal and tarsometatarsal articulations. Minimal osteopenic changes of the distal metatarsals and toes, thought to be secondary to disuse. Metatarsals are otherwise unremarkable. Normal metatarsophalangeal joint of the great toe. Normal tibial and fibular sesamoid bones. Normal interphalangeal joint of the great toe. Normal phalanges of the great toe. Normal second through fifth metatarsophalangeal joints. Normal interphalangeal joints and phalanges of the lesser toes. The soft tissue structures are unremarkable. RAD/Foot min 3 Views IMPRESSION: 1. Interval internal fixation of the bimalleolar ankle fracture, seen on the prior study. 2. Mild disuse osteopenia of the foot without other abnormality. Electronically Signed: Levy Dalal DO at 17:44 EDT Tel [phone], Service support ,
--- NOTE | 2019-12-11 15:43 | DCINST_ITS ---
Discharge Activity: Return to Normal Activity, Use Walker, - - right lower extremity weight bear as tolerated in CAM walker left lower extremity weight bear as tolerated in supportive athletic sneaker Weight Bearing Status: Weight bearing as tolerated Instructions: ED Weakness UKO Additional Instructions: Elevate your legs at rest each hour while awake. Pump the muscles in your legs each hour while awake. Continue to work with physical therapy. Wear compression stockings to reduce your leg swelling. Allergies/Adverse Reactions: Allergies Penicillins Allergy (Verified 12/09/19 19:08) Unknown tomato Adverse Reaction (Verified 12/09/19 19:08) Diarrhea Medications to take at Discharge Carbamazepine [Carbamazepine ER] 400 mg PO BID 08/13/19 Ergocalciferol (Vitamin D2) [Vitamin D2] 50,000 unit PO MO 08/13/19 Ferrous Sulfate 325 mg PO DAILY@0800 08/13/19 Lacosamide [Vimpat] 200 mg PO BID 08/13/19 Multivitamin [Daily Vitamin Formula] 1 tab PO DAILY 08/13/19 Omeprazole 20 mg PO DAILY 08/13/19 Sertraline HCl [Zoloft] 100 mg PO DAILY 08/13/19 Ondansetron [Zofran Odt] 4 mg PO Q8H PRN PRN #7 tab 11/22/19 ALPRAZolam [Xanax] 0.5 mg PO BID PRN PRN 11/25/19 Levetiracetam [Keppra] 500 mg PO BID 11/25/19 Potassium Cloride Effervescent [Potassium Chl 25 Meq Eff (For Liquid)] 25 meq PO BID 11/25/19 busPIRone [Buspar] 5 mg PO TID 11/25/19 proMETHazine tablet [Phenergan tablet] 25 mg PO Q8H PRN PRN 11/25/19 Cefdinir [Omnicef [equiv]] 300 mg PO Q12H 7 Days #14 cap 12/11/19 Potassium Chloride [Klor-Con] 20 meq PO DAILY 5 Days #5 packet 12/11/19 The following prescriptions were given: Potassium Chloride [Klor-Con] 20 meq PO DAILY 5 Days #5 packet Transmission Status: Received by [facility] - [id number] Cefdinir [Omnicef [equiv]] 300 mg PO Q12H 7 Days #14 cap Transmission Status: Received by [facility] - [id number] Primary Care Physician: Erwin Orozco MD [Primary Care Provider] - Please follow up with your Primary Care Physician in: within 1-2 weeks Test Results: Test results from this visit will be discussed in further detail at your follow- up appointment, if applicable. Please Follow Up With: Nery Barba DPM When: [facility]; call [phone] to confirm time / date. Proposed Discharge Date: 12/11/19
--- NOTE | 2019-12-11 17:27 | NURSING ---
Pt had large amts of coke that she drank before this nurse could come back and tell her she was NPO. pt vomitted 400cc of coke a cola.
[2019-12-11] MEDS: proMETHazine 25 MG/ML Syringe 12.5 MG IV (17:47)
[2019-12-11] MEDS: Mag Hydrox/Al Hydrox/Simeth 30 ML UDC PO (17:51)
[2019-12-12] MEDS: Potassium Chloride 40 MEQ in 0.9% Normal Saline 1,000 ML 100 MEQ IV ×3 (00:02→22:22)
[2019-12-12] MEDS: Acetaminophen 325 MG Tablet 650 MG PO (01:43)
[2019-12-12 04:15] VITALS: BP 123/73; PULSE 112; RESP 16; TEMP 37.1; O2SAT 100
[2019-12-12] MEDS: busPIRone 5 MG Tablet PO ×3 (05:28→22:01)
[2019-12-12 07:30] VITALS: O2SAT 100
[2019-12-12 07:52] LABS: ALB/GLOB Ratio 0.6 RATIO (0.9-2.4); AST(SGOT) 39 U/L (15-37); Alanine Aminotransfer ALT/SGPT 36 U/L (13-56); Albumin, Serum 2.4 g/dL (3.2-5.0); Alkaline Phosphatase 94 U/L (45-117); Anion Gap 8 (5-15); BUN 15 mg/dL (7-18); BUN/Creat Ratio 18.1 RATIO (10-20); Calcium,Total 7.8 mg/dL (8.5-10.1); Chloride 110 mmol/L (98-107); Creatinine, Serum 0.83 mg/dL (0.55-1.02); EST Glomerular Filtration Rate 81 mL/min (>60); Est Glom Filt Rate - Afr Amer 98 mL/min (>60); Globulin 3.7 g/dL (2.2-4.2); Glucose 91 mg/dL (74-106); Magnesium 2.5 mg/dL (1.6-2.6); Potassium 4.3 mmol/L (3.5-5.1); Protein, Total 6.1 g/dL (6.4-8.2); Sodium Level 140 mmol/L (136-145)
[2019-12-12 08:20] LABS: Absolute Lymphocyte Count 2.23 X10^3/uL (0.83-4.51); Absolute Neutrophil Count 8.2 X10^3/uL (2.0-7.7); Basophil# 0.03 X10^3/uL; Basophil% 0.2 % (0-1); Eosinophil# 0.02 X10^3/uL; Eosinophils% 0.2 % (0-5); Hematocrit 33.7 % (37-47); Hemoglobin 10.9 g/dL (12.0-15.0); Lymphocyte # 2.23 X10^3/ul (4.0); Lymphocyte % 18.4 % (19-41); Mean Corp Hgb Conc 32.3 g/dL (32-36); Mean Corpuscular Hgb 28.8 pg (27.0-32.0); Mean Corpuscular Volume 88.9 fL (81-99); Monocyte# 1.57 X10^3/uL; Monocyte% 12.9 % (0-10); NRBC Flagged by Analyzer 0 % (0-5); Neutrophil # 8.16 X10^3/uL (2.7-7.7); Neutrophil % 67.1 % (47-70); POSITIVE DIFFERENTIAL YES; Platelet Count 455 K/mm3 (150-450); RBC Distribution Width CV 14.1 % (11.6-14.6); RBC Distribution Width SD 45.2 fl (35.1-43.9); Red Blood Count 3.79 M/mm3 (4.2-5.4); White Blood Count 12.2 K/mm3 (4.4-11.0)
[2019-12-12 08:38] LABS: Differential Indicated SCAN CRITERIA MET
[2019-12-12 09:04] VITALS: BP 145/93; PULSE 111; RESP 18; TEMP 36.5; O2SAT 99
[2019-12-12 09:33] LABS: Hypochromasia 1+; Platelet Estimate SLT INC (ADEQ)
[2019-12-12] MEDS: Enoxaparin 40 MG/0.4 ML Syringe SC (09:56)
[2019-12-12] MEDS: Pantoprazole Sodium 20 MG Tablet PO (09:57)
[2019-12-12] MEDS: Multivitamins,Therapeutic Tablet 1 TABLET PO (09:57)
[2019-12-12] MEDS: levETIRAcetam 500 MG Tablet PO ×2 (09:57→22:01)
[2019-12-12] MEDS: Ferrous Sulfate 325 MG Tablet PO (09:57)
[2019-12-12] MEDS: Menthol/Lanolin/Calamine/Znox 113 GM Tube 1 APPLIC TOPICAL ×2 (09:57→22:02)
[2019-12-12] MEDS: carBAMazepine 200 MG Tablet PO ×3 (09:58→22:01)
[2019-12-12] MEDS: Sertraline 100 MG Tablet PO (09:58)
[2019-12-12] MEDS: Lacosamide 100 MG Tablet 200 MG PO ×2 (10:02→22:10)
[2019-12-12] MEDS: Mag Hydrox/Al Hydrox/Simeth 30 ML UDC PO ×2 (10:39→22:01)
[2019-12-12] MEDS: Bisacodyl 10 MG Suppository RECTAL (11:32)
[2019-12-12] MEDS: Senna/Docusate Sodium 1 Tablet 2 TABLET PO (11:33)
--- NOTE | 2019-12-12 11:34 | PCM.PN.HOSP ---
Patient Problems: Active and Suspected Problems (Last Reviewed 12/11/19 @ 03:[address] Ronak Mckinley MD) Bilateral leg weakness (Acute) Acute cystitis (Acute) Right leg pain (Acute) Pain of left lower extremity (Acute) Pain of right lower extremity (Acute) Reason for Visit: Follow-up on bilateral leg pain Subjective: Patient was seen and examined. Patient had nausea and vomiting a couple of times last night. She denied any nausea today Objective: Physical exam: General: Alert, Oriented x3, Non-Cooperative, obese HEENT: Atraumatic, PERRLA, EOMI, Normocephalic Neck: Supple, No JVD, Negative Carotid Bruits Lungs: Clear to auscultation, Normal air movement, No rhonchi, No wheeze, No rales Cardiovascular: Regular rate, Regular Rhythm, Normal S1, Normal S2, No murmurs Abdomen: Bowel Sounds Present, Soft, Non Tender Extremities: No edema, Capillary Refill Less than 3 Seconds Skin: No rashes, No breakdown Musculoskeletal: No Tenderness to Palpation of Joints or Extremities Neurological: Cranial nerves II-XII grossly intact Psych/Mental Status: Normal Affect, Appropriate Vitals/I&O's: Vital Signs Temp Pulse Resp BP Pulse Ox 97.7 F L 111 H 18 145/93 H 99 12/12/19 09:04 12/12/19 09:04 12/12/19 09:04 12/12/19 09:04 12/12/19 09:04 Oxygen Delivery Method Room Air Weight: 108.9 kg Body Mass Index (BMI) 36.3 Intake and Output for Last 24 Hours 12/10/19 12/11/19 12/12/19 23:59 23:59 23:59 Intake Total 3742.33 / 3742.33 50 / 50 Output Total 1200 / 1200 Balance 2542.33 / 2542.33 50 / 50 Microbiology Past 72 Hours 12/10/19 22:50 Urine Catheter - Catheter Urine Culture - Final Escherichia coli Laboratory Results 12/12/19 06:56: WBC 12.2 H, RBC 3.79 L, Hgb 10.9 L, Hct 33.7 L, MCV 88.9, MCH 28.8, MCHC 32.3, RDW Std Deviation 45.2 H, RDW Coeff of Inna 14.1, Plt Count 455 H, MPV 10.0, Immature Gran % (Auto) 1.200 H, Neut % (Auto) 67.1, Lymph % (Auto) 18.4 L, [place] % (Auto) 12.9 H, Eos % (Auto) 0.2, Baso % (Auto) 0.2, Absolute Neuts (auto) 8.2 H, Absolute Lymphs (auto) 2.23, Nucleated RBC % 0, Diff Path Review August foll, Platelet Estimate SLT INC, Hypochromasia 1+ 12/12/19 06:56: Sodium 140, Potassium 4.3, Chloride 110 H, Carbon Dioxide 22.0, Anion Gap 8, BUN 15, Creatinine 0.83, Estim Creat Clear Calc 91.80, Est GFR (MDRD) Af Amer 98, Est GFR (MDRD) Non-Af 81, BUN/Creatinine Ratio 18.1, Glucose 91, Calcium 7.8 L, Magnesium 2.5, Total Bilirubin 0.60, AST 39 H, ALT 36, Alkaline Phosphatase 94, Total Protein 6.1 L, Albumin 2.4 L, Globulin 3.7, Albumin/Globulin Ratio 0.6 L Current Medications Acetaminophen (Tylenol) 650 mg PO Q6H PRN PRN PRN Reason: Pain Score 1-10/Temp > 100.7 F Last Admin: 12/12/19 01:43 Dose: 650 mg Documented by: Al Hydroxide/Mg Hydroxide (Mylanta Ii) 30 ml PO TID [facility] Last Admin: 12/12/19 10:39 Dose: 30 ml Documented by: Alprazolam (Xanax) 0.5 mg PO BID PRN PRN PRN Reason: ANXIETY Last Admin: 12/11/19 04:14 Dose: 0.5 mg Documented by: Buspirone HCl (Buspar) 5 mg PO TID [facility] Last Admin: 12/12/19 05:28 Dose: 5 mg Documented by: Calamine/Phenol (Calmoseptine Ointment) 1 applic TOPICAL BID [facility]; Protocol Last Admin: 12/12/19 09:57 Dose: 1 applicatio Documented by: Carbamazepine (Tegretol) 200 mg PO 4X/DAYCM [facility] Last Admin: 12/12/19 09:58 Dose: 200 mg Documented by: Enoxaparin Sodium (Lovenox) 40 mg SC DAILY [facility] Last Admin: 12/12/19 09:56 Dose: 40 mg Documented by: Ergocalciferol (Vitamin D) 50,000 unit PO [facility] Ferrous Sulfate (Ferrous Sulfate) 325 mg PO DAILY@0800 [facility] Last Admin: 12/12/19 09:57 Dose: 325 mg Documented by: Ceftriaxone Sodium (Rocephin) 1 gm in 50 mls @ 100 mls/hr IV Q24@2200 [facility] Last Infusion: 12/11/19 22:22 Dose: Infused Documented by: Potassium Chloride 40 meq/ (Sodium Chloride) 1,020 mls @ 100 mls/hr IV .[id number] [facility] Last Admin: 12/12/19 00:02 Dose: 100 mls/hr Documented by: Lacosamide (Vimpat) 200 mg PO BID [facility] Last Admin: 12/12/19 10:02 Dose: 200 mg Documented by: Levetiracetam (Keppra Tablet) 500 mg PO BID [facility] Last Admin: 12/12/19 09:57 Dose: 500 mg Documented by: Melatonin (Melatonin) 3 mg PO QHS PRN PRN PRN Reason: INSOMNIA [facility]) [facility] Last Admin: 12/12/19 09:57 Dose: 1 tablet Documented by: Nutritional Formula (Lactose Free) (Ensure Enlive) 120 ml PO 4X/DAY [facility] Last Admin: 12/12/19 09:57 Dose: Not Given Documented by: Ondansetron HCl (Zofran) 4 mg IV Q8H PRN PRN PRN Reason: NAUSEA/VOMITING Last Admin: 12/11/19 13:14 Dose: 4 mg Documented by: Ondansetron HCl (Zofran Odt) 4 mg PO Q8H PRN PRN PRN Reason: NAUSEA Last Admin: 12/11/19 04:14 Dose: 4 mg Documented by: Pantoprazole Sodium (Protonix) 20 mg PO DAILY [facility] Last Admin: 12/12/19 09:57 Dose: 20 mg Documented by: Potassium Chloride (K-Dur) [facility] Last Admin: 12/12/19 09:56 Dose: 20 meq Documented by: Promethazine HCl (Phenergan) 12.5 mg IV Q6H PRN PRN PRN Reason: NAUSEA/VOMITING Last Admin: 12/11/19 17:47 Dose: 12.5 mg Documented by: Senna/Docusate Sodium (Senokot-S, Luci-Colace) 2 tablet PO DAILY [facility] Sertraline HCl (Zoloft) 100 mg PO DAILY [facility] Last Admin: 12/12/19 09:58 Dose: 100 mg Documented by: Sodium Chloride () 10 - 40 ml IV UD PRN PRN Reason: SALINE FLUSH Last Admin: 12/11/19 17:48 Dose: 20 ml Documented by: STROKE Vital Signs/Narrative: Vital Signs Temp Pulse Resp BP Pulse Ox 12/12/19 09:04 97.7 F L 111 H 18 145/93 H 99 Medical Necessity - Tobacco Use Smoking Status: Never smoker Assessment/Plan All Active Problems (Last Reviewed 12/11/19 @ 03:[address] Ronak Mckinley MD) Cholecystitis, acute with cholelithiasis (Resolved) Bilateral leg weakness (Acute) Acute cystitis (Acute) Right leg pain (Acute) Pain of left lower extremity (Acute) Pain of right lower extremity (Acute) 1. Acute E. coli UTI, on IV ceftriaxone, on IV ceftriaxone(day2) Will stop antibiotics after 3 days of treatment 2. Hypokalemia/hypomagnesemia, resolved 3. Medical decision making capacity - patient lacks the capacity. Board of developmental disability in the process of getting patient emergency guardianship. Social work consulted, will follow up on recommendations 4. Debility, unclear etiology, PT and OT to evaluate and treat 5. Seizure disorder, continue on Vimpat, Keppra, Tegretol 6. MRDD/anxiety/depression, stable, continue on Zoloft, BuSpar 7. DVT PPx- Lovenox SC 8. Disposition: Pending social work recommendation of safe disposition Inpatient E&M: 62744 Subs Hosp L2
[2019-12-12 15:06] VITALS: BP 147/99; PULSE 111; RESP 16; TEMP 36.8; O2SAT 99
[2019-12-12 21:00] VITALS: BP 127/68; PULSE 111; RESP 18; TEMP 36.7; O2SAT 100
[2019-12-12] MEDS: Ceftriaxone 1 GM/50 ML BAG IV (22:01)
[2019-12-13] VITALS (7 sets, daily range): BP systolic 124–135; BP diastolic 78–91; PULSE 103–125; RESP 16–18; TEMP 36.3–36.8; O2SAT 96–100
[2019-12-13] MEDS: Ondansetron ODT 4 MG Tablet PO (00:15)
[2019-12-13] MEDS: MELATONIN 3 MG TABLET PO (00:46)
[2019-12-13] MEDS: proMETHazine 25 MG/ML Syringe 12.5 MG IV (02:17)
--- NOTE | 2019-12-13 07:51 | PN_ITS ---
Patient Problems: Active and Suspected Problems (Last Reviewed 12/11/19 @ 03:[address] Ronak Mckinley MD) Bilateral leg weakness (Acute) Acute cystitis (Acute) Right leg pain (Acute) Pain of left lower extremity (Acute) Pain of right lower extremity (Acute) Reason for Visit: Follow-up on bilateral leg pain Subjective: Patient was seen and examined. Still having nausea and vomiting. KUB ordered. Will switch pantoprazole po to IV. Objective: Physical exam: General: Alert, Oriented x3, Non-Cooperative, obese HEENT: Atraumatic, PERRLA, EOMI, Normocephalic Neck: Supple, No JVD, Negative Carotid Bruits Lungs: Clear to auscultation, Normal air movement, No rhonchi, No wheeze, No rales Cardiovascular: Regular rate, Regular Rhythm, Normal S1, Normal S2, No murmurs Abdomen: Bowel Sounds Present, Soft, Non Tender Extremities: No edema, Capillary Refill Less than 3 Seconds Skin: No rashes, No breakdown Musculoskeletal: No Tenderness to Palpation of Joints or Extremities Neurological: Cranial nerves II-XII grossly intact Psych/Mental Status: Normal Affect, Appropriate Vitals/I&O's: Vital Signs Temp Pulse Resp BP Pulse Ox 98.1 F 109 H 16 125/79 H 98 12/13/19 03:00 12/13/19 03:00 12/13/19 03:00 12/13/19 03:00 12/13/19 03:00 Oxygen Delivery Method Room Air Weight: 108.9 kg Body Mass Index (BMI) 36.3 Intake and Output for Last 24 Hours 12/11/19 12/12/19 12/13/19 23:59 23:59 23:59 Intake Total 3742.33 / 3742.33 3100 / 3100 Output Total 1200 / 1200 200 / 450 250 / 250 Balance 2542.33 / 2542.33 2900 / 2650 -250 / -250 Microbiology Past 72 Hours 12/10/19 22:50 Urine Catheter - Catheter Urine Culture - Final Escherichia coli Laboratory Results 12/12/19 06:56: WBC 12.2 H, RBC 3.79 L, Hgb 10.9 L, Hct 33.7 L, MCV 88.9, MCH 28.8, MCHC 32.3, RDW Std Deviation 45.2 H, RDW Coeff of Inna 14.1, Plt Count 455 H, MPV 10.0, Immature Gran % (Auto) 1.200 H, Neut % (Auto) 67.1, Lymph % (Auto) 18.4 L, [place] % (Auto) 12.9 H, Eos % (Auto) 0.2, Baso % (Auto) 0.2, Absolute Neuts (auto) 8.2 H, Absolute Lymphs (auto) 2.23, Nucleated RBC % 0, Diff Path Review May foll, Platelet Estimate SLT INC, Hypochromasia 1+ 12/12/19 06:56: Sodium 140, Potassium 4.3, Chloride 110 H, Carbon Dioxide 22.0, Anion Gap 8, BUN 15, Creatinine 0.83, Estim Creat Clear Calc 91.80, Est GFR (MDRD) Af Amer 98, Est GFR (MDRD) Non-Af 81, BUN/Creatinine Ratio 18.1, Glucose 91, Calcium 7.8 L, Magnesium 2.5, Total Bilirubin 0.60, AST 39 H, ALT 36, Alkaline Phosphatase 94, Total Protein 6.1 L, Albumin 2.4 L, Globulin 3.7, Albumin/Globulin Ratio 0.6 L Current Medications Acetaminophen (Tylenol) 650 mg PO Q6H PRN PRN PRN Reason: Pain Score 1-10/Temp > 100.7 F Last Admin: 12/12/19 01:43 Dose: 650 mg Documented by: Al Hydroxide/Mg Hydroxide (Mylanta Ii) 30 ml PO TID [facility] Last Admin: 12/13/19 06:05 Dose: Not Given Documented by: Alprazolam (Xanax) 0.5 mg PO BID PRN PRN PRN Reason: ANXIETY Last Admin: 12/11/19 04:14 Dose: 0.5 mg Documented by: Buspirone HCl (Buspar) 5 mg PO TID [facility] Last Admin: 12/13/19 06:05 Dose: Not Given Documented by: Calamine/Phenol (Calmoseptine Ointment) 1 applic TOPICAL BID [facility]; Protocol Last Admin: 12/12/19 22:02 Dose: 1 applicatio Documented by: Carbamazepine (Tegretol) [facility] Last Admin: 12/12/19 22:01 Dose: 200 mg Documented by: Enoxaparin Sodium (Lovenox) 40 mg SC DAILY [facility] Last Admin: 12/12/19 09:56 Dose: 40 mg Documented by: Ergocalciferol (Vitamin D) 50,000 unit PO [facility] Ferrous Sulfate (Ferrous Sulfate) 325 mg PO DAILY@0800 [facility] Last Admin: 12/12/19 09:57 Dose: 325 mg Documented by: Ceftriaxone Sodium (Rocephin) 1 gm in 50 mls @ 100 mls/hr IV Q24@2200 [facility] Last Infusion: 12/12/19 22:31 Dose: Infused Documented by: Potassium Chloride 40 meq/ (Sodium Chloride) 1,020 mls @ 100 mls/hr IV .[id number] [facility] Last Admin: 12/12/19 22:22 Dose: 100 mls/hr Documented by: Lacosamide (Vimpat) 200 mg PO BID [facility] Last Admin: 12/12/19 22:10 Dose: 200 mg Documented by: Levetiracetam (Keppra Tablet) 500 mg PO BID [facility] Last Admin: 12/12/19 22:01 Dose: 500 mg Documented by: Melatonin (Melatonin) 3 mg PO QHS PRN PRN PRN Reason: INSOMNIA Last Admin: 12/13/19 00:46 Dose: 3 mg Documented by: Multivitamins (Multivitamin) [facility] Last Admin: 12/12/19 09:57 Dose: 1 tablet Documented by: Nutritional Formula (Lactose Free) (Ensure Enlive) 120 ml PO 4X/DAY [facility] Last Admin: 12/12/19 22:03 Dose: Not Given Documented by: Ondansetron HCl (Zofran) 4 mg IV Q8H PRN PRN PRN Reason: NAUSEA/VOMITING Last Admin: 12/11/19 13:14 Dose: 4 mg Documented by: Ondansetron HCl (Zofran Odt) 4 mg PO Q8H PRN PRN PRN Reason: NAUSEA Last Admin: 12/13/19 00:15 Dose: 4 mg Documented by: Pantoprazole Sodium (Protonix) 20 mg PO DAILY [facility] Last Admin: 12/12/19 09:57 Dose: 20 mg Documented by: Potassium Chloride (K-Dur) 20 meq [facility] Last Admin: 12/12/19 18:56 Dose: Not Given Documented by: Promethazine HCl (Phenergan) 12.5 mg IV Q6H PRN PRN PRN Reason: NAUSEA/VOMITING Last Admin: 12/13/19 02:17 Dose: 12.5 mg Documented by: Senna/Docusate Sodium (Senokot-S, Luci-Colace) 2 tablet PO DAILY [facility] Last Admin: 12/12/19 11:33 Dose: 2 tablet Documented by: Sertraline HCl (Zoloft) 100 mg PO DAILY [facility] Last Admin: 12/12/19 09:58 Dose: 100 mg Documented by: Sodium Chloride () 10 - 40 ml IV UD PRN PRN Reason: SALINE FLUSH Last Admin: 12/11/19 17:48 Dose: 20 ml Documented by: Medical Necessity - Tobacco Use Smoking Status: Never smoker Assessment/Plan All Active Problems (Last Reviewed 12/11/19 @ 03:[address] Ronak Mckinley MD) Cholecystitis, acute with cholelithiasis (Resolved) Bilateral leg weakness (Acute) Acute cystitis (Acute) Right leg pain (Acute) Pain of left lower extremity (Acute) Pain of right lower extremity (Acute) 1. Acute E. coli UTI, on IV ceftriaxone, on IV ceftriaxone(day2) Will stop antibiotics after today. 2. Hypokalemia/hypomagnesemia, resolved 3. Medical decision making capacity - patient lacks the capacity. Board of developmental disability in the process of getting patient emergency guardianship. Social work consulted, will follow up on recommendations 4. Debility, unclear etiology, PT and OT to evaluate and treat 5. Seizure disorder, continue on Vimpat, Keppra, Tegretol 6. MRDD/anxiety/depression, stable, continue on Zoloft, BuSpar 7. DVT PPx- Lovenox SC 8. Disposition: Pending social work recommendation of safe disposition Inpatient E&M: 30618 Subs Hosp L2
--- NOTE | 2019-12-13 09:34 | RAD_ITS ---
STUDY: X-RAY - ABDOMEN/PELVIS REASON FOR EXAM: Female, 38 years old. Intractable vomiting. TECHNIQUE: Two AP supine views of the abdomen and pelvis. COMPARISON: None. FINDINGS: Normal visualized lung bases. There is an unremarkable bowel gas pattern. There is no demonstrated free abdominal air. The visualized liver, spleen and kidneys are grossly normal in size and morphology. Normal soft tissue structures. Normal visualized osseous structures. RAD/Abdomen Single View (Portable) IMPRESSION: No evidence of air-fluid levels or bowel dilatation to suggest ileus versus obstruction. Electronically Signed: Randy Aguilar DO at 10:22 EDT , Service support ,
[2019-12-13] MEDS: Potassium Chloride 40 MEQ in 0.9% Normal Saline 1,000 ML 100 MEQ IV ×2 (10:13→22:24)
[2019-12-13] MEDS: 0.9% Saline Lock 10 ML Syringe IV (11:41)
[2019-12-13] MEDS: levETIRAcetam 500 MG Tablet PO (12:16)
[2019-12-13] MEDS: Menthol/Lanolin/Calamine/Znox 113 GM Tube 1 APPLIC TOPICAL ×2 (12:18→22:27)
[2019-12-13] MEDS: Enoxaparin 40 MG/0.4 ML Syringe SC (12:27)
[2019-12-13] MEDS: carBAMazepine 200 MG Tablet PO ×2 (12:30→17:11)
--- NOTE | 2019-12-13 13:27 | NURSING ---
Pt sleeping upon this nurse's arrival to room this morning around 1100. Pt aroused but did not want to open eyes. Kept screaming to leave her alone. Assessment completed, pt would not answer questions by this nurse. When asked if she could tell me where she was or what month it was she yelled, I don't know. Pt given scheduled Keppra and Tegretol and pt vomited shortly after given.
[2019-12-13] MEDS: Ondansetron 4 MG/2 ML Vial IV (13:47)
--- NOTE | 2019-12-13 17:23 | NURSING ---
While this nurse in room with pt, pt states that her whole body feels numb. This nurse attempted to assess by asking her orientation questions, pt refused. when asked to smile, she refused. She did stick her tongue out and it was midline. When she grasped this nurses hands, grasp was very weak but equal, same with foot push trevor. This nurse will inform Dr. Stover.
[2019-12-13] MEDS: Ensure Clear 120 ML Liquid PO ×2 (17:33→22:26)
[2019-12-13] MEDS: Ceftriaxone 1 GM/50 ML BAG IV (23:00)
--- NOTE | 2019-12-13 23:18 | NURSING ---
Pt refused HS meds. Dr. Mckinley notified.
[2019-12-14] VITALS: PULSE 103
[2019-12-14] MEDS: Ondansetron 4 MG/2 ML Vial IV (00:51)
[2019-12-14] MEDS: 0.9% Saline Lock 10 ML Syringe IV ×2 (00:53→02:34)
[2019-12-14] MEDS: levETIRAcetam 500 MG Tablet PO (00:56)
[2019-12-14] MEDS: proMETHazine 25 MG/ML Syringe 12.5 MG IV (02:29)
[2019-12-14 02:35] VITALS: BP 136/85; PULSE 103; RESP 18; TEMP 36.4; O2SAT 99
--- NOTE | 2019-12-14 06:46 | NURSING ---
Heri and Rosario hanging out on JUN. Patient did not want to wake up and take them.
[2019-12-14 08:30] VITALS: BP 147/101; PULSE 103; RESP 18; TEMP 37; O2SAT 99
[2019-12-14] MEDS: Potassium Chloride 40 MEQ in 0.9% Normal Saline 1,000 ML 100 MEQ IV ×2 (10:16→12:15)
[2019-12-14] MEDS: Menthol/Lanolin/Calamine/Znox 113 GM Tube 1 APPLIC TOPICAL ×2 (10:32→22:13)
[2019-12-14] MEDS: Enoxaparin 40 MG/0.4 ML Syringe SC (10:33)
[2019-12-14] MEDS: Senna/Docusate Sodium 1 Tablet 2 TABLET PO (10:34)
[2019-12-14] MEDS: Ensure Clear 120 ML Liquid PO (10:34)
[2019-12-14] MEDS: Sertraline 100 MG Tablet PO (10:35)
--- NOTE | 2019-12-14 11:19 | PN_ITS ---
Patient Problems: Active and Suspected Problems (Last Reviewed 12/11/19 @ 03:[address] Ronak Mckinley MD) Bilateral leg weakness (Acute) Acute cystitis (Acute) Right leg pain (Acute) Pain of left lower extremity (Acute) Pain of right lower extremity (Acute) Reason for Visit: Follow-up on debility, leg pain, lack of medical decision-making capacity Subjective: Patient was seen and examined. Had 1 emesis overnight. Medicated with Zofran and Phenergan. Patient has been refusing her medications. She will not answer to questions for me. Objective: Physical exam: General: Alert, Oriented x3, Non-Cooperative, obese HEENT: Atraumatic, PERRLA, EOMI, Normocephalic Neck: Supple, No JVD, Negative Carotid Bruits Lungs: Clear to auscultation, Normal air movement, No rhonchi, No wheeze, No rales Cardiovascular: Regular rate, Regular Rhythm, Normal S1, Normal S2, No murmurs Abdomen: Bowel Sounds Present, Soft, Non Tender Extremities: No edema, Capillary Refill Less than 3 Seconds Skin: No rashes, No breakdown Musculoskeletal: No Tenderness to Palpation of Joints or Extremities Neurological: Cranial nerves II-XII grossly intact Psych/Mental Status: Normal Affect, Appropriate Vitals/I&O's: Vital Signs Temp Pulse Resp BP Pulse Ox 98.6 F 103 H 18 147/101 H 99 12/14/19 08:30 12/14/19 08:30 12/14/19 08:30 12/14/19 08:30 12/14/19 08:30 Oxygen Delivery Method Room Air Weight: 108.9 kg Body Mass Index (BMI) 36.3 Intake and Output for Last 24 Hours 12/12/19 12/13/19 12/14/19 23:59 23:59 23:59 Intake Total 3100 / 3100 2570 / 2770 1320 / 1320 Output Total 200 / 450 550 / 550 100 / 100 Balance 2900 / 2650 2020 / 2220 1220 / 1220 Microbiology Past 72 Hours 12/10/19 22:50 Urine Catheter - Catheter Urine Culture - Final Escherichia coli Current Medications Acetaminophen (Tylenol) 650 mg PO Q6H PRN PRN PRN Reason: Pain Score 1-10/Temp > 100.7 F Last Admin: 12/12/19 01:43 Dose: 650 mg Documented by: Al Hydroxide/Mg Hydroxide (Mylanta Ii) 30 ml PO TID [facility] Last Admin: 12/14/19 09:13 Dose: Not Given Documented by: Alprazolam (Xanax) 0.5 mg PO BID PRN PRN PRN Reason: ANXIETY Last Admin: 12/11/19 04:14 Dose: 0.5 mg Documented by: Buspirone HCl (Buspar) 5 mg PO TID [facility] Last Admin: 12/14/19 09:13 Dose: Not Given Documented by: Calamine/Phenol (Calmoseptine Ointment) 1 applic TOPICAL BID [facility]; Protocol Last Admin: 12/14/19 10:32 Dose: 1 applicatio Documented by: Carbamazepine (Tegretol) 200 mg PO 4X/DAYCM [facility] Last Admin: 12/14/19 09:14 Dose: Not Given Documented by: Enoxaparin Sodium (Lovenox) 40 mg SC DAILY [facility] Last Admin: 12/14/19 10:33 Dose: 40 mg Documented by: Ergocalciferol (Vitamin D) 50,000 unit PO MO [facility] Last Admin: 12/14/19 10:35 Dose: 50,000 unit Documented by: Ferrous Sulfate (Ferrous Sulfate) 325 mg PO DAILY@0800 [facility] Last Admin: 12/14/19 09:13 Dose: Not Given Documented by: Ceftriaxone Sodium (Rocephin) 1 gm in 50 mls @ 100 mls/hr IV Q24@2200 [facility] Last Infusion: 12/13/19 23:30 Dose: Infused Documented by: Potassium Chloride 40 meq/ (Sodium Chloride) 1,020 mls @ 100 mls/hr IV .[id number] [facility] Last Admin: 12/14/19 10:16 Dose: 100 mls/hr Documented by: Pantoprazole Sodium 40 mg/ (Sodium Chloride) 110 mls @ 330 mls/hr IV Q12 [facility] Last Admin: 12/14/19 10:17 Dose: 330 mls/hr Documented by: Lacosamide 200 mg/ Sodium (Chloride) 70 mls @ 100 mls/hr IV BID [facility] Last Admin: 12/14/19 08:55 Dose: 100 mls/hr Documented by: Levetiracetam 500 mg/ Sodium (Chloride) 105 mls @ 400 mls/hr IV Q12 [facility] Last Admin: 12/14/19 10:34 Dose: 400 mls/hr Documented by: Sodium Chloride () 250 mls @ 15 mls/hr IV .[id number] PRN PRN Reason: Saline Flush Sodium Chloride () 250 mls @ 15 mls/hr IV .[id number] PRN PRN Reason: Additional IVPB Infusion Melatonin (Melatonin) 3 mg PO QHS PRN PRN PRN Reason: INSOMNIA Last Admin: 12/13/19 00:46 Dose: 3 mg Documented by: [facility]ivit[facility] ([facility]amin) [facility] Last Admin: 12/14/19 09:14 Dose: Not Given Documented by: Nutritional Formula (Lactose Free) (Ensure Clear) 120 ml PO 4X/DAY [facility] Last Admin: 12/14/19 10:34 Dose: 120 ml Documented by: Ondansetron HCl (Zofran) 4 mg IV Q8H PRN PRN PRN Reason: NAUSEA/VOMITING Last Admin: 12/14/19 00:51 Dose: 4 mg Documented by: Ondansetron HCl (Zofran Odt) 4 mg PO Q8H PRN PRN PRN Reason: NAUSEA Last Admin: 12/13/19 00:15 Dose: 4 mg Documented by: Potassium Chloride (K-Dur) [facility] Last Admin: 12/14/19 09:14 Dose: Not Given Documented by: Promethazine HCl (Phenergan) 12.5 mg IV Q6H PRN PRN PRN Reason: NAUSEA/VOMITING Last Admin: 12/14/19 02:29 Dose: 12.5 mg Documented by: Senna/Docusate Sodium (Senokot-S, Luci-Colace) 2 tablet PO DAILY [facility] Last Admin: 12/14/19 10:34 Dose: 2 tablet Documented by: Sertraline HCl (Zoloft) 100 mg PO DAILY [facility] Last Admin: 12/14/19 10:35 Dose: 100 mg Documented by: Sodium Chloride () 10 - 40 ml IV UD PRN PRN Reason: SALINE FLUSH Last Admin: 12/14/19 02:34 Dose: 10 ml Documented by: STROKE Vital Signs/Narrative: Vital Signs Temp Pulse Resp BP Pulse Ox 12/14/19 08:30 98.6 F 103 H 18 147/101 H 99 Medical Necessity - Tobacco Use Smoking Status: Never smoker Assessment/Plan All Active Problems (Last Reviewed 12/11/19 @ 03:[address] Ronak Mckinley MD) Left foot pain (Acute) Right foot sprain (Acute) Cholecystitis, acute with cholelithiasis (Resolved) Bilateral leg weakness (Acute) Acute cystitis (Acute) Right leg pain (Acute) Pain of left lower extremity (Acute) Pain of right lower extremity (Acute) 1. Acute E. coli UTI, completed 3 days of IV ceftriaxone 2. Hypokalemia/hypomagnesemia, resolved 3. Medical decision making capacity - patient lacks the capacity. Board of developmental disability in the process of getting patient emergency guardianship. Social work consulted, will follow up on recommendations 4. Debility, unclear etiology, PT and OT to evaluate and treat 5. Seizure disorder, continue on oral Tegretol - encourage to take as there is no other alternate route to administer Will switch Vimpat and Keppra to IV 6. MRDD/anxiety/depression, stable, continue on Zoloft, BuSpar 7. DVT PPx- Lovenox SC 8. Disposition: Pending social work recommendation of safe disposition Inpatient E&M: [id number] Subs Hosp L2
[2019-12-14 16:05] VITALS: BP 140/90; PULSE 104; RESP 18; TEMP 37.2; O2SAT 99
[2019-12-14] MEDS: Ondansetron ODT 4 MG Tablet PO (19:18)
[2019-12-14 22:00] VITALS: BP 108/68; PULSE 105; RESP 18; TEMP 37; O2SAT 98
[2019-12-14] MEDS: carBAMazepine 200 MG Tablet PO (22:17)
[2019-12-15] MEDS: proMETHazine 25 MG/ML Syringe 12.5 MG IV (00:04)
[2019-12-15] MEDS: Potassium Chloride 40 MEQ in 0.9% Normal Saline 1,000 ML 100 MEQ IV ×2 (00:04→15:42)
[2019-12-15 03:15] VITALS: BP 128/65; PULSE 118; RESP 18; TEMP 37.1; O2SAT 100
[2019-12-15] MEDS: Ondansetron 4 MG/2 ML Vial IV (06:27)
--- NOTE | 2019-12-15 07:18 | PN_ITS ---
Patient Problems: Active and Suspected Problems (Last Reviewed 12/11/19 @ 03:[address] Ronak Mckinley MD) Bilateral leg weakness (Acute) Acute cystitis (Acute) Right leg pain (Acute) Pain of left lower extremity (Acute) Pain of right lower extremity (Acute) Reason for Visit: Follow-up on debility, leg pain, lack of medical decision-making capacity Subjective: Patient was seen and examined. She has persistent nausea and vomiting. Per patient, she has not moved in her bowels in a some days. Denies fever or chills. Objective: Physical exam: General: Alert, Oriented x3, Non-Cooperative, obese HEENT: Atraumatic, PERRLA, EOMI, Normocephalic Neck: Supple, No JVD, Negative Carotid Bruits Lungs: Clear to auscultation, Normal air movement, No rhonchi, No wheeze, No rales Cardiovascular: Regular rate, Regular Rhythm, Normal S1, Normal S2, No murmurs Abdomen: Bowel Sounds Present, Soft, Non Tender Extremities: No edema, Capillary Refill Less than 3 Seconds Skin: No rashes, No breakdown Musculoskeletal: No Tenderness to Palpation of Joints or Extremities Neurological: Cranial nerves II-XII grossly intact Psych/Mental Status: Normal Affect, Appropriate Vitals/I&O's: Vital Signs Temp Pulse Resp BP Pulse Ox 98.7 F 118 H 18 128/65 H 100 12/15/19 03:15 12/15/19 03:15 12/15/19 03:15 12/15/19 03:15 12/15/19 03:15 Oxygen Delivery Method Room Air Weight: 108.9 kg Body Mass Index (BMI) 36.3 Intake and Output for Last 24 Hours 12/13/19 12/14/19 12/15/19 23:59 23:59 23:59 Intake Total 2570 / 2770 3186.66 / 3186.66 Output Total 550 / 550 1100 / 1100 Balance 2019 / 0 2086.66 / 2086.66 Microbiology Past 72 Hours 12/10/19 22:50 Urine Catheter - Catheter Urine Culture - Final Escherichia coli Current Medications Acetaminophen (Tylenol) 650 mg PO Q6H PRN PRN PRN Reason: Pain Score 1-10/Temp > 100.7 F Last Admin: 12/12/19 01:43 Dose: 650 mg Documented by: Al Hydroxide/Mg Hydroxide (Mylanta Ii) 30 ml PO TID [facility] Last Admin: 12/15/19 06:27 Dose: Not Given Documented by: Alprazolam (Xanax) 0.5 mg PO BID PRN PRN PRN Reason: ANXIETY Last Admin: 12/11/19 04:14 Dose: 0.5 mg Documented by: Buspirone HCl (Buspar) 5 mg PO TID [facility] Last Admin: 12/15/19 06:27 Dose: Not Given Documented by: Calamine/Phenol (Calmoseptine Ointment) 1 applic TOPICAL BID [facility]; Protocol Last Admin: 12/14/19 22:13 Dose: 1 applicatio Documented by: Carbamazepine (Tegretol) 200 mg PO 4X/DAYCM [facility] Last Admin: 12/14/19 22:17 Dose: 200 mg Documented by: Enoxaparin Sodium (Lovenox) 40 mg SC DAILY [facility] Last Admin: 12/14/19 10:33 Dose: 40 mg Documented by: Ergocalciferol (Vitamin D) 50,000 unit PO MO [facility] Last Admin: 12/14/19 10:35 Dose: 50,000 unit Documented by: Ferrous Sulfate (Ferrous Sulfate) 325 mg PO DAILY@0800 [facility] Last Admin: 12/14/19 09:13 Dose: Not Given Documented by: Potassium Chloride 40 meq/ (Sodium Chloride) 1,020 mls @ 100 mls/hr IV .[id number] [facility] Last Admin: 12/15/19 00:04 Dose: 100 mls/hr Documented by: Pantoprazole Sodium 40 mg/ (Sodium Chloride) 110 mls @ 330 mls/hr IV Q12 [facility] Last Infusion: 12/14/19 22:37 Dose: Infused Documented by: Lacosamide 200 mg/ Sodium (Chloride) 70 mls @ 100 mls/hr IV BID [facility] Last Infusion: 12/14/19 23:50 Dose: Infused Documented by: Levetiracetam 500 mg/ Sodium (Chloride) 105 mls @ 400 mls/hr IV Q12 [facility] Last Infusion: 12/14/19 23:05 Dose: Infused Documented by: Sodium Chloride () 250 mls @ 15 mls/hr IV .[id number] PRN PRN Reason: Saline Flush Sodium Chloride () 250 mls @ 15 mls/hr IV .[id number] PRN PRN Reason: Additional IVPB Infusion Melatonin (Melatonin) 3 mg PO QHS PRN PRN PRN Reason: INSOMNIA Last Admin: 12/13/19 00:46 Dose: 3 mg Documented by: [facility] Admin: 12/14/19 09:14 Dose: Not Given Documented by: Nutritional Formula (Lactose Free) (Ensure Clear) 120 ml PO 4X/DAY [facility] Last Admin: 12/14/19 22:14 Dose: Not Given Documented by: Ondansetron HCl (Zofran) 4 mg IV Q8H PRN PRN PRN Reason: NAUSEA/VOMITING Last Admin: 12/15/19 06:27 Dose: 4 mg Documented by: Ondansetron HCl (Zofran Odt) 4 mg PO Q8H PRN PRN PRN Reason: NAUSEA Last Admin: 12/14/19 19:18 Dose: 4 mg Documented by: Pot[facility] Last Admin: 12/14/19 16:50 Dose: Not Given Documented by: Promethazine HCl (Phenergan) 12.5 mg IV Q6H PRN PRN PRN Reason: NAUSEA/VOMITING Last Admin: 12/15/19 00:04 Dose: 12.5 mg Documented by: Senna/Docusate Sodium (Senokot-S, Luci-Colace) 2 tablet PO DAILY [facility] Last Admin: 12/14/19 10:34 Dose: 2 tablet Documented by: Sertraline HCl (Zoloft) 100 mg PO DAILY [facility] Last Admin: 12/14/19 10:35 Dose: 100 mg Documented by: Sodium Chloride () 10 - 40 ml IV UD PRN PRN Reason: SALINE FLUSH Last Admin: 12/14/19 02:34 Dose: 10 ml Documented by: Medical Necessity - Tobacco Use Smoking Status: Never smoker Assessment/Plan All Active Problems (Last Reviewed 12/11/19 @ 03:[address] Ronak Mckinley MD) Left foot pain (Acute) Right foot sprain (Acute) Cholecystitis, acute with cholelithiasis (Resolved) Bilateral leg weakness (Acute) Acute cystitis (Acute) Right leg pain (Acute) Pain of left lower extremity (Acute) Pain of right lower extremity (Acute) 1. Acute E. coli UTI, completed 3 days of IV ceftriaxone 2. Hypokalemia/hypomagnesemia, resolved 3. Medical decision making capacity - patient lacks the capacity. Board of developmental disability in the process of getting patient emergency guardianship. Social work consulted, will follow up on recommendations 4. Debility, unclear etiology, PT and OT to evaluate and treat 5. Seizure disorder, continue on oral Tegretol - encourage to take as there is no other alternate route to administer Will switch Vimpat and Keppra to IV 6. MRDD/anxiety/depression, stable, continue on Zoloft, BuSpar 7. DVT PPx- Lovenox SC 8. Disposition: Pending social work recommendation of safe disposition Inpatient E&M: 47848 Subs Hosp L2
[2019-12-15 08:20] LABS: Absolute Lymphocyte Count 2.25 X10^3/uL (0.83-4.51); Absolute Neutrophil Count 3.3 X10^3/uL (2.0-7.7); Basophil# 0.04 X10^3/uL; Basophil% 0.6 % (0-1); Eosinophil# 0.15 X10^3/uL; Eosinophils% 2.2 % (0-5); Hematocrit 32.4 % (37-47); Hemoglobin 10.6 g/dL (12.0-15.0); Lymphocyte # 2.25 X10^3/ul (4.0); Lymphocyte % 33.3 % (19-41); Mean Corp Hgb Conc 32.7 g/dL (32-36); Mean Corpuscular Volume 88.8 fL (81-99); Mean Platelet Vol. 9.9 fl (6.2-12.0); Monocyte# 0.87 X10^3/uL; Monocyte% 12.9 % (0-10); NRBC Flagged by Analyzer 0 % (0-5); Neutrophil # 3.26 X10^3/uL (2.7-7.7); Neutrophil % 48.3 % (47-70); Platelet Count 272 K/mm3 (150-450); RBC Distribution Width CV 13.7 % (11.6-14.6); RBC Distribution Width SD 44.4 fl (35.1-43.9); Red Blood Count 3.65 M/mm3 (4.2-5.4); White Blood Count 6.8 K/mm3 (4.4-11.0)
[2019-12-15] MEDS: Multivitamins,Therapeutic Tablet 1 TABLET PO (08:38)
[2019-12-15] MEDS: Ferrous Sulfate 325 MG Tablet PO (08:39)
[2019-12-15] MEDS: carBAMazepine 200 MG Tablet PO ×3 (08:39→17:54)
[2019-12-15 09:15] VITALS: BP 146/94; PULSE 113; RESP 16; TEMP 37.2; O2SAT 100
[2019-12-15] MEDS: Enoxaparin 40 MG/0.4 ML Syringe SC (11:03)
[2019-12-15] MEDS: Ensure Clear 120 ML Liquid PO ×2 (11:03→22:48)
[2019-12-15] MEDS: Senna/Docusate Sodium 1 Tablet 2 TABLET PO (11:03)
[2019-12-15] MEDS: Menthol/Lanolin/Calamine/Znox 113 GM Tube 1 APPLIC TOPICAL ×2 (11:04→22:48)
[2019-12-15] MEDS: Bisacodyl 10 MG Suppository RECTAL (11:18)
[2019-12-15] MEDS: Sertraline 100 MG Tablet PO (11:19)
[2019-12-15] MEDS: Mag Hydrox/Al Hydrox/Simeth 30 ML UDC PO ×2 (11:26→22:48)
[2019-12-15 13:45] LABS: Pathologist Review Reviewed
--- NOTE | 2019-12-15 14:12 | CHAPLAIN ---
Type of Pastoral Visit ___ Initial Visit ___ Follow-up Visit ___ On-call Visit ___ General Patient Visit ___ Spiritual Assessment ___ Family Conference ___ Bereavement ___ Rapid Response ___ Code Blue _x__ Other (describe below) Pastoral Care Referral From ___ Patient ___ Family ___ Nurse ___ Physician ___ Biological Photographer ___ Group Controller ___ Other (describe below) Sacrament/Intervention ___ Active listening ___ Anointing ___ Alevism ___ Bereavement ___ Communion ___ Renée exploration ___ ___ Life review ___ Prayer ___ Reconciliation ___ Sacrament of Sick ___ Supportive presence ___ Wedding _x__ Other (describe below) Pastoral Comments two attempts to visit made to this patient; pt is sleeping and does not awaken to knock on door
[2019-12-15 15:44] VITALS: BP 138/88; PULSE 89; RESP 18; TEMP 37; O2SAT 95
--- NOTE | 2019-12-15 16:00 | CASEMGMT ---
Social Work MS3 Collaboration and case consultation with MS3 assigned social services director, Paula Su, regarding this patient and discharge planning needs. Called patient's Service and Support Special Effects Specialist (SSA) from from the [facility] [place] [employer] of Developmental Disabilities (DD), Liliana Mak regarding any past psychiatric treatment for this patient in the last 2 years. Per Liliana, the patient has not had an inpatient psychiatric admit in the last two years, and as far as I know nor any crisis evaluations for psychiatric reasons either. Liliana reports patient has history of periodic episodes of crisis, but has been relatively stable for the last 4 years since moving in with boyfriendamaso Dugan. Liliana reports patient needs psychological help. Liliana reports the patient has been falling and vomiting for no apparent reason, and these issue are creating concern for patient being able to be appropriately cared for at home. [facility] does have aide services, but this is intermittent. Liliana also reports patient has gone downhill since being in the long-term this year, and that Liliana even attempted to start guardianship process while patient was in the long-term. Liliana described patient has being more irritable/angry, having outbursts to the long-term staff, mood swings and crying more often. The long-term however did not support in providing a statement of expert evaluation however, as patient reportedly improved while at the long-term, was able to walk, and deemed able to discharge home to the community. Liliana reports since patient's release from the long-term, which has been brief, here have been multiple visits to the hospital for falls, and was even transferred to [facility] for further workup. Reportedly, no definitive answer on reason for falls or vomiting able to be provided. Patient reportedly had a psych consult while at [facility] and was offered inpatient treatment to further evaluate what is going on with patient, but patient declined and this was allowed due to no SI/HI present and patient being her own person. While in [facility], one of the thoughts was as possible somatoform disorder, though no official diagnosis of such. Liliana reports the challenge at this time is that patient keeps falling at home, the boyfriend Ritchie cannot get patient up, and there is concern that patient is just refusing to participate in care. Additional concerns for which Liliana reports patient needs more care and a guardianship include: frequent vomiting, refusal of medications, possible pseudo seizures, falls,and even not eating. Patient has reportedly refused usp placement offered, and has voiced wanting to be at home, but it is felt by community supports that home is not the best option right now Guardianship: Liliana reports the [facility] [place] Board of DD obtained a statement of expert evaluation from Patient's PCP of 18 years, Dr. Orozco. The Board of DD has provided this statement to [employer] ([employer]), to see if referral will be accepted for this agency to become patient guardian. Liliana commented that uncertain what to do for patient to get the help patient seems to need, or would benefit from. This technical document writer addressed with Liliana concern that guardianship has not even been filed in court yet, and there is no guarantee that [employer] is going to be willing to take patient on for guardianship. This technical document writer asked for the number/contact info for [employer] contact to see if hospital contact would help get [employer] expediting decision on referral. Liliana reports she, and Liliana's aircraft engine mechanic supervisor have both contacted [employer]. This technical document writer reinforced with Liliana that while a doctor has filled out the statement of expert evaluation, the patient has not technically been deemed incompetent by the courts, so a definitive answer on whether this guardianship is going to be filed in courts will be helpful in determining further planning, and determination of who can make decisions for the patient. Discussed Ritchie as the POAHC and that Ritchie would be the decision maker for patient at this point if patient cannot make decisions for self, though patient does technically remain her own guardian at present. Addressed with Liliana whether an ICF-MR level of care, such as at the [facility], has been looked at. Inquired whether this level of care needs to be looked at, since this facility would be more in tune with helping people with DD, and likely also experienced in working with persons exhibiting exacerbation of behavior issues. Liliana reported that unsure if this is an option and not sure if could take patient with falls and vomiting. This technical document writer suggested that may be helpful to look at this option. This technical document writer advocated for patient with Liliana, in that want to ensure patient's rights are being considered and that all options are being looked at. *Note, Liliana also disclosed that patient's mother just this summer. Liliana reports the patient as not especially close to her mother, however this was still a loss. Handoff to Paula Su regarding conversation with Liliana. Case consultation and update to manager pool for [employer] Case [employer], Rina Flower. Discharge planning continues to be worked on. Should physician deem this as appropriate, Crisis could be consulted for court assistant in psychiatric placement if needed, but role of crisis is not a competency evaluation. jail placement is being requested by patient's [facility], and supported by the Board of due to frequent falls and vomiting, and generally a lack of investment in caring for self at this time. Awaiting to hear whether guardianship is going to be filed in court for patient. Social work continues to follow and assist. -LLOYD Hughes, PATTERN ASSEMBLER
--- NOTE | 2019-12-15 16:26 | CASEMGMT ---
Social Work Note SW received list of SNF that pt's significant other Ritchie is agreeable to sending pt to. TARIQ placed a call to [facility] has they have behavior health, and per Kat they have no beds available. Kat requested for this worker to try [facility] or [facility] has both these facilities also have behavior health. TARIQ placed a call to [facility], no beds available. [facility] is out of [facility] and Ritchie prefers for pt to remain in [facility]. TARIQ placed a call to Do at [facility] and provided referral. SW also placed a call to Liliana at [facility] and provided referral. Pt's significant other Ritchie at [facility] and requesting to speak to this worker. TARIQ met with Ritchie. SW updated Ritchie that this worker has referrals sent out to [facility] and [facility]. Ritchie states understanding would like to be updated when a facility is found for pt. SW in to speak with pt. Pt states that she feels that her depression and anxiety has contributed to not taking care of self at home. Pt states that her mom last month and this has caused her to be more depressed. SW explored with pt pt's depression symptoms and provided support. Pt states that her legs also feel heavy and she contributes her falling at home to be both her depression and her legs feelings heavy. TARIQ attempted again to speak with pt regarding orientation, pt soundly sleeping. SW said pt's name multiple time and pt didn't wake. TARIQ spoke with physician regarding crisis consult that was entered once pt is medically cleared. TARIQ explained that crisis cannot do competency evaluations but crisis can evaluate for psych placement. Physician agreeable to crisis being called for possible psych placement. SW attempted to call Crisis, no one is available, SW was informed that someone from Crisis will call this worker back. SW called Crisis again as no one had called this worker back and left message for Francine to discuss case. TARIQ updated RN. TARIQ received call from Do at [facility] stating [facility] is able to accept pt. SW updated Do that plan is now for Crisis to evaluate for pt's behaviors. SW received message from Liliana at [facility] stating they are also able to accept pt. SW updated Liliana that Crisis will evaluate pt and then plan will be pending on crisis evaluation. Plan: TBD. SW to discuss case with Crisis. If pt is cleared by crisis, plan will likely be SNF. Paula Su BAKER TEST, RELATIONSHIP COUNSELOR
[2019-12-15 22:39] VITALS: BP 138/85; PULSE 105; RESP 18; TEMP 36.9; O2SAT 96
[2019-12-15] MEDS: 0.9% Saline Lock 10 ML Syringe IV (22:43)
[2019-12-15] MEDS: busPIRone 5 MG Tablet PO (22:48)
[2019-12-16] MEDS: Acetaminophen 325 MG Tablet 650 MG PO ×2 (01:52→17:22)
[2019-12-16] MEDS: ALPRAZolam 0.5 MG Tablet PO (01:52)
[2019-12-16 02:07] VITALS: BP 132/84; PULSE 104; RESP 18; TEMP 36.9; O2SAT 94
[2019-12-16] MEDS: Potassium Chloride 40 MEQ in 0.9% Normal Saline 1,000 ML 100 MEQ IV ×2 (02:57→23:31)
[2019-12-16] MEDS: Ondansetron 4 MG/2 ML Vial IV ×3 (02:59→23:25)
[2019-12-16] MEDS: Mag Hydrox/Al Hydrox/Simeth 30 ML UDC PO ×2 (05:20→14:19)
[2019-12-16] MEDS: busPIRone 5 MG Tablet PO ×3 (05:20→23:00)
[2019-12-16 06:50] LABS: Absolute Lymphocyte Count 2.36 X10^3/uL (0.83-4.51); Absolute Neutrophil Count 2.5 X10^3/uL (2.0-7.7); Basophil# 0.03 X10^3/uL; Basophil% 0.5 % (0-1); Eosinophil# 0.17 X10^3/uL; Eosinophils% 2.8 % (0-5); Hematocrit 31.1 % (37-47); Hemoglobin 10.4 g/dL (12.0-15.0); Lymphocyte # 2.36 X10^3/ul (4.0); Mean Corp Hgb Conc 33.4 g/dL (32-36); Mean Corpuscular Hgb 29.5 pg (27.0-32.0); Mean Corpuscular Volume 88.1 fL (81-99); Monocyte# 0.85 X10^3/uL; NRBC Flagged by Analyzer 0 % (0-5); Neutrophil # 2.49 X10^3/uL (2.7-7.7); Neutrophil % 41.2 % (47-70); Platelet Count 375 K/mm3 (150-450); RBC Distribution Width CV 13.8 % (11.6-14.6); RBC Distribution Width SD 43.7 fl (35.1-43.9); Red Blood Count 3.53 M/mm3 (4.2-5.4); White Blood Count 6.1 K/mm3 (4.4-11.0)
[2019-12-16 07:13] VITALS: O2SAT 99
[2019-12-16 07:32] LABS: ALB/GLOB Ratio 0.6 RATIO (0.9-2.4); AST(SGOT) 78 U/L (15-37); Alanine Aminotransfer ALT/SGPT 57 U/L (13-56); Albumin, Serum 2.1 g/dL (3.2-5.0); Alkaline Phosphatase 92 U/L (45-117); Anion Gap 8 (5-15); BUN 6 mg/dL (7-18); BUN/Creat Ratio 11.3 RATIO (10-20); Calcium,Total 8.2 mg/dL (8.5-10.1); Chloride 106 mmol/L (98-107); Creatinine, Serum 0.53 mg/dL (0.55-1.02); EST Glomerular Filtration Rate 135 mL/min (>60); Est Glom Filt Rate - Afr Amer 164 mL/min (>60); Estimated Creatinine Clearance 143.76 ml/min; Globulin 3.5 g/dL (2.2-4.2); Glucose 74 mg/dL (74-106); Potassium 4.6 mmol/L (3.5-5.1); Protein, Total 5.6 g/dL (6.4-8.2); Sodium Level 135 mmol/L (136-145)
[2019-12-16 08:10] VITALS: BP 134/69; PULSE 105; RESP 16; TEMP 36.8; O2SAT 97
[2019-12-16] MEDS: Sertraline 100 MG Tablet PO (09:51)
[2019-12-16] MEDS: Menthol/Lanolin/Calamine/Znox 113 GM Tube 1 APPLIC TOPICAL ×2 (09:52→23:01)
[2019-12-16] MEDS: carBAMazepine 200 MG Tablet PO ×4 (09:52→23:01)
[2019-12-16] MEDS: Senna/Docusate Sodium 1 Tablet 2 TABLET PO (09:52)
[2019-12-16] MEDS: Multivitamins,Therapeutic Tablet 1 TABLET PO (09:52)
[2019-12-16] MEDS: Ferrous Sulfate 325 MG Tablet PO (09:52)
[2019-12-16] MEDS: Enoxaparin 40 MG/0.4 ML Syringe SC (09:52)
[2019-12-16] MEDS: 0.9% Saline Lock 10 ML Syringe IV ×5 (11:00→23:25)
--- NOTE | 2019-12-16 11:41 | PCM.TXEXTCAR ---
- Diet 12/12/19 09:27 Diet: Clear Liquid Is pt able to select menu?: Yes Diet Comments: clears, advance to regular Advance to: Regular - Routine Orders/Code Status Code Status: Full Code - Allergies/Procedures Done in Hospital Allergies/Adverse Reactions: Allergies Penicillins Allergy (Verified 12/09/19 19:08) Unknown tomato Adverse Reaction (Verified 12/09/19 19:08) Diarrhea - Type of Care/Length of Stay Estimated LOS: Convalescent Care Less Than 30 days Type of Care Needed: Skilled Rehab Potential: Good Prognosis: Good - Additional Orders/Day of Discharge Day of Discharge: 12/16/19 - Dietary and Speech Recommendations Dietitian Recommendations/Changes: Advance diet as tolerated to Regular/General. Continue ensure clear as ordered w/ medpass--pt appears accepting. - Follow Up Care Primary Care Physician: Erwin Orozco MD [Primary Care Provider] - Please Follow Up With: Nery Barba DPM When: 1 week at [facility]; call [phone] to confirm time / date.
--- NOTE | 2019-12-16 11:44 | PN_ITS ---
Patient Problems: Active and Suspected Problems (Last Reviewed 12/11/19 @ 03:[address] Ronak Mckinley MD) Bilateral leg weakness (Acute) Acute cystitis (Acute) Right leg pain (Acute) Pain of left lower extremity (Acute) Pain of right lower extremity (Acute) Reason for Visit: Acute cystitis, physical debility, Subjective: Patient is a 38-year-old lady with history of learning disability admitted with bilateral leg pain and generalized weakness. Found to have UTI admitted to regular nursing floor for further management Objective: GENERAL: cooperative HEENT: Atraumatic; EYES; Anicteric, Normal Conjunctiva NECK; supple, normal thyroid, RESPIRATORY: Diminished to auscultation CARDIOVASCULAR: Regular S1 S2, GI: soft, normoactive bowel sounds, : No Renal angle tenderness; EXTREMITIES: No edema, no clubbing, MUSCULOSKELETAL: no muscle waisting NEURO: Awake; no lateralizing signs. SKIN: No Rash PSYCH; Flat affect Vitals/I&O's: Vital Signs Temp Pulse Resp BP Pulse Ox 98.2 F 105 H 16 134/69 H 97 12/16/19 08:10 12/16/19 08:10 12/16/19 08:10 12/16/19 08:10 12/16/19 08:10 Oxygen Delivery Method Room Air Weight: 108.9 kg Body Mass Index (BMI) 36.3 Intake and Output for Last 24 Hours 12/14/19 12/15/19 12/16/19 23:59 23:59 23:59 Intake Total 3186.66 / 3186.66 2581.25 / 2581.25 1423.33 / 1423.33 Output Total 1100 / 1100 550 / 550 1050 / 1050 Balance 2086.66 / 2086.66 2031.25 / 2031.25 373.33 / 373.33 Laboratory Results 12/12/19 06:56: Diff Path Review Reviewed 12/16/19 06:35: WBC 6.1, RBC 3.53 L, Hgb 10.4 L, Hct 31.1 L, MCV 88.1, MCH 29.5, MCHC 33.4, RDW Std Deviation 43.7, RDW Coeff of Inna 13.8, Plt Count 375, MPV 9.0, Immature Gran % (Auto) 2.500 H, Neut % (Auto) 41.2 L, Lymph % (Auto) 39.0, Rice % (Auto) 14.0 H, Eos % (Auto) 2.8, Baso % (Auto) 0.5, Absolute Neuts (auto) 2.5, Absolute Lymphs (auto) 2.36, Nucleated RBC % 0 12/16/19 06:35: Sodium 135 L, Potassium 4.6, Chloride 106, Carbon Dioxide 21.0, Anion Gap 8, BUN 6 L, Creatinine 0.53 L, Estim Creat Clear Calc 143.76, Est GFR (MDRD) Af Amer 164, Est GFR (MDRD) Non-Af 135, BUN/Creatinine Ratio 11.3, Glucose 74, Calcium 8.2 L, Total Bilirubin 0.40, AST 78 H, ALT 57 H, Alkaline Phosphatase 92, Total Protein 5.6 L, Albumin 2.1 L, Globulin 3.5, Albumin/Globulin Ratio 0.6 L 12/16/19 : COVID-19 (CLARA) Pending Current Medications Acetaminophen (Tylenol) 650 mg PO Q6H PRN PRN PRN Reason: Pain Score 1-10/Temp > 100.7 F Last Admin: 12/16/19 01:52 Dose: 650 mg Documented by: Al Hydroxide/Mg Hydroxide (Mylanta Ii) 30 ml PO TID [facility] Last Admin: 12/16/19 05:20 Dose: 30 ml Documented by: Alprazolam (Xanax) 0.5 mg PO BID PRN PRN PRN Reason: ANXIETY Last Admin: 12/16/19 01:52 Dose: 0.5 mg Documented by: Buspirone HCl (Buspar) 5 mg PO TID [facility] Last Admin: 12/16/19 05:20 Dose: 5 mg Documented by: Calamine/Phenol (Calmoseptine Ointment) 1 applic TOPICAL BID [facility]; Protocol Last Admin: 12/16/19 09:52 Dose: 1 applicatio Documented by: Carbamazepine (Tegretol) 200 mg PO 4X/DAYCM [facility] Last Admin: 12/16/19 09:52 Dose: 200 mg Documented by: Enoxaparin Sodium (Lovenox) 40 mg SC DAILY [facility] Last Admin: 12/16/19 09:52 Dose: 40 mg Documented by: Ergocalciferol (Vitamin D) 50,000 unit PO MO [facility] Last Admin: 12/14/19 10:35 Dose: 50,000 unit Documented by: Ferrous Sulfate (Ferrous Sulfate) 325 mg PO DAILY@0800 [facility] Last Admin: 12/16/19 09:52 Dose: 325 mg Documented by: Potassium Chloride 40 meq/ (Sodium Chloride) 1,020 mls @ 100 mls/hr IV .[id number] [facility] Last Infusion: 12/16/19 09:30 Dose: 0 mls/hr Documented by: Pantoprazole Sodium 40 mg/ (Sodium Chloride) 110 mls @ 330 mls/hr IV Q12 [facility] Last Admin: 12/16/19 10:58 Dose: 330 mls/hr Documented by: Lacosamide 200 mg/ Sodium (Chloride) 70 mls @ 100 mls/hr IV BID [facility] Last Infusion: 12/15/19 23:49 Dose: Infused Documented by: Levetiracetam 500 mg/ Sodium (Chloride) 105 mls @ 400 mls/hr IV Q12 [facility] Last Infusion: 12/16/19 10:58 Dose: Infused Documented by: Sodium Chloride () 250 mls @ 15 mls/hr IV .[id number] PRN PRN Reason: Saline Flush Last Infusion: 12/15/19 15:45 Dose: 0 mls/hr Documented by: Sodium Chloride () 250 mls @ 15 mls/hr IV .[id number] PRN PRN Reason: Additional IVPB Infusion Melatonin (Melatonin) 3 mg PO QHS PRN PRN PRN Reason: INSOMNIA Last Admin: 12/13/19 00:46 Dose: 3 mg Documented by: Multivitamins (Multivitamin) [facility] Last Admin: 12/16/19 09:52 Dose: 1 tablet Documented by: Nutritional Formula (Lactose Free) (Ensure Clear) 120 ml PO 4X/DAY [facility] Last Admin: 12/16/19 09:49 Dose: Not Given Documented by: Ondansetron HCl (Zofran) 4 mg IV Q8H PRN PRN PRN Reason: NAUSEA/VOMITING Last Admin: 12/16/19 02:59 Dose: 4 mg Documented by: Ondansetron HCl (Zofran Odt) 4 mg PO Q8H PRN PRN PRN Reason: NAUSEA Last Admin: 12/14/19 19:18 Dose: 4 mg Documented by: Potassium Chloride (K-Dur) 20 meq PO BIDCM [facility] Last Admin: 12/16/19 09:52 Dose: 20 meq Documented by: Promethazine HCl (Phenergan) 12.5 mg IV Q6H PRN PRN PRN Reason: NAUSEA/VOMITING Last Admin: 12/15/19 00:04 Dose: 12.5 mg Documented by: Senna/Docusate Sodium (Senokot-S, Luci-Colace) 2 tablet PO DAILY [facility] Last Admin: 12/16/19 09:52 Dose: 2 tablet Documented by: Sertraline HCl (Zoloft) 100 mg PO DAILY [facility] Last Admin: 12/16/19 09:51 Dose: 100 mg Documented by: Sodium Chloride () 10 - 40 ml IV UD PRN PRN Reason: SALINE FLUSH Last Admin: 12/16/19 11:00 Dose: 12 ml Documented by: STROKE Vital Signs/Narrative: Vital Signs Temp Pulse Resp BP Pulse Ox 12/16/19 08:10 98.2 F 105 H 16 134/69 H 97 Medical Necessity - Tobacco Use Smoking Status: Never smoker Assessment/Plan All Active Problems (Last Reviewed 12/11/19 @ 03:[address] Ronak Mckinley MD) Left foot pain (Acute) Right foot sprain (Acute) Cholecystitis, acute with cholelithiasis (Resolved) Bilateral leg weakness (Acute) Acute cystitis (Acute) Right leg pain (Acute) Pain of left lower extremity (Acute) Pain of right lower extremity (Acute) Patient is a 38-year-old lady with history of learning disability admitted with bilateral leg pain and generalized weakness. Found to have UTI admitted to regular nursing floor for further management 1. Acute cystitis with UTI Patient was treated with IV Rocephin for 3 days 2. Hypokalemia ?Corrected per protocol 3. Hypomagnesemia ?Corrected per protocol 4. Physical debility debility ?Requested for PT OT eval and social work msw to assist with discharge planning 5. Learning disability ?With inability to make medical decisions. Consultation placed to social work msw to assist with disposition as well as guardianship 6. Seizure disorder ?Patient on Tegretol 7. Depression with anxiety ?Patient is on SSRI as well as BuSpar 8. Obesity with BMI of 36.5 ?Advised on weight loss however doubts if this will be achievable given patient learning disability 9. DVT prophylaxis - On enoxaparin Inpatient E&M: 09832 Subs Hosp L2
--- NOTE | 2019-12-16 12:50 | CHAPLAIN ---
Type of Pastoral Visit _x__ Initial Visit ___ Follow-up Visit ___ On-call Visit ___ General Patient Visit ___ Spiritual Assessment ___ Family Conference ___ Bereavement ___ Rapid Response ___ Code Blue ___ Other (describe below) Pastoral Care Referral From _x__ Patient ___ Family ___ Nurse ___ Physician ___ Parts Cataloger ___ House Calls Nurse ___ Other (describe below) Sacrament/Intervention ___ Active listening ___ Anointing ___ Lutheran ___ Bereavement ___ Communion ___ Renée exploration ___ ___ Life review ___ Prayer ___ Reconciliation ___ Sacrament of Sick _x__ Supportive presence ___ Wedding ___ Other (describe below) Pastoral Comments patient was awake as RN was present to give meds at this time; pt was offered presence and support by this supply technician; pt would not open her eyes and only nodded no to inquiries about desire for visit/support/talk/concerns; left pt with offer of future support if desired
[2019-12-16 14:23] VITALS: BP 131/101; PULSE 110; RESP 18; TEMP 37.1; O2SAT 97
--- NOTE | 2019-12-16 15:00 | CASEMGMT ---
Social Work MS3 Collaboration and case consultation with ROMY Forde for MS3. Case consultation with Disc Sander for Integrated Case Management, Rina Flower as well. Chart has been reviewed. Noted that PT and OT do recommend additional therapy for this patient. Hospitalist caring for patient this date indicating senior care placement versus inpatient psychiatric treatment. Met with patient to discuss where patient is at with going to a senior care. To this point, the patient has been refusing NF, has indicated desire to go home and be with boyfriend Ritchie, but Ritchie who is the [facility] is expressing that cannot take care of patient right now in current state and supports senior care parchment. Patient SSA from the [facility] Board [facility] is also supporting placement for patient, rather than return home. Met with patient in room. Introduced to self and role. Patient was sleeping but woke up for social work visit. Patient initially noncommunicative with renal social worker, nodding head yes and no only, however then decided to start talking to this food writer. Patient alert and oriented to person, month, and situation of being in hospital because I am hurting, but not able to verbalize or identify year/which hospital actually in - [place] or [place]/president. Reviewed with patient what this food writer knows about patient, acknowledging that patient with a lot of loss and change this year. This food writer reviewed with patient concerns that patient is not caring for herself, and that Ritchie not able to care for patient in patient current state. Addressed with patient whether patient believes she would benefit from mental health treatment in light of so many changes and current depression and anxiety. Patient stated probably, I don't know. Patient went on to state I'm letting you guys decide where to put me, and all I am worried about is my feet. Patient stated, I can't even think right now, I keep falling, I can't even roll over right now without 2 nurses. Patient continued to make statements about All I'm doing is thinking of me, and All I want to do is get better. Patient reported that she has been falling, has not eating in 4-5 days and won't try to eat due to being afraid of vomiting. Patient stated I just throw up. Patient showed this food writer her hands, which to this food writer's observations were still, and told this food writer that patient hands were shaking so cannot pick up and delivery driver the glass of juice on the bedside. Patient reported that cannot move her feet, except for what appeared to be a pedalling motion back and forth with feet. Patient able to verbalize that knows nursing homes are being looked at and belief that SUSY Liliana is supposed to take patient to [facility] to look around. This food writer addressed with patient the idea of a guardian and whether this has been talked about with patient. Patient noncommittal about this, but was able to tell this food writer understanding of what a guardian is, a person to make decisions for you. Let patient know this is being considered. Patient stated, I don't know about that, Ritchie does my money and is my power of employee benefits attorney. Addressed with patient as to what getting better means to the patient. Patient states, I just want to get better and go home and walk around town, but I can't right now. Patient stated, I want to eat. I want to take my medicine without it coming back up, and I want to walk. Patient spontaneous with these comments and crying during this part of conversation. Patient reports to be scared to try walking, eating, or taking medicine. Gently but firmly discussed with patient that recovery will not happen unless patient makes an effort to work with staff, and works on eating and drinking. Educated patient that if patient continues to not eat or drink then patient will likely become weaker. Patient did report she is willing to try to walk if can use a walker with a seat on it. With prompting and assist in holding the cup for patient, the patient also took 5-6 drinks of juice for this food writer and did not throw it up in this food writer's presence. Patient voiced she is afraid she will have a seizure and wants Ritchie to visit to help keep patient calm. Patient admits that being around people helps to calm patient's nerves. Patient reports is worried and scared Addressed with patient whether there has been any SI or HI. Patient denies both but when asked if ever done anything to harm self, patient reports was punching herself before coming into hospital because of being so upset that can't walk. Addressed patient thought process as well. Patient reports to see her family sometimes and that presently during social work visit, My dad is standing over there by the cabinet looking at patient and this worker. Patient reports sees family sometimes but not all of the time. Denies ever hearing voices or that the family talks to patient when patient sees family in the room. Updated Paula Su that patient is voicing at this time an agreement to NF placement, or placement in general. Updated Dr. Borden to patient comments about seeing in the room. In light of voiced occurrence of visual hallucinations the physicians indicates agreement to look into psychiatric hospitalization prior to looking at senior care. Called patient SSA at Board of , Liliana Garcialand. Updated Liliana. Liliana voices concern that patient, if accepted to a psychiatric facility will just be discharged home in three days without any real change or help. Discussed with Liliana that as patient has now voiced visual hallucinations, and doctor voiced to look into psych treatment this will be looked at. This food writer broached whether the ICF-MR level of care of [facility] could be looked at if psychiatric placement cannot be attained, and whether this level of care could handle mobility issues. Discussed with Liliana concerns for senior care placement in this 38 year old woman, being a facility with patient in her own wage group versus a nursing facility with people in their 80's and 90's. Liliana uncertain, and no voiced commitment to call and check whether this level of care could be a viable option for patient. Liliana made comment that people need a guardian to go to the [facility]. Per Liliana, [facility] is looking at guardianship referral for this patient today. Liliana reports she is able to give this food writer APSI's contact information today as Liliana's boss let [facility] know hospital may be calling. As [facility] is addressing today, will wait to see if an answer is attained by tomorrow. Social work to follow. Handoff and collaboration with ROMY Forde for MS3 regarding interactions. -LLOYD Hughes, CORE DRIER
--- NOTE | 2019-12-16 15:10 | CASEMGMT ---
Social Work MS3 This ad writer called the [facility] at [phone] and spoke with the net programmer analyst. Made general inquiries as to whether this Center accepts people without guardians - it is rare that a person does not have a guardian as the facility is not locked. Usually there is a guardianship at least in the works. Made inquiries whether this Center would handle people with limited mobility and frequent vomiting, as well as ability to address emotional health needs - this center is a comprehensive program and there is ability to assist people who are not mobile. Made inquiry as to admission process - conformation that the local board [facility] has to make referral and also has to sign a contract with the Center's superintendant for billing/payment/etc. The net programmer analyst educated this ad writer that the [facility] offers to any [facility] Board of a program called technical assistance where a team from the Center can work collaboratively and collaterally to review the case, and is sometimes used prior to the local [facility] agreeing to placement at the [facility]. The technical assistance offers suggestions on what to try for the person and does does not need a signed for contract. -LLOYD Hughes, BAR ATTENDANT
--- NOTE | 2019-12-16 17:44 | CASEMGMT ---
Social Work Note TARIQ updated that physician is agreeable to trying psych placement for pt. TARIQ placed a call to pt's significant other Ritchie and updated him that plan is to try to get pt admitted to psych placement but if pt is not able to be accepted to psych placement then plan will be for SNF. TARIQ updated Ritchie that both [facility] and [facility] are able to accept pt. Ritchie states that he prefers [facility] for pt. TARIQ updated Ritchie that this worker will keep him updated on psych placement and SNF placement. Ritchie states understanding. TARIQ placed a call to Do at [facility]. Do states [facility] does have a psychologist available. Plan: Psych placement vs SNF placement Paula Su COMMISSIONING ENGINEER, ICE CREAM DISPENSER
[2019-12-16 22:30] VITALS: BP 143/86; PULSE 106; RESP 16; TEMP 36.8; O2SAT 97
[2019-12-17] MEDS: proMETHazine 25 MG/ML Syringe 12.5 MG IV ×2 (02:45→10:46)
[2019-12-17] MEDS: 0.9% Saline Lock 10 ML Syringe IV ×3 (02:49→10:46)
[2019-12-17 02:54] VITALS: BP 116/72; PULSE 119; RESP 20; TEMP 36.9; O2SAT 96
[2019-12-17] MEDS: Acetaminophen 325 MG Tablet 650 MG PO ×3 (03:36→23:50)
[2019-12-17] MEDS: busPIRone 5 MG Tablet PO ×3 (05:49→23:37)
[2019-12-17 05:57] LABS: Hematocrit 31.6 % (37-47); Hemoglobin 10.5 g/dL (12.0-15.0); Mean Corp Hgb Conc 33.2 g/dL (32-36); Mean Corpuscular Hgb 29.2 pg (27.0-32.0); Mean Corpuscular Volume 87.8 fL (81-99); Mean Platelet Vol. 9.1 fl (6.2-12.0); Platelet Count 420 K/mm3 (150-450); RBC Distribution Width SD 43.4 fl (35.1-43.9); White Blood Count 5.5 K/mm3 (4.4-11.0)
[2019-12-17 06:15] LABS: Anion Gap 12 (5-15); BUN 5 mg/dL (7-18); BUN/Creat Ratio 9.4 RATIO (10-20); Calcium,Total 8.4 mg/dL (8.5-10.1); Chloride 103 mmol/L (98-107); Creatinine, Serum 0.53 mg/dL (0.55-1.02); EST Glomerular Filtration Rate 136 mL/min (>60); Est Glom Filt Rate - Afr Amer 164 mL/min (>60); Estimated Creatinine Clearance 143.76 ml/min; Glucose 68 mg/dL (74-106); Magnesium 2.1 mg/dL (1.6-2.6); Potassium 4.3 mmol/L (3.5-5.1); Sodium Level 138 mmol/L (136-145)
--- NOTE | 2019-12-17 07:22 | PN_ITS ---
Patient Problems: Active and Suspected Problems (Last Reviewed 12/11/19 @ 03:[address] Ronak Mckinley MD) Bilateral leg weakness (Acute) Acute cystitis (Acute) Right leg pain (Acute) Pain of left lower extremity (Acute) Pain of right lower extremity (Acute) Reason for Visit: Acute cystitis Subjective: Patient was reported by nursing staff to be hallucinating the day prior talking to his father who was not in the room. Consult placed to case management plan is for patient to be transferred to an inpatient psych facility otherwise and extended care facility with outpatient consultation to psych Objective: GENERAL: cooperative HEENT: Atraumatic; EYES; Anicteric, Normal Conjunctiva NECK; supple, normal thyroid, RESPIRATORY: Diminished to auscultation CARDIOVASCULAR: Regular S1 S2, GI: soft, normoactive bowel sounds, : No Renal angle tenderness; EXTREMITIES: No edema, no clubbing, MUSCULOSKELETAL: no muscle waisting NEURO: Awake; no lateralizing signs. SKIN: No Rash PSYCH; Flat affect Vitals/I&O's: Vital Signs Temp Pulse Resp BP Pulse Ox 98.4 F 119 H 20 H 116/72 96 12/17/19 02:54 12/17/19 02:54 12/17/19 02:54 12/17/19 02:54 12/17/19 02:54 Oxygen Delivery Method Room Air Weight: 108.9 kg Body Mass Index (BMI) 36.3 Intake and Output for Last 24 Hours 12/15/19 12/16/19 12/17/19 23:59 23:59 23:59 Intake Total 2581.25 / 2581.25 2493.33 / 2543.33 513.33 / 513.33 Output Total 550 / 550 2100 / 2225 975 / 975 Balance 203. / 393.33 / 318.33 -461.67 / -461.67 Laboratory Results 12/16/19 06:35: Sodium 135 L, Potassium 4.6, Chloride 106, Carbon Dioxide 21.0, Anion Gap 8, BUN 6 L, Creatinine 0.53 L, Estim Creat Clear Calc 143.76, Est GFR (MDRD) Af Amer 164, Est GFR (MDRD) Non-Af 135, BUN/Creatinine Ratio 11.3, Glucose 74, Calcium 8.2 L, Total Bilirubin 0.40, AST 78 H, ALT 57 H, Alkaline Phosphatase 92, Total Protein 5.6 L, Albumin 2.1 L, Globulin 3.5, Albumin/Globulin Ratio 0.6 L 12/16/19 : COVID-19 (CLARA) Not Detected 12/17/19 05:25: WBC 5.5, RBC 3.60 L, Hgb 10.5 L, Hct 31.6 L, MCV 87.8, MCH 29.2, MCHC 33.2, RDW Std Deviation 43.4, RDW Coeff of Inna 14.0, Plt Count 420, MPV 9.1 12/17/19 05:25: Sodium 138, Potassium 4.3, Chloride 103, Carbon Dioxide 23.0, Anion Gap 12, BUN 5 L, Creatinine 0.53 L, Estim Creat Clear Calc 143.76, Est GFR (MDRD) Af Amer 164, Est GFR (MDRD) Non-Af 136, BUN/Creatinine Ratio 9.4 L, Glucose 68 L, Calcium 8.4 L, Magnesium 2.1 Current Medications Acetaminophen (Tylenol) 650 mg PO Q6H PRN PRN PRN Reason: Pain Score 1-10/Temp > 100.7 F Last Admin: 12/17/19 03:36 Dose: 650 mg Documented by: Al Hydroxide/Mg Hydroxide (Mylanta Ii) 30 ml PO TID [facility] Last Admin: 12/17/19 05:51 Dose: Not Given Documented by: Alprazolam (Xanax) 0.5 mg PO BID PRN PRN PRN Reason: ANXIETY Last Admin: 12/16/19 01:52 Dose: 0.5 mg Documented by: Buspirone HCl (Buspar) 5 mg PO TID [facility] Last Admin: 12/17/19 05:49 Dose: 5 mg Documented by: Calamine/Phenol (Calmoseptine Ointment) 1 applic TOPICAL BID [facility]; Protocol Last Admin: 12/16/19 23:01 Dose: 1 applicatio Documented by: Carbamazepine (Tegretol) 200 mg PO 4X/DAYCM [facility] Last Admin: 12/16/19 23:01 Dose: 200 mg Documented by: Enoxaparin Sodium (Lovenox) 40 mg SC DAILY [facility] Last Admin: 12/16/19 09:52 Dose: 40 mg Documented by: Ergocalciferol (Vitamin D) 50,000 unit PO MO [facility] Last Admin: 12/14/19 10:35 Dose: 50,000 unit Documented by: Ferrous Sulfate (Ferrous Sulfate) 325 mg PO DAILY@0800 [facility] Last Admin: 12/16/19 09:52 Dose: 325 mg Documented by: Potassium Chloride 40 meq/ (Sodium Chloride) 1,020 mls @ 100 mls/hr IV .[id number] [facility] Last Admin: 12/17/19 06:27 Dose: Not Given Documented by: Pantoprazole Sodium 40 mg/ (Sodium Chloride) 110 mls @ 330 mls/hr IV Q12 [facility] Last Infusion: 12/17/19 00:11 Dose: Infused Documented by: Lacosamide 200 mg/ Sodium (Chloride) 70 mls @ 100 mls/hr IV BID [facility] Last Infusion: 12/17/19 00:53 Dose: Infused Documented by: Levetiracetam 500 mg/ Sodium (Chloride) 105 mls @ 400 mls/hr IV Q12 [facility] Last Infusion: 12/16/19 23:30 Dose: Infused Documented by: Sodium Chloride () 250 mls @ 15 mls/hr IV .[id number] PRN PRN Reason: Saline Flush Last Infusion: 12/15/19 15:45 Dose: 0 mls/hr Documented by: Sodium Chloride () 250 mls @ 15 mls/hr IV .[id number] PRN PRN Reason: Additional IVPB Infusion Melatonin (Melatonin) 3 mg PO QHS PRN PRN PRN Reason: INSOMNIA Last Admin: 12/13/19 00:46 Dose: 3 mg Documented by: [facility] Last Admin: 12/16/19 09:52 Dose: 1 tablet Documented by: Nutritional Formula (Lactose Free) (Ensure Clear) 120 ml PO 4X/DAY [facility] Last Admin: 12/16/19 23:02 Dose: Not Given Documented by: Ondansetron HCl (Zofran) 4 mg IV Q8H PRN PRN PRN Reason: NAUSEA/VOMITING Last Admin: 12/16/19 23:25 Dose: 4 mg Documented by: Ondansetron HCl (Zofran Odt) 4 mg PO Q8H PRN PRN PRN Reason: NAUSEA Last Admin: 12/14/19 19:18 Dose: 4 mg Documented by: Potassium Chloride (K-Dur) 20 meq PO BIDCM [facility] Last Admin: 12/16/19 17:31 Dose: Not Given Documented by: Promethazine HCl (Phenergan) 12.5 mg IV Q6H PRN PRN PRN Reason: NAUSEA/VOMITING Last Admin: 12/17/19 02:45 Dose: 12.5 mg Documented by: Senna/Docusate Sodium (Senokot-S, Luci-Colace) 2 tablet PO DAILY [facility] Last Admin: 12/16/19 09:52 Dose: 2 tablet Documented by: Sertraline HCl (Zoloft) 100 mg PO DAILY [facility] Last Admin: 12/16/19 09:51 Dose: 100 mg Documented by: Sodium Chloride () 10 - 40 ml IV UD PRN PRN Reason: SALINE FLUSH Last Admin: 12/17/19 02:49 Dose: 10 ml Documented by: Medical Necessity - Tobacco Use Smoking Status: Never smoker Assessment/Plan All Active Problems (Last Reviewed 12/11/19 @ 03:[address] Ronak Mckinley MD) Left foot pain (Acute) Right foot sprain (Acute) Cholecystitis, acute with cholelithiasis (Resolved) Bilateral leg weakness (Acute) Acute cystitis (Acute) Right leg pain (Acute) Pain of left lower extremity (Acute) Pain of right lower extremity (Acute) Patient is a 38-year-old lady with history of learning disability admitted with bilateral leg pain and generalized weakness. Found to have UTI admitted to regular nursing floor for further management 1. Acute cystitis with UTI Patient was treated with IV Rocephin for 3 days 2. Hypokalemia ?Corrected per protocol 3. Hypomagnesemia ?Corrected per protocol 4. Physical debility debility ?Requested for PT OT eval and social organization professor to assist with discharge planning 5. Learning disability ?With inability to make medical decisions. Consultation placed to social organization professor to assist with disposition as well as guardianship 6. Seizure disorder ?Patient on Tegretol 7. Depression with anxiety ?Patient is on SSRI as well as BuSpar 8. Obesity with BMI of 36.5 ?Advised on weight loss however doubts if this will be achievable given patient learning disability 9. DVT prophylaxis - On enoxaparin 10. Hallucinations - Patient was reported by nursing staff to be hallucinating the day prior talking to his father who was not in the room. Consult placed to case management plan is for patient to be transferred to an inpatient psych facility otherwise and extended care facility with outpatient consultation to psych Inpatient E&M: [id number] Subs Hosp L2
[2019-12-17 07:37] VITALS: O2SAT 97
[2019-12-17 09:54] VITALS: BP 135/84; PULSE 116; RESP 18; TEMP 36.9; O2SAT 98
[2019-12-17] MEDS: Multivitamins,Therapeutic Tablet 1 TABLET PO (10:00)
[2019-12-17] MEDS: carBAMazepine 200 MG Tablet PO ×4 (10:01→23:46)
[2019-12-17] MEDS: Senna/Docusate Sodium 1 Tablet 2 TABLET PO (10:02)
[2019-12-17] MEDS: Sertraline 100 MG Tablet PO (10:02)
[2019-12-17] MEDS: Ferrous Sulfate 325 MG Tablet PO (10:02)
[2019-12-17] MEDS: Menthol/Lanolin/Calamine/Znox 113 GM Tube 1 APPLIC TOPICAL ×2 (10:03→23:37)
[2019-12-17] MEDS: Enoxaparin 40 MG/0.4 ML Syringe SC (10:03)
[2019-12-17 10:35] VITALS: RESP 18
[2019-12-17] MEDS: Mag Hydrox/Al Hydrox/Simeth 30 ML UDC PO (12:30)
--- NOTE | 2019-12-17 12:39 | EKG12_ITS ---
Test Reason : Blood Pressure : / mmHG Vent. Rate : 116 BPM Atrial Rate : 116 BPM P-R Int : 186 ms QRS Dur : 060 ms QT Int : 304 ms P-R-T Axes : 051 008 038 degrees QTc Int : 422 ms Sinus tachycardia Otherwise normal ECG When compared with ECG of 09-DEC-2019 20:29, Nonspecific T wave abnormality no longer evident in Anterior leads Confirmed by GARLAND MADRIGAL, ROMEO ([id number]), newspaper managing editor JAM NAPOLES ([id number]) on 12/23/2019 11:36:23 AM Referred By: JUVE Confirmed By:ROMEO HAQUE MD
[2019-12-17 13:30] LABS: Amphetamine Urine VISTA NEGATIVE (<1000 ng/mL); Barbiturate Urine VISTA NEGATIVE (< 200 ng/mL); Benzodiazepine Urine VISTA NEGATIVE (< 200 ng/mL); Cocaine Urine VISTA NEGATIVE (< 300 ng/mL); Ecstacy Urine VISTA NEGATIVE (< 500 ng/mL); Methadone Urine VISTA NEGATIVE (< 300 ng/mL); PCP Urine VISTA NEGATIVE (< 25 ng/mL); THC Urine VISTA NEGATIVE (< 50 ng/mL); Vista UDS pH Range 6
[2019-12-17 13:32] LABS: Internal QC Validated? YES +Cl - CLEAR BKGD; Pregnancy, Urine Negative Negative
[2019-12-17] MEDS: Potassium Chloride 40 MEQ in 0.9% Normal Saline 1,000 ML 100 MEQ IV (13:39)
--- NOTE | 2019-12-17 14:47 | CASEMGMT ---
Social Work Assessment (late entry for intervention occurring on 12.16.2019) Interview Date/Time with patient on 12.16.2019 at approximately 1500 Reason for consult: Depression, anxiety, behavioral disturbance Insurance: [place] Medicaid Informant(s): Chart review, patient herself, conversation with local SSA for the Board of DD. Arrived by: deepika, admitted to medical floor at [facility] on 12.10.2019 for UTI and weakness Chief Complaint: Patient medically stabilized ready for discharge and awaiting determination of discharge disposition of psychiatric inpatient admission versus short term detention placement. Patient with frequent falls and intermittent vomiting at home. Appetite decreased. On day of assessment patient states she has not eaten in the last 4-5 days due to fear of vomiting. Per conversation with SSA, patient has had various medical workups, including at [facility] after apparent seizure activity. During time at [facility], a somatoform disorder was being considered, though reportedly not officially diagnosed. At time of this assessment patient endorses depression and anxiety symptoms, has endorsed during this medical stay that depression has impacted patient getting up and walking around when at home. Patient admits to anxiety related to fear of falling, and then fear of vomiting impacting proper nutritional intake. Patient's mobility fluctuates from a standby and contact guard assist to dependent assist, even in same assessment intervention. On 12.16.2019 patient endorsed to this flex o writer operator visual hallucinations in the form of her family; Stated that her father was in the room watching this flex o writer operator and the patient talk. Denies any auditory hallucinations. Patient admits to punching herself prior to hospital admission due to being angry fo not being able to walk. SSA, as well as patient?s boyfriend express concern for patient being able to manage at home currently. [facility] being looked at, but there is thought that patient would benefit from a comprehensive mental health evaluation and determination of medication regiment, to see if this helps in being able to go home versus alternate placement. Marital/Social History: Marital Status: Single. Comments: in a committed relationship with Ritchie for the last 4 years. Ritchie has reportedly been patient?s powerplant operator, even assisting patient with daily living needs when patient was able to do so for herself. Living Situation: Lives with boyfriend for the last 4 years. Did have disruption of this from August to October 2019 when patient went to a detention stay related to ankle fracture and weight bearing status. 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 Has some home health aides. 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 No reported outpatient mental health history disclosed. Triggers/Stressors: was in a detention from August to October 2019 with disruption in normal living situation, has missed her boyfriend/loneliness, patient?s mother in October or November 2019. Fear of walking and eating due to falls and vomiting (for which no current or reported medical explanation for since gallbladder removal) Coping Skills: likes to walk around town (unable to do right now), visit with boyfriend; unable to identify any skills at present time. Abuse Issues: None reported or endorsed. Patient denies any abuse or safety issues in relationship with Ritchie. Substance Abuse Hx: None Risk to Self/Others: ? Suicidal: Comments: Denies any current or past thoughts, plans, intent, or attempts. ? Homicidal: Comments: Denies any current or past thoughts, plans, intent, or attempts. Violence: Comments: Patient reports she punched herself prior to hospitalization. Per SSA, history of lashing out at detention staff. Mental Status Exam: Orientation: Aware of person, month, place though nonspecific as to which hospital currently in. Memory: Fair Appearance/General Behavior: Disheveled, slumped, directable, tearful and crying Mood/Affect: Depressed, anxious, affect appropriate to mood and content discussed. Communication Pattern: initially noncommunicative and then became spontaneous, repetitive in conveying worries and concerns. Thought Process: Patient appropriate at times, but preoccupied with somatic complaints. Endorses visual hallucinations, which SSA reports is a new complaint. General Intellectual Functioning: Below Average, reported moderate level Developmental Delays. Is connected with Board of DD - SSA is [facility] with the [facility] Board of DD Judgment: Impaired Problem Checklist Pain Mgmt? patient reports her feet and legs hurt, has a hard time moving and legs feel heavy Bereavement Issues? Mother in the last couple of months. Depressed Mood/Sad? EndorseS being sad, not wanting to do things Anxiety? Worried about somatic type complaints, fear of vomiting, falling, and even having a seizure. Traumatic Stress? Was in a detention for several months this year after a broken ankle and was reportedly not real happy there Anger/Aggression? Remote history reported Psychosis? Endorsing visual hallucinations Mood Swings/Hyperactivity? Per SSA with board of DD exhibiting mood swings at home Psychosocial Stressors? Loss of mother, separation from boyfriend for several months Pertinent Health Issues/Medical Hx? History of seizure disorder, seizures versus pseudoseizures per the record, recent cholecystectomy in summer 2019, ankle fracture in spring in 2019 -LLOYD Hughes, COUNSEL
--- NOTE | 2019-12-17 16:12 | CASEMGMT ---
Addendum entered by Paula Su 12/17/19 16:42: TARIQ did speak with Do at [facility] and Do is fine with convalescent 7000 being completed for SNF placement for pt. Original Note: Social Work Note SW placed a call to Liliana at [facility] to disregard referral. TARIQ placed a call to Do at [facility] and updated her that plan is to try psych placement but if pt is not able to be accepted to psych placement, plan is for pt to come to [facility] under LOC. Do states understanding. Plan: Psych Placement vs [facility] under LOC Paula Su MANAGED SERVICES SALES CONSULTANT, PARTS PROCESSOR
[2019-12-17 16:56] VITALS: BP 143/100; PULSE 114; RESP 18; TEMP 36.8; O2SAT 99
--- NOTE | 2019-12-17 17:03 | CASEMGMT ---
Social Work MedSurg 3 Reason for intervention: possible psychiatric admission Conferred with ED SW who regularly facilitates psychiatric placements, and which hospitals take [place] Medicaid. Per ED SW, options are limited with traditional Medicaid. Call to [place] - traditional medicaid is not accepted. Call to [facility] - no beds available and none anticipated today Call to [facility] - no beds available, but when there are the ED at that hospital has people to admit Call to [facility]. - Per Lana, can take a look at a referral and provided list of items needed for psychiatrist to review. Call to [facility] - message left to call this freelance writer back with referral and inquiry on whether accepts traditional medicaid. Spoke with Dr. Borden who is in agreement with trying for placement. Necessary labwork and EKG ordered. Received testing results back and faxed packet to [phone] at [facility]. Spoke with Lana at [facility] referral line. Per Lana, the after hours worker will look at the referral. This freelance writer faxed and additional cover sheet to same number identifying [facility] ED 7th grade social studies teacher as point of contact this evening, should additional information or a determination be made. Handoff to [place] in the [facility] ED. Spoke with patient's SSA from [facility] Board of DD, Liliana Ortega ([phone], ext. [phone]). Per Liliana, [facility] is moving ahead with meeting with the patient for an in person meeting and risk assessment. This is the next step in applying for guardianship. Liliana emailed this freelance writer the [facility] assistance representative in case [facility] needs this information. This freelance writer broached with Liliana what this freelance writer learned from conversation with the [facility] yesterday. This freelance writer asked if Technical Assistance can be looked at for patient, to ensure that nothing is being missed as far as services and interventions. Liliana not aware of the technical assistance program. This freelance writer encouraged Liliana to have conversation with supervisor fabrication about this option then. Liliana reports the patient does not qualify for the [facility] due to not having a guardian. This freelance writer acknowledged that this freelance writer is by no means and expert in the field of DD services, but that from conversation with the [facility] it may be an option (though slim) prior to a guardianship in place, since Board of [place] is pursuing guardianship of the patient. Liliana reports her supervisor fabrication indicated the developmental center could be looked at once the guardianship is in place. Plan: Psychiatric placement versus short term NF placement. Awaiting on response from [facility]. Board milton CONDON is still working with [facility] on possible guardianship and really uncertain on this time frame. Patient is her own guardian at this time, but does have a POC to assist with medical decision making as indicated. -LLOYD Hughes, PHARMACOVIGILANCE SAFETY EXPERT
--- NOTE | 2019-12-17 18:13 | CASEMGMT ---
SOCIAL WORK Received call from Linnea with [facility] who reports physician has declined patient due to not meeting criteria. No psych need as patient is behavioral. No suicidal ideation or homicidal ideation. Plan: ornamental metal worker helper to follow up tomorrow. Salty Barton, LABORER HIGH DENSITY PRESS, PROPOSAL DIRECTOR
[2019-12-17 23:00] VITALS: BP 146/108; PULSE 108; RESP 20; TEMP 36.6; O2SAT 96
[2019-12-18] VITALS: RESP 20
[2019-12-18] MEDS: Potassium Chloride 40 MEQ in 0.9% Normal Saline 1,000 ML 100 MEQ IV (02:14)
[2019-12-18 02:18] VITALS: BP 149/87; PULSE 116; RESP 20; TEMP 37; O2SAT 97
[2019-12-18] MEDS: 0.9% Saline Lock 10 ML Syringe IV ×2 (02:33→03:35)
[2019-12-18] MEDS: proMETHazine 25 MG/ML Syringe 12.5 MG IV (03:35)
[2019-12-18] MEDS: busPIRone 5 MG Tablet PO ×2 (05:31→14:47)
[2019-12-18 06:53] LABS: Hematocrit 32.8 % (37-47); Hemoglobin 10.7 g/dL (12.0-15.0); Mean Corp Hgb Conc 32.6 g/dL (32-36); Mean Corpuscular Hgb 29.1 pg (27.0-32.0); Mean Corpuscular Volume 89.1 fL (81-99); Mean Platelet Vol. 9.2 fl (6.2-12.0); Platelet Count 371 K/mm3 (150-450); RBC Distribution Width CV 14.6 % (11.6-14.6); RBC Distribution Width SD 46.1 fl (35.1-43.9); Red Blood Count 3.68 M/mm3 (4.2-5.4); White Blood Count 6.7 K/mm3 (4.4-11.0)
[2019-12-18 07:14] VITALS: O2SAT 96
[2019-12-18 07:17] LABS: Anion Gap 11 (5-15); BUN 5 mg/dL (7-18); BUN/Creat Ratio 9.1 RATIO (10-20); Calcium,Total 8.3 mg/dL (8.5-10.1); Chloride 102 mmol/L (98-107); Creatinine, Serum 0.55 mg/dL (0.55-1.02); EST Glomerular Filtration Rate 130 mL/min (>60); Est Glom Filt Rate - Afr Amer 158 mL/min (>60); Estimated Creatinine Clearance 138.53 ml/min; Glucose 73 mg/dL (74-106); Potassium 4.1 mmol/L (3.5-5.1); Sodium Level 137 mmol/L (136-145)
--- NOTE | 2019-12-18 07:37 | PN_ITS ---
Patient Problems: Active and Suspected Problems (Last Reviewed 12/11/19 @ 03:[address] Ronak Mckinley MD) Bilateral leg weakness (Acute) Acute cystitis (Acute) Right leg pain (Acute) Pain of left lower extremity (Acute) Pain of right lower extremity (Acute) Reason for Visit: Cute encephalopathy Acute cystitis Hallucinations Subjective: Plan is for patient to be transferred to an inpatient psych facility or halfway facility with outpatient psychiatric consultation. Consultation placed to social work manager disposition still pending Objective: GENERAL: cooperative HEENT: Atraumatic; EYES; Anicteric, Normal Conjunctiva NECK; supple, normal thyroid, RESPIRATORY: Diminished to auscultation CARDIOVASCULAR: Regular S1 S2, GI: soft, normoactive bowel sounds, : No Renal angle tenderness; EXTREMITIES: No edema, no clubbing, MUSCULOSKELETAL: no muscle waisting NEURO: Awake; no lateralizing signs. SKIN: No Rash PSYCH; Flat affect Vitals/I&O's: Vital Signs Temp Pulse Resp BP Pulse Ox 98.6 F 116 H 20 H 149/87 H 97 12/18/19 02:18 12/18/19 02:18 12/18/19 02:18 12/18/19 02:18 12/18/19 02:18 Oxygen Delivery Method Room Air Weight: 108.9 kg Body Mass Index (BMI) 36.3 Intake and Output for Last 24 Hours 12/16/19 12/17/19 12/18/19 23:59 23:59 23:59 Intake Total 2493.33 / 2543.33 2235.00 / 3465.00 1455 / 1455 Output Total 2100 / 2225 1825 / 2075 750 / 750 Balance 393.33 / 318.33 410.00 / 1390.00 705 / 705 Laboratory Results 12/17/19 12:50: Urine Opiates Screen NEGATIVE, Urine Methadone Screen NEGATIVE, Ur Barbiturates Screen NEGATIVE, Ur Phencyclidine Scrn NEGATIVE, Ur Amphetamines Screen NEGATIVE, U Methamphetamin-MDMA NEGATIVE, U Benzodiazepines Scrn NEGATIVE, Urine Cocaine Screen NEGATIVE, U Cannabinoids Screen NEGATIVE, Ur Drug Screen Comment 12/17/19 12:50: Urine Test Negative 12/18/19 06:20: WBC 6.7, RBC 3.68 L, Hgb 10.7 L, Hct 32.8 L, MCV 89.1, MCH 29.1, MCHC 32.6, RDW Std Deviation 46.1 H, RDW Coeff of Inna 14.6, Plt Count 371, MPV 9.2 12/18/19 06:20: Sodium 137, Potassium 4.1, Chloride 102, Carbon Dioxide 24.0, Anion Gap 11, BUN 5 L, Creatinine 0.55, Estim Creat Clear Calc 138.53, Est GFR (MDRD) Af Amer 158, Est GFR (MDRD) Non-Af 130, BUN/Creatinine Ratio 9.1 L, Glucose 73 L, Calcium 8.3 L Current Medications Acetaminophen (Tylenol) 650 mg PO Q6H PRN PRN PRN Reason: Pain Score 1-10/Temp > 100.7 F Last Admin: 12/17/19 23:50 Dose: 650 mg Documented by: Al Hydroxide/Mg Hydroxide (Mylanta Ii) 30 ml PO TID [facility] Last Admin: 12/17/19 23:45 Dose: Not Given Documented by: Alprazolam (Xanax) 0.5 mg PO BID PRN PRN PRN Reason: ANXIETY Last Admin: 12/16/19 01:52 Dose: 0.5 mg Documented by: Buspirone HCl (Buspar) 5 mg PO TID [facility] Last Admin: 12/18/19 05:31 Dose: 5 mg Documented by: Calamine/Phenol (Calmoseptine Ointment) 1 applic TOPICAL BID [facility]; Protocol Last Admin: 12/17/19 23:37 Dose: 1 applicatio Documented by: Carbamazepine (Tegretol) 200 mg PO 4X/DAYCM [facility] Last Admin: 12/17/19 23:46 Dose: 200 mg Documented by: Enoxaparin Sodium (Lovenox) 40 mg SC DAILY [facility] Last Admin: 12/17/19 10:03 Dose: 40 mg Documented by: Ergocalciferol (Vitamin D) 50,000 unit PO MO [facility] Last Admin: 12/14/19 10:35 Dose: 50,000 unit Documented by: Ferrous Sulfate (Ferrous Sulfate) 325 mg PO DAILY@0800 [facility] Last Admin: 12/17/19 10:02 Dose: 325 mg Documented by: Potassium Chloride 40 meq/ (Sodium Chloride) 1,020 mls @ 100 mls/hr IV .[id number] [facility] Last Admin: 12/18/19 02:14 Dose: 100 mls/hr Documented by: Pantoprazole Sodium 40 mg/ (Sodium Chloride) 110 mls @ 330 mls/hr IV Q12 [facility] Last Infusion: 12/18/19 00:00 Dose: Infused Documented by: Lacosamide 200 mg/ Sodium (Chloride) 70 mls @ 100 mls/hr IV BID [facility] Last Infusion: 12/18/19 00:47 Dose: Infused Documented by: Levetiracetam 500 mg/ Sodium (Chloride) 105 mls @ 400 mls/hr IV Q12 [facility] Last Infusion: 12/18/19 01:14 Dose: Infused Documented by: Sodium Chloride () 250 mls @ 15 mls/hr IV .[id number] PRN PRN Reason: Saline Flush Last Infusion: 12/15/19 15:45 Dose: 0 mls/hr Documented by: Sodium Chloride () 250 mls @ 15 mls/hr IV .[id number] PRN PRN Reason: Additional IVPB Infusion Melatonin (Melatonin) 3 mg PO QHS PRN PRN PRN Reason: INSOMNIA Last Admin: 12/13/19 00:46 Dose: 3 mg Documented by: [facility] Admin: 12/17/19 10:00 Dose: 1 tablet Documented by: Nutritional Formula (Lactose Free) (Ensure Clear) 120 ml PO 4X/DAY [facility] Last Admin: 12/17/19 23:38 Dose: Not Given Documented by: Ondansetron HCl (Zofran) 4 mg IV Q8H PRN PRN PRN Reason: NAUSEA/VOMITING Last Admin: 12/16/19 23:25 Dose: 4 mg Documented by: Ondansetron HCl (Zofran Odt) 4 mg PO Q8H PRN PRN PRN Reason: NAUSEA Last Admin: 12/14/19 19:18 Dose: 4 mg Documented by: Potassium Chloride (K[facility]Dur) [facility] Last Admin: 12/17/19 17:07 Dose: Not Given Documented by: Promethazine HCl (Phenergan) 12.5 mg IV Q6H PRN PRN PRN Reason: NAUSEA/VOMITING Last Admin: 12/18/19 03:35 Dose: 12.5 mg Documented by: Senna/Docusate Sodium (Senokot-S, Luci-Colace) 2 tablet PO DAILY [facility] Last Admin: 12/17/19 10:02 Dose: 2 tablet Documented by: Sertraline HCl (Zoloft) 100 mg PO DAILY [facility] Last Admin: 12/17/19 10:02 Dose: 100 mg Documented by: Sodium Chloride () 10 - 40 ml IV UD PRN PRN Reason: SALINE FLUSH Last Admin: 12/18/19 03:35 Dose: 10 ml Documented by: Medical Necessity - Tobacco Use Smoking Status: Never smoker Assessment/Plan All Active Problems (Last Reviewed 12/11/19 @ 03:[address] Ronak Mckinley MD) Left foot pain (Acute) Right foot sprain (Acute) Cholecystitis, acute with cholelithiasis (Resolved) Bilateral leg weakness (Acute) Acute cystitis (Acute) Right leg pain (Acute) Pain of left lower extremity (Acute) Pain of right lower extremity (Acute) Patient is a 38-year-old lady with history of learning disability admitted with bilateral leg pain and generalized weakness. Found to have UTI admitted to regular nursing floor for further management 1. Acute cystitis with UTI Patient was treated with IV Rocephin for 3 days 2. Hypokalemia ?Corrected per protocol 3. Hypomagnesemia ?Corrected per protocol 4. Physical debility debility ?Requested for PT OT eval and social work manager to assist with discharge planning 5. Learning disability ?With inability to make medical decisions. Consultation placed to social work manager to assist with disposition as well as guardianship 6. Seizure disorder ?Patient on Tegretol 7. Depression with anxiety ?Patient is on SSRI as well as BuSpar 8. Obesity with BMI of 36.5 ?Advised on weight loss however doubts if this will be achievable given patient learning disability 9. DVT prophylaxis - On enoxaparin 10. Hallucinations - Patient was reported by nursing staff to be hallucinating the day prior talking to his father who was not in the room. Consult placed to case management plan is for patient to be transferred to an inpatient psych facility otherwise and extended care facility with outpatient consultation to psych -12/18/2019;Plan is for patient to be transferred to an inpatient psych facility or halfway facility with outpatient psychiatric consultation. Consultation placed to social work manager disposition still pending Inpatient E&M: [id number] Subs Hosp L2
[2019-12-18 07:55] VITALS: BP 143/82; PULSE 115; RESP 18; TEMP 36.9; O2SAT 98
[2019-12-18] MEDS: Acetaminophen 325 MG Tablet 650 MG PO ×2 (08:04→14:56)
[2019-12-18] MEDS: Multivitamins,Therapeutic Tablet 1 TABLET PO (08:05)
[2019-12-18] MEDS: carBAMazepine 200 MG Tablet PO ×2 (08:06→11:24)
[2019-12-18] MEDS: Ferrous Sulfate 325 MG Tablet PO (08:06)
[2019-12-18] MEDS: Ondansetron 4 MG/2 ML Vial IV (08:16)
--- NOTE | 2019-12-18 10:38 | CASEMGMT ---
Addendum entered by Tara Cox 12/18/19 11:01: Social Work Return call from Do at [facility] and confirmed that they are able to accept pt today if LOC is returned. TARIQ spoke with KURT Ritchie and notified that psychiatric hospital denied pt and that [facility] can accept when LOC received. Ritchie is agreeable to SNF placement. TARIQ met with pt in room to inform that pt may be discharged to [facility]. Pt awake but not making eye contact with TARIQ and not responding to conversation at this time. TARIQ will continue to follow for d/c planning. ELAINE Manuel Original Note: Social Work Per ED TARIQ Barton, pt has been denied admission to psychiatric facility. At this time [facility] placement will be pursued. Level of Care request faxed to [facility] and will await results. VM left with Do at [facility], will await return call. ELAINE Manuel
[2019-12-18] MEDS: Menthol/Lanolin/Calamine/Znox 113 GM Tube 1 APPLIC TOPICAL (10:46)
[2019-12-18] MEDS: Enoxaparin 40 MG/0.4 ML Syringe SC (10:51)
[2019-12-18] MEDS: Senna/Docusate Sodium 1 Tablet 2 TABLET PO (10:52)
[2019-12-18] MEDS: Sertraline 100 MG Tablet PO (10:52)
--- NOTE | 2019-12-18 14:31 | TREXTCAR_ITS ---
- Diet 12/17/19 13:42 Diet: Regular - General Is pt able to select menu?: Yes Diet Comments: clears, advance to regular - Routine Orders/Code Status Code Status: Full Code - Therapies Physical Therapy: Eval and Treat Occupational Therapy: Eval and Treat - Allergies/Procedures Done in Hospital Allergies/Adverse Reactions: Allergies Penicillins Allergy (Verified 12/09/19 19:08) Unknown tomato Adverse Reaction (Verified 12/09/19 19:08) Diarrhea - Type of Care/Length of Stay Estimated LOS: Convalescent Care Less Than 30 days Type of Care Needed: Skilled Rehab Potential: Fair Prognosis: Fair - Additional Orders/Day of Discharge Additional Orders: Please arrange for outpatient psychiatry consultation for patient Day of Discharge: 12/18/19 - Dietary and Speech Recommendations Dietitian Recommendations/Changes: Rec SURGICAL SUPERVISOR consult as indicated if suspected pt N/V d/t swallowing difficulty. If pt continues w/ nausea/ vomiting and unable to tolerate PO diet recommend consideration of alternative nutrition support. Advance diet as tolerated to Regular/General. Will discontinue ONS Ensure Clear at [facility] as pt refusing. - Follow Up Care Primary Care Physician: Erwin Orozco MD [Primary Care Provider] - Please Follow Up With: Nery Barba DPM When: 1 week at [facility]; call [phone] to confirm time / date.
--- NOTE | 2019-12-18 14:38 | PCM.DC.SUM ---
Discharge Date and Diagnosis - Problem List Patient Problems: Active and Suspected Problems (Last Reviewed 12/11/19 @ 03:[address] Ronak Mckinley MD) Bilateral leg weakness (Acute) Acute cystitis (Acute) Right leg pain (Acute) Pain of left lower extremity (Acute) Pain of right lower extremity (Acute) Date of Admission: 12/10/19 Date of Discharge: 12/18/19 - Primary Discharge Diagnosis Acute Problems: Active Problems (Last Reviewed 12/11/19 @ 03:[address] Ronak Mckinley MD) Bilateral leg weakness (Acute) Acute cystitis (Acute) Right leg pain (Acute) Pain of left lower extremity (Acute) Pain of right lower extremity (Acute) - Secondary Discharge Diagnosis Chronic Problems: Chronic Problems (Last Reviewed 12/11/19 @ 03:[address] Ronak Mckinley MD) GERD (gastroesophageal reflux disease) (Chronic) Seizure disorder (Chronic) MRDD (Chronic) Hospital Course and Treatment Operations: - - 08-14-2019: Right open reduction internal fixation ankle fracture with syndesmosis repair Summary of Care Provided: Patient is a 38-year-old lady with history of learning disability admitted with bilateral leg pain and generalized weakness. Found to have UTI admitted to regular nursing floor for further management 1. Acute cystitis with UTI Patient was treated with IV Rocephin for 3 days 2. Hypokalemia ?Corrected per protocol 3. Hypomagnesemia ?Corrected per protocol 4. Physical debility debility ?Requested for PT OT eval and manager social work to assist with discharge planning 5. Learning disability ?With inability to make medical decisions. Consultation placed to manager social work to assist with disposition as well as guardianship 6. Seizure disorder ?Patient on Tegretol 7. Depression with anxiety ?Patient is on SSRI as well as BuSpar 8. Obesity with BMI of 36.5 ?Advised on weight loss however doubts if this will be achievable given patient learning disability 9. DVT prophylaxis - On enoxaparin 10. Hallucinations - Patient was reported by nursing staff to be hallucinating the day prior talking to his father who was not in the room. Consult placed to case management plan is for patient to be transferred to an inpatient psych facility otherwise and extended care facility with outpatient consultation to psych -She was discharged to a senior living facility with plans for patient to obtain psych consultation as outpatient Patient Problems: Active and Suspected Problems (Last Reviewed 12/11/19 @ 03:[address] Ronak Mckinley MD) Bilateral leg weakness (Acute) Acute cystitis (Acute) Right leg pain (Acute) Pain of left lower extremity (Acute) Pain of right lower extremity (Acute) - Physical Exam Vitals/I&O's: Vital Signs Temp Pulse Resp BP Pulse Ox 98.5 F 115 H 18 143/82 H 98 12/18/19 07:55 12/18/19 07:55 12/18/19 07:55 12/18/19 07:55 12/18/19 07:55 Oxygen Delivery Method Room Air Weight: 108.9 kg Body Mass Index (BMI) 36.3 Intake and Output for Last 24 Hours 12/16/19 12/17/19 12/18/19 23:59 23:59 23:59 Intake Total 2493.33 / 2543.33 2235.00 / 3465.00 2240 / 2240 Output Total 2100 / 2225 1825 / 2075 1100 / 1100 Balance 393.33 / 318.33 410.00 / 1390.00 1140 / 1140 General: Cooperative Cardiovascular: Regular rate, Regular Rhythm Neurological: Neuro grossly intact Psych/Mental Status: Flat Affect Laboratory Results 12/18/19 06:20: WBC 6.7, RBC 3.68 L, Hgb 10.7 L, Hct 32.8 L, MCV 89.1, MCH 29.1, MCHC 32.6, RDW Std Deviation 46.1 H, RDW Coeff of Inna 14.6, Plt Count 371, MPV 9.2 12/18/19 06:20: Sodium 137, Potassium 4.1, Chloride 102, Carbon Dioxide 24.0, Anion Gap 11, BUN 5 L, Creatinine 0.55, Estim Creat Clear Calc 138.53, Est GFR (MDRD) Af Amer 158, Est GFR (MDRD) Non-Af 130, BUN/Creatinine Ratio 9.1 L, Glucose 73 L, Calcium 8.3 L Current Medications Acetaminophen (Tylenol) 650 mg PO Q6H PRN PRN PRN Reason: Pain Score 1-10/Temp > 100.7 F Last Admin: 12/18/19 08:04 Dose: 650 mg Documented by: Al Hydroxide/Mg Hydroxide (Mylanta Ii) 30 ml PO TID LUCIA Last Admin: 12/18/19 07:39 Dose: Not Given Documented by: Alprazolam (Xanax) 0.5 mg PO BID PRN PRN PRN Reason: ANXIETY Last Admin: 12/16/19 01:52 Dose: 0.5 mg Documented by: Buspirone HCl (Buspar) 5 mg PO TID [facility] Last Admin: 12/18/19 05:31 Dose: 5 mg Documented by: Calamine/Phenol (Calmoseptine Ointment) 1 applic TOPICAL BID [facility]; Protocol Last Admin: 12/18/19 10:46 Dose: 1 applicatio Documented by: Carbamazepine (Tegretol) 200 mg PO 4X/DAYCM [facility] Last Admin: 12/18/19 11:24 Dose: 200 mg Documented by: Enoxaparin Sodium (Lovenox) 40 mg SC DAILY [facility] Last Admin: 12/18/19 10:51 Dose: 40 mg Documented by: Ergocalciferol (Vitamin D) 50,000 unit PO MO [facility] Last Admin: 12/14/19 10:35 Dose: 50,000 unit Documented by: Ferrous Sulfate (Ferrous Sulfate) 325 mg PO DAILY@0800 [facility] Last Admin: 12/18/19 08:06 Dose: 325 mg Documented by: Potassium Chloride 40 meq/ (Sodium Chloride) 1,020 mls @ 100 mls/hr IV .[id number] [facility] Last Admin: 12/18/19 02:14 Dose: 100 mls/hr Documented by: Pantoprazole Sodium 40 mg/ (Sodium Chloride) 110 mls @ 330 mls/hr IV Q12 [facility] Last Infusion: 12/18/19 09:39 Dose: Infused Documented by: Lacosamide 200 mg/ Sodium (Chloride) 70 mls @ 100 mls/hr IV BID [facility] Last Infusion: 12/18/19 12:05 Dose: Infused Documented by: Levetiracetam 500 mg/ Sodium (Chloride) 105 mls @ 400 mls/hr IV Q12 [facility] Last Infusion: 12/18/19 11:03 Dose: Infused Documented by: Sodium Chloride () 250 mls @ 15 mls/hr IV .[id number] PRN PRN Reason: Saline Flush Last Infusion: 12/15/19 15:45 Dose: 0 mls/hr Documented by: Sodium Chloride () 250 mls @ 15 mls/hr IV .[id number] PRN PRN Reason: Additional IVPB Infusion Melatonin (Melatonin) 3 mg PO QHS PRN PRN PRN Reason: INSOMNIA Last Admin: 12/13/19 00:46 Dose: 3 mg Documented by: [facility]ivit[facility] ([facility]ivitamin) [facility] Last Admin: 12/18/19 08:05 Dose: 1 tablet Documented by: Ondansetron HCl (Zofran) 4 mg IV Q8H PRN PRN PRN Reason: NAUSEA/VOMITING Last Admin: 12/18/19 08:16 Dose: 4 mg Documented by: Ondansetron HCl (Zofran Odt) 4 mg PO Q8H PRN PRN PRN Reason: NAUSEA Last Admin: 12/14/19 19:18 Dose: 4 mg Documented by: Potassium Chloride (K-Dur) [facility] Last Admin: 12/18/19 08:05 Dose: 20 meq Documented by: Promethazine HCl (Phenergan) 12.5 mg IV Q6H PRN PRN PRN Reason: NAUSEA/VOMITING Last Admin: 12/18/19 03:35 Dose: 12.5 mg Documented by: Senna/Docusate Sodium (Senokot-S, Luci-Colace) 2 tablet PO DAILY [facility] Last Admin: 12/18/19 10:52 Dose: 2 tablet Documented by: Sertraline HCl (Zoloft) 100 mg PO DAILY [facility] Last Admin: 12/18/19 10:52 Dose: 100 mg Documented by: Sodium Chloride () 10 - 40 ml IV UD PRN PRN Reason: SALINE FLUSH Last Admin: 12/18/19 03:35 Dose: 10 ml Documented by: Discharge Activity: Return to Normal Activity, Use Walker, - - right lower extremity weight bear as tolerated in CAM walker left lower extremity weight bear as tolerated in supportive athletic sneaker Weight Bearing Status: Weight bearing as tolerated Home Medications: Medications to take at Discharge Carbamazepine [Carbamazepine ER] 400 mg PO BID 08/13/19 Ergocalciferol (Vitamin D2) [Vitamin D2] 50,000 unit PO MO 08/13/19 Ferrous Sulfate 325 mg PO DAILY@0800 08/13/19 Lacosamide [Vimpat] 200 mg PO BID 08/13/19 Multivitamin [Daily Vitamin Formula] 1 tab PO DAILY 08/13/19 Omeprazole 20 mg PO DAILY 08/13/19 Sertraline HCl [Zoloft] 100 mg PO DAILY 08/13/19 Ondansetron [Zofran Odt] 4 mg PO Q8H PRN PRN #7 tab 11/22/19 Levetiracetam [Keppra] 500 mg PO BID 11/25/19 Potassium Cloride Effervescent [Potassium Chl 25 Meq Eff (For Liquid)] 25 meq PO BID 11/25/19 busPIRone [Buspar] 5 mg PO TID 11/25/19 proMETHazine tablet [Phenergan tablet] 25 mg PO Q8H PRN PRN 11/25/19 Potassium Chloride [Klor-Con] 20 meq PO DAILY 5 Days #5 packet 12/11/19 ALPRAZolam [Xanax] 0.5 mg PO BID PRN PRN #14 tab 12/18/19 Following Prescriptions Were Given to Patient: Potassium Chloride [Klor-Con] 20 meq PO DAILY 5 Days #5 packet Transmission Status: Received by [facility] - [place] - [id number] ALPRAZolam [Xanax] 0.5 mg PO BID PRN PRN #14 tab PRN Reason: Anxiety Prescription Printed Primary Care Physician: Erwin Orozco MD [Primary Care Provider] - Please Follow Up With: Nery Barba DPM When: 1 week at [facility]; call [phone] to confirm time / date. Patient Instructions: ED Weakness [facility] Additional Instructions: Elevate your legs at rest each hour while awake. Pump the muscles in your legs each hour while awake. Continue to work with physical therapy. Wear compression stockings to reduce your leg swelling. Disposition: [facility] facility Minutes spent on discharge:: 35 Patient Condition:: Stable Medical Necessity - Tobacco Use Smoking Status: Never smoker Meaningful Use Info Meaningful Use Diagnoses (Choose all that apply): None applicable Inpatient E&M: [id number] Disch Hosp
--- NOTE | 2019-12-18 14:47 | CASEMGMT ---
Social Work Received LOC from [facility]. Physician notified and pt is ready for d/c today. Orders and LOC faxed to [place]. [facility] for 4:30 [facility]er via [facility]. Phone call to Do at [place] and notified her of d/c time. Phone call to pt KURT Dugan and updated on d/c time. Pt made aware and is agreeable to transfer to [place]. Nursing notified. Plan: [place] [facility] ELAINE Manuel
[2019-12-18] MEDS: Mag Hydrox/Al Hydrox/Simeth 30 ML UDC PO (14:48)
[2019-12-18 14:51] VITALS: BP 149/88; PULSE 115; RESP 16; TEMP 36.7; O2SAT 98
--- NOTE | 2019-12-18 16:40 | NURSING ---
report called to [facility]
== END 2019-12-18 17:28 | disposition skilled nursing facility (03) | DRG 861 ==
LOC: ED 19:13 → MS3 12-11 00:13
PROVIDERS: Internal Medicine; Admitting Provider Hospitalist; Emergency Provider Student in an Organized Health Care Education/Training Program; PCP Family Medicine; Visit Provider Internal Medicine
DX: R53.1 Weakness (principal); N30.00 Acute cystitis without hematuria; M79.604 Pain in right leg; M79.605 Pain in left leg; R29.6 Repeated falls; K21.9 Gastro-esophageal reflux disease without esophagitis; G40.909 Epilepsy, unspecified, not intractable, without status epilepticus; E66.9 Obesity, unspecified; F45.9 Somatoform disorder, unspecified; Z79.899 Other long term (current) drug therapy; Z68.37 Body mass index [BMI] 37.0-37.9, adult; E87.6 Hypokalemia; E83.42 Hypomagnesemia; R53.81 Other malaise; F41.9 Anxiety disorder, unspecified; F32.9 Major depressive disorder, single episode, unspecified; B96.20 Unspecified Escherichia coli [E. coli] as the cause of diseases classified elsewhere; Z91.81 History of falling; R26.2 Difficulty in walking, not elsewhere classified; F81.9 Developmental disorder of scholastic skills, unspecified; R44.3 Hallucinations, unspecified
CPT/HCPCS: 36415; 71045; 73610; 73630; 74018; 80048; 80053; 80307; 81001; 81025; 83735; 85025; 85027; 87077; 87086; 87088; 87186; 87635; 93005; 93970; 97110; 97162; 97166; 97530; 97535; 99285; C9803; J7030; J7040; J7050; A4216; C9254; J2405; J3490; U0003

== ENCOUNTER 2024-02-07 13:33 | Emergency (ER) | payer MEDICAID, SELFPAY ==
[2024-02-07] VITALS (8 sets, daily range): BP systolic 119–166; BP diastolic 78–88; PULSE 67–78; RESP 18–20; TEMP 36.2–36.6; O2SAT 99–100; BMI 44.8
--- NOTE | 2024-02-07 13:40 | RAD_ITS ---
STUDY: X-RAY - RIGHT WRIST REASON FOR EXAM: Female, 43 years old. Fall on the outstretched hand. TECHNIQUE: 3 view(s) of the wrist were obtained. COMPARISON: None. FINDINGS: Comminuted fracture through the distal radial metaphysis with mild dorsal displacement. Avulsion fracture of the ulnar styloid. Normal radiocarpal articulation. Normal distal radioulnar articulation. Normal carpal bones. Normal carpal articulations. Normal carpometacarpal articulation of the thumb. Normal second through fifth carpometacarpal articulations. Normal visualized metacarpal bones. Soft tissue swelling. RAD/Wrist min 3 Views IMPRESSION: Comment fracture of the distal metaphysis with minimal dorsal displacement with avulsion of the ulnar styloid. Diffuse soft tissue swelling. Electronically Signed: Doe Enriquez MD at 13:58 EDT ,
[2024-02-07] MEDS: Lidocaine 1% (20 ml mdv) 20 ML Vial 10 ML INFILT (14:52)
--- NOTE | 2024-02-07 15:15 | EX.ED.UPPERE ---
HPI History of Present Illness Chief Complaint: Upper Extremity Injury Detail of Chief Complaint: Injury of right wrist status post fall. Informant: legal guardian Occured/Mechanism Mechanism/Context: Yes injury, Yes blunt trauma and Yes same level fall Onset/Context/Timing Onset: Today and Hours Context: Sudden Onset Timing: Continuous Quality of Pain: Dull and Aching Location: Right wrist Current Severity: Mild Maximum Severity: Severe Worsened by: Movement Relieved by: Reported no discomfort when she is not using the right upper extremity Associated Symptoms Associated Symptoms: Negative for Parasthesia, Weakness or Loss of Funtion Narrative Narrative: Patient is a 43-year-old cognitively impaired [id number]-rusacufz woman who presents after fall onto her outstretched right upper extremity. She presents with swelling and pain to the right wrist. History is limited due to her cognitive impairment. Prior similar symptoms: No Recent Illness/Hospitalization: No [facility] Medical History (Updated 02/07/24 @ 17:[address] Jorge Morin MD) Seizures Home Medications ?Medication ?Instructions ?Recorded ?Last Taken ?Type carbamazepine 400 mg 400 mg PO BID NERVES 08/13/19 08/13/19 History tablet,extended release,12 hr ergocalciferol (vitamin D2) 1,250 50,000 unit PO MO SUPPLEMENT 08/13/19 08/10/19 History mcg (50,000 unit) capsule ferrous sulfate 325 mg (65 mg 325 mg PO DAILY@0800 SUPPLEMENT 08/13/19 08/13/19 History iron) tablet lacosamide 200 mg tablet 200 mg PO BID SEIZURES 08/13/19 08/13/19 History multivitamin 1 tab PO DAILY SUPPLEMENT 08/13/19 08/13/19 History omeprazole 20 mg capsule,delayed 20 mg PO DAILY GERD 08/13/19 08/13/19 History release sertraline 50 mg tablet 100 mg PO DAILY DEPRESSION 08/13/19 08/13/19 History ondansetron 4 mg disintegrating 4 mg PO Q8H PRN PRN Nausea #7 tabs 11/22/19 11/25/19 11:15 Rx tablet Potassium Cloride Effervescent 25 meq PO BID supplement 11/25/19 Unknown History [Potassium Chl 25 Meq Eff (For Liquid)] buspirone 5 mg tablet 5 mg PO TID Check with primary 11/25/19 Unknown History doctor levetiracetam 500 mg tablet 500 mg PO BID seizures 11/25/19 Unknown History promethazine 25 mg tablet 25 mg PO Q8H PRN PRN 11/25/19 Unknown History Nausea/Vomiting alprazolam 0.5 mg tablet 0.5 mg PO BID PRN PRN Anxiety #14 12/18/19 Unknown Rx tabs hydrocodone-acetaminophen 5-325mg 1 tab PO Q6H PRN PRN Pain 3 days 02/07/24 Unknown Rx 5mg-325mg #10 TABLETS Allergy/AdvReac Type Severity Reaction Status Date / Time Penicillins Allergy Unknown Verified 02/07/24 13:34 tomato AdvReac Diarrhea Verified 02/07/24 13:34 Social History Smoking Status: Never smoker alcohol intake: never ROS ROS ED Cardiovascular Cardiovascular: Denies chest pain Respiratory/Chest Respiratory/Chest: Denies dyspnea or dyspnea on exertion Gastrointestinal Gastrointestinal: Denies nausea or vomiting Neurologic Neurologic: Denies paresthesias or weakness Hematologic/Lymphatic Hematologic/Lymphatic: Denies easy bleeding or easy bruising EXAM Physical Exam Const Vital Signs: 02/07/24 13:34 Temperature 97.2 F L Temperature Source Temporal Pulse Rate 67 Respiratory Rate 18 Blood Pressure 119/87 H Blood Pressure Mean 97 Pulse Ox 100 Oxygen Delivery Method Room Air Positive well nourished and well developed Constitutional Narrative: BMI is 44.8. General Appearance ED: well developed; Negative for cyanotic or diaphoretic HEENT Reports moist mucous membranes normocephalic and atraumatic Eyes PERRL and EOMs intact bilaterally Neck full ROM and supple Chest Wall inspection of chest normal and palpation of chest normal Resp normal respiratory effort and clear to auscultation bilaterally Cardio regular rate, regular rhythm, S1 normal heart sound, S2 normal heart sound and no murmurs GI non-tender, non-distended and no masses Palpation: soft Extremity Negative for normal to inspection Extremity Narrative: Swelling of the right wrist. Median, radial and ulnar function intact. Capillary refill normal. Sensations intact. No subungual hematoma of her thumb or fingers. There is pain outpatient over the distal radius and ulna. Neuro oriented x3 and CN's II-XII intact bilaterally Sensorium / Orientation: alert Psych Mood & Affect: anxious Skin General Skin Exam: Negative for petechiae Lesions: no lesions Rashes: no rashes Trauma: no lacerations or abrasions MDM MDM MDM Narrative Medical decision making narrative: X-rays obtained per nurse protocol. Differential is fracture versus contusion versus strain. Radiography Chest X-Ray - ED: Read by ED Physician (Three-view x-ray of the wrist reveals a comminuted intra-articular distal radial fracture and fracture of the ulnar styloid with displacement. There is approximately 15 degrees of volar apex angulation.) CTA PE Study: - (3 view postreduction film reveals the intra-articular fragment is no longer displaced. There are still approximate 25% displacement. She is in neutral position. Call was placed to [facility] Diagnostic Testing: Clinical Impression(s) from Imaging Studies Wrist X-Ray 02/07/24 13:40 IMPRESSION: Comment fracture of the distal metaphysis with minimal dorsal displacement with avulsion of the ulnar styloid. Diffuse soft tissue swelling. Electronically Signed: Doe Enriquez MD at 13:58 EDT , Treatment and Re-Evaluation Narrative: Individual with her contacted guardian. Guardian is made aware that she will need manipulation of the wrist. There is understanding that if I am unable to reduce to satisfactorily she will require surgery or even if I do reduce it satisfactorily she may require surgery if it moves. Patient had a hematoma block placed by me. Patient tolerated the hematoma block. Procedures Procedural Sedation 1 (Initial Baseline): Consent Signed: Yes Any Problems With Anesthesia: No You/Your family experience fever (hyperthermia) w/anesthesia: Unknown Sedation medication: Propofol Dose: 5 (Minutes) Total Moderate Sedation Units: 100 (Milligrams) Maliampati Score: Class II ASA Classification: II Comment:: Guardian was contacted prior to hematoma block and prior to sedation. Consent was obtained verbally over the phone. Comminuted distal radial intra-articular fracture was reduced. It is unstable. I believe it may have moved in spite of me placing her in a sugar-tong plaster splint that was fabricated by me. Will obtain postreduction film. Will also contact [facility]. Discharge Plan Triage Chief Complaint: Upper Extremity Injury ED Provider: Jorge Morin Dx/Rx/DC Orders Clinical Impression: Intra-articular fracture of distal end of right radius with volar angulation, MRDD, Seizure disorder, Closed displaced comminuted fracture of shaft of right ulna, Injury due to fall Instructions: ED Colles Fracture, Reduction Required Prescriptions: New hydrocodone-acetaminophen 5-325 mg tablet 1 tab PO Q6H PRN PRN (Reason: Pain) 3 Days Qty: 10 0RF No Action multivitamin 1 EACH tablet 1 tab PO DAILY carbamazepine 400 MG tablet extended release 12 hr 400 mg PO BID ferrous sulfate 325 MG tablet 325 mg PO DAILY@0800 omeprazole 20 MG capsule,delayed release(DR/EC) 20 mg PO DAILY ergocalciferol (vitamin D2) 50,000 UNIT capsule 50,000 unit PO MO sertraline 50 MG tablet 100 mg PO DAILY lacosamide 200 MG tablet 200 mg PO BID ondansetron 4 MG tablet 4 mg PO Q8H PRN PRN (Reason: Nausea) Qty: 7 0RF levetiracetam 500 MG tablet 500 mg PO BID Potassium Cloride Effervescent [Potassium Chl 25 Meq Eff (For Liquid)] 25 MEQ Tablet.Eff 25 meq PO BID buspirone 5 MG tablet 5 mg PO TID promethazine 25 MG tablet 25 mg PO Q8H PRN PRN (Reason: Nausea/Vomiting) alprazolam 0.5 MG tablet 0.5 mg PO BID PRN PRN (Reason: Anxiety) Qty: 14 0RF Primary Care Provider: Care Physician,No Primary Referrals: Erwin Orozco MD [Non-Staff] - Jorge Gleason MD [Non-Staff] - As soon as possible Print Language: Montserratian
[2024-02-07] MEDS: Propofol 200 MG/20 ML Vial IV BOLUS (17:03)
[2024-02-07] MEDS: HYDROcodone Bitartrate/Apap 5/325 Tablet PO (17:20)
--- NOTE | 2024-02-07 17:30 | RAD_ITS ---
STUDY: X-RAY - RIGHT WRIST REASON FOR EXAM: Female, 43 years old. Injury/Pain -- Postreduction TECHNIQUE: 3 view(s) of the wrist were obtained. COMPARISON: February 07, 2024 1:46 PM. FINDINGS: Films obtained status post closed reduction and casting of previously described distal radial and ulnar fractures with fracture fragments in near-anatomic alignment and position. RAD/Wrist min 3 Views IMPRESSION: Status post reduction and casting of distal radial and ulnar fractures. Electronically Signed: Darian Chatterjee MD at 18:06 EDT ,
== END 2024-02-07 18:22 | disposition home or self-care (01) ==
PROVIDERS: Emergency Provider Emergency Medicine; Visit Provider Emergency Medicine
DX: S52.571A Other intraarticular fracture of lower end of right radius, initial encounter for closed fracture (principal); G40.909 Epilepsy, unspecified, not intractable, without status epilepticus; S52.251A Displaced comminuted fracture of shaft of ulna, right arm, initial encounter for closed fracture; W18.30XA Fall on same level, unspecified, initial encounter
CPT/HCPCS: 25565; 29125; 73110; 99284; A4216

== ENCOUNTER 2024-02-08 10:39 | Emergency (ER) | payer MEDICAID, SELFPAY ==
[2024-02-08 10:39] VITALS: BP 130/81; PULSE 94; RESP 22; TEMP 36.6; O2SAT 99; BMI 43.6
--- NOTE | 2024-02-08 10:47 | EX.ED.UPPERE ---
HPI History of Present Illness Chief Complaint: Upper Extremity Injury [facility] Medical History (Updated 02/08/24 @ 12:[address] Zane Martinez DO) Seizures Home Medications ?Medication ?Instructions ?Recorded ?Last Taken ?Type carbamazepine 400 mg 400 mg PO BID NERVES 08/13/19 08/13/19 History tablet,extended release,12 hr ergocalciferol (vitamin D2) 1,250 50,000 unit PO MO SUPPLEMENT 08/13/19 08/10/19 History mcg (50,000 unit) capsule ferrous sulfate 325 mg (65 mg 325 mg PO DAILY@0800 SUPPLEMENT 08/13/19 08/13/19 History iron) tablet lacosamide 200 mg tablet 200 mg PO BID SEIZURES 08/13/19 08/13/19 History multivitamin 1 tab PO DAILY SUPPLEMENT 08/13/19 08/13/19 History omeprazole 20 mg capsule,delayed 20 mg PO DAILY GERD 08/13/19 08/13/19 History release sertraline 50 mg tablet 100 mg PO DAILY DEPRESSION 08/13/19 08/13/19 History ondansetron 4 mg disintegrating 4 mg PO Q8H PRN PRN Nausea #7 tabs 11/22/19 11/25/19 11:15 Rx tablet Potassium Cloride Effervescent 25 meq PO BID supplement 11/25/19 Unknown History [Potassium Chl 25 Meq Eff (For Liquid)] buspirone 5 mg tablet 5 mg PO TID Check with primary 11/25/19 Unknown History doctor levetiracetam 500 mg tablet 500 mg PO BID seizures 11/25/19 Unknown History promethazine 25 mg tablet 25 mg PO Q8H PRN PRN 11/25/19 Unknown History Nausea/Vomiting alprazolam 0.5 mg tablet 0.5 mg PO BID PRN PRN Anxiety #14 12/18/19 Unknown Rx tabs hydrocodone-acetaminophen 5-325mg 1 tab PO Q6H PRN PRN Pain 3 days 02/07/24 Unknown Rx 5mg-325mg #10 TABLETS Allergy/AdvReac Type Severity Reaction Status Date / Time Penicillins Allergy Unknown Verified 02/08/24 10:39 tomato AdvReac Diarrhea Verified 02/08/24 10:39 Social History Smoking Status: Never smoker alcohol intake: never EXAM Physical Exam Const Vital Signs: 02/08/24 10:39 Temperature 98 F Temperature Source Oral Pulse Rate 94 Respiratory Rate 22 H Blood Pressure 130/81 H Blood Pressure Mean 97 Pulse Ox 99 Oxygen Delivery Method Room Air [facility] MDM MDM Narrative Medical decision making narrative: HISTORY OF PRESENT ILLNESS: 43-year-old female presents with concern for splint malfunction. Patient is MRDD and splint was off this morning. The patient's caregiver thinks she may have taken off purposefully. REVIEW OF SYSTEMS: Pertinent positives: Wrist pain Pertinent negatives: numbness, tingling PHYSICAL EXAM: Nursing triage notes reviewed, Vital signs reviewed Extremities: Slight swelling, TTP over distal wrist, compartments are soft. Neuro: No foc intact 5/5 strength with ok sign (median), intact finger abduction (ulnar) intact wrist extension (radial n). Intact sensation in the radial, ulnar, and median nerve distributions. Skin: Ecchymosis noted over right wrist MEDICAL DECISION MAKING: Chief Complaint: Splint issue External records reviewed: Reviewed imaging from yesterday Factors affecting care: MRDD Social determinants of health: MRDD History obtained from others: Caregiver Consults: none [facility] Narrative: Patient was hemodynamically stable, afebrile nontoxic-appearing. Exam with bruising, TTP over right distal wrist. Right upper extremity is neurovascular tact otherwise. Splint was reapplied. Please see procedure note. Return precautions were discussed. Wrist brace was given in case this works better for the patient. Orthopedic follow-up was arranged. The patient and/or family, caregivers express understanding. The patient and/or family, caregivers agrees with the plan. Shared decision making: I will have a discussion with the patient and or visitors regarding risk/benefits of further testing or admission. They will be made aware of of the risk/benefits inherent in this decision they will be given the opportunity to voice understanding. Total critical care time today provided was at least 0 minutes. This excludes separately billable procedures. Critical care time (if documented) is secondary to the patient having high probability of clinically significant/life threatening deterioration in the patient's condition which required my urgent intervention. Impression: 1. Splint malfunction 2. Wrist fracture Dispo: Discharge home This note was generated with [employer] dictation software. It may contain incorrect words, spelling, and punctuation that were not noted in review of the chart prior to signing. Discharge Plan Triage Chief Complaint: Upper Extremity Injury ED Provider: Zane Martinez Dx/Rx/DC Orders Clinical Impression: MRDD, Closed displaced comminuted fracture of shaft of right ulna Instructions: ED Fracture, Upper Extremity, ED Splint Care, Fiberglass Prescriptions: No Action multivitamin 1 EACH tablet 1 tab PO DAILY carbamazepine 400 MG tablet extended release 12 hr 400 mg PO BID ferrous sulfate 325 MG tablet 325 mg PO DAILY@0800 omeprazole 20 MG capsule,delayed release(DR/EC) 20 mg PO DAILY ergocalciferol (vitamin D2) 50,000 UNIT capsule 50,000 unit PO MO sertraline 50 MG tablet 100 mg PO DAILY lacosamide 200 MG tablet 200 mg PO BID ondansetron 4 MG tablet 4 mg PO Q8H PRN PRN (Reason: Nausea) Qty: 7 0RF levetiracetam 500 MG tablet 500 mg PO BID Potassium Cloride Effervescent [Potassium Chl 25 Meq Eff (For Liquid)] 25 MEQ Tablet.Eff 25 meq PO BID buspirone 5 MG tablet 5 mg PO TID promethazine 25 MG tablet 25 mg PO Q8H PRN PRN (Reason: Nausea/Vomiting) alprazolam 0.5 MG tablet 0.5 mg PO BID PRN PRN (Reason: Anxiety) Qty: 14 0RF hydrocodone-acetaminophen 5-325 mg tablet 1 tab PO Q6H PRN PRN (Reason: Pain) 3 Days Qty: 10 0RF Primary Care Provider: Care Physician,No Primary Referrals: Daniel Mason MD [Non-Staff] - Activity Restrictions/Additional Instructions: Thank you for trusting us with your care today! Please take Tylenol (2 pills, 650 mg), ibuprofen (2 pills, 400 mg) every 6 hours as needed for pain and fever control. Please return to the emergency department if your symptoms change or worsen. Please follow with your primary care physician for further outpatient evaluation and management. Print Language: Georgian Disposition Disposition: Home, Self Care Discharge Date/Time: 02/08/24 12:51
[2024-02-08] MEDS: oxyCODONE 5 MG Tablet PO (12:02)
== END 2024-02-08 12:51 | disposition home or self-care (01) ==
PROVIDERS: Emergency Provider Emergency Medicine; Visit Provider Emergency Medicine
DX: S52.251D Displaced comminuted fracture of shaft of ulna, right arm, subsequent encounter for closed fracture with routine healing (principal); F79 Unspecified intellectual disabilities; X58.XXXD Exposure to other specified factors, subsequent encounter
CPT/HCPCS: 29125; 99283